=== PATIENT | male | born 1945 | race Caucasian/White ===

== ENCOUNTER 2019-05-30 19:56 | Emergency (ER) | payer MEDICARE, SELFPAY ==
[2019-05-30 20:00] VITALS: BP 139/75; PULSE 54; RESP 16; TEMP 36.7; O2SAT 98
--- NOTE | 2019-05-30 20:11 | ED.LOWEXIN ---
HPI - Extremity Injury (Lower) General Chief Complaint: Extremity Problem,Nontraumatic Stated Complaint: left foot/ankle swelling Time Seen by Provider: 05/30/19 20:12 Source: patient Mode of arrival: ambulatory Limitations: no limitations History of Present Illness HPI Narrative: A 73 y/o male presents to the ED with c/o left foot edema that began today. Pt's PCP recommended the pt present to the ED to r/o a blood clot. Pt has a PMHx of A-fib and 2 stents and is on Warfarin. Pt states he was placed on Amlodipine 3 months ago and was also recently placed on Losartan because his Metoprolol alone was not helping. Pt now takes all three BP medications. He denies SOB, CP, fatigue, and recent weight loss. Onset (ago): hour(s) Other symptoms: none Related Data Allergies Allergy/AdvReac Type Severity Reaction Status Date / Time Penicillins Allergy Unknown Hives Verified 05/30/19 20:19 Review of Systems Review of Systems: All systems reviewed & are unremarkable except as noted in HPI and below Constitutional: Constitutional: Denies fatigue Comments: Denies: recent weight loss Cardiovascular: Cardiovascular: Denies chest pain Comments: Reports: left foot edema Respiratory: Respiratory: Denies dyspnea PMFSH Past Medical History Medical History (Updated 05/30/19 @ 21:21 by Milan Chi MD) Afib (Acute) Arthritis (Acute) CAD (coronary artery disease) (Acute) Cataract (Acute) CPAP (continuous positive airway pressure) dependence (Acute) Hemorrhoids (Acute) HTN (hypertension) (Acute) Hyperlipidemia (Acute) Hypothyroid (Acute) Prostate CA (Acute) PTSD (post-traumatic stress disorder) (Acute) Sleep apnea (Acute) Surgical History Surgical History (Updated 05/30/19 @ 20:25 by Megan Wright) H/O bilateral cataract extraction (Acute) H/O prostatectomy (Acute) History of cardiac cath (Acute) Hx of heart artery stent (Acute) x2 Family History Family History (Updated 11/23/18 @ 18:39 by DOCTOR UNKNOWN) Mother Family history of coronary artery disease Father Family history of coronary artery disease Family history of malignant neoplasm Social History Social History Smoking status: Never smoker Alcohol intake: never Comments PCP: Dr. Harden Exam Narrative: Exam Narrative: GENERAL: Well-appearing, well-nourished, and in no acute distress. HEAD: Normocephalic, atraumatic. ENT: Mucous membranes moist. CHEST: Clear to auscultation. No respiratory distress. HEART: Regular rate and rhythm. Normal peripheral pulses. ABDOMEN: Soft, nontender, nondistended. EXTREMITIES: Normal range of motion. 2+ BLE edema. SKIN: Warm, dry, no rash. NEURO: Alert and oriented x3. Course Course Emergency Course: Labs unremarkable. I have arranged for a bilateral lower extremity Doppler ultrasound tomorrow morning's radiology. Patient will show up. He is therapeutic on his warfarin. Discharge home at this time. Patient may have edema as a side effect to his amlodipine or from recent dietary changes given the holidays and potentially high salt content in his food. Vital Signs Vital signs: Vital Signs Temperature 98.1 F 05/30/19 20:00 Pulse Rate 54 L 05/30/19 20:00 Respiratory Rate 16 05/30/19 20:00 Blood Pressure 139/75 05/30/19 20:00 Pulse Oximetry 98 05/30/19 20:00 Temperature 98.1 F 05/30/19 20:00 Pulse Rate 58 L 05/30/19 20:34 Respiratory Rate 16 05/30/19 20:00 Blood Pressure 139/75 05/30/19 20:00 Pulse Oximetry 98 05/30/19 20:00 MDM - Extremity Injury (Lower) Lab Data Result diagrams: 05/30/19 20:32 05/30/19 20:32 Labs: Lab Results 05/30/19 05/30/19 05/30/19 Range/Units 20:32 20:32 20:32 WBC 5.4 (4.5-10.0) K/mm3 RBC 4.29 L (4.6-6.20) M/mm3 Hgb 13.8 L (14.0-18.0) g/dL Hct 40.0 L (42.0-52.0) % MCV 93.2 (80-100) fl MCH 32.2 (26-34) pg MCHC 34.5 (32-36) g/dl RDW 14.6 H (11.5-14.5) % Plt Count
[2019-05-30 20:34] VITALS: PULSE 58
[2019-05-30 20:38] LABS: Basophils Percent Auto 0.6 % (0.2-1.2); Eosinophils Absolute Auto 0.1 K/mm3 (0-0.3); Eosinophils Percent Auto 2.6 % (0-4.4); Hemoglobin 13.8 g/dL (14.0-18.0); Immature Granulocyte Absolute 0.01 K/mm3 (0.00-0.031); Immature Granulocyte Percent A 0.2 % (0-0.5); Lymphocytes Absolute Auto 1.06 K/mm3 (0.9-3.2); Lymphocytes Percent Auto 19.7 % (18.3-44.2); Mean Corpuscular HGB Conc 34.5 g/dl (32-36); Mean Corpuscular Hemoglobin 32.2 pg (26-34); Mean Corpuscular Volume 93.2 fl (80-100); Mean Platelet Volume 9.2 fl (7.4-10.4); Monocytes Absolute Auto 0.6 K/mm3 (0.1-0.6); Monocytes Percent Auto 10.9 % (2.6-8.5); Neutrophils Absolute Auto 3.6 K/mm3 (1.3-6.7); Platelet Count Result 210 k/mm3 (150-375); Red Blood Count 4.29 M/mm3 (4.6-6.20); Red Cell Distribution Width 14.6 % (11.5-14.5); White Blood Count 5.4 K/mm3 (4.5-10.0)
[2019-05-30 20:48] LABS: INR 2.2; Prothrombin Time 24.2 Seconds (11.1-14.7)
[2019-05-30 20:51] LABS: Blood Urea Nitrogen 21 mg/dL (9-20); Carbon Dioxide 26 mmol/L (22-30); Chloride 95 mmol/L (98-107); Estimated CRCL calculation 69 ml/min; Estimated Glomerular Filt Rate > 60; Glucose 99 mg/dL (75-110); Potassium 3.9 mmol/L (3.4-5.0); Sodium 131 mmol/L (137-145)
[2019-05-30 21:01] LABS: NT Pro B Type Natriuretic Pept 82 PG/ML (5-100)
== END 2019-05-30 21:27 | disposition home or self-care (01) ==
PROVIDERS: Emergency Provider Emergency Medicine; PCP Internal Medicine
DX: R60.0 Localized edema (principal); I48.91 Unspecified atrial fibrillation; I10 Essential (primary) hypertension; I25.10 Atherosclerotic heart disease of native coronary artery without angina pectoris; E78.5 Hyperlipidemia, unspecified; E03.9 Hypothyroidism, unspecified; Z95.5 Presence of coronary angioplasty implant and graft; Z79.01 Long term (current) use of anticoagulants
CPT/HCPCS: 36415; 80048; 83880; 85025; 85610; 99283

== ENCOUNTER 2019-09-28 11:44 | Outpatient (CLI) | payer MEDICARE, SELFPAY ==
[2019-09-28 12:55] LABS: Thyroid Stimulating Hormone 0.875 uIU/mL (0.465-4.680)
== END 2019-09-28 11:45 | disposition home or self-care (01) ==
PROVIDERS: PCP Internal Medicine; Visit Provider Internal Medicine
DX: E03.9 Hypothyroidism, unspecified (principal); S56.212A Strain of other flexor muscle, fascia and tendon at forearm level, left arm, initial encounter; X58.XXXA Exposure to other specified factors, initial encounter
CPT/HCPCS: 36415; 84443

== ENCOUNTER 2019-09-29 16:11 | Outpatient (CLI) | payer MEDICARE, SELFPAY ==
--- NOTE | ~2019-09-29 | MR_ITS ---
EXAMINATION: MR elbow LT wo con DATE: 09/29/2019 17:56 INDICATION: Left elbow pain. TECHNIQUE: Magnetic resonance imaging (MRI) of the left elbow was performed without intravenous contr ast. Sequences included coronal and axial PD-weighted FS FSE and coronal, axial, and sagittal PD-weig hted FSE. The patient ended the exam due to pain. COMPARISON: None FINDINGS: Osseous/other: Bone alignment is normal. No fracture. The elbow joint demonstrates partial thickness cartilage loss in ulnohumeral joint. There are tiny marginal osteophytes in the elbow joint. Tendons: Biceps tendon and brachialis tendon are normal. There is moderate common extensor tendinopathy with p artial tear at the origin. There is severe common flexor tendinopathy. There is a hematoma in pronato r teres muscle, consistent with partial tear. Ligaments: There are changes of prior sprain of radial collateral ligament characterized by increased signal int ensity. Lateral ulnar collateral ligament and ulnar collateral ligament are intact. Cubital tunnel: The ulnar nerve demonstrates increased signal, consistent with neuropathy. Fluid: There is no elbow joint effusion. IMPRESSION: 1. Partial tear of pronator teres muscle (grade 2 strain). 2. Severe common flexor tendinopathy. 3. Partial tear of common extensor origin at lateral humeral epicondyle. 4. Mild elbow joint osteoarthritis. 5. Mild ulnar neuropathy. Reviewed, dictated and finalized at location E.
== END 2019-09-29 16:12 | disposition home or self-care (01) ==
PROVIDERS: PCP Internal Medicine; Visit Provider Internal Medicine
DX: S56.212A Strain of other flexor muscle, fascia and tendon at forearm level, left arm, initial encounter (principal); M75.82 Other shoulder lesions, left shoulder; M19.022 Primary osteoarthritis, left elbow; G56.22 Lesion of ulnar nerve, left upper limb
CPT/HCPCS: 73221

== ENCOUNTER 2019-12-20 08:39 | Outpatient (CLI) | payer MEDICARE, SELFPAY ==
[2019-12-20 09:15] LABS: Blood Urea Nitrogen 15 mg/dL (9-20); Carbon Dioxide 29 mmol/L (22-30); Chloride 99 mmol/L (98-107); Cholesterol 133 mg/dL (0-200); Estimated Glomerular Filt Rate > 60; Glucose 101 mg/dL (75-110); HDL Direct 46 mg/dL; Potassium 4.2 mmol/L (3.4-5.0); Sodium 134 mmol/L (137-145); Triglycerides 102 mg/dL (<150)
[2019-12-20 09:17] LABS: Hemoglobin A1C 5.8 % (<5.7)
[2019-12-20 09:20] LABS: Basophils Percent Auto 0.7 % (0.2-1.2); Eosinophils Absolute Auto 0.1 K/mm3 (0-0.3); Eosinophils Percent Auto 2.5 % (0-4.4); Hematocrit 43.9 % (42.0-52.0); Immature Granulocyte Absolute 0.01 K/mm3 (0.00-0.031); Immature Granulocyte Percent A 0.2 % (0-0.5); Lymphocytes Absolute Auto 0.75 K/mm3 (0.9-3.2); Lymphocytes Percent Auto 17.3 % (18.3-44.2); Mean Corpuscular HGB Conc 34.2 g/dl (32-36); Mean Corpuscular Hemoglobin 31.8 pg (26-34); Mean Platelet Volume 9.3 fl (7.4-10.4); Monocytes Absolute Auto 0.5 K/mm3 (0.1-0.6); Monocytes Percent Auto 10.4 % (2.6-8.5); Neutrophils Percent Auto 68.9 % (45.5-73.1); Platelet Count Result 206 k/mm3 (150-375); Red Blood Count 4.72 M/mm3 (4.6-6.20); Red Cell Distribution Width 13.6 % (11.5-14.5); White Blood Count 4.3 K/mm3 (4.5-10.0)
[2019-12-20 09:25] LABS: LDL Cholesterol Direct 62 mg/dL
[2019-12-20 09:45] LABS: Thyroid Stimulating Hormone 0.908 uIU/mL (0.465-4.680)
[2019-12-20 09:46] LABS: Free T4 Free Thyroxine 1.42 ng/mL (0.78-2.19)
== END 2019-12-20 08:40 | disposition home or self-care (01) ==
LOC: ANHLAB 08:42
PROVIDERS: PCP Internal Medicine; Visit Provider Internal Medicine
DX: I10 Essential (primary) hypertension (principal); Z79.899 Other long term (current) drug therapy; E03.9 Hypothyroidism, unspecified; E78.2 Mixed hyperlipidemia
CPT/HCPCS: 36415; 80048; 80061; 83036; 84439; 84443; 85025

== ENCOUNTER 2020-04-10 08:02 | Outpatient (CLI) | payer MEDICARE, SELFPAY ==
[2020-04-10 08:27] LABS: Basophils Percent Auto 0.4 % (0.2-1.2); Eosinophils Absolute Auto 0.1 K/mm3 (0-0.3); Hematocrit 43.3 % (42.0-52.0); Hemoglobin 15.4 g/dL (14.0-18.0); Immature Granulocyte Absolute 0.01 K/mm3 (0.00-0.031); Immature Granulocyte Percent A 0.2 % (0-0.5); Lymphocytes Absolute Auto 0.54 K/mm3 (0.9-3.2); Lymphocytes Percent Auto 10.6 % (18.3-44.2); Mean Corpuscular HGB Conc 35.6 g/dl (32-36); Mean Corpuscular Volume 92.7 fl (80-100); Mean Platelet Volume 9.3 fl (7.4-10.4); Monocytes Absolute Auto 0.5 K/mm3 (0.1-0.6); Monocytes Percent Auto 9.3 % (2.6-8.5); Neutrophils Absolute Auto 3.9 K/mm3 (1.3-6.7); Neutrophils Percent Auto 77.5 % (45.5-73.1); Platelet Count Result 216 k/mm3 (150-375); Red Blood Count 4.67 M/mm3 (4.6-6.20); Red Cell Distribution Width 13.9 % (11.5-14.5); White Blood Count 5.1 K/mm3 (4.5-10.0)
[2020-04-10 08:38] LABS: Anion Gap 7 mmol/L (8-16); Blood Urea Nitrogen 14 mg/dL (9-20); Calcium 9.6 mg/dL (8.4-10.2); Carbon Dioxide 32 mmol/L (22-30); Chloride 97 mmol/L (98-107); Cholesterol 119 mg/dL (0-200); Estimated Glomerular Filt Rate > 60; Glucose 104 mg/dL (75-110); HDL Direct 46 mg/dL; Potassium 4.1 mmol/L (3.4-5.0); Sodium 136 mmol/L (137-145); Triglycerides 68 mg/dL (<150)
[2020-04-10 08:39] LABS: Hemoglobin A1C 5.3 % (<5.7)
[2020-04-10 08:49] LABS: LDL Cholesterol Direct 49 mg/dL
[2020-04-10 09:09] LABS: Thyroid Stimulating Hormone 0.516 uIU/mL (0.465-4.680)
[2020-04-10 09:20] LABS: Free T4 Free Thyroxine 1.46 ng/mL (0.78-2.19)
[2020-04-15 06:08] LABS: Homocysteine 13.3 umol/L (<11.4)
== END 2020-04-10 08:03 | disposition home or self-care (01) ==
PROVIDERS: PCP Internal Medicine; Visit Provider Internal Medicine
DX: R73.03 Prediabetes (principal); E03.9 Hypothyroidism, unspecified; E78.2 Mixed hyperlipidemia; I10 Essential (primary) hypertension; Z79.899 Other long term (current) drug therapy; R79.9 Abnormal finding of blood chemistry, unspecified
CPT/HCPCS: 36415; 80048; 80061; 83036; 83090; 84439; 84443; 85025

== ENCOUNTER 2020-04-15 10:16 | Outpatient (RCR) | payer MEDICARE, SELFPAY ==
[2020-01-22 14:03] LABS: Prothrombin Time 22.6 Seconds (11.1-14.7)
[2020-02-22 16:19] LABS: INR 2.1; Prothrombin Time 23.3 Seconds (11.1-14.7)
[2020-04-15 11:17] LABS: INR 3.4; Prothrombin Time 33.6 Seconds (11.1-14.7)
== END 2020-04-21 23:59 | disposition home or self-care (01) ==
LOC: ANHLAB 10:16
PROVIDERS: PCP Internal Medicine; Visit Provider Internal Medicine Cardiovascular Disease
DX: I48.0 Paroxysmal atrial fibrillation (principal)
CPT/HCPCS: 36415; 85610

== ENCOUNTER 2020-05-06 12:33 | Outpatient (CLI) | payer MEDICARE, SELFPAY ==
[2020-05-06 13:49] LABS: Calcium 9.3 mg/dL (8.4-10.2); Magnesium 2.4 mg/dL (1.6-2.3)
[2020-05-09 23:18] LABS: Vitamin D 1,25 (OH)2 Total 53 pg/mL (18-72); Vitamin D2 1,25 (OH)2 <8 pg/mL; Vitamin D3 1,25 (OH)2 53 pg/mL
== END 2020-05-06 12:34 | disposition home or self-care (01) ==
LOC: ANHLAB 12:35
PROVIDERS: PCP Internal Medicine; Visit Provider Internal Medicine
DX: E55.9 Vitamin D deficiency, unspecified (principal); G25.81 Restless legs syndrome
CPT/HCPCS: 36415; 82310; 82330; 82652; 83735

== ENCOUNTER 2020-05-07 13:34 | Outpatient (CLI) | payer MEDICARE, SELFPAY ==
--- NOTE | ~2020-05-07 | XR_ITS ---
EXAMINATION: XR knee RT 3V DATE: 05/07/2020 14:01 INDICATION: Right knee pain. TECHNIQUE: 3 views of right knee on 4 radiographs were obtained. COMPARISON: None. FINDINGS: Bone alignment is normal. No fracture. There is mild osteoarthritis of medial and patellofe moral compartments characterized by tiny marginal osteophytes. No knee joint effusion. IMPRESSION: 1. Mild right knee osteoarthritis. Reviewed, dictated and finalized at location B. ER MAKING LABORER
== END 2020-05-07 13:35 | disposition home or self-care (01) ==
PROVIDERS: PCP Internal Medicine; Visit Provider Internal Medicine
DX: Z86.718 Personal history of other venous thrombosis and embolism (principal); M17.11 Unilateral primary osteoarthritis, right knee
CPT/HCPCS: 73562

== ENCOUNTER 2020-06-18 13:36 | Outpatient (CLI) | payer MEDICARE, SELFPAY ==
--- NOTE | ~2020-06-18 | XR_ITS ---
EXAMINATION: XR lumbar spine min 4V EXAM DATE: 06/18/2020 14:09 INDICATION: M54.5 - Low back pain . TECHNIQUE: Lumber spine frontal, lateral, lateral L5-S1 projections for interpretation. Additional l ateral flexion and lateral extension projections obtained. There are no prior studies for comparison. FINDINGS: Moderate to severe disc disease L1-L3 and L4-5, moderate at L3-4 and L5-S1. Moderate to se gisella lumbar facet arthropathy. Grade 1 subluxations L1 on L2, L2 on L3 and L3 on L4, visualized on al l of the lateral projections. Mild diffuse loss of lumbar vertebral body heights without acute fractu re line identified. Mild aortic arterial sclerosis. Paraspinal soft tissue otherwise unremarkable. Sa chan, sacroiliac joints, sacral arcuate lines are intact. Mild to moderate lumbar dextroscoliosis. IMPRESSION: 1. Moderate to severe lumbar spondylosis. Reviewed, dictated and finalized at location B. DIATED FUEL HANDLER
== END 2020-06-18 13:37 | disposition home or self-care (01) ==
LOC: ANHIMG 13:40
PROVIDERS: PCP Internal Medicine; Visit Provider Internal Medicine
DX: M47.816 Spondylosis without myelopathy or radiculopathy, lumbar region (principal); I25.10 Atherosclerotic heart disease of native coronary artery without angina pectoris
CPT/HCPCS: 72110

== ENCOUNTER 2020-06-23 10:51 | Outpatient (CLI) | payer MEDICARE, SELFPAY ==
--- NOTE | ~2020-06-23 | MR_ITS ---
EXAMINATION: MR lumbar spine wo con EXAM DATE: 06/23/2020 11:36 INDICATION: M54.9 - Dorsalgia, low back pain unspecified. TECHNIQUE: Multi-sequential, multiplanar MR images of the lumbar spine were obtained without contrast . Sagittal T1, T2, T2 fat saturation images. Axial T2 weighted images. Comparison is made to prior examination from 05/13/2018. FINDINGS: Mild to moderate thoracolumbar dextroscoliosis, lower lumbar levoscoliosis. There is moder ate to severe disc disease L1-L3 and L4-5, moderate at L3-4 and mild at L5-S1. Mild to moderate lower thoracic disc disease. The conus medullaris terminates at the T12-L1 level and has normal signal int ensity and morphology. Mild diffuse loss of vertebral body heights without acute compression fractur e. There is 4 mm retrolisthesis L3 on L4. Paraspinal soft tissue is unremarkable. Level by level evaluation: T12-L1: Disc does not extend beyond the endplate margin. Facet arthropathy: Mild. Neural foraminal stenosis: No stenosis. Central canal stenosis: No stenosis. L1-L2: There is a moderate diffuse disc bulge. Facet arthropathy: Mild to moderate. Neural foraminal stenosis: Moderate left, mild right. Central canal stenosis: Mild to moderate. L2-L3: There is a moderate diffuse disc bulge. Facet arthropathy: Mild to moderate. Neural foraminal stenosis: Moderate left, mild to moderate right. Central canal stenosis: Mild. L3-L4: There is a moderate to large diffuse disc bulge. Facet arthropathy: Moderate to severe right, moderate left. Neural foraminal stenosis: Moderate bilateral, right greater than left. Central canal stenosis: Moderate. L4-L5: There is a moderate diffuse disc bulge. Facet arthropathy: Moderate to severe right, moderate left. Neural foraminal stenosis: Moderate to severe right, mild to moderate left. Central canal stenosis: Mild to moderate. L5-S1: There is a mild diffuse disc bulge. Facet arthropathy: Mild to moderate. Neural foraminal stenosis: Mild right. Central canal stenosis: No stenosis. Compared to prior study, difficult to appreciate any significant interval change. IMPRESSION: 1. Mild to moderate thoracolumbar scoliosis. 2. Moderate to severe spondylosis. Reviewed, dictated and finalized at location B. OPERATIONS MANAGER
== END 2020-06-23 10:52 | disposition home or self-care (01) ==
PROVIDERS: PCP Internal Medicine; Visit Provider Internal Medicine
DX: M47.816 Spondylosis without myelopathy or radiculopathy, lumbar region (principal); M54.30 Sciatica, unspecified side; M41.9 Scoliosis, unspecified
CPT/HCPCS: 72148

== ENCOUNTER 2020-06-24 12:33 | Outpatient (CLI) | payer MEDICARE, SELFPAY ==
--- NOTE | ~2020-06-24 | US_ITS ---
EXAMINATION: US venous doppler LE EXAM DATE: 06/24/2020 13:42 INDICATION: Right calf pain, history of DVT. TECHNIQUE: Multiple grayscale, color flow and Doppler images of the lower extremity deep venous syste ms bilaterally were obtained and reviewed. Comparison is made to prior examination from 05/31/2019. FINDINGS: Right side: The right common femoral, femoral and profunda veins demonstrate normal color flow, respi ratory variation, augmentation and compressibility. Compressibility, color flow confirmed within the right popliteal, posterior tibial, peroneal, and greater saphenous veins. Left side: The left common femoral, femoral and profunda veins demonstrate normal color flow, respira tory variation, augmentation and compressibility. Compressibility, color flow confirmed within the l eft popliteal, posterior tibial, peroneal, and greater saphenous veins. IMPRESSION: 1. No lower extremity deep venous thrombosis bilaterally. Reviewed, dictated and finalized at location B. DENTIAL INTERIOR DESIGNER
--- NOTE | ~2020-06-24 | US_ITS ---
EXAMINATION: US soft tissue buttock LT DATE: 06/24/2020 13:42 INDICATION: Soft tissue mass at the left buttock. TECHNIQUE: Multiple grayscale and Doppler ultrasound images of the region of concern at the left butt ock were obtained. COMPARISON: None FINDINGS/IMPRESSION: Normal appearance to the subcutaneous fat at the region of concern. No abnormal masses or fluid colle ctions identified. Reviewed, dictated and finalized at location A. HERIZATION ADMINISTRATOR
== END 2020-06-24 12:34 | disposition home or self-care (01) ==
LOC: ANHIMG 12:37
PROVIDERS: PCP Internal Medicine; Visit Provider Internal Medicine
DX: M79.662 Pain in left lower leg (principal); M79.661 Pain in right lower leg; M79.89 Other specified soft tissue disorders
CPT/HCPCS: 76705; 93970

== ENCOUNTER 2020-07-15 12:28 | Outpatient (RCR) | payer MEDICARE, SELFPAY ==
[2020-04-22 13:18] LABS: INR 2.5; Prothrombin Time 26.2 Seconds (11.1-14.7)
[2020-04-29 15:05] LABS: INR 2.6; Prothrombin Time 28.7 Seconds (11.1-14.7)
[2020-05-06 13:45] LABS: INR 1.9; Prothrombin Time 22.1 Seconds (11.1-14.7)
[2020-05-13 13:32] LABS: INR 2.5; Prothrombin Time 27.9 Seconds (11.1-14.7)
[2020-06-10 12:23] LABS: INR 2.6; Prothrombin Time 28.2 Seconds (11.1-14.7)
[2020-07-15 13:27] LABS: INR 2.4; Prothrombin Time 26.7 Seconds (11.1-14.7)
== END 2020-07-21 23:59 | disposition home or self-care (01) ==
LOC: ANHLAB 12:28
PROVIDERS: PCP Internal Medicine; Visit Provider Internal Medicine Cardiovascular Disease
DX: I48.0 Paroxysmal atrial fibrillation (principal)
CPT/HCPCS: 36415; 85610

== ENCOUNTER 2020-10-01 13:19 | Outpatient (CLI) | payer MEDICARE, SELFPAY ==
[2020-10-01 13:52] LABS: Basophils Percent Auto 0.4 % (0.2-1.2); Eosinophils Absolute Auto 0.1 K/mm3 (0-0.3); Eosinophils Percent Auto 1.1 % (0-4.4); Hematocrit 42.4 % (42.0-52.0); Hemoglobin 15.1 g/dL (14.0-18.0); Immature Granulocyte Absolute 0.02 K/mm3 (0.00-0.031); Immature Granulocyte Percent A 0.4 % (0-0.5); Lymphocytes Absolute Auto 0.64 K/mm3 (0.9-3.2); Lymphocytes Percent Auto 11.2 % (18.3-44.2); Mean Corpuscular HGB Conc 35.6 g/dl (32-36); Mean Corpuscular Hemoglobin 32.8 pg (26-34); Mean Corpuscular Volume 92.2 fl (80-100); Mean Platelet Volume 8.9 fl (7.4-10.4); Monocytes Absolute Auto 0.6 K/mm3 (0.1-0.6); Monocytes Percent Auto 10.5 % (2.6-8.5); Neutrophils Absolute Auto 4.4 K/mm3 (1.3-6.7); Neutrophils Percent Auto 76.4 % (45.5-73.1); Platelet Count Result 199 k/mm3 (150-375); White Blood Count 5.7 K/mm3 (4.5-10.0)
[2020-10-01 14:04] LABS: Hemoglobin A1C 5.5 % (<5.7)
[2020-10-01 14:06] LABS: Alanine Aminotransferase 24 U/L (4-50); Albumin Level 4.5 g/dL (3.5-5.1); Alkaline Phosphatase 55 U/L (38-126); Anion Gap 6 mmol/L (8-16); Aspartate Amino Transferase 30 U/L (17-59); Bilirubin,Total 0.5 mg/dL (0.2-1.3); Blood Urea Nitrogen 13 mg/dL (9-20); Carbon Dioxide 29 mmol/L (22-30); Chloride 91 mmol/L (98-107); Estimated Glomerular Filt Rate > 60; Glucose 100 mg/dL (75-110); Potassium 4.5 mmol/L (3.4-5.0); Sodium 126 mmol/L (137-145)
== END 2020-10-01 13:20 | disposition home or self-care (01) ==
LOC: ANHLAB 13:22
PROVIDERS: PCP Internal Medicine; Visit Provider Internal Medicine
DX: G47.33 Obstructive sleep apnea (adult) (pediatric) (principal); R73.03 Prediabetes; R79.89 Other specified abnormal findings of blood chemistry; Z51.81 Encounter for therapeutic drug level monitoring; Z79.899 Other long term (current) drug therapy; Z99.89 Dependence on other enabling machines and devices
CPT/HCPCS: 36415; 80053; 83036; 83090; 85025

== ENCOUNTER 2020-10-03 12:23 | Outpatient (CLI) | payer MEDICARE, SELFPAY ==
[2020-10-03 12:56] LABS: Anion Gap 4 mmol/L (8-16); Blood Urea Nitrogen 11 mg/dL (9-20); Calcium 8.8 mg/dL (8.4-10.2); Carbon Dioxide 30 mmol/L (22-30); Chloride 91 mmol/L (98-107); Estimated Glomerular Filt Rate > 60; Glucose 94 mg/dL (75-110); Sodium 125 mmol/L (137-145)
[2020-10-03 12:58] LABS: Potassium Urine Random 73.3 meq/L; Sodium Urine Random 14 meq/L
[2020-10-06 05:32] LABS: Osmolality, Urine 327 mOsm/kg (50-1200)
[2020-10-08 14:02] LABS: Chloride Rand Ur 33 mmol/L (32-290); Chloride/Creatinine Rand Ur 36 (23-275); Creatinine Random Urine 91 mg/dL (20-320)
== END 2020-10-03 12:24 | disposition home or self-care (01) ==
PROVIDERS: PCP Internal Medicine; Visit Provider Internal Medicine
DX: E87.1 Hypo-osmolality and hyponatremia (principal)
CPT/HCPCS: 36415; 80048; 82436; 82570; 83930; 83935; 84133; 84300

== ENCOUNTER 2020-10-07 07:31 | Outpatient (CLI) | payer MEDICARE, SELFPAY ==
[2020-10-07 08:12] LABS: Anion Gap 4 mmol/L (8-16); Blood Urea Nitrogen 12 mg/dL (9-20); Calcium 9.1 mg/dL (8.4-10.2); Carbon Dioxide 30 mmol/L (22-30); Chloride 100 mmol/L (98-107); Estimated Glomerular Filt Rate > 60; Glucose 92 mg/dL (75-110); Potassium 3.8 mmol/L (3.4-5.0); Sodium 134 mmol/L (137-145)
== END 2020-10-07 07:32 | disposition home or self-care (01) ==
PROVIDERS: PCP Internal Medicine; Visit Provider Internal Medicine
DX: E87.1 Hypo-osmolality and hyponatremia (principal)
CPT/HCPCS: 36415; 80048

== ENCOUNTER 2020-10-07 13:09 | Outpatient (CLI) | payer MEDICARE, SELFPAY ==
--- NOTE | ~2020-10-07 | US_ITS ---
EXAMINATION: US venous doppler LE RT DATE: 10/07/2020 14:05 INDICATION: Right lower limb bruising and pain TECHNIQUE: Johnson scale images without and with compression and Doppler images of the right lower extre mity veins were obtained. COMPARISON: 06/24/2020 FINDINGS: The right common femoral vein, profunda femoral vein, popliteal vein, and femoral vein are patent. The posterior tibial and peroneal veins are not well visualized but appear to demonstrate oma w. IMPRESSION: 1. No evidence of deep venous thrombosis. Reviewed, dictated and finalized at location B.
== END 2020-10-07 13:10 | disposition home or self-care (01) ==
PROVIDERS: PCP Internal Medicine; Visit Provider Internal Medicine
DX: M79.604 Pain in right leg (principal)
CPT/HCPCS: 36415; 80048; 93971

== ENCOUNTER 2020-12-23 06:52 | Outpatient (CLI) | payer MEDICARE, SELFPAY ==
[2020-12-23 07:42] LABS: Add Urine Microscopic? NO; Appearance Urine Clear (Clear); Bilirubin Urine Negative (Negative); Blood Urine Negative (Negative); Color Urine Yellow (Yellow); Glucose Urine UA Negative (Negative); Ketones Urine Negative (Negative); Leukocyte Esterase Ur Negative LEU/UL (NEGATIVE); Nitrate Urine Negative (Negative); Protein Urine Negative (Negative); Specific Grav Ur 1.012 (1.001-1.035); Urobilinogen Urine Negative mg/dL (<2.0)
[2020-12-23 07:56] LABS: Alanine Aminotransferase 29 U/L (4-50); Albumin Level 4.2 g/dL (3.5-5.1); Alkaline Phosphatase 52 U/L (38-126); Anion Gap 5 mmol/L (8-16); Aspartate Amino Transferase 35 U/L (17-59); Bilirubin,Total 0.6 mg/dL (0.2-1.3); Blood Urea Nitrogen 15 mg/dL (9-20); Calcium 9.4 mg/dL (8.4-10.2); Carbon Dioxide 30 mmol/L (22-30); Chloride 101 mmol/L (98-107); Cholesterol 119 mg/dL (0-200); Estimated Glomerular Filt Rate > 60; Glucose 93 mg/dL (75-110); HDL Direct 53 mg/dL; Sodium 136 mmol/L (137-145); Triglycerides 66 mg/dL (<150)
[2020-12-23 08:08] LABS: LDL Cholesterol Direct 46 mg/dL
[2020-12-23 08:40] LABS: Free T4 Free Thyroxine 1.17 ng/mL (0.78-2.19)
[2020-12-26 20:48] LABS: Vitamin D 1,25 (OH)2 Total 30 pg/mL (18-72); Vitamin D2 1,25 (OH)2 <8 pg/mL; Vitamin D3 1,25 (OH)2 30 pg/mL
== END 2020-12-23 06:53 | disposition home or self-care (01) ==
PROVIDERS: PCP Internal Medicine; Visit Provider Internal Medicine
DX: E78.2 Mixed hyperlipidemia (principal); E55.9 Vitamin D deficiency, unspecified; E03.9 Hypothyroidism, unspecified; I10 Essential (primary) hypertension; Z79.899 Other long term (current) drug therapy
CPT/HCPCS: 36415; 80053; 80061; 81003; 82652; 84439; 84443

== ENCOUNTER 2021-04-25 07:32 | Outpatient (CLI) | payer MEDICARE, SELFPAY ==
[2021-04-25 08:08] LABS: Basophils Percent Auto 0.7 % (0.2-1.2); Eosinophils Absolute Auto 0.1 K/mm3 (0-0.3); Eosinophils Percent Auto 2.3 % (0-4.4); Hematocrit 44.1 % (42.0-52.0); Hemoglobin 15.9 g/dL (14.0-18.0); Immature Granulocyte Absolute 0.02 K/mm3 (0.00-0.031); Immature Granulocyte Percent A 0.5 % (0-0.5); Lymphocytes Absolute Auto 0.84 K/mm3 (0.9-3.2); Lymphocytes Percent Auto 19.7 % (18.3-44.2); Mean Corpuscular HGB Conc 36.1 g/dl (32-36); Mean Corpuscular Hemoglobin 32.9 pg (26-34); Mean Corpuscular Volume 91.3 fl (80-100); Mean Platelet Volume 9.1 fl (7.4-10.4); Monocytes Absolute Auto 0.4 K/mm3 (0.1-0.6); Monocytes Percent Auto 9.9 % (2.6-8.5); Neutrophils Absolute Auto 2.9 K/mm3 (1.3-6.7); Neutrophils Percent Auto 66.9 % (45.5-73.1); Platelet Count Result 213 k/mm3 (150-375); Red Blood Count 4.83 M/mm3 (4.6-6.20); Red Cell Distribution Width 13.7 % (11.5-14.5); White Blood Count 4.3 K/mm3 (4.5-10.0)
[2021-04-25 08:19] LABS: Hemoglobin A1C 5.6 % (<5.7)
[2021-04-25 08:27] LABS: LDL Cholesterol Direct 49 mg/dL
[2021-04-25 08:32] LABS: Free T4 Free Thyroxine 1.37 ng/mL (0.78-2.19)
[2021-04-25 08:57] LABS: Alanine Aminotransferase 34 U/L (4-50); Albumin Level 4.4 g/dL (3.5-5.1); Alkaline Phosphatase 59 U/L (38-126); Anion Gap 6 mmol/L (8-16); Aspartate Amino Transferase 39 U/L (17-59); Bilirubin,Total 0.8 mg/dL (0.2-1.3); Blood Urea Nitrogen 12 mg/dL (9-20); Calcium 9.5 mg/dL (8.4-10.2); Carbon Dioxide 31 mmol/L (22-30); Chloride 91 mmol/L (98-107); Cholesterol 124 mg/dL (0-200); Estimated Glomerular Filt Rate > 60; Glucose 93 mg/dL (65-110); HDL Direct 54 mg/dL; Sodium 128 mmol/L (137-145); Triglycerides 74 mg/dL (<150); Uric Acid 2.9 mg/dL (3.5-8.5)
== END 2021-04-25 07:33 | disposition home or self-care (01) ==
LOC: ANHLAB 07:37
PROVIDERS: PCP Internal Medicine; Visit Provider Internal Medicine
DX: E03.9 Hypothyroidism, unspecified (principal); I10 Essential (primary) hypertension; M10.9 Gout, unspecified; E78.5 Hyperlipidemia, unspecified; Z79.899 Other long term (current) drug therapy
CPT/HCPCS: 36415; 80053; 80061; 83036; 84439; 84443; 84550; 85025

== ENCOUNTER 2021-05-28 09:46 | Outpatient (CLI) | payer MEDICARE, SELFPAY ==
[2021-05-28 10:46] LABS: Anion Gap 10 mmol/L (8-16); Blood Urea Nitrogen 14 mg/dL (9-20); Calcium 9.2 mg/dL (8.4-10.2); Carbon Dioxide 26 mmol/L (22-30); Chloride 95 mmol/L (98-107); Estimated Glomerular Filt Rate > 60; Glucose 104 mg/dL (65-110); Potassium 4.2 mmol/L (3.4-5.0); Sodium 131 mmol/L (137-145)
[2021-05-28 11:05] LABS: Free T4 Free Thyroxine 1.46 ng/mL (0.78-2.19)
== END 2021-05-28 09:47 | disposition home or self-care (01) ==
LOC: ANHLAB 09:51
PROVIDERS: PCP Internal Medicine; Visit Provider Internal Medicine
DX: E03.9 Hypothyroidism, unspecified (principal); E87.1 Hypo-osmolality and hyponatremia
CPT/HCPCS: 36415; 80048; 84439; 84443

== ENCOUNTER 2021-08-18 07:14 | Outpatient (CLI) | payer MEDICARE, SELFPAY ==
--- NOTE | ~2021-08-18 | XR_ITS ---
EXAMINATION: XR abdomen/kub 1V EXAM DATE: 08/18/2021 08:05 INDICATION: R10.33 - Periumbilical pain. Had bloating sensation, pain, discomfort last week which has mostly resolved. TECHNIQUE: Frontal projection(s) of the abdomen for interpretation as a supervisor record press image for upper GI smal l bowel follow-through. Patient expressed concern about the barium making him constipated. We discuss ed patient's symptoms, medications, indications for this procedure, other tests that patient was havi ng this morning including abdominal ultrasound and lab work. Since his symptoms were mostly resolved at this time and we were unaware of any other reason for performing exam, he declined ingesting bariu m at this time. I stated that if symptoms return he can always reschedule the procedure. FINDINGS: Moderate amount of colonic stool and gas. No small bowel obstruction. There is mild to mod erate lumbar dextroscoliosis and moderate mid lumbar disc disease. There is no organomegaly. No suspi cious soft tissue calcifications identified. IMPRESSION: Moderate amount of colonic stool and gas. Reviewed, dictated and finalized at location A. EILLANCE SUPERVISOR
--- NOTE | ~2021-08-18 | US_ITS ---
EXAMINATION: US abdomen limited EXAM DATE: 08/18/2021 07:48 INDICATION: R14.0 - Abdominal distension (gaseous). TECHNIQUE: Multiple grayscale and Doppler images of the abdomen right upper quadrant were obtained (b y a technologist who performed the scan) and subsequently reviewed. There is no prior study for melina pham. FINDINGS: The pancreatic head and body are normal in appearance. The pancreatic tail is not visualized. The l iver has normal echogenicity and contour. There are no focal liver lesions identified. There is no evidence of intrahepatic biliary duct dilation. Portal venous flow was seen in the hepatopedal, nor mal direction and has normal Doppler waveform. No right-sided hydronephrosis. Common bile duct measures 3 mm, which is normal. The gallbladder wall is normal in thickness, with ex pected amount of distention. No sonographic evidence of pericholecystic fluid. There is no cholelit hiases. Technologist performing exam reports patient did not demonstrate sonographic Koroma's sign. Please note that this sign is less reliable in patients who have received pain medication. IMPRESSION: Unremarkable abdominal ultrasound exam. Reviewed, dictated and finalized at location A. THCARE ARCHITECT
[2021-08-18 09:10] LABS: Alanine Aminotransferase 30 U/L (4-50); Albumin Level 4.5 g/dL (3.5-5.1); Alkaline Phosphatase 69 U/L (38-126); Amylase 109 U/L (30-110); Aspartate Amino Transferase 39 U/L (17-59); Bilirubin,Total 0.9 mg/dL (0.2-1.3); Lipase 106 U/L (23-300)
== END 2021-08-18 07:15 | disposition home or self-care (01) ==
LOC: ANHIMG 07:20
PROVIDERS: PCP Internal Medicine; Visit Provider Internal Medicine
DX: R10.33 Periumbilical pain (principal); R14.0 Abdominal distension (gaseous); Z51.81 Encounter for therapeutic drug level monitoring; Z79.899 Other long term (current) drug therapy; K59.00 Constipation, unspecified; M41.9 Scoliosis, unspecified
CPT/HCPCS: 36415; 74018; 76705; 80076; 82150; 83690

== ENCOUNTER 2021-08-28 14:18 | Outpatient (CLI) | payer MEDICARE, SELFPAY ==
--- NOTE | ~2021-08-28 | CT_ITS ---
EXAMINATION: CT abdomen w con DATE: 08/28/2021 14:53 INDICATION: Abdominal distention. TECHNIQUE: Computed tomography (CT) of the abdomen was performed with 100 cc Omnipaque 350 intravenou s contrast. The dose-length product was 428.85 mGy-cm. Automated exposure control and iterative recon struction technique were employed. COMPARISON: CT dated 08/23/2017. FINDINGS: There is dependent atelectasis. Elevated right diaphragm. Heart size normal. No significant pleural or pericardial effusion. The liver, spleen, pancreas, adrenal glands and right kidney are un remarkable. There is a subcentimeter hypodensity of the left kidney, most likely benign cysts. There is a left extrarenal pelvis. Bowel pattern is nonobstructive with moderate colonic fecal loading. No free air or free fluid. There is atherosclerosis of the aorta without aneurysm. No lymphadenopathy. T here is moderate-severe lower thoracic and lumbar spondylosis. IMPRESSION: 1. No acute abdominal abnormality. Reviewed, dictated and finalized at location A. OPERATOR
[2021-08-29 10:03] LABS: Estimated Glomerular Filt Rate > 60
== END 2021-08-28 14:19 | disposition home or self-care (01) ==
LOC: ANHIMG 14:21
PROVIDERS: PCP Internal Medicine; Visit Provider Internal Medicine
DX: R14.0 Abdominal distension (gaseous) (principal); R10.33 Periumbilical pain; K59.00 Constipation, unspecified; M47.815 Spondylosis without myelopathy or radiculopathy, thoracolumbar region
CPT/HCPCS: 74160; Q9967

== ENCOUNTER 2021-09-03 13:17 | Outpatient (CLI) | payer MEDICARE, SELFPAY | END 2021-09-03 13:18 | disposition home or self-care (01) | PROVIDERS: PCP Internal Medicine; Visit Provider Internal Medicine | DX: R14.0 Abdominal distension (gaseous) (principal); J30.9 Allergic rhinitis, unspecified | CPT/HCPCS: 36415; 86003 ==

== ENCOUNTER 2021-09-16 13:45 | Outpatient (CLI) | payer MEDICARE, SELFPAY ==
--- NOTE | 2021-09-16 | ECG_ITS ---
Measurements Intervals [place] Rate: 61 P: NE: 0 QRS: -38 QRSD: 110 T: 36 QT: 443 QTc: 447 Interpretive Statements SUPRAVENTRICULAR RHYTHM LOW QRS VOLTAGE IN PRECORDIAL LEADS [QRS DEFLECTION < 1.0 mV IN CHEST LEADS] INFERIOR MYOCARDIAL INFARCTION , PROBABLY OLD [40+ ms Q WAVE AND/OR ST/T ABNORMALITY IN II/aVF] ANTEROSEPTAL MYOCARDIAL INFARCTION , OF INDETERMINATE AGE [40+ ms Q WAVE IN V1-V4] ABNORMAL ECG NO PREVIOUS ECG AVAILABLE FOR COMPARISON Electronically Signed On 09-16-2021 17:12:58 CDT by Román Landeros M.D.
[2021-09-16 14:20] LABS: Anion Gap 6 mmol/L (8-16); Blood Urea Nitrogen 16 mg/dL (9-20); Calcium 8.9 mg/dL (8.4-10.2); Carbon Dioxide 29 mmol/L (22-30); Chloride 92 mmol/L (98-107); Estimated Glomerular Filt Rate > 60; Glucose 96 mg/dL (65-110); Potassium 4.4 mmol/L (3.4-5.0); Sodium 127 mmol/L (137-145)
== END 2021-09-16 13:46 | disposition home or self-care (01) ==
LOC: ANHLAB 13:49
PROVIDERS: PCP Internal Medicine
DX: Z51.81 Encounter for therapeutic drug level monitoring (principal); Z79.899 Other long term (current) drug therapy; I25.2 Old myocardial infarction
CPT/HCPCS: 36415; 80048; 93005

== ENCOUNTER 2021-10-13 07:46 | Outpatient (CLI) | payer MEDICARE, SELFPAY ==
[2021-10-13 09:23] LABS: Basophils Percent Auto 0.5 % (0.2-1.2); Eosinophils Absolute Auto 0.1 K/mm3 (0-0.3); Eosinophils Percent Auto 1.8 % (0-4.4); Hemoglobin 15.4 g/dL (14.0-18.0); Immature Granulocyte Absolute 0.01 K/mm3 (0.00-0.031); Immature Granulocyte Percent A 0.3 % (0-0.5); Lymphocytes Absolute Auto 0.64 K/mm3 (0.9-3.2); Lymphocytes Percent Auto 16.2 % (18.3-44.2); Mean Corpuscular HGB Conc 34.2 g/dl (32-36); Mean Corpuscular Hemoglobin 32.8 pg (26-34); Mean Corpuscular Volume 95.7 fl (80-100); Mean Platelet Volume 10.2 fl (7.4-10.4); Monocytes Absolute Auto 0.4 K/mm3 (0.1-0.6); Monocytes Percent Auto 11.1 % (2.6-8.5); Neutrophils Absolute Auto 2.8 K/mm3 (1.3-6.7); Neutrophils Percent Auto 70.1 % (45.5-73.1); Platelet Count Result 178 k/mm3 (150-375); Red Cell Distribution Width 14.1 % (11.5-14.5)
[2021-10-13 09:38] LABS: Alanine Aminotransferase 26 U/L (4-50); Albumin Level 4.3 g/dL (3.5-5.1); Alkaline Phosphatase 63 U/L (38-126); Anion Gap 7 mmol/L (8-16); Aspartate Amino Transferase 31 U/L (17-59); Bilirubin,Total 0.8 mg/dL (0.2-1.3); Blood Urea Nitrogen 14 mg/dL (9-20); Carbon Dioxide 28 mmol/L (22-30); Chloride 98 mmol/L (98-107); Estimated Glomerular Filt Rate > 60; Glucose 88 mg/dL (65-110); Potassium 4.1 mmol/L (3.4-5.0); Sodium 133 mmol/L (137-145)
[2021-10-13 09:39] LABS: Hemoglobin A1C 5.1 % (<5.7)
[2021-10-13 09:55] LABS: Free T4 Free Thyroxine 1.87 ng/mL (0.78-2.19); Vitamin D 25 Hydroxy 75.8 ng/mL
[2021-10-13 10:10] LABS: Thyroid Stimulating Hormone 0.198 uIU/mL (0.465-4.680)
[2021-10-13 10:48] LABS: Folic Acid > 20.0 ng/mL (2.76->20); Vitamin B12 > 1000.0 pg/mL (239-931)
[2021-10-15 09:36] LABS: Cholesterol 112 mg/dL (0-200); HDL Direct 44 mg/dL; Triglycerides 72 mg/dL (<150)
[2021-10-15 09:44] LABS: LDL Cholesterol Direct 40 mg/dL
== END 2021-10-13 07:47 | disposition home or self-care (01) ==
PROVIDERS: PCP Internal Medicine; Visit Provider Internal Medicine
DX: I10 Essential (primary) hypertension (principal); E03.9 Hypothyroidism, unspecified; E55.9 Vitamin D deficiency, unspecified; E53.8 Deficiency of other specified B group vitamins; R73.03 Prediabetes
CPT/HCPCS: 36415; 80053; 80061; 82306; 82607; 82746; 83036; 84439; 84443; 85025

== ENCOUNTER 2021-10-15 10:57 | Outpatient (CLI) | payer MEDICARE, SELFPAY ==
--- NOTE | ~2021-10-15 | XR_ITS ---
EXAMINATION: XR chest 2V DATE: 10/15/2021 11:20 INDICATION: Hyponatremia. TECHNIQUE: Frontal and lateral views of the chest were obtained. COMPARISON: CT abdomen 08/28/2021 FINDINGS: There is mild atelectasis in right middle lobe. No pleural effusion or pneumothorax. The he art size is normal. There is mild chronic anterior wedging of 2 midthoracic vertebral bodies. IMPRESSION: 1. Mild atelectasis in right middle lobe. Reviewed, dictated and finalized at location B.
== END 2021-10-15 10:58 | disposition home or self-care (01) ==
LOC: ANHIMG 10:59
PROVIDERS: PCP Internal Medicine; Visit Provider Internal Medicine Nephrology
DX: E87.1 Hypo-osmolality and hyponatremia (principal); J98.11 Atelectasis
CPT/HCPCS: 71046

== ENCOUNTER 2021-10-24 22:02 | Emergency (ER) | payer MEDICARE, SELFPAY ==
[2021-10-24 22:08] VITALS: BP 153/91; PULSE 60; RESP 18; TEMP 36.6; O2SAT 97
[2021-10-24 22:16] VITALS: BP 188/97; RESP 17; O2SAT 98
--- NOTE | 2021-10-24 22:27 | ECG_ITS ---
Measurements Intervals [place] Rate: 57 P: 255 ME: 177 QRS: -35 QRSD: 102 T: 18 QT: 438 QTc: 430 Interpretive Statements SINUS BRADYCARDIA LEFT AXIS DEVIATION [QRS AXIS < -30] LOW QRS VOLTAGE IN PRECORDIAL LEADS [QRS DEFLECTION < 1.0 mV IN CHEST LEADS] ANTEROSEPTAL MYOCARDIAL INFARCTION , OF INDETERMINATE AGE [40+ ms Q WAVE IN V1-V4] COMPARED TO ECG 09/16/2021 14:18:09 THE R WAVE PROGRESSION IS WORSE Electronically Signed On 10-25-2021 13:40:10 CDT by Michela Mckenna M.D.
[2021-10-24] MEDS: LORazepam INJ (*CRX) 2 MG/ML VIAL 1 MG IV PUSH (22:37)
[2021-10-24] MEDS: ONDANSETRON INJ 4 MG/2 ML VIAL IV PUSH (22:37)
--- NOTE | 2021-10-24 22:42 | ED.SOB ---
HPI - SOB/Dyspnea General Chief Complaint: Abdominal Pain Stated Complaint: SOB, HTN Time Seen by Provider: 10/24/21 22:28 Source: patient Mode of arrival: ambulatory History of Present Illness HPI Narrative: 76-year-old male presents today via EMS with concerns an episode of panting but denies shortness of breath. Patient with history of PTSD, depression, and questionable anxiety. Patient states today he took his blood pressure at home and it was elevated. He called his MD who told him not to take his blood pressure again and to follow-up with him on Wednesday. Patient decided to take a extra dose of metoprolol 12.5 this evening and then ended up with nausea and vomited here x1. Patient denies chest pain, shortness of breath, pain radiating down the arm, pain rating down the jaw. Patient denies cough, fever, or recent sick contacts. He denies having history of panic attacks but does think that he had anxiety last year just was not diagnosed. Related Data Home Medications Medication Instructions Recorded Confirmed dofetilide 500 mcg capsule 500 mcg PO Q12H 05/31/19 10/20/21 rivaroxaban 20 mg tablet 20 mg PO DAILY 08/08/20 10/20/21 Allergies Allergy/AdvReac Type Severity Reaction Status Date / Time Penicillins Allergy Unknown Hives Verified 10/24/21 23:11 Review of Systems Review of Systems: CONSTITUTIONAL: Denies fever, chills, or sweats. EYES: Denies visual changes, redness, or discharge. ENT: Denies rhinorrhea, congestion, sore throat, or otalgia. CARDIOVASCULAR: Denies chest pain, palpitations, or edema. RESPIRATORY: Denies cough or dyspnea. Panting breath GASTROINTESTINAL: Nausea with vomiting x1. GENITOURINARY: Denies dysuria or hematuria. SKIN: Denies rash or itching. MUSCULOSKELETAL: Denies back pain, joint pain, or myalgia. NEUROLOGIC: Denies headache, numbness, dizziness, or weakness. PSYCHIATRIC: Denies anxiety or depression. [facility] Past Medical History Medical History Abdominal bloating Abdominal pain Abnormal finding of blood chemistry Afib Arthritis ASHD (arteriosclerotic heart disease) Back pain with sciatica Benign essential hypertension Bilateral leg pain BMI 28.0-28.9,adult BMI 29.0-29.9,adult BMI 30.0-30.9,adult CAD (coronary artery disease) CAD (coronary artery disease) Cataract Constipation CPAP (continuous positive airway pressure) dependence DVT (deep venous thrombosis) Eczema Edema Elevated homocysteine Encounter for Medicare annual wellness exam Encounter for routine adult health examination without abnormal findings Exposure to Agent [place] Follow up Gout Hemorrhoids History of DVT (deep vein thrombosis) History of prostate cancer HTN (hypertension) Hx of colonic polyps Hyperlipidemia Hyponatremia Hypothyroid Hypothyroidism (acquired) Insomnia Leg pain, right watermaster current use of anticoagulant Low back pain Lumbar spondylosis Obstructive sleep apnea On fci drug therapy DAI on CPAP Pre-diabetes Prostate CA PTSD (post-traumatic stress disorder) RLS (restless legs syndrome) Sleep apnea Soft tissue mass Stress Surgical History Surgical History H/O bilateral cataract extraction H/O prostatectomy History of cardiac cath Hx of heart artery stent x2 Family History Family History Mother Family history of coronary artery disease Father Family history of coronary artery disease Family history of malignant neoplasm Social History Social History Smoking status: Never smoker Alcohol intake: never Exam Narrative: GENERAL: Well-appearing, well-nourished, and in no acute distress. HEAD: Normocephalic, atraumatic. EYES: PERRLA and EOMI. ENT: Nares clear, no rhinorrhea or epistaxis. Mucous membranes moist. Oropharynx without tonsillar
[2021-10-24 23:01] VITALS: BP 134/86; RESP 17; O2SAT 97
[2021-10-24 23:44] LABS: Basophils Percent Auto 0.1 % (0.2-1.2); Eosinophils Percent Auto 0.3 % (0-4.4); Hematocrit 44.1 % (42.0-52.0); Hemoglobin 15.5 g/dL (14.0-18.0); Immature Granulocyte Absolute 0.02 K/mm3 (0.00-0.031); Immature Granulocyte Percent A 0.3 % (0-0.5); Lymphocytes Absolute Auto 0.44 K/mm3 (0.9-3.2); Lymphocytes Percent Auto 6.5 % (18.3-44.2); Mean Corpuscular HGB Conc 35.1 g/dl (32-36); Mean Corpuscular Hemoglobin 33.1 pg (26-34); Mean Corpuscular Volume 94.2 fl (80-100); Mean Platelet Volume 9.4 fl (7.4-10.4); Monocytes Absolute Auto 0.4 K/mm3 (0.1-0.6); Monocytes Percent Auto 6.2 % (2.6-8.5); Neutrophils Absolute Auto 5.8 K/mm3 (1.3-6.7); Neutrophils Percent Auto 86.6 % (45.5-73.1); Platelet Count Result 184 k/mm3 (150-375); Red Blood Count 4.68 M/mm3 (4.6-6.20); Red Cell Distribution Width 13.8 % (11.5-14.5); White Blood Count 6.7 K/mm3 (4.5-10.0)
[2021-10-24 23:56] LABS: Alanine Aminotransferase 24 U/L (4-50); Albumin Level 3.9 g/dL (3.5-5.1); Alkaline Phosphatase 65 U/L (38-126); Anion Gap 3 mmol/L (8-16); Aspartate Amino Transferase 28 U/L (17-59); Bilirubin,Total 0.8 mg/dL (0.2-1.3); Blood Urea Nitrogen 12 mg/dL (9-20); Calcium 8.7 mg/dL (8.4-10.2); Carbon Dioxide 31 mmol/L (22-30); Chloride 93 mmol/L (98-107); Estimated CRCL calculation 60 ml/min; Estimated Glomerular Filt Rate > 60; Glucose 108 mg/dL (65-110); Lipase 61 U/L (23-300); Sodium 127 mmol/L (137-145)
[2021-10-25 00:30] LABS: Add Urine Microscopic? YES; Amorphous Sediment Urine Few; Appearance Urine Cloudy (Clear); Bilirubin Urine Negative (Negative); Blood Urine Negative (Negative); Color Urine Yellow (Yellow); Glucose Urine UA Negative (Negative); Ketones Urine Negative (Negative); Leukocyte Esterase Ur Negative LEU/UL (Negative); Nitrate Urine Negative (Negative); Protein Urine Negative (Negative); RBC Urine 0-2 /hpf (0-2); Specific Grav Ur 1.014 (1.001-1.035); Squamous Epithelial Cell Urine Rare /hpf (Few); Urobilinogen Urine Negative mg/dL (<2.0); WBC Urine 0-3 /hpf
[2021-10-25] MEDS: METOCLOPRAMIDE HCL INJ 10 MG/2 ML VIAL IV PUSH (00:54)
[2021-10-25 00:55] VITALS: BP 162/90; PULSE 60; RESP 14; O2SAT 98
[2021-10-25] MEDS: SODIUM CHLORIDE 0.9% IV 1,000 ML 999 ML IV CONT (00:55)
[2021-10-25] MEDS: SODIUM CHLORIDE 0.9% IV 500 ML 999 ML IV CONT (00:55)
[2021-10-25] MEDS: hydrALAZINE HCL 20 MG/ML VIAL 10 MG IV PUSH (03:05)
[2021-10-25 03:35] VITALS: BP 149/96; PULSE 70; RESP 16; O2SAT 99
== END 2021-10-25 03:32 | disposition home or self-care (01) ==
PROVIDERS: Emergency Medicine; Emergency Provider Nurse Practitioner Family; PCP Internal Medicine
DX: F41.0 Panic disorder [episodic paroxysmal anxiety] (principal); I10 Essential (primary) hypertension; R11.0 Nausea; I48.91 Unspecified atrial fibrillation; I25.10 Atherosclerotic heart disease of native coronary artery without angina pectoris; M10.9 Gout, unspecified; E03.9 Hypothyroidism, unspecified; G47.33 Obstructive sleep apnea (adult) (pediatric); R73.03 Prediabetes; G25.81 Restless legs syndrome; Z85.46 Personal history of malignant neoplasm of prostate; Z86.718 Personal history of other venous thrombosis and embolism; Z98.42 Cataract extraction status, left eye; Z98.41 Cataract extraction status, right eye; Z90.79 Acquired absence of other genital organ(s); Z95.5 Presence of coronary angioplasty implant and graft; Z86.010 Personal history of colon polyps; Z79.01 Long term (current) use of anticoagulants; R00.1 Bradycardia, unspecified; R94.31 Abnormal electrocardiogram [ECG] [EKG]
CPT/HCPCS: 36415; 80053; 81001; 83690; 85025; 93005; 96361; 96374; 96375; 99284; J0360; J2060; J2405; J2765; J7030; J7040

== ENCOUNTER 2021-12-15 08:41 | Outpatient (CLI) | payer MEDICARE, SELFPAY ==
[2021-12-15 09:47] LABS: Add Urine Microscopic? NO; Appearance Urine Clear (Clear); Bilirubin Urine Negative (Negative); Blood Urine Negative (Negative); Color Urine Yellow (Yellow); Glucose Urine UA Negative (Negative); Ketones Urine Negative (Negative); Leukocyte Esterase Ur Negative LEU/UL (Negative); Nitrate Urine Negative (Negative); Protein Urine Negative (Negative); Specific Grav Ur 1.015 (1.001-1.035); Urobilinogen Urine 0.2 mg/dL (<2.0)
[2021-12-15 09:51] LABS: Albumin Level 4.3 g/dL (3.5-5.1); Anion Gap 3 mmol/L (8-16); Blood Urea Nitrogen 18 mg/dL (9-20); Calcium 9.2 mg/dL (8.4-10.2); Carbon Dioxide 30 mmol/L (22-30); Chloride 99 mmol/L (98-107); Estimated Glomerular Filt Rate > 60; Glucose 76 mg/dL (65-110); Phosphorus 3.5 mg/dL (2.5-4.5); Potassium 4.5 mmol/L (3.4-5.0); Sodium 132 mmol/L (137-145)
[2021-12-15 09:54] LABS: Total Protein Urine Random 8 mg/dL
[2021-12-15 09:55] LABS: Sodium Urine Random 41 meq/L
[2021-12-18 05:33] LABS: Osmolality, Urine 362 mOsm/kg (50-1200)
[2021-12-19 11:31] LABS: Albumin 3.9 g/dL (3.8-4.8); Alpha 1 Globulin 0.3 g/dL (0.2-0.3); Alpha 2 Globulin 0.8 g/dL (0.5-0.9); Beta 1 Globulin 0.4 g/dL (0.4-0.6); Gamma Globulin 1.1 g/dL (0.8-1.7); Protein, Total 6.8 g/dL (6.1-8.1); Total Protein/Creatinine Ratio 122 mg/g creat (22-128)
== END 2021-12-15 08:42 | disposition home or self-care (01) ==
LOC: ANHLAB 08:50
PROVIDERS: PCP Internal Medicine; Visit Provider Internal Medicine Nephrology
DX: E87.1 Hypo-osmolality and hyponatremia (principal); I10 Essential (primary) hypertension
CPT/HCPCS: 36415; 80069; 81003; 82533; 82570; 83930; 83935; 84155; 84156; 84165; 84166; 84300

== ENCOUNTER 2022-02-09 09:44 | Outpatient (CLI) | payer MEDICARE, SELFPAY ==
[2022-02-09 10:46] LABS: Free T4 Free Thyroxine 1.64 ng/mL (0.78-2.19)
[2022-02-09 10:48] LABS: Thyroid Stimulating Hormone 0.465 uIU/mL (0.465-4.680)
== END 2022-02-09 09:45 | disposition home or self-care (01) ==
LOC: ANHLAB 09:48
PROVIDERS: PCP Internal Medicine; Visit Provider Internal Medicine
DX: I10 Essential (primary) hypertension (principal); E03.9 Hypothyroidism, unspecified
CPT/HCPCS: 36415; 84439; 84443

== ENCOUNTER 2022-03-31 08:22 | Outpatient (CLI) | payer MEDICARE, SELFPAY ==
[2022-03-31 09:04] LABS: Basophils Percent Auto 0.7 % (0.2-1.2); Eosinophils Absolute Auto 0.1 K/mm3 (0-0.3); Eosinophils Percent Auto 2.5 % (0-4.4); Hematocrit 42.5 % (42.0-52.0); Immature Granulocyte Absolute 0.01 K/mm3 (0.00-0.031); Immature Granulocyte Percent A 0.2 % (0-0.5); Lymphocytes Absolute Auto 0.74 K/mm3 (0.9-3.2); Lymphocytes Percent Auto 18.4 % (18.3-44.2); Mean Corpuscular HGB Conc 35.3 g/dl (32-36); Mean Corpuscular Hemoglobin 32.8 pg (26-34); Mean Corpuscular Volume 92.8 fl (80-100); Mean Platelet Volume 9.2 fl (7.4-10.4); Monocytes Absolute Auto 0.4 K/mm3 (0.1-0.6); Monocytes Percent Auto 10.7 % (2.6-8.5); Neutrophils Absolute Auto 2.7 K/mm3 (1.3-6.7); Neutrophils Percent Auto 67.5 % (45.5-73.1); Platelet Count Result 189 k/mm3 (150-375); Red Blood Count 4.58 M/mm3 (4.6-6.20)
[2022-03-31 09:19] LABS: Alanine Aminotransferase 29 U/L (6-50); Albumin Level 4.4 g/dL (3.5-5.1); Alkaline Phosphatase 68 U/L (38-126); Anion Gap 8 mmol/L (8-16); Aspartate Amino Transferase 32 U/L (17-59); Bilirubin,Total 1.1 mg/dL (0.2-1.3); Blood Urea Nitrogen 13 mg/dL (9-20); Calcium 9.2 mg/dL (8.4-10.2); Carbon Dioxide 29 mmol/L (22-30); Chloride 93 mmol/L (98-107); Cholesterol 133 mg/dL (0-200); Estimated Glomerular Filt Rate > 60; Glucose 92 mg/dL (65-110); HDL Direct 49 mg/dL; Sodium 130 mmol/L (137-145); Triglycerides 64 mg/dL (<150); Uric Acid 3.1 mg/dL (3.5-8.5)
[2022-03-31 09:30] LABS: LDL Cholesterol Direct 54 mg/dL
[2022-03-31 09:47] LABS: Thyroid Stimulating Hormone 0.224 uIU/mL (0.465-4.680)
[2022-03-31 10:19] LABS: Free T4 Free Thyroxine 2.11 ng/mL (0.78-2.19); Vitamin D 25 Hydroxy 72.7 ng/mL
[2022-03-31 12:32] LABS: Hemoglobin A1C 5.3 % (<5.7)
== END 2022-03-31 08:23 | disposition home or self-care (01) ==
PROVIDERS: PCP Internal Medicine; Visit Provider Internal Medicine
DX: R73.03 Prediabetes (principal); I10 Essential (primary) hypertension; E55.9 Vitamin D deficiency, unspecified; E78.5 Hyperlipidemia, unspecified; E03.9 Hypothyroidism, unspecified; M10.9 Gout, unspecified
CPT/HCPCS: 36415; 80053; 80061; 82306; 83036; 84439; 84443; 84550; 85025

== ENCOUNTER 2022-06-09 14:53 | Outpatient (CLI) | payer MEDICARE, SELFPAY ==
--- NOTE | ~2022-06-09 | XR_ITS ---
EXAMINATION: XR lumbar spine 6V w bending DATE: 06/09/2022 15:22 INDICATION: Low back pain TECHNIQUE: Anteroposterior, lateral in neutral, flexion and extension, and bilateral oblique views of the lumbar spine, and cone-down lateral view of the lumbosacral junction were obtained. COMPARISON: 06/18/2020 FINDINGS: There are 15 degrees of lumbar levoscoliosis. The vertebral body heights and alignment are maintained. There is multilevel severe loss of intervertebral disc space height. No fracture is ident ified. The heart size is normal. There is calcified atherosclerosis of the aorta. IMPRESSION: 1. Severe lumbar spondylosis without acute findings or significant interval change. Reviewed, dictated and finalized at location A. E MACHINE OFFBEARER IMPRESSION: 1. Severe lumbar spondylosis without acute findings or significant interval jeffery nge.
== END 2022-06-09 14:54 | disposition home or self-care (01) ==
PROVIDERS: PCP Internal Medicine; Visit Provider Internal Medicine
DX: M47.816 Spondylosis without myelopathy or radiculopathy, lumbar region (principal)
CPT/HCPCS: 72114

== ENCOUNTER 2022-08-06 15:55 | Observation (INO) | payer MEDICARE, SELFPAY ==
[2022-08-06] VITALS (37 sets, daily range): BP systolic 74–149; BP diastolic 48–101; PULSE 61–112; RESP 11–25; TEMP 36.4–36.9; O2SAT 97–100; BMI 29.5
--- NOTE | ~2022-08-06 | XR_ITS ---
EXAMINATION: XR chest 2V DATE: 08/06/2022 16:36 INDICATION: Heart palpitations TECHNIQUE: AP and lateral views of the chest are obtained. COMPARISON: 10/15/2021 FINDINGS: There is mild atelectasis of the lung bases. No pleural effusion or pneumothorax. The cardi omediastinal silhouette is normal. There is mild thoracic spondylosis. There is osteoarthritis of the shoulders. IMPRESSION: 1. Mild atelectasis of the lung bases. Reviewed, dictated and finalized at location [facility]
--- NOTE | 2022-08-06 16:15 | ECG_ITS ---
Measurements Intervals [place] Rate: 94 P: [place]: 0 QRS: -49 QRSD: 90 T: 62 QT: 355 QTc: 444 Interpretive Statements ATRIAL FIBRILLATION WITH ABERRANT CONDUCTION OR VENTRICULAR PREMATURE COMPLEXES INFERIOR MYOCARDIAL INFARCTION , PROBABLY OLD [40+ ms Q WAVE AND/OR ST/T ABNORMALITY IN II/aVF] ANTEROSEPTAL MYOCARDIAL INFARCTION , PROBABLY OLD [40+ ms Q WAVE IN V1-V4] COMPARED TO ECG 10/24/2021 22:18:07 ATRIAL FIBRILLATION REPLACES SINUS BRADYCARDIA Electronically Signed On 08-07-2022 13:02:21 MAT GAUGER by Piter Davis M.D.
--- NOTE | 2022-08-06 16:20 | ED.ARRPALP ---
HPI - Arrhythmia/Palpitations General Chief Complaint: Arrhythmia/Palpitations <Steven Springer MD - Last Filed: 08/07/22 07:31> Stated Complaint: short of breath, thinks he is afib <Steven Springer MD - Last Filed: 08/07/22 07:31> Time Seen by Provider: 08/06/22 16:17 <Steven Springer MD - Last Filed: 08/07/22 07:31> Source: patient <Steven Springer MD - Last Filed: 08/07/22 07:31> Mode of arrival: ambulatory <Steven Springer MD - Last Filed: 08/07/22 07:31> Limitations: no limitations <Steven Springer MD - Last Filed: 08/07/22 07:31> History of Present Illness HPI narrative: Patient is 76 years old white female woke up in the middle of the night with left chest discomfort, then found out that he got up to go to the bathroom to urinate. Patient kept waking up to go to the bathroom for 3 times. Been feeling dizzy, left chest discomfort, feeling like going to fall, went upstairs to ask his to listen to his heart and was told that his heart rate is very fast. History of atrial fibrillation on Xarelto. Patient received all his medication at the morning and at noon and was still feeling dizzy with left chest discomfort. He denies any fever, chills, nausea, vomiting, diarrhea. <Steven Springer MD - Last Filed: 08/07/22 07:31> Related Data Home Medications: Home Medications Medication Instructions Recorded Confirmed dofetilide 500 mcg capsule 500 mcg PO Q12H 05/31/19 08/06/22 (Tikosyn) rivaroxaban 20 mg tablet (Xarelto) 20 mg PO QPM 08/08/20 08/06/22 allopurinol 300 mg tablet 300 mg PO DAILY 08/06/22 08/06/22 cholecalciferol (vitamin D3) 125 5,000 unit PO DAILY 08/06/22 08/06/22 mcg (5,000 unit) tablet (Vitamin D3) ezetimibe 10 mg tablet 10 mg PO DAILY 08/06/22 08/06/22 folic acid-vit B6-vit B12 2.2 1 tablet PO DAILY 08/06/22 08/06/22 mg-25 mg-0.5 mg tablet (Folplex) levothyroxine 137 mcg tablet 137 mcg PO DIRECTED 08/06/22 08/06/22 (Synthroid) losartan 25 mg tablet 25 mg PO DAILY 08/06/22 08/06/22 polyethylene glycol 3350 17 gram 17 g PO DAILY 08/06/22 08/06/22 oral powder packet (Miralax) simvastatin 20 mg tablet 20 mg PO HS 08/06/22 08/06/22 melatonin 5 mg tablet 5 mg PO HS 08/07/22 08/07/22 <Steven Springer MD - Last Filed: 08/07/22 07:31> Allergies/Adverse Reactions: Allergies Allergy/AdvReac Type Severity Reaction Status Date / Time Penicillins Allergy Unknown Hives Verified 05/08/22 10:25 <Steven Springer MD - Last Filed: 08/07/22 07:31> Review of Systems Review of Systems: All systems reviewed & are unremarkable except as noted in HPI and below <Steven Springer MD - Last Filed: 08/07/22 07:31> [facility] Past Medical History Medical History: Medical History Abdominal bloating Abdominal pain Abnormal finding of blood chemistry Afib Arthritis ASHD (arteriosclerotic heart disease) Back pain with sciatica Benign essential hypertension Bilateral leg pain BMI 27.0-27.9,adult BMI 28.0-28.9,adult BMI 29.0-29.9,adult BMI 30.0-30.9,adult CAD (coronary artery disease) CAD (coronary artery disease) Cataract Constipation CPAP (continuous positive airway pressure) dependence Diarrhea DVT (deep venous thrombosis) Eczema Edema Elevated homocysteine Encounter for Medicare annual wellness exam Encounter for routine adult health examination without abnormal findings Exposure to Agent [place] Follow up Gout Hemorrhoids History of DVT (deep vein thrombosis) History of prostate cancer HTN (hypertension) Hx of colonic polyps Hyperlipidemia Hyponatremia Hypotension Hypothyroid Hypothyroidism (acquired) Insomnia Left upper arm pain Leg pain, right skilled nursing current use of anticoagulant Low back pain Lumbar spondylosis Obstructive sleep apnea On retirement drug therapy DAI on CPAP Other and unspecified hyperlipidemia Pre-diabetes Prostate CA PTSD (post-traumatic stress disorder) RLS (restle
[2022-08-06 16:32] LABS: Basophils Percent Auto 0.5 % (0.2-1.2); Eosinophils Absolute Auto 0.1 K/mm3 (0-0.3); Hematocrit 46.6 % (42.0-52.0); Hemoglobin 16.3 g/dL (14.0-18.0); Immature Granulocyte Absolute 0.01 K/mm3 (0.00-0.031); Immature Granulocyte Percent A 0.2 % (0-0.5); Lymphocytes Absolute Auto 0.89 K/mm3 (0.9-3.2); Lymphocytes Percent Auto 15.3 % (18.3-44.2); Mean Corpuscular Hemoglobin 32.9 pg (26-34); Monocytes Absolute Auto 0.7 K/mm3 (0.1-0.6); Monocytes Percent Auto 12.4 % (2.6-8.5); Neutrophils Absolute Auto 4.1 K/mm3 (1.3-6.7); Neutrophils Percent Auto 70.6 % (45.5-73.1); Platelet Count Result 218 k/mm3 (150-375); Red Blood Count 4.96 M/mm3 (4.6-6.20); Red Cell Distribution Width 14.3 % (11.5-14.5); White Blood Count 5.8 K/mm3 (4.5-10.0)
[2022-08-06 16:40] LABS: Alanine Aminotransferase 36 U/L (6-50); Albumin Level 4.2 g/dL (3.5-5.1); Alkaline Phosphatase 64 U/L (38-126); Anion Gap 6 mmol/L (8-16); Aspartate Amino Transferase 35 U/L (17-59); Bilirubin,Total 0.6 mg/dL (0.2-1.3); Blood Urea Nitrogen 16 mg/dL (9-20); Calcium 8.8 mg/dL (8.4-10.2); Carbon Dioxide 27 mmol/L (22-30); Chloride 100 mmol/L (98-107); Estimated Glomerular Filt Rate > 60; Glucose 105 mg/dL (65-110); Lipase 92 U/L (23-300); Potassium 4.1 mmol/L (3.4-5.0); Sodium 133 mmol/L (137-145)
[2022-08-06 16:55] LABS: Troponin I < 0.012 ng/mL (0.000-0.034)
[2022-08-06 17:00] LABS: Partial Thromboplastin Time 40.1 SECONDS (22.3-36.8)
[2022-08-06 17:22] LABS: Thyroid Stimulating Hormone 0.052 uIU/mL (0.465-4.680)
[2022-08-06] MEDS: SODIUM CHLORIDE 0.9% IV 1,000 ML 999 ML IV CONT ×2 (18:14)
[2022-08-06 18:38] LABS: Appearance Urine Clear (Clear); Bilirubin Urine Negative (Negative); Blood Urine Negative (Negative); Color Urine Yellow (Yellow); Glucose Urine UA Negative (Negative); Ketones Urine Negative (Negative); Leukocyte Esterase Ur Negative LEU/UL (Negative); Nitrate Urine Negative (Negative); Protein Urine Negative (Negative); Specific Grav Ur 1.015 (1.001-1.035)
[2022-08-06 18:45] LABS: Add Urine Microscopic? NO
[2022-08-06 20:04] LABS: Troponin I < 0.012 ng/mL (0.000-0.034)
--- NOTE | 2022-08-06 20:28 | PM.IMHP ---
H&P: HPI History of Present Illness Date/Time: 08/06/22 20:28 Chief Complaint: Lightheadedness Narrative: This is a 76-year-old male with past medical history significant for atrial fibrillation, anticoagulated, rhythm controlled/rate controlled gout, hypothyroidism, patient presents to the emergency room after he had episode of lightheadedness in the night with chest discomfort, shortness of breath, palpitations, near-syncope, denies any nausea, vomiting, abdominal pain, describes chest discomfort as pressure-like is localized to the retrosternal area nonradiating, denies any fevers, rigors, chills, cough, sputum production has been his usual state of health. Preliminary workup was significant for patient being orthostatic received few L for fluid resuscitation in the emergency room but remain orthostatic he was noted to be on atrial fibrillation with heart rate in the 60s. Patient is being placed in observation for further evaluation management and treatment. An EKG was reported as: ATRIAL FIBRILLATION WITH ABERRANT CONDUCTION OR VENTRICULAR PREMATURE COMPLEXES INFERIOR MYOCARDIAL INFARCTION , PROBABLY OLD [40+ ms Q WAVE AND/OR ST/T ABNORMALITY IN II/aVF] ANTEROSEPTAL MYOCARDIAL INFARCTION , PROBABLY OLD [40+ ms Q WAVE IN V1-V4] COMPARED TO ECG 10/24/2021 22:18:07 ATRIAL FIBRILLATION NOW PRESENT ABERRANT CONDUCTION OF SUPRAVENTRICULAR BEAT(S) NOW PRESENT A chest x-ray was reported as: FINDINGS: There is mild atelectasis of the lung bases. No pleural effusion or pneumothorax. The cardiomediastinal silhouette is normal. There is mild thoracic spondylosis. There is osteoarthritis of the shoulders. IMPRESSION: 1. Mild atelectasis of the lung bases. Review of Systems Review of Systems: Lightheadedness, retrosternal chest discomfort, palpitations, Constitutional: Constitutional: Denies chills, Denies fever(s), Denies malaise, Denies night sweats and Denies weakness Eyes: Eyes: Denies change in vision ENT: Denies dysphagia, Denies vertigo, Reports dizziness and Denies odynophagia Cardiovascular: Cardiovascular: Reports irregular heart rhythm, Reports leg edema, Reports lightheadedness, Denies radiating jaw, neck or arm pain, Reports palpitations and Reports dyspnea Respiratory: Respiratory: Denies chest congestion, Denies cough, Denies excessive phlegm production, Denies pain on inspiration and Denies dyspnea on exertion Gastrointestinal: Gastrointestinal: Denies abdominal pain, Denies dyspepsia, Denies heartburn, Denies diarrhea, Denies nausea and Denies vomiting Genitourinary: Genitourinary: Denies dysuria Musculoskeletal: Musculoskeletal: Denies back pain, Denies joint swelling and Denies muscle weakness Integumentary/Breasts: Skin/Breast: Denies rash Neurologic: Denies focal weakness Psychiatric: Psychiatric: Reports no additional psychiatric complaints Endocrine: Endocrine: Denies cold intolerance, Denies flushing, Denies heat intolerance, Denies polyphagia, Denies polydipsia and Denies palpitations Hematologic/Lymphatic: Hematologic/Lymphatic: Reports no additional hematologic/lymphatic complaints and Reports as per HPI Allergic/Immunologic: Allergic/Immunologic: Reports no additional allergic/immunologic complaints and Reports as per HPI PMFSH Past Medical History Medical History Abdominal bloating Abdominal pain Abnormal finding of blood chemistry Afib Arthritis ASHD (arteriosclerotic heart disease) Back pain with sciatica Benign essential hypertension Bilateral leg pain BMI 27.0-27.9,adult BMI 28.0-28.9,adult BMI 29.0-29.9,adult BMI 30.0-30.9,adult CAD (coronary artery disease) CAD (coronary artery disease) Cataract Constipation CPAP (continuous positive airway pressure) dependence Diarrhea DVT (deep venous thrombosis) Eczema Edema Elevated homocysteine Encounter for Medicare annual wellness exam Encounter for routine adult health examination without abnorm
[2022-08-06] MEDS: SODIUM CHLORIDE 0.9% IV 1,000 ML 75 ML IV CONT (20:39)
[2022-08-06 22:28] LABS: Troponin I < 0.012 ng/mL (0.000-0.034)
[2022-08-06 22:43] LABS: Influenza A QL RT-PCR Negative (Negative); Influenza B QL RT-PCR Negative (Negative); SARS-CoV-2 RNA PCR Negative
--- NOTE | 2022-08-06 23:48 | ADMGEN ---
This patient, Nirav Silvestre, was admitted to [facility] Surg Room 329-01. Patient/family oriented to hospital policies and general routines including ID bracelet, bed and alarms, visiting hours, pain management, procedures, bathroom and other care routines, personal items, smoking policy, room service/diet, and visiting hours. Information on how to activate the Rapid Response Team has been discussed. Patient/Family are encouraged to report perceived risks to care and to ask questions if they do not understand what they are told or what they should do.
[2022-08-07] VITALS (15 sets, daily range): BP systolic 74–161; BP diastolic 40–96; PULSE 51–99; RESP 14–20; TEMP 36.1–36.6; O2SAT 96–100
--- NOTE | 2022-08-07 | ECHO_ITS ---
Patient Info Name: Nirav Silvester Age: 76 years : 1945 Gender: Male Ht: 71 in Wt: 212 lbs BSA: 2.22 m2 HR: 62 bpm BP: 126 / 86 mmHg Heart Rhythm: Sinus Rhythm Exam Date: 08/07/2022 8:15 AM Exam Location: [facility] Patient Status: Outpatient Admit Date: 08/06/2022 Staff Ordering Physician: Yasmin Sandoval MD Workforce Planner: Tank oKroma, HAYDEE, RT Attending Provider: Yasmin Sandoval MD Referring Physician: Lori HERRERA; Exam Type: CA echo doppler color flow Study Info Indications I48.1 - Persistent atrial fibrillation Complete two-dimensional, color flow and Doppler transthoracic echocardiogram is performed. Strain analysis performed. Summary 1. Complete two-dimensional, color flow and Doppler transthoracic echocardiogram is performed. 2. Technically difficult image quality from the parasternal window apical windows were good. 3. Normal left ventricular size and systolic function with grade 1 diastolic noncompliance. 4. Mild left atrial enlargement. 5. Sclerotic aortic valve with mildly reduced valve area 1.8 cm2 no significant stenosis. 6. Normal sinus rhythm. Left Ventricle Left ventricular chamber dimension is normal. Left ventricular systolic function is normal, estimated at 60-65%. There is mild concentric increased left ventricular wall thickness. The left ventricular diastolic function is grade I diastolic dysfunction. Right Ventricle Right ventricular chamber dimension is normal. Left Atria Left atrial chamber dimension is mildly enlarged. Right Atria Right atrial chamber dimension is normal. Aortic Valve The aortic valve is trileaflet. There is mild aortic valve sclerosis. There is mild aortic valve stenosis with a peak velocity of 167 cm/s, mean gradient of 5 mmHg, and aortic valve area of 2.1 cm2. Pulmonic Valve The pulmonic valve is not well visualized. Mitral Valve The mitral valve has normal leaflets. Tricuspid Valve The tricuspid valve leaflets are not well visualized. Pericardium/Pleural The pericardium appears normal. Aorta The aortic root size at the sinus of Valsalva is normal. Left Ventricular Outflow Tract Name Value Normal LVOT 2D LVOT Diameter 2.0 cm LVOT Doppler LVOT Peak Gradient 3 mmHg LVOT Mean Gradient 2 mmHg LVOT VTI 22 cm LVOT VTI/AV VTI Ratio 0.6 LVOT Stroke Volume 71 ml LVOT CO 4.4 l/min LVOT CI 2.0 l/min/m2 Mitral Valve Name Value Normal MV Doppler MV Peak Gradient 1 mmHg MV Mean Gradient 0 mmHg MV Decel Hood 301 cm/s2 MV PHT 6
[2022-08-07] MEDS: MELATONIN 5 MG TABLET PO (01:15)
[2022-08-07] MEDS: clonazePAM (*CRX) 0.5 MG TABLET 1 MG PO (01:15)
[2022-08-07] MEDS: SODIUM CHLORIDE 0.9% IV 1,000 ML 999 ML IV CONT (05:00)
[2022-08-07] MEDS: LEVOTHYROXINE SODIUM 112 MCG TABLET PO (05:46)
[2022-08-07] MEDS: LEVOTHYROXINE SODIUM 25 MCG TABLET PO (05:46)
[2022-08-07 06:33] LABS: Basophils Percent Auto 0.4 % (0.2-1.2); Eosinophils Absolute Auto 0.1 K/mm3 (0-0.3); Eosinophils Percent Auto 1.4 % (0-4.4); Hematocrit 41.5 % (42.0-52.0); Hemoglobin 14.5 g/dL (14.0-18.0); Immature Granulocyte Absolute 0.02 K/mm3 (0.00-0.031); Immature Granulocyte Percent A 0.4 % (0-0.5); Lymphocytes Absolute Auto 0.81 K/mm3 (0.9-3.2); Lymphocytes Percent Auto 16.7 % (18.3-44.2); Mean Corpuscular HGB Conc 34.9 g/dl (32-36); Mean Corpuscular Hemoglobin 32.7 pg (26-34); Mean Corpuscular Volume 93.5 fl (80-100); Mean Platelet Volume 9.2 fl (7.4-10.4); Monocytes Absolute Auto 0.6 K/mm3 (0.1-0.6); Monocytes Percent Auto 11.9 % (2.6-8.5); Neutrophils Absolute Auto 3.4 K/mm3 (1.3-6.7); Neutrophils Percent Auto 69.2 % (45.5-73.1); Platelet Count Result 171 k/mm3 (150-375); Red Blood Count 4.44 M/mm3 (4.6-6.20); Red Cell Distribution Width 14.1 % (11.5-14.5); White Blood Count 4.9 K/mm3 (4.5-10.0)
[2022-08-07 06:40] LABS: Anion Gap 4 mmol/L (8-16); Blood Urea Nitrogen 12 mg/dL (9-20); Carbon Dioxide 24 mmol/L (22-30); Chloride 105 mmol/L (98-107); Estimated CRCL calculation 64 ml/min; Estimated Glomerular Filt Rate > 60; Glucose 81 mg/dL (65-110); Potassium 3.8 mmol/L (3.4-5.0); Sodium 133 mmol/L (137-145)
[2022-08-07] MEDS: CHOLECALCIFEROL 1,000 UNITS TABLET 5000 UNITS PO (09:32)
[2022-08-07] MEDS: allopurinoL 300 MG TABLET PO (09:32)
[2022-08-07] MEDS: VITAMIN B CMPLX/VIT C/FOLIC AC 1 CAPSULE 1 CAP PO (09:32)
[2022-08-07] MEDS: LOSARTAN POTASSIUM 25 MG TABLET PO (09:32)
[2022-08-07] MEDS: polyethylene glycoL 3350 17 GM POWD.PACK PO (09:32)
[2022-08-07] MEDS: METOPROLOL SUCCINATE EXT REL 25 MG TABCR PO (09:33)
--- NOTE | 2022-08-07 12:09 | ECG_ITS ---
Measurements Intervals [place] Rate: 57 P: 65 AK: 220 QRS: -35 QRSD: 113 T: 24 QT: 467 QTc: 458 Interpretive Statements SINUS BRADYCARDIA WITH FIRST DEGREE AV BLOCK MARKED LEFT AXIS DEVIATION [QRS AXIS < -30] LOW QRS VOLTAGE IN PRECORDIAL LEADS [QRS DEFLECTION < 1.0 mV IN CHEST LEADS] ANTERIOR MYOCARDIAL INFARCTION , OF INDETERMINATE AGE [40+ ms Q WAVE IN V1-V4] COMPARED TO ECG 08/06/2022 16:16:38 SINUS RHYTHM REPLACES ATRIAL FIBRILLATION Electronically Signed On 08-07-2022 13:18:42 [employer]ER HELPER by Piter Davis M.D.
--- NOTE | 2022-08-07 12:25 | PM.CNCAR ---
Assessment and Plan Assessment and plan (1) A-fib: Code(s): I48.91 - Unspecified atrial fibrillation Status: Acute Plan this is a 76-year-old man with coronary disease status post percutaneous revascularization of his LAD a couple of decades ago. He also has paroxysmal atrial fibrillation which has been attributed to underlying sleep apnea. Very interestingly he presents with a recurrence of his atrial fibrillation shortly after spending a night during the storm not using his CPAP device. After admission to the hospital he has spontaneously reverted back to sinus rhythm and feels well at this time. At this point I will simply recommend continuing his dofetilide and Xarelto. He has not had a recurrence of his atrial fibrillation in a long time and I do not believe we need to abandon dofetilide and change drugs at this time. I will review his echocardiogram when I get to the echo lab and as long as there are no surprising/unexpected findings he can be discharged I will see that we have appropriate follow-up scheduled with Dr. Landeros in our office. Piter Davis MD [facility] History of Present Illness History of Present Illness Consult date/time: 08/07/22 12:25 Consult reason: atrial fibrillation Reason For Visit: Afib, Orthostatic Hypotension Narrative: this is a 76-year-old man I am seeing this afternoon at the request of the hospitalist for assistance with evaluation and management of atrial fibrillation. Patient is unknown to me but apparently follows with my partner in the office, Dr. Landeros. He came to the hospital yesterday because of symptoms of recurrent atrial fibrillation he was in his home earlier in the day and I was feeling unwell when he got up out of bed he was having to get up earlier than usual to urinate which is unusual for him and when he got up he felt unsteady and lightheaded. He had his take his pulse and she found to be rapid and irregular and so a short time later he was brought to the emergency room for evaluation. In the ED was found to be in atrial fib with RVR he was admitted to the hospital for further evaluation. The patient has a history of coronary artery disease and underwent percutaneous revascularization with stenting of his LAD at [facility] a couple of decades ago. He has not had any ischemic problems in a long time. He also has history of paroxysmal atrial fibrillation for which he follows with both Dr. Landeros and an filling layer up at [place]. He is taking a combination of dofetilide and Xarelto for his atrial fibrillation. He says he has not had a recurrence of his AFib for a long time this 1st developed in the late . His filling layer up tells him that he is suspicious that his underlying sleep apnea is the trigger for the AFib. Very interestingly he states that the night before he went into atrial fib he had a stormy night and slept in a recliner away from his bedroom and so he did not use his CPAP that night. Yesterday evening after being admitted to telemetry spontaneously he converted to sinus rhythm he remains in sinus rhythm with heart rates in the mid 50s to low 60s at this time he feels comfortable and is asymptomatic at this time. An echocardiogram has been done this morning I have not yet been to the echo lab to read the study at the time of this dictation. I have ordered a follow-up 12 lead ECG since he is back in sinus rhythm. Review of Systems Constitutional: Constitutional: Reports no additional constitutional complaints Eyes: Eyes: Reports no additional eye complaints ENT: Reports system reviewed and no additional complaints, except as documented Cardiovascular: Cardiovascular: Reports lightheadedness Respiratory: Respiratory: Reports no additional respiratory complaints Gastrointestinal: Gastrointestinal: Reports no additional gastrointestinal complaints Musculoskeletal: Musculoskeletal: Reports no additional musculoskeletal complaints Inte
--- NOTE | 2022-08-07 15:29 | PM.DS ---
DS: Admitting Diagnosis Discharge Date 08/07/2022 Admitting Diagnosis Atrial fibrillation with rapid ventricular rate DS: Discharge Diagnosis Discharge Diagnosis (1) Orthostatic hypotension: Code(s): I95.1 - Orthostatic hypotension Status: Acute (2) A-fib: Code(s): I48.91 - Unspecified atrial fibrillation Status: Acute (3) Lumbar spondylolysis: Code(s): M43.06 - Spondylolysis, lumbar region Status: Acute (4) DAI on CPAP: Code(s): G47.33 - Obstructive sleep apnea (adult) (pediatric); Z99.89 - Dependence on other enabling machines and devices Status: Acute (5) CAD (coronary artery disease): Qualifiers: Associated angina: angina presence unspecified Coronary Disease-Associated Artery/Lesion type: ambler artery [place] vs. transplanted heart: ambler heart Qualified Code(s): I25.10 - Atherosclerotic heart disease of ambler coronary artery without angina pectoris Code(s): I25.10 - Atherosclerotic heart disease of ambler coronary artery without angina pectoris Status: Acute DS: Summary Hospital Course Reason for hospitalization: This is a 76-year-old male with past medical history significant for atrial fibrillation, anticoagulated, rhythm controlled/rate controlled gout, hypothyroidism, patient presents to the emergency room after he had episode of lightheadedness in the night with chest discomfort, shortness of breath, palpitations, near-syncope, denies any nausea, vomiting, abdominal pain, describes chest discomfort as pressure-like is localized to the retrosternal area nonradiating, denies any fevers, rigors, chills, cough, sputum production has been his usual state of health.? Preliminary workup was significant for patient being orthostatic received few L for fluid resuscitation in the emergency room but remain orthostatic he was noted to be on atrial fibrillation with heart rate in the 60s.? Patient is being placed in observation for further evaluation management and treatment. An EKG was reported as: ATRIAL FIBRILLATION WITH ABERRANT CONDUCTION OR VENTRICULAR PREMATURE COMPLEXES INFERIOR MYOCARDIAL INFARCTION , PROBABLY OLD [40+ ms Q WAVE AND/OR ST/T ABNORMALITY IN II/aVF] ANTEROSEPTAL MYOCARDIAL INFARCTION , PROBABLY OLD [40+ ms Q WAVE IN V1-V4] COMPARED TO ECG 10/24/2021 22:18:07 ATRIAL FIBRILLATION NOW PRESENT ABERRANT CONDUCTION OF SUPRAVENTRICULAR BEAT(S) NOW PRESENT A chest x-ray was reported as: FINDINGS: There is mild atelectasis of the lung bases. No pleural effusion or pneumothorax. The cardiomediastinal silhouette is normal. There is mild thoracic spondylosis. There is osteoarthritis of the shoulders. IMPRESSION: 1. Mild atelectasis of the lung bases. Hospital Course: # chest pain troponin negative. Likely related to AFib with RVR # atrial fibrillation with rapid ventricular rate with associated symptoms of lightheadedness chest discomfort and shortness of breath. Unclear etiology may be dehydration coincidentally had not used his CPAP prior to this episode. Spontaneously converted back to sinus rhythm. On Tikosyn and beta-brown with Xarelto anticoagulation. Cardiology was consulted and echocardiogram was performed which was unremarkable. He will be continued on the same medication and will have follow-up with cardiology as outpatient basis. # DAI on CPAP # lumbar spondylosis # orthostatic hypotension fluid resuscitated this is resolved. Echocardiogram reviewed # DVT prophylaxis on Xarelto # code status full code Time Spent with Patient Time attestation: Total time spent providing and/or coordinating discharge services: 45 minutes Exam Narrative: General appearance: Well-developed, well-nourished Skin: Normal color Head: Normocephalic, nontraumatic Eyes: Clear conjunctiva ENT: Oropharynx normal, ears normal, nose normal Neck: Supple, nontender Chest and respiratory: Airway patent, no respiratory distress, no accessory muscle use
--- NOTE | 2022-08-07 18:42 | PC.NURSE ---
Pt was seen for syncope and a-fib. Pt has been compliant with care. Pt was discharged home with . Pt educated on discharge instructions. Pt A&O4. Pt was monitored for change in status.
== END 2022-08-07 16:45 | disposition home or self-care (01) ==
LOC: ANHED 19:23 → ANH3MEDSUR 08-07 00:13
PROVIDERS: Emergency Medicine; Admitting Provider Internal Medicine; Emergency Provider Preventive Medicine Aerospace Medicine; PCP Internal Medicine; Visit Provider Internal Medicine
DX: I95.1 Orthostatic hypotension (principal); I48.91 Unspecified atrial fibrillation; M43.06 Spondylolysis, lumbar region; G47.33 Obstructive sleep apnea (adult) (pediatric); I25.10 Atherosclerotic heart disease of native coronary artery without angina pectoris; Z95.5 Presence of coronary angioplasty implant and graft; I11.9 Hypertensive heart disease without heart failure; R10.9 Unspecified abdominal pain; I44.0 Atrioventricular block, first degree; R06.02 Shortness of breath; Z20.822 Contact with and (suspected) exposure to COVID-19; R00.1 Bradycardia, unspecified; Z99.89 Dependence on other enabling machines and devices; E03.9 Hypothyroidism, unspecified; M10.9 Gout, unspecified; F43.10 Post-traumatic stress disorder, unspecified; R94.31 Abnormal electrocardiogram [ECG] [EKG]; J98.11 Atelectasis; G25.81 Restless legs syndrome; Z86.718 Personal history of other venous thrombosis and embolism; Z79.01 Long term (current) use of anticoagulants; Z79.899 Other long term (current) drug therapy
CPT/HCPCS: 36415; 71046; 80048; 80053; 81003; 83690; 84443; 84484; 85025; 85610; 85730; 87636; 93005; 93306; 96360; 96361; 99285; A9270; G0378; J7030

== ENCOUNTER 2022-08-28 08:46 | Outpatient (CLI) | payer MEDICARE, SELFPAY ==
[2022-08-28 09:38] LABS: Alanine Aminotransferase 32 U/L (6-50); Albumin Level 4.3 g/dL (3.5-5.1); Alkaline Phosphatase 66 U/L (38-126); Anion Gap 4 mmol/L (8-16); Aspartate Amino Transferase 33 U/L (17-59); Bilirubin,Total 0.9 mg/dL (0.2-1.3); Blood Urea Nitrogen 17 mg/dL (9-20); Calcium 9.3 mg/dL (8.4-10.2); Carbon Dioxide 29 mmol/L (22-30); Chloride 94 mmol/L (98-107); Cholesterol 121 mg/dL (0-200); Estimated Glomerular Filt Rate > 60; Glucose 91 mg/dL (65-110); HDL Direct 51 mg/dL; Potassium 4.2 mmol/L (3.4-5.0); Sodium 127 mmol/L (137-145); Triglycerides 78 mg/dL (<150)
[2022-08-28 09:49] LABS: LDL Cholesterol Direct 45 mg/dL
[2022-08-28 10:06] LABS: Thyroid Stimulating Hormone 0.023 uIU/mL (0.465-4.680)
[2022-08-28 12:34] LABS: Hemoglobin A1C 5.3 % (<5.7)
== END 2022-08-28 08:47 | disposition home or self-care (01) ==
LOC: ANHLAB 08:49
PROVIDERS: PCP Internal Medicine; Visit Provider Internal Medicine
DX: R73.03 Prediabetes (principal); I10 Essential (primary) hypertension; E03.9 Hypothyroidism, unspecified; E78.2 Mixed hyperlipidemia
CPT/HCPCS: 36415; 80053; 80061; 83036; 84439; 84443

== ENCOUNTER 2022-10-05 10:18 | Outpatient (CLI) | payer MEDICARE, SELFPAY ==
[2022-10-05 11:44] LABS: Free T4 Free Thyroxine 1.21 ng/mL (0.78-2.19)
[2022-10-05 11:53] LABS: Thyroid Stimulating Hormone 0.763 uIU/mL (0.465-4.680)
== END 2022-10-05 10:19 | disposition home or self-care (01) ==
PROVIDERS: PCP Internal Medicine; Visit Provider Internal Medicine
DX: E03.9 Hypothyroidism, unspecified (principal); I10 Essential (primary) hypertension
CPT/HCPCS: 36415; 84439; 84443

== ENCOUNTER 2022-10-13 11:46 | Emergency (ER) | payer MEDICARE, SELFPAY ==
--- NOTE | ~2022-10-13 | XR_ITS ---
XR chest 1V portable 10/13/2022 14:18 Indication: Chest palpitations Procedure: AP portable chest Comparison: 08/06/2022 and 10/15/2021 Findings: Chronic elevation of the right diaphragm with adjacent compressive atelectasis. No acute fo brie pneumonia, edema, pleural effusion or pneumothorax. Impression: 1: Chronic elevation of the right diaphragm with adjacent compressive atelectasis. Reviewed, dictated and finalized at location A. Impression: 1: Chronic elevation of the right diaphragm with adjacent compressive atelectas is.
--- NOTE | 2022-10-13 11:54 | ECG_ITS ---
Measurements Intervals [place] Rate: 47 P: 34 HI: 234 QRS: -34 QRSD: 87 T: 39 QT: 456 QTc: 407 Interpretive Statements SINUS BRADYCARDIA WITH FIRST DEGREE AV BLOCK LOW QRS VOLTAGE IN PRECORDIAL LEADS [QRS DEFLECTION < 1.0 mV IN CHEST LEADS] POSSIBLE ANTERIOR MYOCARDIAL INFARCTION , OF INDETERMINATE AGE [30 ms Q WAVE IN V3/V4, OR R < 0.2 mV IN V4] INFERIOR MYOCARDIAL INFARCTION , PROBABLY OLD [40+ ms Q WAVE AND/OR ST/T ABNORMALITY IN II/aVF] COMPARED TO ECG 08/07/2022 12:49:05 NO SIGNIFICANT CHANGES Electronically Signed On 10-13-2022 17:58:53 CDT by Yojana Pimentel M.D.
[2022-10-13 11:56] VITALS: BP 106/59; PULSE 51; RESP 18; TEMP 36.3; O2SAT 100
[2022-10-13 12:38] VITALS: BP 126/71; PULSE 46; RESP 16; O2SAT 100
[2022-10-13 12:49] LABS: Glucose Point of Care 89 mg/dl (65-105)
--- NOTE | 2022-10-13 13:01 | ED.GENADULT ---
HPI - General Adult General Chief complaint: Arrhythmia/Palpitations Stated complaint: a-fib Time Seen by Provider: 10/13/22 12:46 History of Present Illness HPI narrative: 77 y/o male with a pmh of paroxysmal a fib on tikosyn and xarelto presents for eval after experiencing what he thinks was an episode of atrial fibrillation. Pt was driving to a [employer] mtg when he began to feel run down and short of breath. He has felt similar symptoms when he goes into afib . Symptoms resolved a short time later and he is showing sinus bradycardia on the monitor when arriving to the hospital. Pt states sinus bradycardia in the 40s is his normal rate/rhythm. Related Data Home Medications Medication Instructions Recorded Confirmed dofetilide 500 mcg capsule 500 mcg PO Q12H 05/31/19 09/14/22 (Tikosyn) rivaroxaban 20 mg tablet (Xarelto) 20 mg PO QPM 08/08/20 09/14/22 cholecalciferol (vitamin D3) 125 5,000 unit PO DAILY 08/06/22 09/14/22 mcg (5,000 unit) tablet (Vitamin D3) ezetimibe 10 mg tablet 10 mg PO DAILY 08/06/22 09/14/22 polyethylene glycol 3350 17 gram 17 g PO DAILY 08/06/22 09/14/22 oral powder packet (Miralax) simvastatin 20 mg tablet 20 mg PO HS 08/06/22 09/14/22 melatonin 5 mg tablet 5 mg PO HS 08/07/22 09/14/22 metoprolol succinate 25 mg 12.5 mg PO DAILY 09/14/22 09/14/22 tablet,extended release 24 hr Allergies Allergy/AdvReac Type Severity Reaction Status Date / Time Penicillins Allergy Unknown Hives Verified 10/13/22 12:39 Review of Systems Review of Systems: Gen.: Denies fevers or chills Eyes: Denies eye pain or visual change ENT: Denies congestion Respiratory: Denies shortness of breath or cough CV: Denies chest pain or palpitations GI: Denies abdominal pain nausea, emesis or diarrhea denies burning, urgency, frequency or hematuria Musculoskeletal: Denies back pain or muscle pain Neuro: Denies numbness, tingling, weakness or focal weakness Skin: Denies rash Except as documented, all other systems reviewed and negative ON LICENSE OF [facility] Past Medical History Medical History Abdominal bloating Abdominal pain Abnormal finding of blood chemistry Afib Arthritis ASHD (arteriosclerotic heart disease) Back pain with sciatica Benign essential hypertension Bilateral leg pain BMI 27.0-27.9,adult BMI 28.0-28.9,adult BMI 29.0-29.9,adult BMI 30.0-30.9,adult CAD (coronary artery disease) CAD (coronary artery disease) Cataract Chronic constipation Constipation CPAP (continuous positive airway pressure) dependence Diarrhea DVT (deep venous thrombosis) Eczema Edema Elevated homocysteine Encounter for Medicare annual wellness exam Encounter for routine adult health examination without abnormal findings Exposure to Agent [place] Follow up Gout Hemorrhoids History of DVT (deep vein thrombosis) History of prostate cancer HTN (hypertension) Hx of colonic polyps Hyperlipidemia Hyponatremia Hypotension Hypothyroid Hypothyroidism (acquired) Insomnia Left upper arm pain 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, 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 Low back pain Lumbar spondylosis Obstructive sleep apnea On prison drug therapy DAI on CPAP Other and unspecified hyperlipidemia Pre-diabetes Prostate CA PTSD (post-traumatic stress disorder) RLS (restless legs syndrome) Sleep apnea Soft tissue mass Stress Tick bite Urinary tract infection in male Vertigo Surgical History Surgical History H/O bilateral cataract extraction H/O prostatectomy History of cardiac cath Hx of heart artery stent x2 Family History Family History Mother Family history of coronary artery disease Father Family history of coronary artery disease Family history of malignant neoplasm Social History Social History Smoking st
[2022-10-13 14:19] LABS: Basophils Percent Auto 0.2 % (0.2-1.2); Eosinophils Absolute Auto 0.1 K/mm3 (0-0.3); Eosinophils Percent Auto 2.2 % (0-4.4); Hematocrit 44.3 % (42.0-52.0); Hemoglobin 15.4 g/dL (14.0-18.0); Immature Granulocyte Absolute 0.02 K/mm3 (0.00-0.031); Immature Granulocyte Percent A 0.4 % (0-0.5); Lymphocytes Absolute Auto 0.63 K/mm3 (0.9-3.2); Lymphocytes Percent Auto 11.8 % (18.3-44.2); Mean Corpuscular HGB Conc 34.8 g/dl (32-36); Mean Corpuscular Hemoglobin 33.2 pg (26-34); Mean Corpuscular Volume 95.5 fl (80-100); Mean Platelet Volume 8.9 fl (7.4-10.4); Monocytes Absolute Auto 0.5 K/mm3 (0.1-0.6); Monocytes Percent Auto 9.5 % (2.6-8.5); Neutrophils Absolute Auto 4.1 K/mm3 (1.3-6.7); Neutrophils Percent Auto 75.9 % (45.5-73.1); Platelet Count Result 194 k/mm3 (150-375); Red Blood Count 4.64 M/mm3 (4.6-6.20); Red Cell Distribution Width 14.7 % (11.5-14.5); White Blood Count 5.4 K/mm3 (4.5-10.0)
[2022-10-13 14:29] LABS: INR 1.4; Partial Thromboplastin Time 41.5 SECONDS (22.3-36.8); Prothrombin Time 16.9 Seconds (11.1-14.7)
[2022-10-13 14:33] LABS: Alanine Aminotransferase 35 U/L (6-50); Albumin Level 4.8 g/dL (3.5-5.1); Alkaline Phosphatase 72 U/L (38-126); Anion Gap 5 mmol/L (8-16); Aspartate Amino Transferase 32 U/L (17-59); Bilirubin,Total 0.9 mg/dL (0.2-1.3); Blood Urea Nitrogen 16 mg/dL (9-20); Calcium 9.2 mg/dL (8.4-10.2); Carbon Dioxide 30 mmol/L (22-30); Chloride 94 mmol/L (98-107); Estimated CRCL calculation 54 ml/min; Estimated Glomerular Filt Rate > 60; Glucose 85 mg/dL (65-110); Potassium 4.6 mmol/L (3.4-5.0); Sodium 129 mmol/L (137-145)
[2022-10-13 14:42] LABS: NT Pro B Type Natriuretic Pept 57 pg/mL (19.9-100); Troponin I < 0.012 ng/mL (0.000-0.034)
[2022-10-13 15:05] VITALS: BP 185/97; PULSE 61; RESP 14; O2SAT 99
== END 2022-10-13 15:12 | disposition home or self-care (01) ==
PROVIDERS: Emergency Provider Emergency Medicine; PCP Internal Medicine
DX: R00.1 Bradycardia, unspecified (principal); R53.1 Weakness; I48.91 Unspecified atrial fibrillation; I25.10 Atherosclerotic heart disease of native coronary artery without angina pectoris; I10 Essential (primary) hypertension; E78.5 Hyperlipidemia, unspecified; E03.9 Hypothyroidism, unspecified; G47.33 Obstructive sleep apnea (adult) (pediatric); G25.81 Restless legs syndrome; R73.03 Prediabetes; M19.90 Unspecified osteoarthritis, unspecified site; M10.9 Gout, unspecified; Z95.5 Presence of coronary angioplasty implant and graft; Z86.718 Personal history of other venous thrombosis and embolism; Z85.46 Personal history of malignant neoplasm of prostate; Z86.010 Personal history of colon polyps; Z87.440 Personal history of urinary (tract) infections; Z98.49 Cataract extraction status, unspecified eye; Z90.79 Acquired absence of other genital organ(s); Z79.01 Long term (current) use of anticoagulants; I44.0 Atrioventricular block, first degree; R94.31 Abnormal electrocardiogram [ECG] [EKG]
CPT/HCPCS: 36415; 71045; 80053; 82948; 83880; 84484; 85025; 85610; 85730; 93005; 99284

== ENCOUNTER 2022-12-12 17:17 | Emergency (ER) | payer MEDICARE, SELFPAY ==
[2022-12-12] VITALS (8 sets, daily range): BP systolic 115–174; BP diastolic 69–84; PULSE 48–107; RESP 15–28; TEMP 36.8; O2SAT 98–100
--- NOTE | ~2022-12-12 | CT_ITS ---
EXAMINATION: CT BRAIN W/O DATE: 12/12/2022 18:46 INDICATION: Right-sided facial tingling. TECHNIQUE: Computed tomography (CT) of the head was performed without intravenous contrast. The dose- length product was 681.00 mGy-cm. COMPARISON: No prior studies for comparison. FINDINGS: Normal brain parenchymal volume for age. Normal hidalgo-white differentiation. No acute intrac ranial hemorrhage, infarction, mass or mass effect. There is a 7 mm hyperdense mass wedged into the f oramen of Geri and upper third ventricle, compatible with colloid cyst. No ventriculomegaly or midline shift. Midline sagittal images demonstrate a normal corpus callosum, c raniovertebral junction and sella turcica. Basilar cisterns are patent. Paranasal sinuses and mastoids are pneumatized. No depressed skull fractures. IMPRESSION: 1. No acute intracranial abnormality. 2: 7 mm hyperdense mass wedged into the foramen of Geri and upper third ventricle, compatible with colloid cyst. Reviewed, dictated and finalized at location A. IMPRESSION: 1. No acute intracranial abnormality. 2: 7 mm hyperdense mass wedged into the foramen of Geri and upper third ventr icle, compatible with colloid cyst.
--- NOTE | 2022-12-12 18:05 | ED.GENADULT ---
HPI - General Adult General Chief complaint: Neuro Symptoms/Deficit Stated complaint: right side face spasms X1 week Time Seen by Provider: 12/12/22 17:47 Source: patient Mode of arrival: ambulatory Limitations: no limitations History of Present Illness HPI narrative: This is a 77 yo M with PMH of afib, CAD, HTN who presents to the ED with chief complaint of right sided facial parasthesias intermittent over the past week. Denies any sharp pain. He describes a zinging sensation that starts just anterior to to the ear, radiates up into the right scalp and posteriorly through the scalp. Denies any left sided symptoms. Denies facial droop, LOC, dysarthria, extremity numbness or weakness, falls, dizziness, vision changes, CP, SOB, cough, abdominal pain, N/V, fevers or chills. Denies any recent illness, rashes or medication changes. States he has never had anything like this before. Related Data Home Medications Medication Instructions Recorded Confirmed dofetilide 500 mcg capsule 500 mcg PO Q12H 05/31/19 09/14/22 (Tikosyn) rivaroxaban 20 mg tablet (Xarelto) 20 mg PO QPM 08/08/20 09/14/22 cholecalciferol (vitamin D3) 125 5,000 unit PO DAILY 08/06/22 09/14/22 mcg (5,000 unit) tablet (Vitamin D3) polyethylene glycol 3350 17 gram 17 g PO DAILY 08/06/22 09/14/22 oral powder packet (Miralax) simvastatin 20 mg tablet 20 mg PO HS 08/06/22 09/14/22 melatonin 5 mg tablet 5 mg PO HS 08/07/22 09/14/22 Allergies Allergy/AdvReac Type Severity Reaction Status Date / Time Penicillins Allergy Unknown Hives Verified 12/12/22 17:18 Review of Systems Review of Systems: CONSTITUTIONAL: Denies fever, chills, or sweats. EYES: Denies visual changes, redness, or discharge. ENT: Denies rhinorrhea, congestion, sore throat, or otalgia. CARDIOVASCULAR: Denies chest pain, palpitations, or edema. RESPIRATORY: Denies cough or dyspnea. GASTROINTESTINAL: Denies abdominal pain, nausea, vomiting, or diarrhea. GENITOURINARY: Denies dysuria or hematuria. SKIN: Denies rash or itching. MUSCULOSKELETAL: Denies back pain, joint pain, or myalgia. NEUROLOGIC: See HPI PSYCHIATRIC: Denies anxiety or depression. [facility] Past Medical History Medical History Abdominal bloating Abdominal pain Abnormal finding of blood chemistry Afib Arthritis ASHD (arteriosclerotic heart disease) Back pain with sciatica Benign essential hypertension Bilateral leg pain BMI 27.0-27.9,adult BMI 28.0-28.9,adult BMI 29.0-29.9,adult BMI 30.0-30.9,adult CAD (coronary artery disease) CAD (coronary artery disease) Cataract Chronic constipation Constipation CPAP (continuous positive airway pressure) dependence Diarrhea DVT (deep venous thrombosis) Eczema Edema Elevated homocysteine Encounter for Medicare annual wellness exam Encounter for routine adult health examination without abnormal findings Exposure to Agent [place] Follow up Gout Hemorrhoids History of DVT (deep vein thrombosis) History of prostate cancer HTN (hypertension) Hx of colonic polyps Hyperlipidemia Hyponatremia Hypotension Hypothyroid Hypothyroidism (acquired) Insomnia Left upper arm pain 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, 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
--- NOTE | 2022-12-12 19:21 | PC.NURSE ---
Patient report given to Lolita Stokes. All questions answered and care of patient transferred.
[2022-12-12 19:33] LABS: Basophils Percent Auto 0.4 % (0.2-1.2); Eosinophils Absolute Auto 0.1 K/mm3 (0-0.3); Eosinophils Percent Auto 2.4 % (0-4.4); Hemoglobin 15.3 g/dL (14.0-18.0); Immature Granulocyte Absolute 0.01 K/mm3 (0.00-0.031); Immature Granulocyte Percent A 0.2 % (0-0.5); Lymphocytes Absolute Auto 0.74 K/mm3 (0.9-3.2); Lymphocytes Percent Auto 16.3 % (18.3-44.2); Mean Corpuscular HGB Conc 35.6 g/dl (32-36); Mean Corpuscular Hemoglobin 33.2 pg (26-34); Mean Corpuscular Volume 93.3 fl (80-100); Monocytes Absolute Auto 0.7 K/mm3 (0.1-0.6); Monocytes Percent Auto 14.3 % (2.6-8.5); Neutrophils Percent Auto 66.4 % (45.5-73.1); Platelet Count Result 163 k/mm3 (150-375); Red Blood Count 4.61 M/mm3 (4.6-6.20); White Blood Count 4.5 K/mm3 (4.5-10.0)
[2022-12-12 19:47] LABS: Alanine Aminotransferase 40 U/L (6-50); Albumin Level 4.4 g/dL (3.5-5.1); Alkaline Phosphatase 62 U/L (38-126); Anion Gap 3 mmol/L (8-16); Aspartate Amino Transferase 35 U/L (17-59); Bilirubin,Total 0.6 mg/dL (0.2-1.3); Blood Urea Nitrogen 14 mg/dL (9-20); Calcium 8.9 mg/dL (8.4-10.2); Carbon Dioxide 31 mmol/L (22-30); Chloride 96 mmol/L (98-107); Estimated CRCL calculation 73 ml/min; Estimated Glomerular Filt Rate > 60; Glucose 96 mg/dL (65-110); Sodium 130 mmol/L (137-145)
[2022-12-12 19:48] LABS: Magnesium 2.4 mg/dL (1.6-2.3); Phosphorus 3.6 mg/dL (2.5-4.5)
== END 2022-12-12 21:05 | disposition home or self-care (01) ==
PROVIDERS: Emergency Provider Physician Assistant; PCP Internal Medicine
DX: R20.2 Paresthesia of skin (principal); G93.0 Cerebral cysts; I25.10 Atherosclerotic heart disease of native coronary artery without angina pectoris; I10 Essential (primary) hypertension; I48.91 Unspecified atrial fibrillation; E78.5 Hyperlipidemia, unspecified; E03.9 Hypothyroidism, unspecified; G47.33 Obstructive sleep apnea (adult) (pediatric); R73.03 Prediabetes; G25.81 Restless legs syndrome; M19.90 Unspecified osteoarthritis, unspecified site; M10.9 Gout, unspecified; Z95.5 Presence of coronary angioplasty implant and graft; Z87.440 Personal history of urinary (tract) infections; Z86.718 Personal history of other venous thrombosis and embolism; Z85.46 Personal history of malignant neoplasm of prostate; Z90.79 Acquired absence of other genital organ(s); Z98.41 Cataract extraction status, right eye; Z98.42 Cataract extraction status, left eye; Z79.01 Long term (current) use of anticoagulants
CPT/HCPCS: 36415; 70450; 80053; 83735; 84100; 85025; 99284

== ENCOUNTER 2023-01-15 10:05 | Outpatient (CLI) | payer MEDICARE, SELFPAY ==
[2023-01-15 10:37] LABS: Basophils Percent Auto 0.5 % (0.2-1.2); Eosinophils Absolute Auto 0.1 K/mm3 (0-0.3); Eosinophils Percent Auto 2.4 % (0-4.4); Hematocrit 45.2 % (42.0-52.0); Hemoglobin 16.1 g/dL (14.0-18.0); Immature Granulocyte Absolute 0.01 K/mm3 (0.00-0.031); Immature Granulocyte Percent A 0.2 % (0-0.5); Lymphocytes Absolute Auto 0.68 K/mm3 (0.9-3.2); Lymphocytes Percent Auto 16.1 % (18.3-44.2); Mean Corpuscular HGB Conc 35.6 g/dl (32-36); Mean Corpuscular Hemoglobin 33.2 pg (26-34); Mean Corpuscular Volume 93.2 fl (80-100); Mean Platelet Volume 9.2 fl (7.4-10.4); Monocytes Absolute Auto 0.4 K/mm3 (0.1-0.6); Monocytes Percent Auto 8.5 % (2.6-8.5); Neutrophils Absolute Auto 3.1 K/mm3 (1.3-6.7); Neutrophils Percent Auto 72.3 % (45.5-73.1); Platelet Count Result 176 k/mm3 (150-375); Red Blood Count 4.85 M/mm3 (4.6-6.20); Red Cell Distribution Width 13.9 % (11.5-14.5); White Blood Count 4.2 K/mm3 (4.5-10.0)
[2023-01-15 10:45] LABS: Alanine Aminotransferase 29 U/L (6-50); Albumin Level 4.3 g/dL (3.5-5.1); Alkaline Phosphatase 67 U/L (38-126); Anion Gap 7 mmol/L (8-16); Aspartate Amino Transferase 32 U/L (17-59); Bilirubin,Total 1.2 mg/dL (0.2-1.3); Blood Urea Nitrogen 12 mg/dL (9-20); Calcium 9.6 mg/dL (8.4-10.2); Carbon Dioxide 29 mmol/L (22-30); Chloride 95 mmol/L (98-107); Cholesterol 124 mg/dL (0-200); Estimated Glomerular Filt Rate > 60; Glucose 91 mg/dL (65-110); HDL Direct 48 mg/dL; Sodium 131 mmol/L (137-145); Triglycerides 69 mg/dL (<150)
[2023-01-15 10:50] LABS: Hemoglobin A1C 5.4 % (<5.7)
[2023-01-15 10:57] LABS: LDL Cholesterol Direct 46 mg/dL
== END 2023-01-15 10:06 | disposition home or self-care (01) ==
PROVIDERS: PCP Internal Medicine; Visit Provider Internal Medicine
DX: R73.03 Prediabetes (principal); E78.2 Mixed hyperlipidemia; I10 Essential (primary) hypertension
CPT/HCPCS: 36415; 80053; 80061; 83036; 85025

== ENCOUNTER 2023-01-25 09:45 | Observation (INO) | payer MEDICARE, SELFPAY ==
[2023-01-25] VITALS (49 sets, daily range): BP systolic 110–179; BP diastolic 80–122; PULSE 61–87; RESP 12–20; TEMP 36.4–36.7; O2SAT 95–100; BMI 28.9
--- NOTE | ~2023-01-25 | XR_ITS ---
EXAMINATION: XR chest 1V portable DATE: 01/25/2023 11:57 INDICATION: Palpitations. TECHNIQUE: A single frontal view of the chest was obtained. COMPARISON: Chest single view 10/13/2022, CT abdomen 08/28/2021 FINDINGS: There is chronic mild elevation of right hemidiaphragm. There is mild atelectasis at right lung base. No pleural effusion or pneumothorax. The heart size is normal. IMPRESSION: 1. Chronic mild elevation of right hemidiaphragm with mild atelectasis at right lung base. Reviewed, dictated and finalized at location A.
--- NOTE | 2023-01-25 09:54 | ECG_ITS ---
Measurements Intervals [place] Rate: 78 P: 68 FL: 236 QRS: -46 QRSD: 106 T: 53 QT: 401 QTc: 459 Interpretive Statements SINUS RHYTHM WITH FIRST DEGREE AV BLOCK LEFT AXIS DEVIATION LOW QRS VOLTAGE IN PRECORDIAL LEADS ANTEROSEPTAL INFARCT, AGE INDETERMINATE CONSIDER INFERIOR INFARCT, AGE INDETERMINATE ABNORMAL ECG COMPARED TO ECG 10/13/2022 11:52:38 SINUS RHYTHM NOW PRESENT Electronically Signed On 01-25-2023 9:59:44 CDT by Damon Card D.O.
[2023-01-25] MEDS: SODIUM CHLORIDE 0.9% IV 1,000 ML 500 ML IV CONT (11:43)
[2023-01-25 11:48] LABS: Basophils Percent Auto 0.6 % (0.2-1.2); Eosinophils Absolute Auto 0.1 K/mm3 (0-0.3); Eosinophils Percent Auto 1.8 % (0-4.4); Hematocrit 42.7 % (42.0-52.0); Immature Granulocyte Absolute 0.01 K/mm3 (0.00-0.031); Immature Granulocyte Percent A 0.2 % (0-0.5); Lymphocytes Absolute Auto 0.67 K/mm3 (0.9-3.2); Lymphocytes Percent Auto 13.6 % (18.3-44.2); Mean Corpuscular HGB Conc 35.1 g/dl (32-36); Mean Corpuscular Hemoglobin 32.9 pg (26-34); Mean Corpuscular Volume 93.6 fl (80-100); Monocytes Absolute Auto 0.6 K/mm3 (0.1-0.6); Monocytes Percent Auto 11.6 % (2.6-8.5); Neutrophils Absolute Auto 3.6 K/mm3 (1.3-6.7); Neutrophils Percent Auto 72.2 % (45.5-73.1); Platelet Count Result 186 k/mm3 (150-375); Red Blood Count 4.56 M/mm3 (4.6-6.20); Red Cell Distribution Width 13.9 % (11.5-14.5); White Blood Count 4.9 K/mm3 (4.5-10.0)
--- NOTE | 2023-01-25 11:51 | ED.DIZZY ---
HPI - Dizziness General Chief Complaint: Dizziness Stated Complaint: afib, dizzy, SOB Time Seen by Provider: 01/25/23 10:38 History of Present Illness HPI Narrative: 77-year-old male with a history of orthostatic hypotension, hyperlipidemia, paroxysmal atrial fibrillation currently anticoagulated with rivaroxaban, CAD, s/p percutaneous revascularization of his LAD approximately 20 years ago reports for evaluation for lightheadedness that occurred this morning. Patient states he woke up, laid up in bed to take his medications and felt a fluttering in his chest start. States he believed he went into atrial fibrillation and had associated lightheadedness which he normally does when he goes in A-fib. states his listen to his best who heard an irregular rhythm, therefore they called 911. Patient states while in the ambulance on the way to the ED, he began to feel better and the sports writer told the patient that he was no longer in A-fib. Upon evaluation, the patient states he feels okay just fatigued . States has been feeling fatigued more than usual which he is attributing to his A-fib. He states he is done with the A-fib and needs an ablation now . He reports intermittent episodes of shortness of breath that occur when he is in A-fib. He denies chest pain, current shortness of breath, abdominal pain, nausea or vomiting, diarrhea, urinary complaints, fever, cough or congestion, headache, focal numbness or weakness. He follows with Dr. Landeros (cardiology) and Dr. Augustine (cardiology at [facility]). Reports a history of hyponatremia, his normal sodium is noted from 125-136. He was evaluated by nephrology, Dr. Tripathi, on 10/15/2021 for hyponatremia. His work-up at this time was unremarkable and per the notes, Dr. Tripathi attributed the hyponatremia due to increased free water intake. Last echo on 08/07/22: Summary ? 1. Complete two-dimensional, color flow and Doppler transthoracic echocardiogram is performed. ? 2. Technically difficult image quality from the parasternal window apical windows were good. ? 3. Normal left ventricular size and systolic function with grade 1 diastolic noncompliance. ? 4. Mild left atrial enlargement. ? 5. Sclerotic aortic valve with mildly reduced valve area 1.8 cm2 no significant stenosis. ? 6. Normal sinus rhythm. Related Data Home Medications Medication Instructions Recorded Confirmed dofetilide 500 mcg capsule 500 mcg PO Q12H 05/31/19 01/21/23 (Tikosyn) rivaroxaban 20 mg tablet (Xarelto) 20 mg PO QPM 08/08/20 01/21/23 cholecalciferol (vitamin D3) 125 5,000 unit PO DAILY 08/06/22 01/21/23 mcg (5,000 unit) tablet (Vitamin D3) polyethylene glycol 3350 17 gram 17 g PO DAILY 08/06/22 01/21/23 oral powder packet (Miralax) melatonin 5 mg tablet 5 mg PO HS 08/07/22 01/21/23 Allergies Allergy/AdvReac Type Severity Reaction Status Date / Time Penicillins Allergy Unknown Hives Verified 01/19/23 13:35 Review of Systems Review of Systems: CONSTITUTIONAL: Denies fever, chills EYES: Denies visual changes, redness, or discharge. ENT: Denies rhinorrhea, congestion, sore throat, or otalgia. CARDIOVASCULAR: See HPI RESPIRATORY: Denies cough or dyspnea. GASTROINTESTINAL: Denies abdominal pain, nausea, vomiting, or diarrhea. GENITOURINARY: Denies dysuria or hematuria. SKIN: Denies rash or itching. MUSCULOSKELETAL: Denies back pain, joint pain, or myalgia. NEUROLOGIC: Denies headache, numbness, dizziness, or weakness. PSYCHIATRIC: Denies anxiety or depression. [facility] Past Medical History Medical History Abdominal bloating Abdominal pain Abnormal finding of blood chemistry Afib Arthritis ASHD (arteriosclerotic heart disease) Back pain with sciatica Benign essential hypertension Bilateral leg pain BMI 27.0-27.9,adult BMI 28.0-28.9,adult BMI 29.0-29.9,adult BMI 30.0-30.9,adult CAD (coronary artery disease) CAD (coronary artery disease) C
[2023-01-25 11:58] LABS: Alanine Aminotransferase 27 U/L (6-50); Alkaline Phosphatase 65 U/L (38-126); Anion Gap 3 mmol/L (8-16); Aspartate Amino Transferase 30 U/L (17-59); Bilirubin,Total 0.8 mg/dL (0.2-1.3); Blood Urea Nitrogen 20 mg/dL (9-20); Calcium 9.2 mg/dL (8.4-10.2); Carbon Dioxide 27 mmol/L (22-30); Chloride 97 mmol/L (98-107); Estimated CRCL calculation 57 ml/min; Estimated Glomerular Filt Rate > 60; Glucose 93 mg/dL (65-110); Sodium 127 mmol/L (137-145)
[2023-01-25 12:07] LABS: NT Pro B Type Natriuretic Pept 163 pg/mL (19.9-100)
[2023-01-25 12:10] LABS: Troponin I < 0.012 ng/mL (0.000-0.034)
[2023-01-25 13:49] LABS: Thyroid Stimulating Hormone Reflex < 0.015 uIU/mL (0.465-4.68)
[2023-01-25 13:59] LABS: INR 1.5; Partial Thromboplastin Time 40.2 SECONDS (22.3-36.8); Prothrombin Time 19.2 Seconds (11.1-14.7)
[2023-01-25] MEDS: SODIUM CHLORIDE 0.9% IV 1,000 ML 999 ML IV CONT (13:59)
--- NOTE | 2023-01-25 18:00 | ADMGEN ---
This patient, Nirav Silvestre, was admitted to [facility] Surg Room 315-01. Patient/family oriented to hospital policies and general routines including ID bracelet, bed and alarms, visiting hours, pain management, procedures, bathroom and other care routines, personal items, smoking policy, room service/diet, and visiting hours. Information on how to activate the Rapid Response Team has been discussed. Patient/Family are encouraged to report perceived risks to care and to ask questions if they do not understand what they are told or what they should do.
--- NOTE | 2023-01-25 20:56 | PM.IMHP ---
H&P: HPI History of Present Illness Date/Time: 01/25/23 20:56 Chief Complaint: Dizziness Narrative: This is a 69-year-old male patient who has a history of paroxysmal atrial fibrillation on Xarelto. He also has a history of coronary artery disease status post stents to his LAD approximately 20 years ago. The patient stated that when he goes into AFib he has palpitations and feels dizzy. The patient stated that he is been talking to a lining printer at [facility] peer he follows with Dr. Luna and Dr. Augustine. The patient stated that he is talking to his lining printer about a possible ablation. The patient stated that he had a call out to the lining printer to discuss an ablation. Patient has chronically low sodium. He is followed by Dr. Erik grant for the hyponatremia. The patient has chronic pitting edema to his lower extremities and he stated that he would not take any diuretics for this. His sodium is 127 today. The patient ranges anywhere from 127-133 this sodium. Cardiology has been consulted. His blood pressure has been as high as 179/104 today and is low as 110/82. The patient no longer feels dizzy and is in sinus rhythm. His EKG was read as sinus rhythm first-degree AV block. The patient is being admitted to observation status on the date of service of 01/25/2023. Review of Systems Review of Systems: All systems reviewed & are unremarkable except as noted in HPI and below Constitutional: Constitutional: Reports as per HPI and Reports no additional constitutional complaints Eyes: Eyes: Reports as per HPI and Reports no additional eye complaints ENT: Reports system reviewed and no additional complaints, except as documented and Reports Normal hearing present Cardiovascular: Cardiovascular: Reports no additional cardiovascular complaints Respiratory: Respiratory: Reports no additional respiratory complaints and Reports no additional respiratory complaints Gastrointestinal: Gastrointestinal: Reports as per HPI and Reports no additional gastrointestinal complaints Musculoskeletal: Musculoskeletal: Reports no additional musculoskeletal complaints Integumentary/Breasts: Skin/Breast: Reports system reviewed and no additional complaints, except as docu and Reports as per HPI Neurologic: Reports system reviewed and no additional complaints, except as documented, Reports as per HPI and Reports Normal hearing present Psychiatric: Psychiatric: Reports no additional psychiatric complaints and Reports as per HPI Endocrine: Endocrine: Reports no additional endocrine complaints Hematologic/Lymphatic: Hematologic/Lymphatic: Reports no additional hematologic/lymphatic complaints Allergic/Immunologic: Allergic/Immunologic: Reports no additional allergic/immunologic complaints [facility] Past Medical History Medical History Abdominal bloating Abdominal pain Abnormal finding of blood chemistry Afib Arthritis ASHD (arteriosclerotic heart disease) Back pain with sciatica Benign essential hypertension Bilateral leg pain BMI 27.0-27.9,adult BMI 28.0-28.9,adult BMI 29.0-29.9,adult BMI 30.0-30.9,adult CAD (coronary artery disease) CAD (coronary artery disease) Cataract Chronic constipation Constipation CPAP (continuous positive airway pressure) dependence Diarrhea DVT (deep venous thrombosis) Eczema Edema Elevated homocysteine Encounter for Medicare annual wellness exam Encounter for routine adult health examination without abnormal findings Exposure to Agent [place] Follow up Gout Hemorrhoids History of DVT (deep vein thrombosis) History of prostate cancer HTN (hypertension) Hx of colonic polyps Hyperlipidemia Hyponatremia Hypotension Hypothyroid Hypothyroidism (acquired) Insomnia Left upper arm pain 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
[2023-01-25 21:26] LABS: Free T4 Free Thyroxine Reflex 2.07 ng/dL (0.78-2.19)
[2023-01-25] MEDS: MELATONIN 5 MG TABLET PO (22:20)
[2023-01-25] MEDS: RIVAROXABAN 20 MG TABLET PO (22:20)
[2023-01-25] MEDS: EZETIMIBE 10 MG TABLET PO (22:20)
[2023-01-25] MEDS: SIMVASTATIN 20 MG TABLET PO (22:20)
[2023-01-25] MEDS: clonazePAM (*CRX) 0.5 MG TABLET 1 MG PO (22:24)
[2023-01-25] MEDS: WATER FOR IRRIGATION, STERILE 1,000 ML BOTTLE 1000 ML (22:26)
[2023-01-25 22:27] LABS: Total Triiodothyronine (T3) 0.94 NG/ML (0.97-1.69)
[2023-01-25 23:41] LABS: Anion Gap 0 mmol/L (8-16); Blood Urea Nitrogen 16 mg/dL (9-20); Calcium 8.5 mg/dL (8.4-10.2); Carbon Dioxide 28 mmol/L (22-30); Chloride 101 mmol/L (98-107); Estimated CRCL calculation 63 ml/min; Estimated Glomerular Filt Rate > 60; Glucose 106 mg/dL (65-110); Potassium 4.1 mmol/L (3.4-5.0); Sodium 129 mmol/L (137-145)
[2023-01-26] VITALS (8 sets, daily range): BP systolic 120–159; BP diastolic 66–77; PULSE 45–58; RESP 14–16; TEMP 36.3–37; O2SAT 97–100
[2023-01-26] MEDS: LEVOTHYROXINE SODIUM 125 MCG TABLET PO (05:44)
[2023-01-26 06:32] LABS: Basophils Percent Auto 0.7 % (0.2-1.2); Eosinophils Absolute Auto 0.1 K/mm3 (0-0.3); Eosinophils Percent Auto 2.9 % (0-4.4); Hematocrit 40.5 % (42.0-52.0); Hemoglobin 14.2 g/dL (14.0-18.0); Immature Granulocyte Absolute 0.02 K/mm3 (0.00-0.031); Immature Granulocyte Percent A 0.4 % (0-0.5); Lymphocytes Absolute Auto 0.72 K/mm3 (0.9-3.2); Lymphocytes Percent Auto 15.9 % (18.3-44.2); Mean Corpuscular HGB Conc 35.1 g/dl (32-36); Mean Corpuscular Hemoglobin 33.2 pg (26-34); Mean Corpuscular Volume 94.6 fl (80-100); Mean Platelet Volume 8.7 fl (7.4-10.4); Monocytes Absolute Auto 0.6 K/mm3 (0.1-0.6); Monocytes Percent Auto 12.1 % (2.6-8.5); Neutrophils Absolute Auto 3.1 K/mm3 (1.3-6.7); Platelet Count Result 177 k/mm3 (150-375); Red Blood Count 4.28 M/mm3 (4.6-6.20); Red Cell Distribution Width 14.4 % (11.5-14.5); White Blood Count 4.5 K/mm3 (4.5-10.0)
[2023-01-26 06:43] LABS: Magnesium 2.1 mg/dL (1.6-2.3)
[2023-01-26 07:37] LABS: Thyroid Stimulating Hormone Reflex 0.015 uIU/mL (0.465-4.68)
--- NOTE | 2023-01-26 08:40 | PM.CNCAR ---
Assessment and Plan Assessment and plan (1) Lightheadedness: Code(s): R42 - Dizziness and giddiness Status: Acute Assessment and Plan: Probably secondary to atrial fibrillation. He also has a history of orthostatic hypotension, but orthostatic blood pressures have been measured and are negative. Light headedness has resolved. (2) Afib: Qualifiers: Atrial fibrillation type: unspecified Qualified Code(s): I48.91 - Unspecified atrial fibrillation Code(s): I48.91 - Unspecified atrial fibrillation Status: Acute Assessment and Plan: History of atrial fibrillation followed by Dr. Augustine at [facility]. He is currently being treated with dofetilide and is currently in sinus rhythm. He did have an episode of atrial fibrillation yesterday morning, which he was symptomatic with. He has contacted Dr. Augustine and has plans to see him when he is discharged to discuss possible ablation, as he has had several symptomatic episodes of atrial fibrillation in the past few months. Continue current medical regimen with dofetilide, metoprolol, and anticoagulation with Xarelto. OK to discharge home today from a cardiac standpoint. (3) CAD (coronary artery disease): Qualifiers: Coronary Disease-Associated Artery/Lesion type: [place] artery [place] vs. transplanted heart: [place] heart Associated angina: angina presence unspecified Qualified Code(s): I25.10 - Atherosclerotic heart disease of [place] coronary artery without angina pectoris Code(s): I25.10 - Atherosclerotic heart disease of [place] coronary artery without angina pectoris Status: Acute Assessment and Plan: Stable. Continue statin. (4) Bradycardia: Code(s): R00.1 - Bradycardia, unspecified Status: Acute Assessment and Plan: He does have marked bradycardia noted on telemetry. He has a history of this and according to his records has had multiple outpatient telemetry monitors in the past that have not revealed any indication for pacemaker implantation. History of Present Illness History of Present Illness Consult date/time: 01/26/23 08:40 Requesting physician: Peggy Lerma PA-C Consult reason: atrial fibrillation Reason For Visit: Orthostatic Hypotension Narrative: Nirav Silvestre is a 77 year old male with atrial fibrillation and coronary artery disease with a remote history of bare metal stent placement to the LAD. This is a patient who is followed in our office by Dr. Landeros and also sees an media center assistant, Dr. Augustine, at [facility] for management of his atrial fibrillation. He comes to the hospital with a chief complaint of dizziness. He states yesterday morning he woke up in his usual state of health, rolled over and took his medicine and laid back down. When he laid back down he states he felt a heaviness on his heart and thinks this is when he went back into atrial fibrillation, because shortly after this he began to feel dizzy. His apparently auscultated his heart sounds and reported that his heartbeat was irregular. He called EMS and reportedly began to feel better during the ride to the ED and he was told by EMS personnel that he went back into sinus rhythm. His ECG and telemetry during his admission demonstrate sinus rhythm and sinus bradycardia. He is currently free of any symptoms and denies any chest pain, shortness of breath, palpitations, syncope, pre-syncope. Review of Systems Review of Systems: All systems reviewed & are unremarkable except as noted in HPI and below PMFSH Past Medical History Medical History Abdominal bloating Abdominal pain Abnormal finding of blood chemistry Afib Arthritis ASHD (arteriosclerotic heart disease) Back pain with sciatica Benign essential hypertension Bilateral leg pain BMI 27.0-27.9,adult BMI 28.0-28.9,adult BMI 29.0-29.9,adult BMI 30.0-30.9,adult CAD (coronary art
[2023-01-26 08:45] LABS: Free T4 Free Thyroxine Reflex 1.57 ng/dL (0.78-2.19)
[2023-01-26] MEDS: METOPROLOL SUCCINATE EXT REL 12.5 MG TABCR PO (09:43)
[2023-01-26] MEDS: CHOLECALCIFEROL 1,000 UNITS TABLET 5000 UNITS PO (09:45)
[2023-01-26] MEDS: LOSARTAN POTASSIUM 25 MG TABLET PO (09:45)
[2023-01-26] MEDS: allopurinoL 300 MG TABLET PO (09:45)
--- NOTE | 2023-01-26 12:53 | PM.IMPN ---
Progress Note: A&P Assessment and Plan (1) Orthostatic hypotension: Code(s): I95.1 - Orthostatic hypotension Status: Acute Assessment and Plan: Check orthostatic blood pressures Q shift. Please record and have data on the chart please. (2) Lightheadedness: Code(s): R42 - Dizziness and giddiness Status: Acute Assessment and Plan: The patient stated that he goes in and out of AFib and he knows when he is in AFib he feels dizzy. The patient stated that he wanted to get an ablation. He stated that he is in touch with [facility] and explained to them that he would like to go ahead with the ablation. The patient has been anticoagulated for some time now. Cardiology has been consulted. (3) Hyperlipidemia: Qualifiers: Hyperlipidemia type: mixed hyperlipidemia Qualified Code(s): E78.2 - Mixed hyperlipidemia Code(s): E78.5 - Hyperlipidemia, unspecified Status: Acute Assessment and Plan: Continue with simvastatin and Zetia (4) Edema: Qualifiers: Edema type: unspecified Qualified Code(s): R60.9 - Edema, unspecified Code(s): R60.9 - Edema, unspecified Status: Acute Assessment and Plan: The patient has 4+ pitting edema. Patient stated that he will not take any diuretics. He stated that his feet have been the same size for many years. (5) Hyponatremia: Code(s): E87.1 - Hypo-osmolality and hyponatremia Status: Acute Assessment and Plan: Patient's sodium level was anywhere from 127-133. Today it is 127. I will place the patient on fluid restrictions and if he continues to drop then we will consult Nephrology. (6) History of DVT (deep vein thrombosis): Code(s): Z86.718 - Personal history of other venous thrombosis and embolism Status: Acute Assessment and Plan: Continue with Xarelto. (7) Afib: Qualifiers: Atrial fibrillation type: unspecified Qualified Code(s): I48.91 - Unspecified atrial fibrillation Code(s): I48.91 - Unspecified atrial fibrillation Status: Acute Assessment and Plan: Patient is paroxysmal and is on Xarelto. He is also on metoprolol. The metoprolol could be causing some orthostatic blood pressure as well as possibly some bradycardia. The patient was placed telemetry. Last echo on 08/07/2022. complete two-dimensional, color flow and Doppler transthoracic echocardiogram is performed. ? 2. Technically difficult image quality from the parasternal window apical windows were good. ? 3. Normal left ventricular size and systolic function with grade 1 diastolic noncompliance. ? 4. Mild left atrial enlargement. ? 5. Sclerotic aortic valve with mildly reduced valve area 1.8 cm2 no significant stenosis. ? 6. Normal sinus rhythm. on telemetry. The patient has a heart rate in the 70s at this time. Continue to monitor orthostatic blood pressures every shift. The patient will not take any diuretics. Continue with losartan and dofetilide. Cardiology has been consulted. (8) Hypothyroidism (acquired): Code(s): E03.9 - Hypothyroidism, unspecified Status: Acute Assessment and Plan: Continue with levothyroxine (9) CAD (coronary artery disease): Qualifiers: Associated angina: angina presence unspecified Coronary Disease-Associated Artery/Lesion type: [place] artery [place] vs. transplanted heart: [place] heart Qualified Code(s): I25.10 - Atherosclerotic heart disease of [place] coronary artery without angina pectoris Code(s): I25.10 - Atherosclerotic heart disease of [place] coronary artery without angina pectoris Status: Acute Assessment and Plan: The patient has a history of coronary artery disease with a stent. Patient sees Dr. Mcmillan here (10) DAI on CPAP: Code(s): G47.33 - Obstructive sleep apnea (adult) (pediatric); Z99.89 - Dependence on other enabling machines and devices Status: Acute Assessment
--- NOTE | 2023-01-26 16:00 | PM.DS ---
DS: Admitting Diagnosis Discharge Date 01/26/23 Admitting Diagnosis dizziness DS: Discharge Diagnosis Discharge Diagnosis (1) Orthostatic hypotension: Code(s): I95.1 - Orthostatic hypotension Status: Acute Assessment and Plan: Check orthostatic blood pressures Q shift. Please record and have data on the chart please. (2) Lightheadedness: Code(s): R42 - Dizziness and giddiness Status: Acute Assessment and Plan: The patient stated that he goes in and out of AFib and he knows when he is in AFib he feels dizzy. The patient stated that he wanted to get an ablation. He stated that he is in touch with [facility] and explained to them that he would like to go ahead with the ablation. The patient has been anticoagulated for some time now. Cardiology has been consulted. (3) Hyperlipidemia: Qualifiers: Hyperlipidemia type: mixed hyperlipidemia Qualified Code(s): E78.2 - Mixed hyperlipidemia Code(s): E78.5 - Hyperlipidemia, unspecified Status: Acute Assessment and Plan: Continue with simvastatin and Zetia (4) Edema: Qualifiers: Edema type: unspecified Qualified Code(s): R60.9 - Edema, unspecified Code(s): R60.9 - Edema, unspecified Status: Acute Assessment and Plan: The patient has 4+ pitting edema. Patient stated that he will not take any diuretics. He stated that his feet have been the same size for many years. (5) Hyponatremia: Code(s): E87.1 - Hypo-osmolality and hyponatremia Status: Acute Assessment and Plan: Patient's sodium level was anywhere from 127-133. Today it is 127. I will place the patient on fluid restrictions and if he continues to drop then we will consult Nephrology. (6) History of DVT (deep vein thrombosis): Code(s): Z86.718 - Personal history of other venous thrombosis and embolism Status: Acute Assessment and Plan: Continue with Xarelto. (7) Afib: Qualifiers: Atrial fibrillation type: unspecified Qualified Code(s): I48.91 - Unspecified atrial fibrillation Code(s): I48.91 - Unspecified atrial fibrillation Status: Acute Assessment and Plan: Patient is paroxysmal and is on Xarelto. He is also on metoprolol. The metoprolol could be causing some orthostatic blood pressure as well as possibly some bradycardia. The patient was placed telemetry. Last echo on 08/07/2022. complete two-dimensional, color flow and Doppler transthoracic echocardiogram is performed. ? 2. Technically difficult image quality from the parasternal window apical windows were good. ? 3. Normal left ventricular size and systolic function with grade 1 diastolic noncompliance. ? 4. Mild left atrial enlargement. ? 5. Sclerotic aortic valve with mildly reduced valve area 1.8 cm2 no significant stenosis. ? 6. Normal sinus rhythm. on telemetry. The patient has a heart rate in the 70s at this time. Continue to monitor orthostatic blood pressures every shift. The patient will not take any diuretics. Continue with losartan and dofetilide. Cardiology has been consulted. (8) Hypothyroidism (acquired): Code(s): E03.9 - Hypothyroidism, unspecified Status: Acute Assessment and Plan: Continue with levothyroxine (9) CAD (coronary artery disease): Qualifiers: Coronary Disease-Associated Artery/Lesion type: [place] artery [place] vs. transplanted heart: [place] heart Associated angina: angina presence unspecified Qualified Code(s): I25.10 - Atherosclerotic heart disease of [place] coronary artery without angina pectoris Code(s): I25.10 - Atherosclerotic heart disease of [place] coronary artery without angina pectoris Status: Acute Assessment and Plan: The patient has a history of coronary artery disease with a stent. Patient sees Dr. Mcmillan here (10) DAI on CPAP: Code(s): G47.33 - Obstructive sleep apnea (adult) (pediatric); Z99.89 -
--- NOTE | 2023-01-26 16:05 | PCCCNOTE ---
On 01/26/23, the student, [Radha Lester], provided care and completed [facility] documentation on this patient. I have reviewed the student's documentation and agree with the findings.
== END 2023-01-26 17:10 | disposition home or self-care (01) ==
LOC: ANHED 10:38 → ANH3MEDSUR 18:38
PROVIDERS: Nurse Practitioner; Admitting Provider Internal Medicine; Emergency Provider Physician Assistant; PCP Internal Medicine; Visit Provider Student in an Organized Health Care Education/Training Program
DX: I95.9 Hypotension, unspecified (principal); R42 Dizziness and giddiness; E78.2 Mixed hyperlipidemia; R60.9 Edema, unspecified; E87.1 Hypo-osmolality and hyponatremia; Z86.718 Personal history of other venous thrombosis and embolism; I48.91 Unspecified atrial fibrillation; I10 Essential (primary) hypertension; K59.09 Other constipation; I44.0 Atrioventricular block, first degree; I35.8 Other nonrheumatic aortic valve disorders; R94.31 Abnormal electrocardiogram [ECG] [EKG]; L30.9 Dermatitis, unspecified; R00.0 Tachycardia, unspecified; I25.10 Atherosclerotic heart disease of native coronary artery without angina pectoris; G47.33 Obstructive sleep apnea (adult) (pediatric); Z99.89 Dependence on other enabling machines and devices; J98.11 Atelectasis; F43.10 Post-traumatic stress disorder, unspecified; M79.605 Pain in left leg; M79.604 Pain in right leg; M47.816 Spondylosis without myelopathy or radiculopathy, lumbar region; E03.9 Hypothyroidism, unspecified; G47.00 Insomnia, unspecified; Z95.5 Presence of coronary angioplasty implant and graft; Z90.79 Acquired absence of other genital organ(s); Z79.01 Long term (current) use of anticoagulants; Z79.899 Other long term (current) drug therapy; Z85.46 Personal history of malignant neoplasm of prostate; Z82.49 Family history of ischemic heart disease and other diseases of the circulatory system
CPT/HCPCS: 36415; 71045; 80048; 80053; 83735; 83880; 84439; 84443; 84480; 84484; 85025; 85610; 85730; 93005; 96360; 96361; 99285; A9270; G0378; J7030

== ENCOUNTER 2023-03-03 11:17 | Outpatient (CLI) | payer MEDICARE, SELFPAY ==
[2023-03-10 15:15] LABS: PRA 0.74 ng/mL/h (0.25-5.82)
== END 2023-03-03 11:18 | disposition home or self-care (01) ==
PROVIDERS: PCP Internal Medicine
DX: I48.0 Paroxysmal atrial fibrillation (principal)
CPT/HCPCS: 36415; 82088; 84244

== ENCOUNTER 2023-03-08 14:31 | Outpatient (CLI) | payer MEDICARE, SELFPAY ==
--- NOTE | ~2023-03-08 | US_ITS ---
US renal BI 03/08/2023 15:08 Procedure: Realtime transabdominal ultrasound of the kidneys and bladder. Indication: Hypertension Comparison: No prior studies for comparison. Findings: Renal echotexture is normal bilaterally without hydronephrosis, contour deforming mass or r enal calculus. The right kidney measures 11.5 cm and left kidney measures 11.1 cm. Bladder within no rmal limits. Impression: 1: Unremarkable renal ultrasound. No stones, masses or hydronephrosis. Reviewed, dictated and finalized at location B. Impression: 1: Unremarkable renal ultrasound. No stones, masses or hydronephrosis.
== END 2023-03-08 14:32 | disposition home or self-care (01) ==
PROVIDERS: PCP Internal Medicine; Visit Provider Internal Medicine
DX: I11.9 Hypertensive heart disease without heart failure (principal); I10 Essential (primary) hypertension
CPT/HCPCS: 76775

== ENCOUNTER 2023-03-09 07:03 | Outpatient (CLI) | payer MEDICARE, SELFPAY ==
--- NOTE | ~2023-03-09 | US_ITS ---
EXAMINATION: US retroperitoneal duplex ltd DATE: 03/09/2023 08:20 CDT INDICATION: Essential hypertension TECHNIQUE: Multiple grayscale, color Doppler, and pulsed Doppler images of the kidneys and renal diana garrett were obtained. COMPARISON: None. FINDINGS: The aorta peak systolic velocity is 102 cm/s. The right renal artery peak systolic velocity is 56 cm/ s in the proximal segment, 76 cm/s in the mid segment, 53 cm/s in the distal segment. The left renal artery peak systolic velocity is 58 cm/s in the proximal segment, 50 cm/s in the mid segment, 73 cm/s in the distal segment. The renal artery/aorta systolic ratios are within normal limits. Notes: renal artery stenosis is >=180-200 cm/s or >3.5:1 ratio of renal artery velocity to aorta. Thi s correlates with >50-60% stenosis. IMPRESSION: 1. No Doppler evidence of renal artery stenosis. Reviewed, dictated and finalized at location L.
== END 2023-03-09 07:04 | disposition home or self-care (01) ==
LOC: ANHIMG 07:06
PROVIDERS: PCP Internal Medicine; Visit Provider Internal Medicine
DX: I11.9 Hypertensive heart disease without heart failure (principal); I10 Essential (primary) hypertension
CPT/HCPCS: 93976

== ENCOUNTER 2023-06-12 07:39 | Outpatient (CLI) | payer MEDICARE, SELFPAY ==
[2023-06-12 08:36] LABS: Basophils Percent Auto 0.7 % (0.2-1.2); Eosinophils Absolute Auto 0.1 K/mm3 (0-0.3); Eosinophils Percent Auto 2.4 % (0-4.4); Hematocrit 41.7 % (42.0-52.0); Hemoglobin 14.5 g/dL (14.0-18.0); Immature Granulocyte Absolute 0.03 K/mm3 (0.00-0.031); Immature Granulocyte Percent A 0.7 % (0-0.5); Lymphocytes Percent Auto 15.4 % (18.3-44.2); Mean Corpuscular HGB Conc 34.8 g/dl (32-36); Mean Corpuscular Hemoglobin 33.3 pg (26-34); Mean Corpuscular Volume 95.6 fl (80-100); Mean Platelet Volume 9.2 fl (7.4-10.4); Monocytes Absolute Auto 0.4 K/mm3 (0.1-0.6); Monocytes Percent Auto 8.8 % (2.6-8.5); Neutrophils Absolute Auto 3.3 K/mm3 (1.3-6.7); Platelet Count Result 183 k/mm3 (150-375); Red Blood Count 4.36 M/mm3 (4.6-6.20); Red Cell Distribution Width 14.1 % (11.5-14.5); White Blood Count 4.5 K/mm3 (4.5-10.0)
[2023-06-12 08:55] LABS: Alanine Aminotransferase 28 U/L (6-50); Albumin Level 4.3 g/dL (3.5-5.1); Alkaline Phosphatase 85 U/L (38-126); Anion Gap 9 mmol/L (8-16); Aspartate Amino Transferase 33 U/L (17-59); Bilirubin,Total 1.2 mg/dL (0.2-1.3); Blood Urea Nitrogen 21 mg/dL (9-20); Calcium 9.7 mg/dL (8.4-10.2); Carbon Dioxide 24 mmol/L (22-30); Chloride 95 mmol/L (98-107); Cholesterol 129 mg/dL (0-200); Estimated Glomerular Filt Rate 59; Glucose 79 mg/dL (65-110); HDL Direct 52 mg/dL; Potassium 3.9 mmol/L (3.4-5.0); Sodium 128 mmol/L (137-145); Triglycerides 80 mg/dL (<150)
[2023-06-12 09:06] LABS: Appearance Urine Cloudy (Clear); Bacteria Urine None Seen /hpf; Bilirubin Urine 1+ (Negative); Blood Urine Negative (Negative); Color Urine Dark Yellow (Yellow); Glucose Urine UA Negative (Negative); Hyaline Casts Urine Present /lpf; Ketones Urine 1+ mg/dL (Negative); Leukocyte Esterase Ur Negative LEU/UL (Negative); Need Manual Microscopic Reviewed; Nitrate Urine Negative (Negative); Protein Urine Negative (Negative); RBC Urine 0-2 /hpf (0-2); Specific Grav Ur 1.019 (1.001-1.035); Squamous Epithelial Cell Urine None seen /hpf (Few); WBC Urine 0-5 /hpf; pH Urine 5.5 (5.0-9.0)
[2023-06-12 09:07] LABS: LDL Cholesterol Direct 53 mg/dL
[2023-06-12 09:09] LABS: Add Urine Microscopic? YES
[2023-06-12 09:11] LABS: Hemoglobin A1C 5.4 % (<5.7)
[2023-06-12 09:19] LABS: Free T4 Free Thyroxine 2.56 ng/mL (0.78-2.19)
[2023-06-12 09:22] LABS: Thyroid Stimulating Hormone 0.211 uIU/mL (0.465-4.680)
== END 2023-06-12 07:40 | disposition home or self-care (01) ==
LOC: ANHLAB 07:45
PROVIDERS: PCP Internal Medicine; Visit Provider Internal Medicine
DX: E78.2 Mixed hyperlipidemia (principal); I10 Essential (primary) hypertension; R73.03 Prediabetes; E03.9 Hypothyroidism, unspecified; Z79.899 Other long term (current) drug therapy
CPT/HCPCS: 36415; 80053; 80061; 81001; 83036; 84439; 84443; 85025

== ENCOUNTER 2023-07-24 11:01 | Outpatient (CLI) | payer MEDICARE, SELFPAY | END 2023-07-24 11:02 | disposition home or self-care (01) | LOC: ANHLAB 11:02 | PROVIDERS: PCP Internal Medicine; Visit Provider Internal Medicine | DX: E03.9 Hypothyroidism, unspecified (principal) | CPT/HCPCS: 36415; 84439; 84443 ==

== ENCOUNTER 2023-08-04 00:29 | Day surgery (SDC) | payer MEDICARE, SELFPAY ==
[2023-07-21 13:25] VITALS: BMI 29.0
--- NOTE | 2023-07-27 14:34 | PC.NURSE ---
Spoke with patient regarding medication Xarelto. Pt. verbalizes understanding that the last dose of Xarelto is to be taken on 08/01/2023 and the Endoscopist will instruct them when to restart after the procedure.
--- NOTE | 2023-08-02 12:11 | SUR.PREOP ---
Patient called regarding upcoming procedure. Message left on pt's voicemail regarding appointment times.
--- NOTE | 2023-08-03 16:29 | PM.HPGS ---
History of Present Illness History of Present Illness Consent: Risks, benefits, and alternatives have been discussed and questions answered. Patient agrees to proceed with procedure. Chief complaint: History colon polyps Narrative: Nirav Silvestre is a 77 year old male who was referred for colon cancer screening. His last colonoscopy was about 6 years ago. He has had polyps removed. Review of Systems Review of Systems: All systems reviewed & are unremarkable except as noted in HPI and below PMFSH Past Medical History Medical History Abdominal bloating Abdominal pain Abnormal finding of blood chemistry Afib Arthritis ASHD (arteriosclerotic heart disease) Back pain with sciatica Benign essential hypertension Bilateral leg pain BMI 27.0-27.9,adult BMI 28.0-28.9,adult BMI 29.0-29.9,adult BMI 30.0-30.9,adult CAD (coronary artery disease) CAD (coronary artery disease) Cataract Chronic constipation Constipation CPAP (continuous positive airway pressure) dependence Diarrhea DVT (deep venous thrombosis) Eczema Edema Elevated homocysteine Encounter for Medicare annual wellness exam Encounter for routine adult health examination without abnormal findings Exposure to Agent [place] Follow up Gout Hemorrhoids History of DVT (deep vein thrombosis) History of prostate cancer HTN (hypertension) Hx of colonic polyps Hyperlipidemia Hyponatremia Hypotension Hypothyroid Hypothyroidism (acquired) Insomnia Left upper arm pain Leg pain, right manager intermediate current use of anticoagulant Low back pain Lumbar spondylosis Obstructive sleep apnea On penitentiary drug therapy DAI on CPAP Pre-diabetes Prostate CA PTSD (post-traumatic stress disorder) RLS (restless legs syndrome) Sleep apnea Soft tissue mass Stress Tick bite Urinary tract infection in male Vertigo Vitamin D deficiency Surgical History Surgical History H/O bilateral cataract extraction H/O colonoscopy with polypectomy H/O prostatectomy History of cardiac cath Hx of heart artery stent x2 Family History Family History Mother Family history of coronary artery disease Father Family history of coronary artery disease Family history of malignant neoplasm Social History Social History Social History: The patient is and lives with his . They had 4 children 1 is . The patient is a lifelong nonsmoker. Code status full code Smoking status: Never smoker Second hand tobacco smoke exposure: No Alcohol intake: never Substance use: never Substance use type: does not use Lack of Transportation: No Lack of Food: Never True Current Housing: I Have Housing Concerned About Future Housing: No Difficulty Paying Gas/Electric Bills: No Difficulty Paying for Meds: No Currently Unemployed: No Education: Decline to Answer Difficulty w/ Childcare or Family Care: No Living arrangements: with family Occupation/Education: retired Gender identity (if verbalized by the patient): Male Spiritual care concerns: No Meds Home Medications and Allergies Home Medications Medication Instructions Recorded Confirmed Type dofetilide 500 mcg capsule 500 mcg PO Q12H 05/31/19 07/21/23 History (Tikosyn) cholecalciferol (vitamin D3) 125 5,000 unit PO DAILY 08/06/22 07/21/23 History mcg (5,000 unit) tablet (Vitamin D3) polyethylene glycol 3350 17 gram 17 g PO DAILY 08/06/22 07/21/23 History oral powder packet (Miralax) melatonin 5 mg tablet 5 mg PO HS 08/07/22 07/21/23 History magnesium glycinate 4 cap PO HS 01/25/23 07/21/23 History losartan 100 mg tablet 100 mg PO DAILY #90 tabs 03/08/23 07/21/23 Rx allopurinol 300 mg tablet 300 mg PO DAILY #90 tabs 03/16/23 07/21/23 Rx folic acid-vit B6-vit B12 2.2 1 t
[2023-08-04 10:26] VITALS: BP 137/89; PULSE 60; RESP 18; TEMP 36.5; O2SAT 98
[2023-08-04] MEDS: LACTATED RINGERS 1,000 ML 150 ML IV CONT (10:36)
--- NOTE | 2023-08-04 11:17 | WPDANESEPPF ---
Anes - Initial Pre Proc Eval Procedure: Operation Date: 08/04/23 11:30 Proposed Procedures p Colonoscopy - Merrill Garvin MD Date/Time: 08/04/23 11:17 Surgeon: Merrill Garvin MD Pre Op Diagnosis: History colon polyps Patient Data Age: 77 Gender: M Height: 1.83 m Weight: 97.2 kg Last Vital Signs Temp 97.7 F 08/04/23 10:26 Pulse 60 08/04/23 10:26 Resp 18 08/04/23 10:26 BP 137/89 08/04/23 10:26 Pulse Ox 98 08/04/23 10:26 O2 Del Method Room Air 08/04/23 10:26 Allergies Allergy/AdvReac Type Severity Reaction Status Date / Time Penicillins Allergy Unknown Hives Verified 08/04/23 10:23 Home Medications Medication Instructions Recorded Confirmed Type dofetilide 500 mcg capsule 500 mcg PO Q12H 05/31/19 07/21/23 History (Tikosyn) cholecalciferol (vitamin D3) 125 5,000 unit PO DAILY 08/06/22 07/21/23 History mcg (5,000 unit) tablet (Vitamin D3) polyethylene glycol 3350 17 gram 17 g PO DAILY 08/06/22 07/21/23 History oral powder packet (Miralax) melatonin 5 mg tablet 5 mg PO HS 08/07/22 07/21/23 History magnesium glycinate 4 cap PO HS 01/25/23 07/21/23 History losartan 100 mg tablet 100 mg PO DAILY #90 tabs 03/08/23 07/21/23 Rx allopurinol 300 mg tablet 300 mg PO DAILY #90 tabs 03/16/23 07/21/23 Rx folic acid-vit B6-vit B12 2.2 1 tablet PO DAILY #90 tabs 03/16/23 07/21/23 Rx mg-25 mg-0.5 mg tablet (Folplex) simvastatin 20 mg tablet 20 mg PO HS #90 tabs 03/16/23 07/21/23 Rx rivaroxaban 20 mg tablet (Xarelto) 20 mg PO QPM #90 tabs 05/04/23 08/04/23 Rx levothyroxine 112 mcg tablet 112 mcg PO DAILY #90 tabs 06/15/23 08/04/23 Rx (Synthroid) ezetimibe 10 mg tablet 10 mg PO DAILY 07/21/23 07/21/23 History metoprolol succinate 25 mg 12.5 mg PO DAILY 07/21/23 07/21/23 History tablet,extended release 24 hr docusate sodium 100 mg capsule See Rx Instructions .Route 07/23/23 Rx (Stool Softener) .COMPLEX #60 caps clonazepam 1 mg tablet 1 mg PO HS #90 tabs 08/03/23 Rx Patient hx anesthesia problems: none Family hx anesthesia problems: none Results Review: All pre-operative results and documents have been reviewed as part of the pre-operative evaluation. [facility] Past Medical History Medical History Abdominal bloating Abdominal pain Abnormal finding of blood chemistry Afib Arthritis ASHD (arteriosclerotic heart disease) Back pain with sciatica Benign essential hypertension Bilateral leg pain BMI 27.0-27.9,adult BMI 28.0-28.9,adult BMI 29.0-29.9,adult BMI 30.0-30.9,adult CAD (coronary artery disease) CAD (coronary artery disease) Cataract Chronic constipation Constipation CPAP (continuous positive airway pressure) dependence Diarrhea DVT (deep venous thrombosis) Eczema Edema Elevated homocysteine Encounter for Medicare annual wellness exam Encounter for routine adult health examination without abnormal findings Exposure to Agent [place] Follow up Gout Hemorrhoids History of DVT (deep vein thrombosis) History of prostate cancer HTN (hypertension) Hx of colonic polyps Hyperlipidemia Hyponatremia Hypotension Hypothyroid Hypothyroidism (acquired) Insomnia Left upper arm pain Leg pain, right terminal carman current use of anticoagulant Low back pain Lumbar spondylosis Obstructive sleep apnea On terminal computer operator drug therapy DAI on CPAP Pre-diabetes Prostate CA PTSD (post-traumatic stress disorder) RLS (restless legs syndrome) Sleep apnea Soft tissue mass Stress Tick bite Urinary tract infection in male Vertigo Vitamin D deficiency Surgical History Surgical History H/O bilateral cataract extraction H/O colonoscopy with polypectomy H/O prostatectomy History of cardiac cath Hx of heart artery stent x2 Family History Family History Mother Family history of coronary artery disease Father Fa
[2023-08-04 12:04] VITALS: BP 152/83; PULSE 55; RESP 17; O2SAT 99
[2023-08-04 12:14] VITALS: BP 171/86; PULSE 59; RESP 16; O2SAT 100
[2023-08-04 12:24] VITALS: BP 204/99; PULSE 53; RESP 16; O2SAT 100
== END 2023-08-04 13:01 | disposition home or self-care (01) ==
PROVIDERS: PCP Internal Medicine; Visit Provider Internal Medicine Gastroenterology
PROC: 0DJD8ZZ Inspection of Lower Intestinal Tract, Via Natural or Artificial Opening Endoscopic (ICD-10-PCS; CPT 45378; principal; 2023-08-04 11:30)
DX: Z12.11 Encounter for screening for malignant neoplasm of colon (principal); I10 Essential (primary) hypertension; E78.5 Hyperlipidemia, unspecified; E03.9 Hypothyroidism, unspecified; G47.00 Insomnia, unspecified; R73.03 Prediabetes; G25.81 Restless legs syndrome; G47.30 Sleep apnea, unspecified; E55.9 Vitamin D deficiency, unspecified; I25.10 Atherosclerotic heart disease of native coronary artery without angina pectoris; K59.09 Other constipation; G47.33 Obstructive sleep apnea (adult) (pediatric); F43.10 Post-traumatic stress disorder, unspecified; Z79.01 Long term (current) use of anticoagulants; Z79.899 Other long term (current) drug therapy; Z99.89 Dependence on other enabling machines and devices; Z98.890 Other specified postprocedural states; Z98.61 Coronary angioplasty status; Z86.010 Personal history of colon polyps; Z86.79 Personal history of other diseases of the circulatory system; Z86.718 Personal history of other venous thrombosis and embolism; Z85.46 Personal history of malignant neoplasm of prostate; Z82.49 Family history of ischemic heart disease and other diseases of the circulatory system; Z80.9 Family history of malignant neoplasm, unspecified
CPT/HCPCS: G0105; J2001; J2704; J7120

== ENCOUNTER 2023-09-01 09:54 | Outpatient (CLI) | payer MEDICARE, SELFPAY ==
--- NOTE | ~2023-09-01 | CT_ITS ---
EXAMINATION: CT abdomen pelvis w con INDICATION: Unspecified abdominal pain TECHNIQUE: Computed tomographic images of the abdomen and pelvis were obtained after the administrati on of 100 cc of Omnipaque 350 intravenous contrast. The dose-length product (DLP) was 587.88 mGy-cm. Automated exposure control and iterative reconstruction technique were employed. COMPARISON: 08/28/2021 FINDINGS: There is elevation of the right hemidiaphragm with associated passive atelectasis of the ri ght lung base. The heart size is normal. There is calcified coronary artery atherosclerosis. Mild iris ateral gynecomastia is noted. The liver, spleen, pancreas, gallbladder, and adrenal glands are normal . Hypoattenuating lesions in the kidneys, measuring up to 3 mm on the left, are too small to characte rize but likely represent cysts. There is calcified atherosclerosis of the aorta and many of the othe r arteries. No pathologically enlarged abdominal or pelvic lymph nodes are identified. A moderate vol ume of colonic stool is present. There are bilateral inguinal hernias containing fat. There is mild c ircumferential wall thickening of the urinary bladder. There is severe lumbar spondylosis. IMPRESSION: 1. Constipation. 2. Circumferential wall thickening of the urinary bladder which could reflect cystitis or possibly ch ronic outlet obstruction. Reviewed, dictated and finalized at location B. S MELT OPERATOR IMPRESSION: 1. Constipation. 2. Circumferential wall thickening of the urinary bladder which could reflect c ystitis or possibly chronic outlet obstruction.
[2023-09-01 10:39] LABS: Estimated Glomerular Filt Rate > 60
== END 2023-09-01 09:55 | disposition home or self-care (01) ==
LOC: ANHIMG 09:57
PROVIDERS: PCP Internal Medicine; Visit Provider Internal Medicine
DX: K59.00 Constipation, unspecified (principal); R10.9 Unspecified abdominal pain; R93.41 Abnormal radiologic findings on diagnostic imaging of renal pelvis, ureter, or bladder
CPT/HCPCS: 74177; Q9967

== ENCOUNTER 2023-09-13 14:15 | Outpatient (CLI) | payer MEDICARE, SELFPAY ==
[2023-09-13 17:23] LABS: Free T4 Free Thyroxine 1.18 ng/mL (0.78-2.19)
== END 2023-09-13 14:16 | disposition home or self-care (01) ==
LOC: ANHLAB 14:18
PROVIDERS: PCP Internal Medicine; Visit Provider Internal Medicine
DX: E03.9 Hypothyroidism, unspecified (principal); F32.A Depression, unspecified; K59.00 Constipation, unspecified; L85.3 Xerosis cutis; R53.83 Other fatigue
CPT/HCPCS: 36415; 84439; 84443

== ENCOUNTER 2023-10-25 07:20 | Outpatient (CLI) | payer MEDICARE, SELFPAY ==
[2023-10-25 08:43] LABS: Alanine Aminotransferase 27 U/L (6-50); Albumin Level 4.4 g/dL (3.5-5.1); Alkaline Phosphatase 68 U/L (38-126); Anion Gap 8 mmol/L (4-12); Aspartate Amino Transferase 33 U/L (17-59); Blood Urea Nitrogen 18 mg/dL (9-20); Calcium 9.7 mg/dL (8.4-10.2); Carbon Dioxide 26 mmol/L (22-30); Chloride 97 mmol/L (98-107); Cholesterol 136 mg/dL (0-200); Estimated Glomerular Filt Rate > 60; Glucose 95 mg/dL (65-110); HDL Direct 62 mg/dL; Sodium 131 mmol/L (137-145); Triglycerides 88 mg/dL (<150)
[2023-10-25 08:44] LABS: Hemoglobin A1C 5.5 % (<5.7)
[2023-10-25 08:55] LABS: LDL Cholesterol Direct 56 mg/dL
[2023-10-25 09:12] LABS: Free T4 Free Thyroxine 1.65 ng/mL (0.78-2.19)
== END 2023-10-25 07:21 | disposition home or self-care (01) ==
LOC: ANHLAB 07:24
PROVIDERS: PCP Internal Medicine; Visit Provider Internal Medicine
DX: R73.03 Prediabetes (principal); E78.5 Hyperlipidemia, unspecified; E03.9 Hypothyroidism, unspecified; I10 Essential (primary) hypertension; E78.2 Mixed hyperlipidemia
CPT/HCPCS: 36415; 80053; 80061; 83036; 84439; 84443

== ENCOUNTER 2024-02-09 14:51 | Outpatient (CLI) | payer MEDICARE, SELFPAY ==
--- NOTE | ~2024-02-09 | US_ITS ---
RIGHT LOWER EXTREMITY VENOUS ULTRASOUND Ordering provider: Lenin Harden MD History: . LOWER RIGHT LEG PAIN . Comparison: None. FINDINGS: --COMMON FEMORAL: Patent and free of thrombus. Normal compressibility, phasic flow and augmentation. --PROXIMAL SUPERFICIAL FEMORAL: Patent and free of thrombus. Normal compressibility, phasic flow and augmentation. --DISTAL SUPERFICIAL FEMORAL: Patent and free of thrombus. Normal compressibility, phasic flow and au gmentation. --POPLITEAL: Patent and free of thrombus. Normal compressibility, phasic flow and augmentation. --POSTERIOR TIBIAL: Patent and free of thrombus. Normal compressibility, phasic flow and augmentation . IMPRESSION: Negative right lower extremity venous US. No deep vein thrombosis. Reviewed, dictated and finalized at location A.
== END 2024-02-09 14:52 | disposition home or self-care (01) ==
LOC: ANHIMG 14:53
PROVIDERS: PCP Internal Medicine; Visit Provider Internal Medicine
DX: M79.661 Pain in right lower leg (principal)
CPT/HCPCS: 93971

== ENCOUNTER 2024-02-14 10:41 | Outpatient (CLI) | payer MEDICARE, SELFPAY ==
--- NOTE | ~2024-02-14 | XR_ITS ---
3 VIEWS LUMBAR SPINE Ordering provider: Lenin Harden MD History: . M54.30 - Sciatica, NO SPECIFIC INJURY, . Comparison: June 09, 2022 FINDINGS: VERTEBRAL BODIES:Dextroscoliosis. No visible fracture or subluxation. Degenerative changes of the sp ine. DISK SPACES: Narrowing of all disc spaces. Multilevel facet joint disease. SOFT TISSUES: Atherosclerotic changes of the aorta. IMPRESSION: No acute osseous abnormality lumbar spine. Reviewed, dictated and finalized at location A.
== END 2024-02-14 10:42 | disposition home or self-care (01) ==
LOC: ANHIMG 10:44
PROVIDERS: PCP Internal Medicine; Visit Provider Internal Medicine
DX: M54.30 Sciatica, unspecified side (principal)
CPT/HCPCS: 72114

== ENCOUNTER 2024-03-13 07:08 | Outpatient (CLI) | payer MEDICARE, SELFPAY ==
[2024-03-13 07:40] LABS: Basophils Percent Auto 0.7 % (0.2-1.2); Eosinophils Absolute Auto 0.2 K/mm3 (0-0.3); Hematocrit 41.4 % (42.0-52.0); Hemoglobin 14.6 g/dL (14.0-18.0); Immature Granulocyte Absolute 0.01 K/mm3 (0.00-0.031); Immature Granulocyte Percent A 0.2 % (0-0.5); Lymphocytes Percent Auto 17.4 % (18.3-44.2); Mean Corpuscular HGB Conc 35.3 g/dl (32-36); Mean Corpuscular Hemoglobin 33.7 pg (26-34); Mean Corpuscular Volume 95.6 fl (80-100); Mean Platelet Volume 8.8 fl (7.4-10.4); Monocytes Absolute Auto 0.4 K/mm3 (0.1-0.6); Monocytes Percent Auto 10.7 % (2.6-8.5); Neutrophils Absolute Auto 2.7 K/mm3 (1.3-6.7); Platelet Count Result 174 k/mm3 (150-375); Red Blood Count 4.33 M/mm3 (4.6-6.20); Red Cell Distribution Width 14.3 % (11.5-14.5)
[2024-03-13 07:54] LABS: Alanine Aminotransferase 28 U/L (6-50); Albumin Level 4.1 g/dL (3.5-5.1); Alkaline Phosphatase 71 U/L (38-126); Anion Gap 7 mmol/L (4-12); Aspartate Amino Transferase 31 U/L (17-59); Bilirubin,Total 0.9 mg/dL (0.2-1.3); Blood Urea Nitrogen 16 mg/dL (9-20); Calcium 9.1 mg/dL (8.4-10.2); Carbon Dioxide 29 mmol/L (22-30); Chloride 91 mmol/L (98-107); Cholesterol 123 mg/dL (0-200); Estimated Glomerular Filt Rate > 60; Glucose 89 mg/dL (65-110); HDL Direct 60 mg/dL; Sodium 127 mmol/L (137-145); Triglycerides 77 mg/dL (<150)
[2024-03-13 08:05] LABS: LDL Cholesterol Direct 42 mg/dL
[2024-03-13 09:11] LABS: Hemoglobin A1C 5.7 % (<5.7)
[2024-03-13 10:31] LABS: Free T4 Free Thyroxine 1.35 ng/mL (0.78-2.19); Vitamin D 25 Hydroxy 53.3 ng/mL
== END 2024-03-13 07:09 | disposition home or self-care (01) ==
LOC: ANHLAB 07:15
PROVIDERS: PCP Internal Medicine; Visit Provider Internal Medicine
DX: E78.5 Hyperlipidemia, unspecified (principal); I10 Essential (primary) hypertension; E03.9 Hypothyroidism, unspecified; E55.9 Vitamin D deficiency, unspecified; R73.03 Prediabetes; Z79.899 Other long term (current) drug therapy
CPT/HCPCS: 36415; 80053; 80061; 82306; 83036; 84439; 84443; 85025

== ENCOUNTER 2024-03-20 12:02 | Outpatient (CLI) | payer MEDICARE, SELFPAY ==
--- NOTE | ~2024-03-20 | XR_ITS ---
Supine and upright views of the abdomen Clinical history: Diarrhea COMPARISON: 08/18/2021 Findings: Bowel gas pattern is nonspecific. No evidence for obstruction or free air. No abnormal mass lesion or calcification is seen. Degenerative spondylosis of the lumbar spine noted. Impression: Nonspecific bowel gas pattern. Reviewed, dictated and finalized at [facility]. Impression: Nonspecific bowel gas pattern.
== END 2024-03-20 12:03 | disposition home or self-care (01) ==
LOC: ANHIMG 12:06
PROVIDERS: PCP Internal Medicine; Visit Provider Nurse Practitioner Family
DX: R19.7 Diarrhea, unspecified (principal); K59.00 Constipation, unspecified
CPT/HCPCS: 74018

== ENCOUNTER 2024-06-13 15:04 | Outpatient (CLI) | payer MEDICARE, SELFPAY ==
[2024-06-13 16:32] LABS: Influenza A QL RT-PCR Negative (Negative); Influenza B QL RT-PCR Negative (Negative)
== END 2024-06-13 15:05 | disposition home or self-care (01) ==
PROVIDERS: PCP Internal Medicine; Visit Provider Internal Medicine
DX: R05.9 Cough, unspecified (principal); R50.9 Fever, unspecified
CPT/HCPCS: 87502

== ENCOUNTER 2024-07-24 07:32 | Outpatient (CLI) | payer MEDICARE, SELFPAY ==
[2024-07-24 08:05] LABS: Basophils Percent Auto 0.8 % (0.2-1.2); Eosinophils Absolute Auto 0.2 K/mm3 (0-0.3); Eosinophils Percent Auto 3.8 % (0-4.4); Hematocrit 42.4 % (42.0-52.0); Hemoglobin 14.4 g/dL (14.0-18.0); Immature Granulocyte Absolute 0.01 K/mm3 (0.00-0.031); Immature Granulocyte Percent A 0.3 % (0-0.5); Lymphocytes Absolute Auto 0.79 K/mm3 (0.9-3.2); Lymphocytes Percent Auto 20.2 % (18.3-44.2); Mean Corpuscular Hemoglobin 33.9 pg (26-34); Mean Corpuscular Volume 99.8 fl (80-100); Mean Platelet Volume 9.3 fl (7.4-10.4); Monocytes Absolute Auto 0.4 K/mm3 (0.1-0.6); Monocytes Percent Auto 10.5 % (2.6-8.5); Neutrophils Absolute Auto 2.5 K/mm3 (1.3-6.7); Neutrophils Percent Auto 64.4 % (45.5-73.1); Platelet Count Result 175 k/mm3 (150-375); Red Blood Count 4.25 M/mm3 (4.6-6.20); Red Cell Distribution Width 15.5 % (11.5-14.5); White Blood Count 3.9 K/mm3 (4.5-10.0)
[2024-07-24 08:17] LABS: Alanine Aminotransferase 39 U/L (6-50); Albumin Level 4.1 g/dL (3.5-5.1); Alkaline Phosphatase 79 U/L (38-126); Anion Gap 7 mmol/L (4-12); Aspartate Amino Transferase 34 U/L (17-59); Blood Urea Nitrogen 23 mg/dL (9-20); Calcium 9.3 mg/dL (8.4-10.2); Carbon Dioxide 29 mmol/L (22-30); Chloride 99 mmol/L (98-107); Cholesterol 130 mg/dL (0-200); Estimated Glomerular Filt Rate > 60; Glucose 86 mg/dL (65-110); HDL Direct 60 mg/dL; Sodium 135 mmol/L (137-145); Triglycerides 85 mg/dL (<150)
[2024-07-24 08:29] LABS: LDL Cholesterol Direct 47 mg/dL
[2024-07-24 08:32] LABS: Hemoglobin A1C 5.4 % (<5.7)
[2024-07-24 09:57] LABS: Vitamin D 25 Hydroxy 64.1 ng/mL
[2024-07-24 10:59] LABS: Thyroid Stimulating Hormone 0.827 uIU/mL (0.465-4.680)
== END 2024-07-24 07:33 | disposition home or self-care (01) ==
LOC: ANHLAB 07:33
PROVIDERS: PCP Internal Medicine; Visit Provider Internal Medicine
DX: I25.10 Atherosclerotic heart disease of native coronary artery without angina pectoris (principal); I10 Essential (primary) hypertension; E55.9 Vitamin D deficiency, unspecified; R73.03 Prediabetes; E03.9 Hypothyroidism, unspecified; E78.5 Hyperlipidemia, unspecified
CPT/HCPCS: 36415; 80053; 80061; 82306; 83036; 84439; 84443; 85025

== ENCOUNTER 2024-08-04 00:27 | Day surgery (SDC) | payer MEDICARE, SELFPAY ==
[2024-07-26 15:24] VITALS: BMI 27.8
--- NOTE | 2024-07-26 15:51 | PC.NURSE ---
Spoke with _PATIENT AND SPOUSE _ regarding medication _XARELTO_. THEY_verbalizes understanding that the last dose is to be taken on 07/31/24_ and the Endoscopist will instruct them when to restart after the procedure.
--- OUTSIDE RECORDS SUMMARY | 2024-08-04 00:33 | XMS_ITS | Patient Health Summary ---
Author Organization [facility] Address [address] [place] [address] Care Team Providers Care Floorworker Lasting Name Role Phone Leinn Harden MD Primary Care Provider [phone] Note from [facility],non-owned Affiliates and Associated Physician Practices is amultiple site organization consisting of ambulatory clinics and hospital sitesin [place], [place], [place] and [place]. This disclosure is being madepursuant to the Care Everywhere program and may not contain all information available regarding this patient. Last updated 18.[facility] Social History Tobacco Use Types Packs/Day Years Used Date Smoking Tobacco: Never Assessed Sex and Gender Information Value Date Recorded Sex Assigned at Not on file Gender Identity Not on file Sexual Orientation Not on file Procedures * DERMATOPATHOLOGY(Performed 01/17/2024) * DERMATOPATHOLOGY(Performed 01/05/2024) * DERMATOPATHOLOGY(Performed 11/06/2020) * DERMATOPATHOLOGY(Performed 04/16/2020) * DERMATOPATHOLOGY(Performed 01/15/2012) Results * DERMATOPATHOLOGY (01/17/2024 3:33 AM CDT) Only the most recent of5 resultswithin the time period is included. Case Report Dermatopathology Report Case: [id number] Authorizing Provider: Malcolm Rollins MD Collected: 01/17/2024 03:33 AM Ordering Location: [facility] Physician [facility] - Received: 01/18/2024 01:57 PM DermPath Lab Pathologist: Virgie Marrufo MD Specimen: Skin, right medial superior buttock 3:08 PM CDT DERMATOPATHOLOGY LABORATORY Amended Report Due to a clerical error, the specimen type is changed from a punch biopsy to a non-oriented excision. 4 3:08 PM CDT DERMATOPATHOLOGY LABORATORY Final Diagnosis Specimen A. SKIN, right medial superior buttock: DERMAL SCAR PRESENT AT MARGIN RESIDUAL BASAL CELL CARCINOMA NOT IDENTIFIED (L90.5) 4 3:08 PM CDT DERMATOPATHOLOGY LABORATORY Amendment electronically signed by Virgie Marrufo MD on 01/20/2024 at 3:08 PM Clinical History Bx proven BCC, nodular Please check margins/prior biopsy 4 3:08 PM CDT DERMATOPATHOLOGY LABORATORY Gross Description Specimen A: Received is one formalin filled container labeled with the patient's name and designated right medial superior buttock. The specimen consists of a non-oriented excision measuring 7x7x5 mm. Jar 0. 3:08 PM CDT DERMATOPATHOLOGY LABORATORY Microscopic Description Specimen A. SKIN, right medial superior buttock: There are fibroblasts and collagen bundles oriented parallel to the skin surface. There are elongated blood vessels, some of which are oriented perpendicular to the skin surface. No basal cell carcinoma is identified. Scar is present at the margin of the specimen. 3:08 PM CDT DERMATOPATHOLOGY LABORATORY Disclaimer An external and internal positive and negative controls are appropriate for the histochemical, immunohistochemical and immunofluorescence stain(s) in this case (if any), except where stated explicitly. The performance characteristics of the stain(s) cited in this report were developed and its performance characteristic determined by the Dermatopathology Laboratory at [facility], directed by Dr. Sami Toro. These tests need not be, and therefore are not, approved by the [place] Food and Drug Administration. The tests are used for clinical purposes. Billing Codes Specimen Charges Stain Charges 65466 1 4 3:08 PM CDT DERMATOPATHOLOGY LABORATORY Embedded Images 4 3:08 PM CDT DERMATOPATHOLOGY LABORATORY Pathology/Cytolo gy TISSUE SPECIMEN FROM SKIN / Unknown 01/17/2024 3:33 AM CDT 01/18/2024 1:57 PM CDT Malcolm Rollins MD LAB - PATHOLOGY/CYTO LOGY ORDERABLES DERMATOPATHOLOGY LABORATORY [facility] - Department of Dermatology [facility] [address] [place] [address], [address] [phone] Care Teams Floorworker Lasting Relationship Specialty Start Date End Date Lenin Harden MD [address] [place] [address] PCP - General 03/22/18
--- OUTSIDE RECORDS SUMMARY | 2024-08-04 00:33 | XMS_ITS | Encounter Summary ---
Author Organization [facility] Address [address] [facility] [place] [address] Care Team Providers Care Day Camp Unit Leader Name Role Phone Lenin Harden MD Primary Care Provider [phone] Encounter Details Date Type Department Care Team (Late st Contact Info) Description 11/07/2020 Lab Requisition [facility] DermPath Lab [address] [place] [phone] Malcolm Rollins MD [address] [place] [address] Social History Tobacco Use Types Packs/Day Years Used Date Smoking Tobacco: Never Assessed Sex and Gender Information Value Date Recorded Sex Assigned at Not on file Gender Identity Not on file Sexual Orientation Not on file documented as of this encounter Plan of Treatment Not on file documented as of this encounter Procedures Procedure Name Priority Date/Time Associated Diagnosis Comments DERMATOPATHOLOGY Routine 11/06/2020 3:33 AM CDT documented in this encounter Results * DERMATOPATHOLOGY (11/06/2020 3:33 AM CDT) Case Report Dermatopathology Report Case: [id number] Authorizing Provider: Malcolm Rollins MD Collected: 11/06/2020 03:33 AM Ordering Location: [facility] DermPath Lab Received: 11/07/2020 12:50 PM Pathologist: John Toro MD Specimen: Skin, left elbow 2:54 PM CDT DERMATOPATHOLOGY LABORATORY Final Diagnosis Specimen A. 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 1 2:54 PM CDT DERMATOPATHOLOGY LABORATORY Gross Description Specimen A: Received is one formalin filled container labeled with the patient's name and designated left elbow. The specimen consists of a shave biopsy measuring [id number]. Jar 0. 1 2:54 PM CDT DERMATOPATHOLOGY LABORATORY Microscopic Description Specimen A. SKIN, left elbow: There is focal parakeratosis and spongiosis of the epidermis. In the dermis there is a mainly superficial perivascular lymphoid infiltrate. COMMENT: These histological findings are consistent with an eczematous dermatitis. There is no evidence of epithelial dysplasia or malignancy in the sections examined. 1 2:54 PM CDT DERMATOPATHOLOGY LABORATORY Disclaimer An external and internal positive and negative controls are appropriate for the histochemical, immunohistochemical and immunofluorescence stain(s) in this case (if any), except where stated explicitly. The performance characteristics of the stain(s) cited in this report were developed and its performance characteristic determined by the Dermatopathology Laboratory at [facility], directed by Dr. Sami Toro. These tests need not be, and therefore are not, approved by the [place] Food and Drug Administration. The tests are used for clinical purposes. Billing Codes Specimen Charges Stain Charges 30010 1 1 2:54 PM CDT DERMATOPATHOLOGY LABORATORY Embedded Images 1 2:54 PM CDT DERMATOPATHOLOGY LABORATORY Pathology/Cytolo gy TISSUE SPECIMEN FROM SKIN / Unknown 11/06/2020 3:33 AM CDT 11/07/2020 12:50 PM CDT Malcolm Rollins MD LAB - PATHOLOGY/CYTO LOGY ORDERABLES DERMATOPATHOLOGY LABORATORY [facility] - Department of Dermatology [address], [address] [phone] documented in this encounter Visit Diagnoses Not on filedocumented in this encounter Care Teams Day Camp Unit Leader Relationship Specialty Start Date End Date Lenin Harden MD [address] [place] [address] PCP - General 03/22/18 documented as of this encounter
--- OUTSIDE RECORDS SUMMARY | 2024-08-04 00:33 | XMS_ITS | Referral Summary ---
Author Organization [facility] Address [address] [place] [address] Care Team Providers Care Lever Miller Name Role Phone Lenin Harden MD Primary Care Provider Source Comments [facility],non-owned Affiliates and Associated Physician Practices is amultiple site organization consisting of ambulatory clinics and hospital sitesin [place], [place], [place] and [place]. This disclosure is being madepursuant to the Care Everywhere program and may not contain all information available regarding this patient. Last updated 18.[facility] Social History Tobacco Use Types Packs/Day Years Used Date Smoking Tobacco: Never Assessed Sex and Gender Information Value Date Recorded Sex Assigned at Not on file Gender Identity Not on file Sexual Orientation Not on file Plan of Treatment Not on file Care Teams Lever Miller Relationship Specialty Start Date End Date Lenin Harden MD [address] [place] [address] PCP - General 03/22/18
--- OUTSIDE RECORDS SUMMARY | 2024-08-04 00:33 | XMS_ITS | Encounter Summary ---
Author Organization [facility] Address [address] [facility] [place] [address] Care Team Providers Care Supply Chain Development Manager Name Role Phone Lenin Harden MD Primary Care Provider [phone] Encounter Details Date Type Department Care Team (Late st Contact Info) Description 01/10/2024 Lab Requisition [facility] - DermPath Lab [address] [place] [phone] Malcolm Rollins MD [address] [place] [address] Social History Tobacco Use Types [...] Priority Date/Time Associated Diagnosis Comments DERMATOPATHOLOGY Routine 01/05/2024 12:0 0 AM CDT documented in this encounter Results * DERMATOPATHOLOGY (01/05/2024 12:00 AM CDT) Case Report Dermatopathology Report Case: [id number] Authorizing Provider: Malcolm Rollins MD Collected: 01/05/2024 12:00 AM Ordering Location: [facility] - Received: 01/10/2024 07:57 AM DermPath Lab Pathologist: John Toro MD Specimen: Skin, right medial superior buttock 4 4:36 PM CDT DERMATOPATHOLOGY LABORATORY Final Diagnosis Specimen A. SKIN, right medial superior buttock: BASAL CELL CARCINOMA, NODULAR TYPE (C44.519) 4 4:36 PM CDT DERMATOPATHOLOGY LABORATORY Clinical History R/O BCC vs Other Neoplasm 4 4:36 PM CDT DERMATOPATHOLOGY LABORATORY Gross Description Specimen A: Received is one formalin filled container labeled with the patient's name and designated right medial superior buttock. The specimen consists of a shave biopsy measuring 8x9x3 mm. Jar 0. 4 4:36 PM CDT DERMATOPATHOLOGY LABORATORY Microscopic Description Specimen A. SKIN, right medial superior buttock: Within the dermis there are aggregates of basaloid cells with a high nuclear to cytoplasmic ratio and peripheral palisading. 4 4:36 PM CDT DERMATOPATHOLOGY LABORATORY Disclaimer An external and internal positive and negative controls are appropriate for the histochemical, immunohistochemical and immunofluorescence stain(s) in this case (if any), except where stated explicitly. The performance characteristics of the stain(s) cited in this report were developed and its performance characteristic determined by the Dermatopathology Laboratory at [facility], directed by Dr. Sami Toro. These tests need not be, and therefore are not, approved by the [place] Food and Drug Administration. The tests are used for clinical purposes. Billing Codes Specimen Charges Stain Charges 71384 1 4 4:36 PM CDT DERMATOPATHOLOGY LABORATORY Embedded Images 4 4:36 PM CDT DERMATOPATHOLOGY LABORATORY Pathology/Cytolog y TISSUE SPECIMEN FROM SKIN / Unknown 01/05/2024 01/10/2024 7:57 AM CDT Malcolm Rollins MD LAB - PATHOLOGY/CYTO LOGY ORDERABLES DERMATOPATHOLOGY LABORATORY [facility] - Department of Dermatology [address], [address] [phone] documented in this encounter Visit Diagnoses Not on filedocumented in this encounter Care Teams Supply Chain Development Manager Relationship Specialty Start Date End Date Lenin Hadren MD [address] [facility] [place] [place] [address] PCP - General 03/22/18 documented as of this encounter
--- OUTSIDE RECORDS SUMMARY | 2024-08-04 00:33 | XMS_ITS | Encounter Summary ---
Author Organization [facility] Address [address] [place] [address] Phone Care Team Providers Care Salesperson Hosiery Name Role Phone Lenin Harden MD Primary Care Provider [phone] Oneal Weber MD Unavailable [phone] Travis Augustine MD PhD Unavailable [phone] Lenin Harden MD Primary Care Provider [phone] Encounter Details Date Type Department Care Team (Latest Contact Info) Description 04/10/2020 Orders Only [facility] IM CARDIOLOGY Scanning, Provider Social History Tobacco Use Types Packs/Day Years Used Date Smoking Tobacco: Never Smokeless Tobacco: Never Alcohol Use Standard Drinks/Week Comments No 0 (1 standard drink = 0.6 oz pur e alcohol) Sex and Gender Information Value Date Recorded Sex Assigned at Not on file 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 Gender Identity Not on file Sexual Orientation Not on file documented as of this encounter Plan of Treatment Not on file documented as of this encounter Procedures Procedure Name Priority Date/Time Associated Diagnosis Comments SCAN - LABS 04/10/2020 documented in this encounter Results * SCAN - LABS (04/10/2020) us Provider Scanning Final Result documented in this encounter Visit Diagnoses Not on filedocumented in this encounter Care Teams Salesperson Hosiery Relationship Specialty Start Date End Date Lenin Harden MD [address] [facility] [address] [place] [address] PCP - General 10/21/16 08/27/22 Lenin Harden MD [address] [facility] [address] [place] [address] PCP - General Internal Medicine 08/28/22 Oneal Weber MD [address] [facility] [address] [place] [address] Referring Physician Cardiology 11/23/18 Travis Augustine MD PhD [address] [facility] [address] [place] [address] Referring Physician Cardiology 11/23/18 documented as of this encounter
--- OUTSIDE RECORDS SUMMARY | 2024-08-04 00:33 | XMS_ITS | Encounter Summary ---
Author Organization [facility] Address [address] [facility] [place] [address] Care Team Providers Care Administrator Health Care Facility Name Role Phone Lenin Harden MD Primary Care Provider [phone] Encounter Details Date Type Department Care Team (Late st Contact Info) Description 01/18/2024 Lab Requisition [facility] - DermPath Lab [address] [place] [phone] Malcolm Rollins MD [address] [place] [address] Social History Tobacco Use Types [...] Priority Date/Time Associated Diagnosis Comments DERMATOPATHOLOGY Routine 01/17/2024 3:33 AM CDT documented in this encounter Results * DERMATOPATHOLOGY (01/17/2024 3:33 AM CDT) Case Report Dermatopathology Report Case: [id number] Authorizing Provider: Malcolm Rollins MD Collected: 01/17/2024 03:33 AM Ordering Location: [facility] - Received: 01/18/2024 01:57 PM DermPath Lab Pathologist: Virgie Marrufo MD Specimen: Skin, right medial superior buttock 3:08 PM CDT DERMATOPATHOLOGY LABORATORY Amended Report Due to a clerical error, the specimen type is changed from a punch biopsy to a non-oriented excision. 3:08 PM CDT DERMATOPATHOLOGY LABORATORY Final Diagnosis [...] determined by the Dermatopathology Laboratory at [facility], directed by Dr. Sami Toro. These tests need not be, and therefore are not, approved by the [place] Food and Drug Administration. The tests are used for clinical purposes. Billing Codes Specimen Charges Stain Charges 32041 1 4 3:08 PM CDT DERMATOPATHOLOGY LABORATORY Embedded Images 4 3:08 PM CDT DERMATOPATHOLOGY LABORATORY Pathology/Cytolo gy TISSUE SPECIMEN FROM SKIN / Unknown 01/17/2024 3:33 AM CDT 01/18/2024 1:57 PM CDT Malcolm Rollins MD LAB - PATHOLOGY/CYTO LOGY ORDERABLES DERMATOPATHOLOGY LABORATORY [facility] - Department of Dermatology [address] [phone] documented in this encounter Visit Diagnoses Not on filedocumented in this encounter Care Teams Administrator Health Care Facility Relationship Specialty Start Date End Date Lenin Harden MD [address] [place] [address] PCP - General 03/22/18 documented as of this encounter
--- OUTSIDE RECORDS SUMMARY | 2024-08-04 00:33 | XMS_ITS | Clinical Summary ---
Author Organization [facility] Address [address] [place] [address] Care Team Providers Care Casting Machine Adjuster Name Role Phone Lenin Harden MD Primary Care Provider [phone] Source Comments [facility],non-owned Affiliates and Associated Physician Practices is amultiple site organization consisting of ambulatory clinics and hospital sitesin [place], [place], [place] and [place]. This disclosure is being madepursuant to the Care Everywhere program and may not contain all information available regarding this patient. Last updated 18.[facility] [employer] Social History Tobacco Use Types Packs/Day Years Used Date Smoking Tobacco: Never Assessed Sex and Gender Information Value Date Recorded Sex Assigned at Not on file Gender Identity Not on file Sexual Orientation Not on file Plan of Treatment Health Maintenance Due Date Last Done Comments MEDICARE AWV 12 MONTHS 1944 DTAP/TDAP/TD VACCINES (1 - Tdap) 09/04/1963 PNEUMOCOCCAL VACCINE 50+ (1 of 1 - PCV) 1994 ZOSTER VACCINE (1 of 2) 1994 Respiratory Syncytial Virus (RSV) Vaccine Pt: or over 60 yrs (1 - 1-dose 75+ series) 09/04/2019 COVID-19 VACCINE ( - 2023-2 5 season) 2024 INFLUENZA VACCINE (#1) 2024 DEPRESSION SCREENING 06/28/2024 HEPATITIS B VACCINE Aged Out No longe r eligible based on patient's age to complete this topic HIB VACCINE Aged Out No longer eligi ble based on patient's age to complete this topic HPV VACCINE Aged Out No longer eligi ble based on patient's age to complete this topic MENINGOCOCCAL (Group B) VACCINE Aged Out No longer eligible based on patient's age to complete this topic MENINGOCOCCAL VACCINE Aged Out No sofia anna eligible based on patient's age to complete this topic Care Teams Casting Machine Adjuster Relationship Specialty Start Date End Date Lenin Harden MD [address] [place] [address] PCP - General 03/22/18
--- OUTSIDE RECORDS SUMMARY | 2024-08-04 00:33 | XMS_ITS | Referral Summary ---
Author Organization [facility] Address [address] [place] [address] Care Team Providers Care Winter Intern Name Role Phone Oneal Weber MD Unavailable [phone] Travis Augustine MD PhD Unavailable [phone] Lenin Harden MD Primary Care Provider [phone] Encounters Date Type Department Care Team Description 06/30/2024 1:05 PM SUPERINTENDENT GENERATING [employer]ANT Procedure visit [facility] Cardiology [address] [place] [address] 8th [place] [address] [place] [address] Atrial fibrillation, unspecified type (HCC) (Primary Dx) 06/30/2024 12:40 PM SUPERINTENDENT GENERATING PLANT Lab [facility] ([facility]) [address] [place] [address] Paroxysmal atrial fibrillation (CMS/HCC) (HCC); High risk medications (not anticoagulants) long-term use 06/12/2024 1:30 PM SUPERINTENDENT GENERATING PLANT Office Visit [facility] Cardiology [address] [facility] [address] [place] [id number] Gwen Anne NP Paroxysmal atrial fibrillation (CMS/HCC) (HCC) (Primary Dx); High risk medications (not anticoagulants) long-term use; Chronic anticoagulation; DAI on CPAP; Coronary artery disease involving yocha dehe coronary artery of yocha dehe heart without angina pectoris 06/01/2024 Telephone [facility] Cardiology [address] [place] [address] 8th [place] [address] [place] [address] Vibha Knight from Last 3 Months Allergies Active Allergy Reactions Criticality Noted Date Comments Linaclotide Other (See comments) Low 02/26/2023 Caused afib Penicillins Hives,Rash Medium 10/14/2021 Medications ezetimibe (ZETIA) 10 mg tabletIndication s:hyperlipidemia Take 1 tablet (10 mg total) by mouth daily after dinner 8 Active allopurinol (ZYLOPRIM) 300 mg tabletIndication s:prevention of acute gout attack Take 1 tablet (300 mg total) by mouth daily after breakfast 3 9 Active metoprolol XL (TOPROL-XL) 25 mg 24 hr tablet Take 1/2 (one-half) tablet by mouth once daily 45 tablet 3 0 Active Additional Information Patient taking differently: 12.5 mg oral Every morning, Indications: hypertension, Informant: Self, Reported on 06/12/2024 clonazePAM (KlonoPIN) 1 mg tabletIndication s:ptsd Take 1 tablet (1 mg total) by mouth nightly 1 Active MELATONIN ORAL Take 5 mg by mouth nightly Active MAGNESIUM GLYCINATE ORAL Take 300 mg by mouth nightly Active Folplex 2.2 2.2-25-0.5 mg tabletIndication s:Vitamin Deficiency Prevention,multi vitamin Take 1 tablet by mouth every morning 3 Active NON FORMULARY, FOR CLINIC ADMINISTERED MEDICATIONS ONLY, (not in database) Take 1 each by mouth nightly OTC supplement for sleep : CATERINA Active polyethylene glycol (MIRALAX) 17 gram/dose bulk powder Take 17 g by mouth every morning Active calcium citrate/vitamin D3 (CITRACAL REGULAR ORAL) Take by mouth daily after dinner Active cholecalciferol (VITAMIN D-3) 5,000 unit tablet Take 1 tablet (5,000 Units total) by mouth every morning Active cyanocobalamin (Vitamin B-12) 1,000 mcg tabletIndication s:Prevention of Vitamin B12 Deficiency Take 1 tablet (1,000 mcg total) by mouth semiconductor wafers marker before breakfast Active vitamin b complex tablet Take 1 tablet by mouth every morning Active ascorbic acid 500 mg tablet,chewable Take 2 tablet/chew tab (1,000 mg total) by mouth every morning Active Lactobac 40-Bifido 3-S.thermop (Probiotic) 100 billion cell capsule Take 1 capsule by mouth every morning Active simvastatin (ZOCOR) 20 mg tabletIndication s:hyperlipidemia Take 1 tablet (20 mg total) by mouth daily after dinner Active Xarelto 20 mg tabletIndication s:Paroxysmal atrial fibrillation (CMS/HCC) (HCC) Take 1 tablet by mouth once daily 90 tablet 3 Active losartan (COZAAR) 100 mg tabletIndication s:hypertension Take 1 tablet (100 mg total) by mouth every morning [address] (PROTONIX) 40 mg EC tabletIndication s:Stress Ulcer Prophylaxis,Nayeli tment of Non-Bleeding Gastric Disorder Take 1 tablet (40 mg total) by mouth daily 30 tablet 3 Active docusate sodium (COLACE) 100 mg capsule Take 1 capsule (100 mg total) by mouth 2 (two) times a day 4 Active polyethylene glycol 236-22.74-6.74 -5.86 gram solution DRINK ONE CUP EVERY 15 MINUTES STARTING AT 3 PM THE DAY BEFORE YOUR PROCEDURE. DRINK UNTIL WHOLE JUG IS GONE 4 Active Synthroid 112 mcg tablet Take 1 tablet (112 mcg total) by mouth semiconductor wafers marker before breakfast 4 Active amLODIPine (NORVASC) 2.5 mg tablet 4 Active dofetilide (TIKOSYN) 500 mcg capsuleIndicatio ns:Paroxysmal atrial fibrillation (CMS/HCC) (HCC),High risk medications (not anticoagulants) long-term use Take 1 capsule by mouth twice daily 180 capsule 4 Active Active Problems Problem Noted Date Diagnosed Date Chronic hyponatremia 05/07/2023 Overview (05/07/2023): Assessment & Plan (05/08/2023 11:42 AM SUPERINTENDENT GENERATING PLANT): Na 131 Low Na chronically. Asymptomatic -Na 135 on recheck Hypotension 05/07/2023 Assessment & Plan (05/08/2023 11:41 AM SUPERINTENDENT GENERATING PLANT): Transient hypotension vs spurious. Reports feeling well and repeat >100 -will continue to hold amlodipine upon discharge as pt remains normotensive PAF (paroxysmal atrial fibrillation) (CMS/HCC) 0 03/02/2023 Assessment & Plan (05/08/2023 11:40 AM SUPERINTENDENT GENERATING PLANT): S/p A-Fib Ablation. Currently SR on tele - Tele monitoring - Resume Dofetilide 500mcg, Metoprolol 12.5 -resume xarelto this AM -PPI daily for 30 days for esophageal prophylaxis after AF ablation -Ok for d/c per EP Restless leg syndrome 07/04/2021 Paresthesia of skin 12/05/2020 Mood disorder 12/05/2020 History of DVT (deep vein thrombosis) 08/08/2020 Chronic anticoagulation 08/08/2020 Hyperlipidemia LDL goal <70 08/08/2020 Assessment & Plan (05/07/2023 4:54 PM SUPERINTENDENT GENERATING [employer]ANT): -Continue Ezetimibe, Simvastatin DAI (obstructive sleep apnea) 11/19/2018 Assessment & Plan (05/07/2023 4:51 PM SUPERINTENDENT GENERATING PLANT): Compliant home CPAP baseline - Continue home CPAP while in patient. 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 HTN (hypertension) 10/27/2018 Assessment & Plan (05/07/2023 4:56 PM SUPERINTENDENT GENERATING PLANT): BP 124/74(87) - Continue home med regiment- Norvasc 5mg, losartan 100mg, metoprolol 12.5 Snoring 10/27/2018 Sinus bradycardia 08/19/2018 Dizziness 07/24/2018 Assessment & Plan (07/24/2018 7:55 PM SUPERINTENDENT GENERATING [employer]ANT): Pt says c/w prior episodes of afib, resolved w/ afib meds at home -No LOC or head trauma -Management as per afib below -Cont tele overnight Coronary artery disease 07/24/2018 Assessment & Plan (05/07/2023 5:01 PM SUPERINTENDENT GENERATING PLANT): CAD (Mild RCA, mild Left main, mild-mod (40%) LAD, mild LCx - per CTA heart 2019 BMS (LAD x2) in 1997 - Continue Norvasc, Ezetimibe, Losartan, Metoprolol, Simvastatin as above Assessment & Plan (07/24/2018 7:57 PM SUPERINTENDENT GENERATING PLANT): S/p LAD stent placement x2 -Cont ASA, statin, and metoprolol 12.5mg daily Hypothyroidism 07/24/2018 Assessment & Plan (05/07/2023 4:57 PM SUPERINTENDENT GENERATING PLANT): Last TSH 2.29 - Continue synthroid 125mcg Assessment & Plan (07/24/2018 7:59 PM SUPERINTENDENT GENERATING PLANT): Cont synthroid 137mcg daily. F/u TSH Gout 07/24/2018 Assessment & Plan (05/07/2023 5:03 PM SUPERINTENDENT GENERATING PLANT): No current flare. Reports well managed with Allopurinol 300mg and diet changed - Continue Allopurinol. Assessment & Plan (07/24/2018 7:58 PM SUPERINTENDENT GENERATING PLANT): Cont febuxostat 40mg daily Atrial fibrillation ([facility]/HCC) [I48.91] 8 Assessment & Plan (07/25/2018 12:36 PM SUPERINTENDENT GENERATING PLANT): Cont home meds dofetilide 500mcg BID and warfarin here -Cont tele -TTE 07/25 without abnormalities - Has follow up at discharge with Dr. Wells and Dr. Weber Immunizations Name Administration Dates Next Due Influenza, Unspecified 04/15/2023 Social History Tobacco Use Types Packs/Day Years Used Date Smoking Tobacco: Never Smokeless Tobacco: Never Tobacco Cessation:Counseling Given: Not Answered Alcohol Use Standard Drinks/Week Comments No 0 (1 standard drink = 0.6 oz pur e alcohol) AUDIT-C Answer Date Recorded Q1: How often do you have a drink containing alc ohol? Never 05/07/2023 Average Number of Drinks Not on file 023 Frequency of Binge Drinking Not on file 04/28 Personal Safety Answer Date Recorded Have you ever been in or are you currently in a harmful physical or emotional relationship or is someone making you feel afraid or unsafe? Denies 05/07/2023 Sex and Gender Information Value Date Recorded Sex Assigned at Not on file Legal Sex Male 10:10 AM SUPERINTENDENT GENERATING PLANT Gender Identity Not on file Sexual Orientation Not on file Last Filed Vital Signs Vital Sign Reading Time Taken Comments Blood Pressure 116/64 06/12/2024 1:33 PM SUPERINTENDENT GENERATING [employer]ANT Pulse 50 06/12/2024 1:33 PM SUPERINT[employer]ENT GENERATING [employer]ANT Temperature 36.6 C (97.9 F) 05/08/2023 8:35 AM SUPERINTENDENT GENERATING PLANT Respiratory Rate 16 05/08/2023 8:35 AM SUPERINTENDENT GENERATING PLANT Oxygen Saturation 97% 06/12/2024 1:33 PM SUPERINTENDENT GENERATING PLANT Inhaled Oxygen Concentration - - Weight 92.5 kg (204 lb) 06/12/2024 1:33 PM SUPERINTENDENT GENERATING [employer]ANT Height 182.9 cm (6') 06/12/2024 1:33 PM SUPERINTENDENT GENERATING PLANT Body Mass Index 27.67 06/12/2024 1:33 PM SUPERINTENDENT GENERATING PLANT Plan of Treatment Not on file Medical Devices Implanted Type Area Injection Press Operator Device Identifier Shelf Expiration Date Model / Serial / Lot Stent Stent N/A: Heart Cardiac Stents N/A: Heart Procedures Procedure Name Priority Date/Time Associated Diagnosis Comments ECG 12-LEAD Routine 06/30/2024 1:12 PM [employer]PERINT[employer]ENT [employer] Atrial fibrillation, unspecified type (HCC) EGFR Routine 06/30/2024 12:47 PM SUPER[employer]ENT [employer]ATING [employer] Paroxysmal atrial fibrillation (CMS/HCC) (HCC) High risk medications (not anticoagulants) long-term use BASIC METABOLIC PANEL Routine 06/30/2024 12:47 PM SUPER[employer]ENT [employer] Paroxysmal atrial fibrillation (CMS/HCC) (HCC) High risk medications (not anticoagulants) long-term use from Last 3 Months Results * ECG 12 lead (06/30/2024 1:12 PM SUPERINT[employer]) us Travis Augustine MD PhD ECG ORDERABLES Final Result * eGFR (06/30/2024 12:47 PM SUPERINTENDENT GENERATING [employer]ANT) eGFR 68 >=60 mL/min/1. 73 m2 Comment: Interpretive Data Reference Interval Normal >/= 90 mL/min/1.73m2 Mildly decreased* 60 - 89 mL/min/1.73m2 Mildly to moderately decreased 45 - 59 mL/min/1.73m2 Moderately to severely decreased 30 - 44 mL/min/1.73m2 Severely decreased 15 - 29 mL/min/1.73m2 Kidney Failure < 15 mL/min/1.73m2 *Relative to young adult level Estimated glomerular filtration rate is determined by the 2020 CKD-EPI equation recommended by the National Kidney Foundation (A Unifying Approach to GFR Estimation: Recommendations of the NKF-ASK Task Force on Reassessing the Inclusion of Race in Diagnosing Kidney Disease, JASN 2020). The CKD-EPI equation should not be used for patients with unstable renal function and has not been validated in children and those over 70. Current interpretive data was last reviewed 2021. Blood 06/30/2024 12:4 7 PM SUPERINTENDENT GENERATING [employer]ANT 06/30/2024 1:05 PM SUPERINTENDENT GENERATING PLANT Travis Augustine MD PhD LAB BLOOD ORDERABLES F inal Result [facility] Department [place] [address] * (ABNORMAL) Basic metabolic panel (06/30/2024 12:47 PM SUPERINTENDENT GENERATING PLANT) Sodium 134(L) 135 - 145 mmol/L Potassium, pl 4.7 3.3 - 4.9 mmol/L [facility] Chloride 97 97 - 110 mmol/L [facility] CO2 29 22 - 32 mmol/L [facility] Anion gap 8 2 - 15 mmol/L [facility] BUN 21 6 - 25 mg/dL [facility] Creatinine 1.11 0.80 - 1.30 mg/dL [facility] Glucose 86 70 - 199 mg/dL [facility] Comment: Interpretive Data Fasting glucose >/= 126 mg/dl is diagnostic for diabetes. Fasting is defined as no caloric intake for at least 8 hours. Fasting glucose between 100 mg/dl to 125 mg/dl is diagnostic of prediabetes. In a patient with classic symptoms of hyperglycemia or hyperglycemic crisis, a random glucose >/= 200 mg/dl is diagnostic for diabetes. In the absence of unequivocal hyperglycemia, results should be confirmed by repeat testing. The classification and Diagnosis of Diabetes Diabetes Care 202; 46: S19-S40. Current interpretive data was last revised 2022. Calcium 9.4 8.5 - 10.3 mg/dL [facility] Blood 06/30/2024 12:4 7 PM SUPERINT[employer]ENT GENERATING [employer] 06/30/2024 1:05 PM SUPERINTENDENT GENERATING PLANT us Travis Augustine MD PhD LAB BLOOD ORDERABLES F inal Result [facility] Department [place] [address] from Last 3 Months Insurance MEDICARE RAILROAD [facility] MEDICARE RAILROAD [facility] MEDICARE MEDICARE RAILROAD [facility] MEDICARE RAILROAD [facility] Address: [address] [address] [place] [address] [facility] Advance Directives For more information, please contact: [phone] * Full Code (Latest Code Status on File) Date Activated Date Inactivated Comments 07/24/2018 7:20 PM 07/25/2018 6:19 PM Care Teams Winter Intern Relationship Specialty Start Date End Date Lenin Harden MD [address] [facility] [address] [facility] [address] [place] [address] PCP - General Internal Medicine 08/28/22 Oneal Weber MD Referring Physician Cardiology 11/23/18 Travis Augustine MD PhD Referring Physician Cardiology 11/23/18
--- OUTSIDE RECORDS SUMMARY | 2024-08-04 00:33 | XMS_ITS | Encounter Summary ---
Author Organization [facility] Address [address] [facility] [place] [address] Care Team Providers Care Rehab Care Assistant Name Role Phone Lenin Harden MD Primary Care Provider [phone] Encounter Details Date Type Department Care Team (Late st Contact Info) Description 04/17/2020 Lab Requisition [facility] DermPath Lab [address] [place] [id number] Malcolm Rollins MD [address] [place] [address] Social History Tobacco Use Types [...] Priority Date/Time Associated Diagnosis Comments DERMATOPATHOLOGY Routine 04/16/2020 12:0 0 AM CDT documented in this encounter Results * DERMATOPATHOLOGY (04/16/2020 12:00 AM CDT) Case Report Dermatopathology Report Case: [id number] Authorizing Provider: Malcolm Rollins MD Collected: 04/16/2020 12:00 AM Ordering Location: [facility] Derm[facility] Lab Received: 04/17/2020 11:28 AM Pathologist: Neli Rush MD Specimen: Skin, right deltoid 0 1:48 PM CDT DERMATOPATHOLOGY LABORATORY Final Diagnosis Specimen A. SKIN, right deltoid: ACTINIC KERATOSIS, LICHENOID (L57.0) (see microscopic description) 0 1:48 PM CDT DERMATOPATHOLOGY LABORATORY Clinical History R/O SCC, Dominique's, HAK, BCC. 0 1:48 PM CDT DERMATOPATHOLOGY LABORATORY Gross Description Specimen A: Received is one formalin filled container labeled with the patient's name and designated right deltoid. The specimen consists of a shave biopsy measuring [id number]. Jar 0. 0 1:48 PM CDT DERMATOPATHOLOGY LABORATORY Microscopic Description Specimen A. SKIN, right deltoid: There is focal parakeratosis. The lower half of the epidermis shows disorderly maturation of keratinocytes with nuclear pleomorphism. The dermis shows a band-like, chronic inflammatory infiltrate with occasional apoptotic keratinocytes and some basal vacuolar alteration. Dermal fibrosis is present. 0 1:48 PM CDT DERMATOPATHOLOGY LABORATORY Disclaimer An external and internal positive and negative controls are appropriate for the histochemical, immunohistochemical and immunofluorescence stain(s) in this case (if any), except where stated explicitly. The performance characteristics of the stain(s) cited in this report were developed and its performance characteristic determined by the Dermatopathology Laboratory at [facility], directed by Dr. Sami Toro. These tests need not be, and therefore are not, approved by the [place] Food and Drug Administration. The tests are used for clinical purposes. Billing Codes Specimen Charges Stain Charges 63169 1 0 1:48 PM CDT DERMATOPATHOLOGY LABORATORY Embedded Images 0 1:48 PM CDT DERMATOPATHOLOGY LABORATORY Pathology/Cytolog y TISSUE SPECIMEN FROM SKIN / Unknown 04/16/2020 04/17/2020 11:28 AM CDT Malcolm Rollins MD LAB - PATHOLOGY/CYTO LOGY ORDERABLES DERMATOPATHOLOGY LABORATORY [facility] - Department of Dermatology [facility] Medicine [address] [place] [address], [address]rd [address] [phone] documented in this encounter Visit Diagnoses Not on filedocumented in this encounter Care Teams Rehab Care Assistant Relationship Specialty Start Date End Date Lenin Harden MD [address] [place] [address] PCP - General 03/22/18 documented as of this encounter
--- OUTSIDE RECORDS SUMMARY | 2024-08-04 00:34 | XMS_ITS | Encounter Summary ---
Author Organization [facility] Address [address] [place] [address] Care Team Providers Care Dieing Out Machine Operator Name Role Phone Lenin Harden MD Primary Care Provider [phone] Oneal Weber MD Unavailable [phone] Travis Augustine MD PhD Unavailable [phone] Lenin Harden MD Primary Care Provider [phone] Encounter Details Date Type Department Care Team (Late st Contact Info) Description 08/30/2018 Documentation [facility] Imaging [id number] [place] [address] Gabriella Benton RN Social History Tobacco Use Types Packs/Day Years Used Date Smoking Tobacco: Never Smokeless Tobacco: Never Alcohol Use Standard Drinks/Week Comments No 0 (1 standard drink = 0.6 oz pur e alcohol) Sex and Gender Information Value Date Recorded Sex Assigned at Not on file Legal Sex Male 10:10 AM MATERIAL CLERK Gender Identity Not on file Sexual Orientation Not on file documented as of this encounter Plan of Treatment Not on file documented as of this encounter Visit Diagnoses Not on filedocumented in this encounter Care Teams Dieing Out Machine Operator Relationship Specialty Start Date End Date Lenin Harden MD [address] [place] [address] PCP - General 10/21/16 08/27/22 Lenin Harden MD [address] [place] [address] PCP - General Internal Medicine 08/28/22 Oneal Weber MD [address] [facility] [address] [facility] [address] [place] [address] Referring Physician Cardiology 11/23/18 Travis Augustine MD PhD [address] [facility] [address] [facility] [address] [place] [address] Referring Physician Cardiology 11/23/18 documented as of this encounter
--- OUTSIDE RECORDS SUMMARY | 2024-08-04 00:34 | XMS_ITS | Encounter Summary ---
Author Organization [facility] Address [address] [place] [address] Phone Care Team Providers Care Lieutenant Fire Fighter Name Role Phone Lenin Harden MD Primary Care Provider [phone] Oneal Weber MD Unavailable [phone] Travis Augustine MD PhD Unavailable [phone] Lenin Harden MD Primary Care Provider [phone] Encounter Details Date Type Department Care Team (Late st Contact Info) Description 06/02/2018 Telephone [facility] Cardiology [address] [facility] Advanced Medicine 8th [place] [address] [place] [address] Oneal Weber MD [address] [place] [address] Social History Tobacco Use Types Packs/Day Years Used Date Smoking Tobacco: Never Smokeless Tobacco: Never Alcohol Use Standard Drinks/Week Comments No 0 (1 standard drink = 0.6 oz pur e alcohol) Sex and Gender Information Value Date Recorded Sex Assigned at Not on file Legal Sex Male 10:10 AM PER DIEM Gender Identity Not on file Sexual Orientation Not on file documented as of this encounter Plan of Treatment Not on file documented as of this encounter Visit Diagnoses Not on filedocumented in this encounter Care Teams Lieutenant Fire Fighter Relationship Specialty Start Date End Date Lenin Harden MD [address] [place] [address] PCP - General 10/21/16 08/27/22 Lenin Harden MD [address] [place] [address] PCP - General Internal Medicine 08/28/22 Oneal Weber MD [address] [place] [address] Referring Physician Cardiology 11/23/18 Travis Augustine MD PhD [address] [place] [address] Referring Physician Cardiology 11/23/18 documented as of this encounter
--- OUTSIDE RECORDS SUMMARY | 2024-08-04 00:34 | XMS_ITS | Clinical Summary ---
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 Asymptomatic -Na 135 on recheck Hypotension 05/07/2023 Assessment & Plan (05/08/2023 11:41 AM BINDER CASER): Transient hypotension vs spurious. Reports feeling well and repeat >100 -will continue to hold amlodipine upon discharge as pt remains normotensive PAF (paroxysmal atrial fibrillation) (CMS/HCC) 0 03/02/2023 Assessment & Plan (05/08/2023 11:40 AM BINDER CASER): S/p A-Fib Ablation. Currently SR on tele [...] 08/08/2020 Assessment & Plan (05/07/2023 4:54 PM BINDER CASER): -Continue Ezetimibe, Simvastatin DAI (obstructive sleep apnea) 11/19/2018 Assessment & Plan (05/07/2023 4:51 PM BINDER CASER): Compliant home CPAP baseline - Continue home CPAP while in patient. 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 HTN (hypertension) 10/27/2018 Assessment & Plan (05/07/2023 4:56 PM BINDER CASER): BP 124/74(87) - Continue home med regiment- Norvasc 5mg, losartan 100mg, metoprolol 12.5 Snoring 10/27/2018 Sinus bradycardia 08/19/2018 Dizziness 07/24/2018 Assessment & Plan (07/24/2018 7:55 PM BINDER CASER): Pt says c/w prior episodes of afib, resolved w/ afib meds at home -No LOC or head trauma -Management as per afib below -Cont tele overnight Coronary artery disease 07/24/2018 Assessment & Plan (05/07/2023 5:01 PM BINDER CASER): CAD (Mild RCA, mild Left main, mild-mod (40%) LAD, mild LCx - per CTA heart 2018 BMS (LAD x2) in 1997 - Continue Norvasc, Ezetimibe, Losartan, Metoprolol, Simvastatin as above Assessment & Plan (07/24/2018 7:57 PM BINDER CASER): S/p LAD stent placement x2 -Cont ASA, statin, and metoprolol 12.5mg daily Hypothyroidism 07/24/2018 Assessment & Plan (05/07/2023 4:57 PM BINDER CASER): Last TSH 2.29 - Continue synthroid 125mcg Assessment & Plan (07/24/2018 7:59 PM BINDER CASER): Cont synthroid 137mcg daily. F/u TSH Gout 07/24/2018 Assessment & Plan (05/07/2023 5:03 PM BINDER CASER): No current flare. Reports well managed with Allopurinol 300mg and diet changed - Continue Allopurinol. Assessment & Plan (07/24/2018 7:58 PM BINDER CASER): Cont febuxostat 40mg daily Atrial fibrillation (CMS/HCC) [I48.91] 8 Assessment & Plan (07/25/2018 12:36 PM BINDER CASER): Cont home meds dofetilide 500mcg BID and warfarin here -Cont tele -TTE 07/25 without abnormalities - Has follow up at discharge with Dr. Wells and Dr. Weber Encounters Date Type Department Care Team Description 06/30/2024 1:05 PM BINDER CASER Procedure visit [facility] Cardiology [address] [facility] [facility] Advanced Medicine [address]th [place] [address] [place] [id number] Atrial fibrillation, unspecified type (HCC) (Primary Dx) 06/30/2024 12:40 PM BINDER CASER Lab [facility] ([facility]) [address] [place] [address] Paroxysmal atrial fibrillation (CMS/HCC) (HCC); High risk medications (not anticoagulants) long-term use 06/12/2024 1:30 PM BINDER CASER Office Visit [facility] Cardiology [address] [place] [address] Gwen Anne NP Paroxysmal atrial fibrillation (CMS/HCC) (HCC) (Primary Dx); High risk medications (not anticoagulants) long-term use; Chronic anticoagulation; DAI on CPAP; Coronary artery disease involving [place] coronary artery of [place] heart without angina pectoris 06/01/2024 Telephone [facility] Cardiology Critical access hospital[facility] 8th [place] [address] [place] [address] Vibha Knight from Last 3 Months Immunizations Name Administration Dates Next Due Influenza, Unspecified 04/15/2023 Surgical History Surgery Date Site/Laterality Comments CORONARY ANGIOPLASTY WITH ST ENT PLACEMENT Cath Stent Placement - -heart (Added by TW Conv) 1997 COLONOSCOPY PROSTATECTOMY 2007 CATARACT EXTRACTION Medical History Medical History Date Comments Hypertension Hyperlipidemia Thyroid disease DVT (deep venous thrombosis) (CMS/HCC) (HCC) Hypothyroidism CAD (coronary artery disease) Atrial fibrillation (CMS/HCC) (HCC) PTSD (post-traumatic stress disorder) Gout Lumbago Prostate cancer (HCC) Hyponatremia Bradycardia Hypertension Sleep apnea Family History Medical History Relation Name Comments Heart disease Father Heart failure Mother Family history of heart failure - (Added by TW Conv) Hypertension Other 1 Hypertension - (Added by TW Conv) Heart disease Other 2 Heart Disease - (Added by TW Conv) Anesthesia problems Neg Hx Malig Hypertension Neg Hx [place] Hyperthermia Neg Hx Pseudochol deficiency Neg Hx Relation Name Status Comments Father (Age 82) Mother (Age 85) Other 1 Other 2 Social History Tobacco Use Types Packs/Day Years [...] on file Legal Sex Male 10:10 AM BINDER CASER Gender Identity Not on file Sexual Orientation Not on file Obstetrics History Last Filed Vital Signs Vital Sign Reading Time Taken Comments Blood Pressure 116/64 06/12/2024 1:33 PM BINDER CASER Pulse 50 06/12/2024 1:33 PM BINDER CASER Temperature 36.6 C (97.9 F) 05/08/2023 8:35 AM BINDER CASER Respiratory Rate 16 05/08/2023 8:35 AM BINDER CASER Oxygen Saturation 97% 06/12/2024 1:33 PM BINDER CASER Inhaled Oxygen Concentration - - Weight 92.5 kg (204 lb) 06/12/2024 1:33 PM BINDER CASER Height 182.9 cm (6') 06/12/2024 1:33 PM BINDER CASER Body Mass Index 27.67 06/12/2024 1:33 PM BINDER CASER Plan of Treatment Health Maintenance Due Date Last Done Comments Depression Screening 1945 Hepatitis C Screening 1945 DTaP/Tdap/Td Vaccine (1 - Tdap) 09/04/1955 Hepatitis B Screening 1962 Zoster Vaccine (1 of 2) 1994 Well Visit 65+ 2009 Influenza Vaccine (#1) 2024 3, 03/29/2019, 04/19/2018, Additional history exists Fall Risk Assessment 05/08/2024 05/08/2023 Pneumococcal vaccine 65+ Completed 05/14/2017, 04/28 Medical Devices Implanted Type Area Beaver Trapper Device Identifier Shelf Expiration Date Model / Serial / Lot Stent Stent N/A: Heart Cardiac Stents N/A: Heart Procedures Procedure Name Priority Date/Time Associated Diagnosis Comments ECG 12-LEAD Routine 06/30/2024 1:12 PM BINDER CASER Atrial fibrillation, unspecified type (HCC) EGFR Routine 06/30/2024 12:47 PM BINDER CASER Paroxysmal atrial fibrillation (CMS/HCC) (HCC) High risk medications (not anticoagulants) long-term use BASIC METABOLIC PANEL Routine 06/30/2024 12:47 PM BINDER CASER Paroxysmal atrial fibrillation (CMS/HCC) (HCC) High risk medications (not anticoagulants) long-term use from Last 3 Months Results * ECG 12 lead (06/30/2024 1:12 PM BINDER CASER) us Travis Augustine MD PhD ECG ORDERABLES Final Result * eGFR (06/30/2024 12:47 PM BINDER CASER) eGFR 68 >=60 mL/min/1. 73 m2 Comment: [...] of Race in Diagnosing Kidney Disease, JASN 202). The CKD-EPI equation should not be used for patients with unstable renal function and has not been validated in children and those over 70. Current interpretive data was last reviewed 2021. Blood 06/30/2024 12:4 7 PM BINDER CASER 06/30/2024 1:05 PM BINDER CASER us Travis Augustine MD PhD LAB BLOOD ORDERABLES F inal Result Performing Organization Address [facility]/ZIP Co de Phone Number [facility] Department [place] [address] * (ABNORMAL) Basic metabolic panel (06/30/2024 12:47 PM BINDER CASER) Sodium 134(L) 135 - 145 mmol/L Potassium, pl 4.7 3.3 - 4.9 mmol/L [facility] Chloride 97 97 - 110 mmol/L [facility] CO2 29 22 - 32 mmol/L [facility] Anion gap 8 2 - 15 mmol/L [facility] BUN 21 6 - 25 mg/dL [facility] Creatinine 1.11 0.80 - 1.30 mg/dL [facility] Glucose 86 70 - 199 mg/dL [facility] Comment: Interpretive Data Fasting glucose >/= [...] classification and Diagnosis of Diabetes Diabetes Care 2021; 46: S19-S40. Current interpretive data was last revised 2022. Calcium 9.4 8.5 - 10.3 mg/dL [facility] Blood 06/30/2024 12:4 7 PM BINDER CASER 06/30/2024 1:05 PM BINDER CASER Travis Augustine MD PhD LAB BLOOD ORDERABLES F inal Result Performing Organization Address [facility] Co de Phone Number [facility] [place] [address] from Last 3 Months Insurance MEDICARE RAILROAD [address] [facility] [address] MEDICARE MEDICARE RAILROAD [facility] MEDICARE RAILROAD [employer] Advance Directives For more information, please contact: [phone] * Full Code (Latest Code Status on File) Date Activated Date Inactivated Comments 07/24/2018 7:20 PM 07/25/2018 6:19 PM Care Teams Sales Data Analyst Relationship Specialty Start Date End Date Lenin Harden MD [address] [facility] [facility] [place] [id number] PCP - General Internal Medicine 08/28/22 Oneal Weber MD Referring Physician Cardiology 11/23/18 Travis Augustine MD PhD Referring Physician Cardiology 11/23/18
--- OUTSIDE RECORDS SUMMARY | 2024-08-04 00:34 | XMS_ITS | Clinical Summary ---
Author Organization [facility] Address [address] [place] [address] Phone Care Team Providers Care Entry Specialists Name Role Phone Lenin Harden MD Primary Care Provider [phone] Allergies Active Allergy Reactions Criticality Noted Date Comments Penicillins Hives 10/14/2021 Medications Medication Sig Dispensed Refills Start Date End Date Status allopurinol (ZYLOPRIM) 300 MG tablet Take 300 mg by mouth 1 (one) time each day 09/16/2021 Active clonazePAM (KlonoPIN) 1 MG tablet 10/14/2021 Active docusate sodium (COLACE) 100 MG capsule Take 100 mg by mouth 2 (two) times a day 09/26/2021 Active dofetilide (TIKOSYN) 500 MCG capsule Take by mouth 2 (two) times a day 09/17/2021 Active ezetimibe (ZETIA) 10 MG tablet Take 10 mg by mouth 1 (one) time each day 09/15/2021 Active Folplex 2.2 2.2-25-0.5 MG tablet Take 1 tablet by mouth 1 (one) time each day 09/27/2021 Active Synthroid 137 MCG tablet Take 137 mcg by mouth 1 (one) time each day 08/26/2021 Active losartan (COZAAR) 25 MG tablet Take 25 mg by mouth 1 (one) time each day 09/26/2021 Active mometasone (ELOCON) 0.1 % cream APPLY TWICE DAILY TO RASH 09/30/2021 Active rivaroxaban (XARELTO) 20 MG tablet Take 20 mg by mouth daily 08/08/2020 Active simvastatin (ZOCOR) 20 MG tablet Take 20 mg by mouth 1 (one) time each day 09/15/2021 Active metoprolol succinate XL (TOPROL-XL) 25 MG 24 hr tablet Take 1/2 (one-half) tablet by mouth once daily 09/12/2019 Active Active Problems Problem Noted Date Diagnosed Date Posttraumatic stress disorder 11/10/2021 Personal history of prostate cancer 11/10/2021 Osteoarthritis 11/10/2021 Lumbago 11/10/2021 Insomnia 11/10/2021 Edema 11/10/2021 Cataract 11/10/2021 Atrial fibrillation 11/10/2021 Restless leg syndrome 07/04/2021 Mood disorder 12/05/2020 Paresthesia of skin 12/05/2020 H/O: Deep vein thrombosis 08/08/2020 Hyperlipidemia 08/08/2020 Long-term current use of anticoagulant Obstructive sleep apnea syndrome 11/19/2018 REM sleep behavior disorder 11/19/2018 Hypertensive disorder 10/27/2018 Snoring 10/27/2018 Sinus bradycardia 08/19/2018 Overview (10/14/2021): Last Assessment & Plan: Cont home meds dofetilide 500mcg BID and warfarin here -Cont tele -TTE 07/25 without abnormalities - Has follow up at discharge with Dr. Wells and Dr. Weber Coronary arteriosclerosis 07/24/2018 Overview (10/14/2021): Last Assessment & Plan: S/p LAD stent placement x2 -Cont ASA, statin, and metoprolol 12.5mg daily Dizziness 07/24/2018 Overview (10/14/2021): Last Assessment & Plan: Pt says c/w prior episodes of afib, resolved w/ afib meds at home -No LOC or head trauma -Management as per afib below -Cont tele overnight Gout 07/24/2018 Overview (10/14/2021): Last Assessment & Plan: Cont febuxostat 40mg daily Hypothyroidism 07/24/2018 Overview (10/14/2021): Last Assessment & Plan: Cont synthroid 137mcg daily. F/u TSH Immunizations Name Administration Dates Next Due Sars-cov-2, Unspecified 04/16/2021,11/14/2020, Family History Medical History Relation Comments Cancer Father Heart disease Father Heart disease Mother Relation Status Comments Father Mother Social History Tobacco Use Types Packs/Day Years Used Date Smoking Tobacco: Never Smokeless Tobacco: Never Alcohol Use Standard Drinks/Week Comments Never 0 (1 standard drink = 0.6 oz pur e alcohol) Sex and Gender Information Value Date Recorded Sex Assigned at Not on file Gender Identity Not on file Sexual Orientation Not on file Last Filed Vital Signs Vital Sign Reading Time Taken Comments Blood Pressure 116/72 12/22/2021 2:07 PM CDT Pulse - - Temperature 36.6 C (97.8 F) 12/22/2021 2:07 PM CDT Respiratory Rate 18 12/22/2021 2:07 PM CDT Oxygen Saturation - - Inhaled Oxygen Concentration - - Weight 94.3 kg (208 lb) 12/22/2021 2:07 PM CDT Height 182.9 cm (6') 12/22/2021 2:07 PM CDT Body Mass Index 28.21 12/22/2021 2:07 PM CDT Plan of Treatment Health Maintenance Due Date Last Done Comments Pneumococcal PPSV23/PCV13 65 + Years / Low and Medium Risk (1 of 4 - PCV) 2009 Influenza Vaccine (#1) 2024 Care Teams Entry Specialists Relationship Specialty Start Date End Date Lenin Harden MD [address] [facility] [address] [place] [address] PCP - General Internal Medicine 09/18/21
--- OUTSIDE RECORDS SUMMARY | 2024-08-04 00:34 | XMS_ITS | Encounter Summary ---
Author Organization [facility] Address [address] [place] [address] Phone Care Team Providers Care Car Audio Installer Name Role Phone Lenin Harden MD Primary Care Provider [phone] Oneal Weber MD Unavailable [phone] Travis Augustine MD PhD Unavailable [phone] Lenin Harden MD Primary Care Provider [phone] Encounter Details Date Type Department Care Team (Latest Contact Info) Description 03/20/2019 Orders Only OG IM CARDIOLOGY Scanning, Provider Social History Tobacco Use Types Packs/Day Years Used Date Smoking Tobacco: Never Smokeless Tobacco: Never Alcohol Use Standard Drinks/Week Comments No 0 (1 standard drink = 0.6 oz pur e alcohol) Sex and Gender Information Value Date Recorded Sex Assigned at Not on file Legal Sex 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:10 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 Gender Identity Not on file Sexual Orientation Not on file documented as of this encounter Plan of Treatment Not on file documented as of this encounter Procedures Procedure Name Priority Date/Time Associated Diagnosis Comments CARDIOLOGY DOCUMENT SCAN 03/20/2019 documented in this encounter Results * SCAN - CARDIOLOGY (03/20/2019) Anatomical Region Laterality Modality Other us Provider Scanning CV CARDIAC SERVICES PROCEDURES Final Result documented in this encounter Visit Diagnoses Not on filedocumented in this encounter Care Teams Car Audio Installer Relationship Specialty Start Date End Date Lenin Harden MD [address] [place] [address] PCP - General 10/21/16 08/27/22 Lenin Harden MD [address] [place] [address] PCP - General Internal Medicine 08/28/22 Oneal Weber MD [address] [place] [address] Referring Physician Cardiology 11/23/18 Travis Augustine MD PhD [address] [place] [address] Referring Physician Cardiology 11/23/18 documented as of this encounter
--- OUTSIDE RECORDS SUMMARY | 2024-08-04 00:34 | XMS_ITS | Encounter Summary ---
Author Organization [facility] Address [address] [place] [address] Phone Care Team Providers Care Pathology Transcriptionist Name Role Phone Oneal Weber MD Unavailable [phone] Travis Augustine MD PhD Unavailable [phone] Lenin Harden MD Primary Care Provider [phone] Encounter Details Date Type Department Care Team (Latest Contact Info) Description 11/26/2022 Orders Only OG IM CARDIOLOGY Scanning, Provider Social History Tobacco Use Types Packs/Day Years Used Date Smoking Tobacco: Never Smokeless Tobacco: Never Alcohol Use Standard Drinks/Week Comments No 0 (1 standard drink = 0.6 oz pur e alcohol) Sex and Gender Information Value Date Recorded Sex Assigned at Not on file 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 Gender Identity Not on file Sexual Orientation Not on file documented as of this encounter Plan of Treatment Scheduled Orders Name Type Priority Associated Diagnoses Orde r Schedule CARDIOLOGY DOCUMENT SCAN Cardiac Services Ordered: 11/26/2022 documented as of this encounter Visit Diagnoses Not on filedocumented in this encounter Care Teams Pathology Transcriptionist Relationship Specialty Start Date End Date Lenin Harden MD [address] [facility] [address] [place] [address] PCP - General Internal Medicine 08/28/22 Oneal Weber MD Referring Physician Cardiology 11/23/18 Travis Augustine MD PhD Referring Physician Cardiology 11/23/18 documented as of this encounter
[2024-08-04 08:35] VITALS: BP 128/80; PULSE 51; RESP 18; TEMP 36.1; O2SAT 100; BMI 27.1
[2024-08-04] MEDS: LACTATED RINGERS 1,000 ML 150 ML IV CONT (08:58)
--- NOTE | 2024-08-04 09:35 | P.PNAN_ITS ---
Anes - Initial Pre Proc Eval Procedure: Operation Date: 08/04/24 09:30 Proposed Procedures p Colonoscopy - Jace Marcos MD Date/Time: 08/04/24 09:35 Surgeon: Jace Marcos MD Pre Op Diagnosis: diarrhea, other constipation, personal hx of polyp Patient Data Age: 78 Gender: M Height: 1.83 m Weight: 90.8 kg Last Vital Signs Temp 36.1 C L 08/04/24 08:35 Pulse 51 L 08/04/24 08:35 Resp 18 08/04/24 08:35 BP 128/80 08/04/24 08:35 Pulse Ox 100 08/04/24 08:35 O2 Del Method Room Air 08/04/24 08:35 Allergies Allergy/AdvReac Type Severity Reaction Status Date / Time Penicillins Allergy Unknown Hives Verified 08/04/24 08:40 Home Medications ?Medication ?Instructions ?Recorded ?Confirmed ?Type cholecalciferol (vitamin D3) 125 5,000 unit PO DAILY 08/06/22 07/26/24 History mcg (5,000 unit) tablet (Vitamin D3) polyethylene glycol 3350 17 gram 17 g PO DAILY 08/06/22 08/04/24 History oral powder packet (Miralax) melatonin 5 mg tablet 5 mg PO HS 08/07/22 08/04/24 History magnesium glycinate 4 cap PO HS 01/25/23 08/04/24 History rivaroxaban 20 mg tablet (Xarelto) 20 mg PO QPM #90 tabs 05/04/23 08/04/24 Rx hydrochlorothiazide 25 mg tablet 25 mg PO DAILY #90 tabs 01/19/24 07/26/24 Rx allopurinol 300 mg tablet 300 mg PO DAILY #90 tabs 03/21/24 08/04/24 Rx docusate sodium 100 mg capsule See Rx Instructions .Route 03/29/24 08/04/24 Rx (Stool Softener) .COMPLEX #60 caps folic acid-vit B6-vit B12 2.2 1 tablet PO DAILY #90 tabs 04/10/24 08/04/24 Rx mg-25 mg-0.5 mg tablet (Folplex) losartan 100 mg tablet See Rx Instructions .Route 05/16/24 08/04/24 Rx .COMPLEX #90 tabs Synthroid 112 mcg tablet See Rx Instructions .Route 06/05/24 08/04/24 Rx (levothyroxine) .COMPLEX #90 tabs ezetimibe 10 mg tablet See Rx Instructions .Route 06/15/24 08/04/24 Rx .COMPLEX #90 tabs metoprolol succinate 25 mg See Rx Instructions .Route 06/15/24 08/04/24 Rx tablet,extended release 24 hr .COMPLEX #90 tabs amlodipine 2.5 mg tablet See Rx Instructions .Route 07/06/24 08/04/24 Rx .COMPLEX #30 tabs CATERINA 1 cap PO HS 07/26/24 08/04/24 History cholecalciferol (vitamin D3) 50 2,000 unit PO DAILY 07/26/24 08/04/24 History mcg (2,000 unit) tablet (Vitamin D3) dofetilide 500 mcg capsule 500 mcg PO Q12H 07/26/24 08/04/24 History simvastatin 20 mg tablet See Rx Instructions .Route .COMPLEX 07/26/24 08/04/24 History clonazepam 1 mg tablet 1 mg PO QHS #90 tabs 08/04/24 08/04/24 Rx Patient hx anesthesia problems: none Family hx anesthesia problems: none Results Review: All pre-operative results and documents have been reviewed as part of the pre- operative evaluation. 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 Hx of colonic polyps Stress Encounter for Medicare annual wellness exam Lumbar spondylosis Low back pain Bilateral leg pain Soft tissue mass Exposure to Agent [place] RLS (restless legs syndrome) Leg pain, right Back pain with sciatica Elevated homocysteine BMI 28.0-28.9,adult History of DVT (deep vein thrombosis) ASHD (arteriosclerotic heart disease) Abnormal finding of blood chemistry Pre-diabetes Gout BMI 30.0-30.9,adult History of prostate cancer Encounter for routine adult health examination without abnormal findings DAI on CPAP CAD (coronary artery disease) On emt intermediate drug therapy Hypothyroidism (acquired) Benign essential hypertension DVT (deep venous thrombosis) CPAP (continuous positive airway pressure) dependence Sleep apnea PTSD (post-traumatic stress disorder) Hypothyroid Arthritis Prostate CA Hemorrhoids HTN (hypertension) Afib Hyperlipidemia CAD (coronary artery disease) Cataract Surgical History Surgical History H/O colonoscopy with polypectomy H/O prostatectomy Hx of heart artery stent x2 History of cardiac cath H/O bilateral cataract extraction Family History Family History Mother Family history of coronary artery disease Father Family history of coronary artery disease Family history of malignant neoplasm Social History Social History Social History: The patient is and lives with his . They had 4 children 1 is . The patient is a lifelong nonsmoker. Code status full code Smoking status: Never smoker Second hand tobacco smoke exposure: No Alcohol intake: never Substance use: never Substance use type: does not use Lack of Transportation: No Lack of Food: Never True Current Housing: I Have Housing Concerned About Future Housing: No Difficulty Paying Gas/Electric Bills: No Difficulty Paying for Meds: No Currently Unemployed: No Education: Decline to Answer Difficulty w/ Childcare or Family Care: No Living arrangements: with family Occupation/Education: retired Gender identity (if verbalized by the patient): Male Spiritual care concerns: No Anes - Eval Final PreProcedure Day of Procedure 08/04/24 09:35 Patient weight: overweight Heart: regular rate and rhythm Lungs: clear to auscultation Airway: Mallampati scale class II Neurological: alert and oriented Last oral intake: >/= 8 hours ASA classification: III Emergent: no Anesthetic plan: proceed Anesthesia type and monitoring: general GIVS and standard monitoring Results Review: All pre-operative results and documents have been reviewed as part of the pre-operative evaluation. Informed Consent: The patient's anesthetic plan and its attendant risks and benefits were discussed with the patient/family/POA. Questions were solicited and answers provided to the satisfaction of the patient/family/POA.
--- NOTE | 2024-08-04 09:48 | PM.IMHP ---
H&P: HPI History of Present Illness Date/Time: 08/04/24 09:48 Chief Complaint: History of colon polyps Narrative: The patient has a history of colonic polyps, the last colonoscopy was Review of Systems Review of Systems: All systems reviewed & are unremarkable except as noted in HPI and below PMFSH Past Medical History Medical History Vitamin D deficiency Chronic constipation Left upper arm pain BMI 27.0-27.9,adult Diarrhea Tick bite Urinary tract infection in male Vertigo Hypotension Constipation Abdominal pain Abdominal bloating Obstructive sleep apnea Follow up Edema Insomnia BMI 29.0-29.9,adult Hyponatremia Eczema long-term current use of anticoagulant Hx of colonic polyps Stress Encounter for Medicare annual wellness exam Lumbar spondylosis Low back pain Bilateral leg pain Soft tissue mass Exposure to Agent [place] RLS (restless legs syndrome) Leg pain, right Back pain with sciatica Elevated homocysteine BMI 28.0-28.9,adult History of DVT (deep vein thrombosis) ASHD (arteriosclerotic heart disease) Abnormal finding of blood chemistry Pre-diabetes Gout BMI 30.0-30.9,adult History of prostate cancer Encounter for routine adult health examination without abnormal findings DAI on CPAP CAD (coronary artery disease) 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 Hypothyroidism (acquired) Benign essential hypertension DVT (deep venous thrombosis) CPAP (continuous positive airway pressure) dependence Sleep apnea PTSD (post-traumatic stress disorder) Hypothyroid Arthritis Prostate CA Hemorrhoids HTN (hypertension) Afib Hyperlipidemia CAD (coronary artery disease) Cataract Surgical History Surgical History H/O colonoscopy with polypectomy H/O prostatectomy Hx of heart artery stent x2 History of cardiac cath H/O bilateral cataract extraction Family History Family History Mother Family history of coronary artery disease Father Family history of coronary artery disease Family history of malignant neoplasm Social History Social History Social History: The patient is and lives with his . They had 4 children 1 is . The patient is a lifelong nonsmoker. Code status full code Smoking status: Never smoker Second hand tobacco smoke exposure: No Alcohol intake: never Substance use: never Substance use type: does not use Lack of Transportation: No Lack of Food: Never True Current Housing: I Have Housing Concerned About Future Housing: No Difficulty Paying Gas/Electric Bills: No Difficulty Paying for Meds: No Currently Unemployed: No Education: Decline to Answer Difficulty w/ Childcare or Family Care: No Living arrangements: with family Occupation/Education: retired Gender identity (if verbalized by the patient): Male Spiritual care concerns: No Meds Home Medications and Allergies Home Medications ?Medication ?Instructions ?Recorded ?Confirmed ?Type cholecalciferol (vitamin D3) 125 5,000 unit PO DAILY 08/06/22 07/26/24 History mcg (5,000 unit) tablet (Vitamin D3) polyethylene glycol 3350 17 gram 17 g PO DAILY 08/06/22 08/04/24 History oral powder packet (Miralax) melatonin 5 mg tablet 5 mg PO HS 08/07/22 08/04/24 History magnesium glycinate 4 cap PO HS 01/25/23 08/04/24 History rivaroxaban 20 mg tablet (Xarelto) 20 mg PO QPM #90 tabs 05/04/23 08/04/24 Rx hydrochlorothiazide 25 mg tablet 25 mg PO DAILY #90 tabs 01/19/24 07/26/24 Rx allopurinol 300 mg tablet 300 mg PO DAILY #90 tabs 03/21/24 08/04/24 Rx docusate sodium 100 mg capsule See Rx Instructions .Route 03/29/24 08/04/24 Rx (Stool Softener) .COMPLEX #60 caps folic acid-vit B6-vit B12 2.2 1 tablet PO DAILY #90 tabs 04/10/24 08/04/24 Rx mg-25 mg-0.5 mg tablet (Folplex) losartan 100 mg tablet See Rx Instructions .Route 05/16/24 08/04/24 Rx .COMPLEX #90 tabs Synthroid 112 mcg tablet See Rx Instructions .Route 06/05/24 08/04/24 Rx (levothyroxine) .COMPLEX #90 tabs ezetimibe 10 mg tablet See Rx Instructions .Route 06/15/24 08/04/24 Rx .COMPLEX #90 tabs metoprolol succinate 25 mg See Rx Instructions .Route 06/15/24 08/04/24 Rx tablet,extended release 24 hr .COMPLEX #90 tabs amlodipine 2.5 mg tablet See Rx Instructions .Route 07/06/24 08/04/24 Rx .COMPLEX #30 tabs CATERINA 1 cap PO HS 07/26/24 08/04/24 History cholecalciferol (vitamin D3) 50 2,000 unit PO DAILY 07/26/24 08/04/24 History mcg (2,000 unit) tablet (Vitamin D3) dofetilide 500 mcg capsule 500 mcg PO Q12H 07/26/24 08/04/24 History simvastatin 20 mg tablet See Rx Instructions .Route .COMPLEX 07/26/24 08/04/24 History clonazepam 1 mg tablet 1 mg PO QHS #90 tabs 08/04/24 08/04/24 Rx Allergies Allergy/AdvReac Type Severity Reaction Status Date / Time Penicillins Allergy Unknown Hives Verified 08/04/24 08:40 Vital Signs Vital Signs - 24 hr 08/04/24 08:35 Temperature 96.9 F L Pulse Rate 51 L Respiratory Rate 18 Blood Pressure 128/80 Pulse Oximetry 100 Oxygen Delivery Room Air Exam Const: General: cooperative and healthy appearing Resp: Effort & Inspection: normal respiratory effort and able to speak in complete sentences Auscultation: clear to auscultation bilaterally Cardio: Rate: regular rate Rhythm: regular rhythm GI: Inspection: normal to inspection GI Palp: No No hepatosplenomegaly present Auscultation: normal bowel sounds Rectal Exam: deferred Skin: General skin exam: normal color Psych: Appearance: grossly normal Mental Status: mental status grossly normal Assessment and Plan Assessment and plan (1) Colon cancer screening: Code(s): Z12.11 - Encounter for screening for malignant neoplasm of colon Status: Acute Assessment and Plan: The patient is deemed a good candidate for the procedure. Consent signed. Will proceed.
[2024-08-04 10:24] VITALS: BP 98/62; PULSE 49; RESP 16; O2SAT 100
[2024-08-04 10:34] VITALS: BP 118/72; PULSE 52; RESP 20; O2SAT 100
[2024-08-04 10:44] VITALS: BP 119/75; PULSE 55; RESP 20; O2SAT 100
== END 2024-08-04 11:06 | disposition home or self-care (01) ==
PROVIDERS: PCP Internal Medicine; Visit Provider Internal Medicine Gastroenterology
PROC: 0DJD8ZZ Inspection of Lower Intestinal Tract, Via Natural or Artificial Opening Endoscopic (ICD-10-PCS; CPT 45378; principal; 2024-08-04 09:30)
DX: Z12.11 Encounter for screening for malignant neoplasm of colon (principal); D12.2 Benign neoplasm of ascending colon; K64.8 Other hemorrhoids
CPT/HCPCS: 45381; 45385; 88305; J1596; J2003; J2704; J7120

== ENCOUNTER 2024-08-11 09:02 | Outpatient (CLI) | payer MEDICARE, SELFPAY ==
--- NOTE | ~2024-08-11 | US_ITS ---
EXAMINATION: US venous doppler LE RT DATE: 08/11/2024 09:47 INDICATION: Right lower limb pain TECHNIQUE: Grayscale ultrasound images without and with compression and Doppler ultrasound images of the right lower extremity veins were obtained. COMPARISON: None. FINDINGS: The visualized portions of right common femoral vein, profunda (deep) femoral vein, femoral vein, pop liteal vein, peroneal trunk, posterior tibial veins, peroneal veins, gastrocnemius vein and greater s aphenous vein outflow are patent. There is a superficial subcutaneous 1.3 x 1.1 x 0.3 cm ovoid anecho ic likely cystic lesion at the site of a painful palpable lump at the plantar aspect of the right joshua t. No evident solid soft tissue component. There is no evident internal vascular flow on color Dopple r to suggest neoplasm or vascular structure, or surrounding hyperemia however elevate suspicion for a bscess. IMPRESSION: 1. No deep venous thrombosis in the right lower limb.. 2. Nonspecific 1.3 cm ovoid cystic lesion at the superficial subcutaneous plantar aspect of the right foot corresponding to the painful palpable lump. Differential would include epidermoid/sebaceous cys t, hematoma/seroma or abscess in the appropriate clinical setting. Reviewed, dictated and finalized at location A. BUILDER IMPRESSION: 1. No deep venous thrombosis in the right lower limb.. 2. Nonspecific 1.3 cm ovoid cystic lesion at the superficial subcutaneous plant ar aspect of the right foot corresponding to the painful palpable lump. Differe ntial would include epidermoid/sebaceous cyst, hematoma/seroma or abscess in th e appropriate clinical setting.
== END 2024-08-11 09:03 | disposition home or self-care (01) ==
PROVIDERS: PCP Internal Medicine; Visit Provider Internal Medicine
DX: M79.604 Pain in right leg (principal); M79.89 Other specified soft tissue disorders
CPT/HCPCS: 93971

== ENCOUNTER 2024-12-06 07:09 | Outpatient (CLI) | payer MEDICARE, SELFPAY ==
--- OUTSIDE RECORDS SUMMARY | 2024-12-06 07:13 | XMS_ITS | Encounter Summary ---
Author Organization [facility] Address [address] [place] [address] Care Team Providers Care Inter Com Installer Name Role Phone Lenin Harden MD Primary Care Provider [phone] Encounter Details Date Type Department Care Team (Late st Contact Info) Description 04/17/2020 Lab Requisition [facility] DermPath Lab [address] [place] [address] Malcolm Rollins MD [address] [place] [address] Social History Tobacco Use Types Packs/Day Years Used Date Smoking Tobacco: Never Assessed Sex and Gender Information Value Date Recorded Sex Assigned at Not on file 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 Gender Identity Not on file Sexual Orientation Not on file documented as of this encounter Plan of Treatment Not on file documented as of this encounter Procedures Procedure Name Priority Date/Time Associated Diagnosis Comments DERMATOPATHOLOGY Routine 04/16/2020 12:0 0 AM CDT documented in this encounter Results * DERMATOPATHOLOGY (04/16/2020 12:00 AM CDT) Case Report Dermatopathology Report Case: [id number] Authorizing Provider: Malcolm Rollins MD Collected: 04/16/2020 12:00 AM Ordering Location: [facility] DermPath Lab Received: 04/17/2020 11:28 AM Pathologist: Neli Rush MD Specimen: Skin, right deltoid 0 1:48 PM CDT DERMATOPATHOLOGY LABORATORY Final Diagnosis Specimen A. SKIN, right deltoid: ACTINIC KERATOSIS, LICHENOID (L57.0) (see microscopic description) 0 1:48 PM CDT DERMATOPATHOLOGY LABORATORY at 1348 CDT Clinical History R/O SCC, Dominique's, HAK, BCC. 0 1:48 PM CDT DERMATOPATHOLOGY LABORATORY Gross Description Specimen A: Received is one formalin filled container labeled with the patient's name and designated right deltoid. The specimen consists of a shave biopsy measuring [id number]. Jar 0. 0 1:48 PM CDT DERMATOPATHOLOGY [...] characteristic determined by the Dermatopathology Laboratory at [facility], directed by Dr. Sami Toro. These tests need not be, and therefore are not, approved by the [place] Food and Drug Administration. The tests are used for clinical purposes. Billing Codes Specimen Charges Stain Charges 99242 1 0 1:48 PM CDT DERMATOPATHOLOGY LABORATORY Embedded Images 0 1:48 PM CDT DERMATOPATHOLOGY LABORATORY Pathology/Cytolog y TISSUE SPECIMEN FROM SKIN / Unknown 04/16/2020 04/17/2020 11:28 AM CDT us Malcolm Rollins MD LAB - PATHOLOGY/CYTOLOGY ORD ERABLES Final Result DERMATOPATHOLOGY LABORATORY [facility] - Department of Dermatology [address] [phone] documented in this encounter Visit Diagnoses Not on filedocumented in this encounter Care Teams Inter Com Installer Relationship Specialty Start Date End Date Lenin Harden MD [address] [place] [phone] PCP - General 03/22/18 documented as of this encounter
--- OUTSIDE RECORDS SUMMARY | 2024-12-06 07:13 | XMS_ITS | Encounter Summary ---
Author Organization [facility] Address [address] [place] [address] Care Team Providers Care Sld Educational Aide Name Role Phone Lenin Harden MD Primary Care Provider [phone] Encounter Details Date Type Department Care Team (Late st Contact Info) Description 11/07/[address] 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 DermPath Lab Received: 11/07/2020 12:50 PM Pathologist: John Toro MD Specimen: Skin, left elbow 2:54 PM CDT DERMATOPATHOLOGY LABORATORY Final Diagnosis Specimen A. 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 1 2:54 PM CDT DERMATOPATHOLOGY LABORATORY Gross Description Specimen A: Received is one formalin filled container labeled with the patient's name and designated left elbow. The specimen consists of a shave biopsy measuring [id number]. Jar 0. 1 2:54 PM CDT DERMATOPATHOLOGY [...] characteristic determined by the Dermatopathology Laboratory at [facility], directed by Dr. Sami Toro. These tests need not be, and therefore are not, approved by the [place] Food and Drug Administration. The tests are used for clinical purposes. Billing Codes Specimen Charges Stain Charges 22711 1 1 2:54 PM CDT DERMATOPATHOLOGY LABORATORY Embedded Images 1 2:54 PM CDT DERMATOPATHOLOGY LABORATORY Pathology/Cytolo gy TISSUE SPECIMEN FROM SKIN / Unknown 11/06/2020 3:33 AM CDT 11/07/2020 12:50 PM CDT us Malcolm Rollins MD LAB - PATHOLOGY/CYTOLOGY ORD ERABLES Final Result DERMATOPATHOLOGY LABORATORY [facility] - Department of Dermatology [address] [place] [address], [facility] [phone] documented in this encounter Visit Diagnoses Not on filedocumented in this encounter Care Teams Sld Educational Aide Relationship Specialty Start Date End Date Lenin Harden MD [address] [place] [address] PCP - General 03/22/18 documented as of this encounter
--- OUTSIDE RECORDS SUMMARY | 2024-12-06 07:13 | XMS_ITS | Clinical Summary ---
Author Organization [facility] Address [address] [place] [address] Care Team Providers Care Tower Excavator Operator Name Role Phone Lenin Harden MD Primary Care Provider [phone] Source Comments [facility],non-owned Affiliates and Associated Physician Practices is amultiple site organization consisting of ambulatory clinics and hospital sitesin [place], [place], [place] and [place]. This disclosure is being madepursuant to the Care Everywhere program and may not contain all information available regarding this patient. 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 Gender Identity Not on file Sexual Orientation [...] VACCINE ( - 2023-2 5 season) 2024 DEPRESSION SCREENING 06/28/2024 INFLUENZA VACCINE (Season Ended) 2025 HEPATITIS B VACCINE Aged Out No longe r eligible based on patient's age to complete this topic HIB VACCINE Aged Out No longer eligi ble based on patient's age to complete this topic HPV VACCINE Aged Out No longer eligi ble based on patient's age to complete this topic MENINGOCOCCAL (Group B) VACC INE SHARED DECISION-MAKING Aged Out No longer eligibl e based on patient's age to complete this topic MENINGOCOCCAL GROUPS A/C/Y/W VACCINE Aged Out No longer eligible b ased on patient's age to complete this topic Insurance MEDICARE MEDICARE AAR SELF PAY NO INSURANCE Member Subscriber Plan / Payer (Ef fective for All Dates) Name:Agustin Cutler Member ID:Not on file Relation to Subscriber:Not on file Name:AGUSTIN CUTLER Subscriber ID:Not on file (Home) Address: [address] [place] [id number] Payer ID:Not on file Group ID:Not on file Type:Self Pay Address: [place], [place] Care Teams Tower Excavator Operator Relationship Specialty Start Date End Date Lenin Harden MD [address] [place] [phone] PCP - General 03/22/18
--- OUTSIDE RECORDS SUMMARY | 2024-12-06 07:13 | XMS_ITS | Encounter Summary ---
Author Organization [facility] Address [address] [place] [address] Care Team Providers Care Coding Assistant Name Role Phone Lenin Harden MD Primary Care Provider [phone] Encounter Details Date Type Department Care Team (Late st Contact Info) Description 01/10/2024 Lab Requisition [facility] - DermPath Lab [address] [place] [address] Malcolm Rollins MD [address] [place] [address] Social History Tobacco Use Types Packs/Day Years Used Date Smoking Tobacco: Never Assessed Sex and Gender Information Value Date Recorded Sex Assigned at Not on file 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 Gender Identity Not on file Sexual Orientation Not on file documented as of this encounter Plan of Treatment Not on file documented as of this encounter Procedures Procedure Name Priority Date/Time Associated Diagnosis Comments DERMATOPATHOLOGY Routine 01/05/2024 12:0 0 AM CDT documented in this encounter Results * DERMATOPATHOLOGY (01/05/2024 12:00 AM CDT) Case Report Dermatopathology Report Case: [id number] Authorizing Provider: Malcolm Rollins MD Collected: 01/05/2024 12:00 AM Ordering Location: [facility] - Received: 01/10/2024 07:57 AM DermPath Lab Pathologist: John Toro MD Specimen: Skin, right medial superior buttock 4 4:36 PM CDT DERMATOPATHOLOGY LABORATORY Final Diagnosis Specimen A. SKIN, right medial superior buttock: BASAL CELL CARCINOMA, NODULAR TYPE (C44.519) 4 4:36 PM CDT DERMATOPATHOLOGY LABORATORY at 1636 CDT Clinical History R/O BCC vs Other Neoplasm [...] characteristic determined by the Dermatopathology Laboratory at [facility], directed by Dr. Sami Toro. These tests need not be, and therefore are not, approved by the [place] Food and Drug Administration. The tests are used for clinical purposes. Billing Codes Specimen Charges Stain Charges 89665 1 4 4:36 PM CDT DERMATOPATHOLOGY LABORATORY Embedded Images 4 4:36 PM CDT DERMATOPATHOLOGY LABORATORY Pathology/Cytolog y TISSUE SPECIMEN FROM SKIN / Unknown 01/05/2024 01/10/2024 7:57 AM CDT Malcolm Rollins MD LAB - PATHOLOGY/CYTOLOGY ORD ERABLES Final Result DERMATOPATHOLOGY LABORATORY [facility] - Department of Dermatology [address] [phone] documented in this encounter Visit Diagnoses Not on filedocumented in this encounter Care Teams Coding Assistant Relationship Specialty Start Date End Date Lenin Harden MD [address] [place] [id number] PCP - General 03/22/18 documented as of this encounter
--- OUTSIDE RECORDS SUMMARY | 2024-12-06 07:14 | XMS_ITS | Clinical Summary ---
Author Organization [facility] Address [facility] [place] [address] Care Team Providers Care Door Furring Installer Name Role Phone Oneal Weber MD Unavailable [phone] Travis Augustine MD PhD Unavailable [phone] Lenin Harden MD Primary Care Provider [phone] Allergies Active Allergy Reactions Criticality Noted Date Comments Linaclotide Other (See comments) Low 02/26/2023 Caused afib Penicillins Hives,Rash Medium 10/14/2021 Medications ezetimibe (ZETIA) 10 mg tabletIndications :hyperlipidemia Take 1 tablet (10 mg total) by mouth daily after dinner 8 Active allopurinol (ZYLOPRIM) 300 mg tabletIndications :prevention of acute gout attack Take 1 tablet (300 mg total) by mouth daily after breakfast 3 9 Active metoprolol XL (TOPROL-XL) 25 mg 24 hr tablet Take 1/2 (one-half) tablet by mouth once daily 45 tablet 3 0 Active clonazePAM (KlonoPIN) 1 mg tabletIndications :ptsd Take 1 tablet (1 mg total) by mouth nightly 1 Active MELATONIN ORAL Take 5 mg by mouth nightly Active MAGNESIUM GLYCINATE ORAL Take 300 mg by mouth nightly Active Folplex 2.2 2.2-25-0.5 mg tabletIndications :Vitamin Deficiency Prevention,multiv itamin Take 1 tablet by mouth every morning [...] morning Active cyanocobalamin (Vitamin B-12) 1,000 mcg tabletIndications :Prevention of Vitamin B12 Deficiency Take 1 tablet (1,000 mcg total) by mouth clinical rehab specialist before breakfast Active vitamin b complex tablet Take 1 tablet by mouth every morning Active ascorbic acid 500 mg tablet,chewable Take 2 tablet/chew tab (1,000 mg total) by mouth every morning Active Lactobac 40-Bifido 3-S.thermop (Probiotic) 100 billion cell capsule Take 1 capsule by mouth every morning Active simvastatin (ZOCOR) 20 mg tabletIndications :hyperlipidemia Take 1 tablet (20 mg total) by mouth daily after dinner Active Xarelto 20 mg tabletIndications :Paroxysmal atrial fibrillation (HCC) Take 1 tablet by mouth once daily 90 tablet 3 Active losartan (COZAAR) 100 mg tabletIndications :hypertension Take 1 tablet (100 mg total) by mouth every morning [address] (PROTONIX) 40 mg EC tabletIndications :Stress Ulcer Prophylaxis,Treat ment of Non-Bleeding Gastric Disorder Take 1 tablet [...] 1 tablet (112 mcg total) by mouth clinical rehab specialist before breakfast 4 Active amLODIPine (NORVASC) 2.5 mg tablet 4 Active dofetilide (TIKOSYN) 500 mcg capsuleIndication s:Paroxysmal atrial fibrillation (HCC),High risk medications (not anticoagulants) long-term use Take 1 capsule by mouth twice daily 180 capsule 5 Active Active Problems Problem Noted Date Diagnosed Date Chronic hyponatremia 05/07/2023 Overview (05/07/2023): Assessment & Plan (05/08/2023 11:42 AM HIGH TENSION TESTER): Na 131 Low Na chronically. Asymptomatic -Na 135 on recheck Hypotension 05/07/2023 Assessment & Plan (05/08/2023 11:41 AM HIGH TENSION TESTER): Transient hypotension vs spurious. Reports feeling well and repeat >100 -will continue to hold amlodipine upon discharge as pt remains normotensive PAF (paroxysmal atrial fibrillation) 03/02/2023 Assessment & Plan (05/08/2023 11:40 AM HIGH TENSION TESTER): S/p A-Fib Ablation. Currently SR on tele [...] 08/08/2020 Assessment & Plan (05/07/2023 4:54 PM HIGH TENSION TESTER): -Continue Ezetimibe, Simvastatin DAI (obstructive sleep apnea) 11/19/2018 Assessment & Plan (05/07/2023 4:51 PM HIGH TENSION TESTER): Compliant home CPAP baseline - Continue home CPAP while in patient. 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 HTN (hypertension) 10/27/2018 Assessment & Plan (05/07/2023 4:56 PM HIGH TENSION TESTER): BP 124/74(87) - Continue home med regiment- Norvasc 5mg, losartan 100mg, metoprolol 12.5 Snoring 10/27/2018 Sinus bradycardia 08/19/2018 Dizziness 07/24/2018 Assessment & Plan (07/24/2018 7:55 PM HIGH TENSION TESTER): Pt says c/w prior episodes of afib, resolved w/ afib meds at home -No LOC or head trauma -Management as per afib below -Cont tele overnight Coronary artery disease 07/24/2018 Assessment & Plan (05/07/2023 5:01 PM HIGH TENSION TESTER): CAD (Mild RCA, mild Left main, mild-mod (40%) LAD, mild LCx - per CTA heart 2019 BMS (LAD x2) in 1997 - Continue Norvasc, Ezetimibe, Losartan, Metoprolol, Simvastatin as above Assessment & Plan (07/24/2018 7:57 PM HIGH TENSION TESTER): S/p LAD stent placement x2 -Cont ASA, statin, and metoprolol 12.5mg daily Hypothyroidism 07/24/2018 Assessment & Plan (05/07/2023 4:57 PM HIGH TENSION TESTER): Last TSH 2.29 - Continue synthroid 125mcg Assessment & Plan (07/24/2018 7:59 PM HIGH TENSION TESTER): Cont synthroid 137mcg daily. F/u TSH Gout 07/24/2018 Assessment & Plan (05/07/2023 5:03 PM HIGH TENSION TESTER): No current flare. Reports well managed with Allopurinol 300mg and diet changed - Continue Allopurinol. Assessment & Plan (07/24/2018 7:58 PM HIGH TENSION TESTER): Cont febuxostat 40mg daily Atrial fibrillation (CMS/HCC) [I48.91] 8 Assessment & Plan (07/25/2018 12:36 PM HIGH TENSION TESTER): Cont home meds dofetilide 500mcg BID and warfarin here -Cont tele -TTE 07/25 without abnormalities - Has follow up at discharge with Dr. Wells and Dr. Weber Immunizations Immunization Administration Dates Next Due Influenza, Unspecified 04/15/2023 Surgical History Surgery Date Site/Laterality Comments CORONARY ANGIOPLASTY WITH ST ENT PLACEMENT Cath Stent Placement - -heart (Added by TW Conv) 1997 COLONOSCOPY PROSTATECTOMY 2007 CATARACT EXTRACTION Medical History Medical History Date Comments Hypertension Hyperlipidemia Thyroid disease DVT (deep venous thrombosis) (HCC) Hypothyroidism CAD (coronary artery disease) Atrial fibrillation (HCC) PTSD (post-traumatic stress disorder) Gout Lumbago [...] on file Legal Sex Male 10:10 AM HIGH TENSION TESTER Gender Identity Not on file Sexual Orientation Not on file Obstetrics History Last Filed Vital Signs Vital Sign Reading Time Taken Comments Blood Pressure 142/78 08/07/2024 3:01 PM HIGH TENSION TESTER Pulse 52 08/07/2024 3:01 PM HIGH TENSION TESTER Temperature 36.6 C (97.9 F) 05/08/2023 8:35 AM HIGH TENSION TESTER Respiratory Rate 16 05/08/2023 8:35 AM HIGH TENSION TESTER Oxygen Saturation 99% 08/07/2024 3:01 PM HIGH TENSION TESTER Inhaled Oxygen Concentration - - Weight 95.7 kg (211 lb) 08/07/2024 3:01 PM HIGH TENSION TESTER Height 182.9 cm (6') 08/07/2024 3:01 PM HIGH TENSION TESTER Body Mass Index 28.62 08/07/2024 3:01 PM HIGH TENSION TESTER Plan of Treatment Health Maintenance Due Date Last Done Comments Depression Screening 1944 DTaP/Tdap/Td Vaccine (1 - Tdap) 09/04/1955 Hepatitis B Screening 1962 Zoster Vaccine (1 of 2) 1994 Well Visit 65+ 2009 Fall Risk Assessment 05/08/2024 05/08/2023 Influenza Vaccine (Season Ended) 2025 04/15/2023, 03/29/2019, 04/19/2018, Additional history exists Pneumococcal vaccine 65+ Completed 05/14/2017, 04/28 Medical Devices Implanted Type Area Cloth Winder Machine Operator Device Identifier Shelf Expiration Date Model / Serial / Lot Stent Stent N/A: Heart Cardiac Stents N/A: Heart Insurance MEDICARE RAILROAD [facility] MEDICARE RAILROAD [facility] MEDICARE MEDICARE RAILROAD [facility] MEDICARE RAILROAD [facility] Advance Directives For more information, please contact: [phone] * Full Code (Latest Code Status on File) Date Activated Date Inactivated Comments 07/24/2018 7:20 PM 07/25/2018 6:19 PM Care Teams Door Furring Installer Relationship Specialty Start Date End Date Lenin Harden MD [address] [facility] [address] [place] [id number] PCP - General Internal Medicine 08/28/22 Oneal Weber MD Referring Physician Cardiology 11/23/18 Travis Augustine MD PhD Referring Physician Cardiology 11/23/18
--- OUTSIDE RECORDS SUMMARY | 2024-12-06 07:14 | XMS_ITS | Encounter Summary ---
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 Gender Identity Not on file Sexual [...] on filedocumented in this encounter Care Teams Trial Justice Relationship Specialty Start Date End Date Lenin Harden MD [address] [facility] [address] [place] [address] PCP - General 10/21/16 08/27/22 Lenin Harden MD [address] [place] [address] PCP - General Internal Medicine 08/28/22 Oneal Weber MD [address] [place] [address] Referring Physician Cardiology 11/23/18 Travis Augustine MD PhD [address] [place] [address] Referring Physician Cardiology 11/23/18 documented as of this encounter
--- OUTSIDE RECORDS SUMMARY | 2024-12-06 07:14 | XMS_ITS | Referral Summary ---
Author Organization [facility] Address [address] [place] [address] Care Team Providers Care Business Improvement Manager Name Role Phone Oneal Weber MD Unavailable [phone] Travis Augustine MD PhD Unavailable [phone] Lenin Harden MD Primary Care Provider [phone] Allergies Active Allergy Reactions Criticality Noted Date [...] 1 tablet (1,000 mcg total) by mouth manager oracle database before breakfast Active vitamin b complex tablet [...] 1 tablet (112 mcg total) by mouth manager oracle database before breakfast 4 Active amLODIPine (NORVASC) 2.5 mg tablet 4 Active dofetilide (TIKOSYN) 500 mcg capsuleIndication s:Paroxysmal atrial fibrillation (HCC),High risk medications (not anticoagulants) long-term use Take 1 capsule by mouth twice daily 180 capsule 5 Active Active Problems Problem Noted Date Diagnosed Date Chronic hyponatremia 05/07/2023 Overview (05/07/2023): Assessment & Plan (05/08/2023 11:42 AM WELLNESS PROGRAM ADMINISTRATOR): Na 131 Low Na chronically. Asymptomatic -Na 135 on recheck Hypotension 05/07/2023 Assessment & Plan (05/08/2023 11:41 AM WELLNESS PROGRAM ADMINISTRATOR): Transient hypotension vs spurious. Reports feeling well and repeat >100 -will continue to hold amlodipine upon discharge as pt remains normotensive PAF (paroxysmal atrial fibrillation) 03/02/2023 Assessment & Plan (05/08/2023 11:40 AM WELLNESS PROGRAM ADMINISTRATOR): S/p A-Fib Ablation. Currently SR on tele [...] 08/08/2020 Assessment & Plan (05/07/2023 4:54 PM WELLNESS PROGRAM ADMINISTRATOR): -Continue Ezetimibe, Simvastatin DAI (obstructive sleep apnea) 11/19/2018 Assessment & Plan (05/07/2023 4:51 PM WELLNESS PROGRAM ADMINISTRATOR): Compliant home CPAP baseline - Continue home CPAP while in patient. 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 HTN (hypertension) 10/27/2018 Assessment & Plan (05/07/2023 4:56 PM WELLNESS PROGRAM ADMINISTRATOR): BP 124/74(87) - Continue home med regiment- Norvasc 5mg, losartan 100mg, metoprolol 12.5 Snoring 10/27/2018 Sinus bradycardia 08/19/2018 Dizziness 07/24/2018 Assessment & Plan (07/24/2018 7:55 PM WELLNESS PROGRAM ADMINISTRATOR): Pt says c/w prior episodes of afib, resolved w/ afib meds at home -No LOC or head trauma -Management as per afib below -Cont tele overnight Coronary artery disease 07/24/2018 Assessment & Plan (05/07/2023 5:01 PM WELLNESS PROGRAM ADMINISTRATOR): CAD (Mild RCA, mild Left main, mild-mod (40%) LAD, mild LCx - per CTA heart 2019 BMS (LAD x2) in 1997 - Continue Norvasc, Ezetimibe, Losartan, Metoprolol, Simvastatin as above Assessment & Plan (07/24/2018 7:57 PM WELLNESS PROGRAM ADMINISTRATOR): S/p LAD stent placement x2 -Cont ASA, statin, and metoprolol 12.5mg daily Hypothyroidism 07/24/2018 Assessment & Plan (05/07/2023 4:57 PM WELLNESS PROGRAM ADMINISTRATOR): Last TSH 2.29 - Continue synthroid 125mcg Assessment & Plan (07/24/2018 7:59 PM WELLNESS PROGRAM ADMINISTRATOR): Cont synthroid 137mcg daily. F/u TSH Gout 07/24/2018 Assessment & Plan (05/07/2023 5:03 PM WELLNESS PROGRAM ADMINISTRATOR): No current flare. Reports well managed with Allopurinol 300mg and diet changed - Continue Allopurinol. Assessment & Plan (07/24/2018 7:58 PM WELLNESS PROGRAM ADMINISTRATOR): Cont febuxostat 40mg daily Atrial fibrillation (CMS/HCC) [I48.91] 8 Assessment & Plan (07/25/2018 12:36 PM WELLNESS PROGRAM ADMINISTRATOR): Cont home meds dofetilide 500mcg BID and [...] on file Legal Sex Male 10:10 AM WELLNESS PROGRAM ADMINISTRATOR Gender Identity Not on file Sexual Orientation Not on file Last Filed Vital Signs Vital Sign Reading Time Taken Comments Blood Pressure 142/78 08/07/2024 3:01 PM WELLNESS PROGRAM ADMINISTRATOR Pulse 52 08/07/2024 3:01 PM WELLNESS PROGRAM ADMINISTRATOR Temperature 36.6 C (97.9 F) 05/08/2023 8:35 AM WELLNESS PROGRAM ADMINISTRATOR Respiratory Rate 16 05/08/2023 8:35 AM WELLNESS PROGRAM ADMINISTRATOR Oxygen Saturation 99% 08/07/2024 3:01 PM WELLNESS PROGRAM ADMINISTRATOR Inhaled Oxygen Concentration - - Weight 95.7 kg (211 lb) 08/07/2024 3:01 PM WELLNESS PROGRAM ADMINISTRATOR Height 182.9 cm (6') 08/07/2024 3:01 PM WELLNESS PROGRAM ADMINISTRATOR Body Mass Index 28.62 08/07/2024 3:01 PM WELLNESS PROGRAM ADMINISTRATOR Plan of Treatment Not on file Medical Devices Implanted Type Area Drop Board Man Device Identifier Shelf Expiration Date Model / Serial / Lot Stent Stent N/A: Heart Cardiac Stents N/A: Heart Insurance MEDICARE RAILROAD [facility] MEDICARE RAILROAD [facility] MEDICARE MEDICARE RAILROAD MEDICARE RAILROAD [facility] Advance Directives For more information, please contact: [phone] * Full Code (Latest Code Status on File) Date Activated Date Inactivated Comments 07/24/2018 7:20 PM 07/25/2018 6:19 PM Care Teams Business Improvement Manager Relationship Specialty Start Date End Date Lenin Harden MD [address] [place] [address] PCP - General Internal Medicine 08/28/22 Oneal Weber MD Referring Physician Cardiology 11/23/18 Travis Augustine MD PhD Referring Physician Cardiology 11/23/18
--- OUTSIDE RECORDS SUMMARY | 2024-12-06 07:14 | XMS_ITS | Encounter Summary ---
Author Organization [facility] Address [address] [place] [address] Care Team Providers Care Coil Taper Name Role Phone Lenin Harden MD Primary Care Provider [phone] Encounter Details Date Type Department Care Team (Late st Contact Info) Description 01/18/2024 Lab Requisition [facility] Physician [facility] - DermPath Lab [address] [place] [address] Malcolm Rollins MD [address] [place] [address] Social History Tobacco Use Types Packs/Day Years Used Date Smoking Tobacco: Never Assessed Sex and Gender Information Value Date Recorded Sex Assigned at Not on file Legal Sex Male 7:00 PM ANIMAL CARE PROVIDER Gender Identity Not on file Sexual Orientation Not on file documented as of this encounter Plan of Treatment Not on file documented as of this encounter Procedures Procedure Name Priority Date/Time Associated Diagnosis Comments DERMATOPATHOLOGY Routine 01/17/2024 3:33 AM CDT documented in this encounter Results * DERMATOPATHOLOGY (01/17/2024 3:33 AM CDT) Case Report Dermatopathology Report Case: [id number] Authorizing Provider: Malcolm Rollins MD Collected: 01/17/2024 03:33 AM Ordering Location: [facility] Physician [facility] - Received: 01/18/2024 01:57 PM DermPath Lab Pathologist: Virgie Marrufo MD Specimen: Skin, right medial superior buttock 3:08 PM CDT DERMATOPATHOLOGY LABORATORY Amended Report Due to a clerical error, the specimen type is changed from a punch biopsy to a non-oriented excision. 07/25/202 4 3:08 PM CDT DERMATOPATHOLOGY LABORATORY Final Diagnosis Specimen A. SKIN, right medial superior buttock: DERMAL SCAR PRESENT AT MARGIN RESIDUAL BASAL CELL CARCINOMA NOT IDENTIFIED (L90.5) 4 3:08 PM CDT DERMATOPATHOLOGY LABORATORY Amendment electronically signed by Virgie Marrufo MD on 01/20/2024 at 1508 CDT at 1401 CDT Clinical History Bx proven BCC, nodular Please check margins/prior biopsy 3:08 PM CDT DERMATOPATHOLOGY LABORATORY Gross Description [...] characteristic determined by the Dermatopathology Laboratory at [facility], directed by Dr. Sami Toro. These tests need not be, and therefore are not, approved by the [place] Food and Drug Administration. The tests are used for clinical purposes. Billing Codes Specimen Charges Stain Charges 19381 1 4 3:08 PM CDT DERMATOPATHOLOGY LABORATORY Embedded Images 3:08 PM CDT DERMATOPATHOLOGY LABORATORY Pathology/Cytolo gy TISSUE SPECIMEN FROM SKIN / Unknown 01/17/2024 3:33 AM CDT 01/18/2024 1:57 PM CDT Malcolm Rollins MD LAB - PATHOLOGY/CYTOLOGY ORD ERABLES Edited Result - Final DERMATOPATHOLOGY LABORATORY [facility] - Department of Dermatology [facility] Special[facility] [address] [place] [address], [address] [phone] documented in this encounter Visit Diagnoses Not on filedocumented in this encounter Care Teams Coil Taper Relationship Specialty Start Date End Date Lenin Harden MD [address] [place] [address] PCP - General 03/22/18 documented as of this encounter
--- OUTSIDE RECORDS SUMMARY | 2024-12-06 07:15 | XMS_ITS | Encounter Summary ---
Author Organization [facility] Address [address] [place] [address] Phone Care Team Providers Care Layout Technician Name Role Phone Lenin Harden MD Primary Care Provider [phone] Oneal Weber MD Unavailable [phone] Travis Augustine MD PhD Unavailable [phone] Lenin Harden MD Primary Care Provider [phone] Encounter Details Date Type Department Care Team (Late st Contact Info) Description 06/02/2018 Telephone [facility] Cardiology [address] [facility] Advanced Medicine [address]th [place] [address] [place] [address] Oneal Weber MD [address] [place] [address] Social History Tobacco Use Types Packs/Day Years Used Date Smoking Tobacco: Never Smokeless Tobacco: Never Alcohol Use Standard Drinks/Week Comments No 0 (1 standard drink = 0.6 oz pur e alcohol) Sex and Gender Information Value Date Recorded Sex Assigned at Not on file Legal Sex Male 10:10 AM PLANT GENERAL MANAGER Gender Identity Not on file Sexual Orientation Not on file documented as of this encounter Plan of Treatment Not on file documented as of this encounter Visit Diagnoses Not on filedocumented in this encounter Care Teams Layout Technician Relationship Specialty Start Date End Date Lenin Harden MD [address] [place] [address] PCP - General 10/21/16 08/27/22 Lenin Harden MD [address] [place] [address] PCP - General Internal Medicine 08/28/22 Oneal Weber MD [address] [place] [address] Referring Physician Cardiology 11/23/18 Travis Augustine MD PhD [address] [place] [address] Referring Physician Cardiology 11/23/18 documented as of this encounter
--- OUTSIDE RECORDS SUMMARY | 2024-12-06 07:15 | XMS_ITS | Clinical Summary ---
Author Organization [facility] Address [address] [place] [address] Phone Care Team Providers Care Flight Engineer Instructor Name Role Phone Lenin Harden MD Primary Care Provider [phone] Allergies Active Allergy Reactions Criticality Noted Date Comments Penicillins Hives 10/14/2021 Medications allopurinol (ZYLOPRIM) 300 MG tablet Take 300 [...] Cont synthroid 137mcg daily. F/u TSH Immunizations Immunization Administration Dates Next Due Sars-cov-2, Unspecified 04/16/2021,11/14/2020, [...] at Not on file Legal Sex Male 10:17 AM MDT Gender Identity Not on file Sexual Orientation [...] Medium Risk (1 of 4 - PCV) 1994 Influenza Vaccine (Season Ended) 2025 Insurance MEDICARE AAR Care Teams Flight Engineer Instructor Relationship Specialty Start Date End Date Lenin Harden MD [address] [facility] [address] [place] [id number] PCP - General Internal Medicine 09/18/21
--- OUTSIDE RECORDS SUMMARY | 2024-12-06 07:15 | XMS_ITS | Encounter Summary ---
Author Organization [facility] Address [address] [place] [address] Care Team Providers Care Bleach Boiler Filler Name Role Phone Lenin Harden MD Primary Care Provider [phone] Oneal Weber MD Unavailable [phone] Travis Augustine MD PhD Unavailable [phone] Lenin Harden MD Primary Care Provider [phone] Encounter Details Date Type Department Care Team (Late st Contact Info) Description 08/30/2018 Documentation [facility] Imaging [address] [place] [address] Gabriella Benton RN Social History Tobacco Use Types Packs/Day Years Used Date Smoking Tobacco: Never Smokeless Tobacco: Never Alcohol Use Standard Drinks/Week Comments No 0 (1 standard drink = 0.6 oz pur e alcohol) Sex and Gender Information Value Date Recorded Sex Assigned at Not on file Legal Sex Male 10:10 AM JOINT CREASER Gender Identity Not on file Sexual Orientation Not on file documented as of this encounter Plan of Treatment Not on file documented as of this encounter Visit Diagnoses Not on filedocumented in this encounter Care Teams Bleach Boiler Filler Relationship Specialty Start Date End Date Lenin Harden MD [address] [place] [address] PCP - General 10/21/16 08/27/22 Lenin Harden MD [address] [place] [address] PCP - General Internal Medicine 08/28/22 Oneal Weber MD [address] [facility] [address] [facility] [address] [place] [address] Referring Physician Cardiology 11/23/18 Travis Augustine MD PhD [address] [facility] [address] [facility] [address] [place] [address] Referring Physician Cardiology 11/23/18 documented as of this encounter
--- OUTSIDE RECORDS SUMMARY | 2024-12-06 07:15 | XMS_ITS | Encounter Summary ---
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 Gender Identity Not on file Sexual [...] on filedocumented in this encounter Care Teams Plywood Patcher Relationship Specialty Start Date End Date Lenin Harden MD [address] [place] [address] PCP - General 10/21/16 08/27/22 Lenin Hardne MD [address] [place] [address] PCP - General Internal Medicine 08/28/22 Oneal Weber MD [address] [place] [address] Referring Physician Cardiology 11/23/18 Travis Augustine MD PhD [address] [place] [address] Referring Physician Cardiology 11/23/18 documented as of this encounter
--- OUTSIDE RECORDS SUMMARY | 2024-12-06 07:15 | XMS_ITS | Encounter Summary ---
Author Organization [facility] Address [address] [place] [address] Phone Care Team Providers Care Automatic Trimming Sewer Name Role Phone Oneal Weber MD Unavailable [phone] Travis Augustine MD PhD Unavailable [phone] Lenin Harden MD Primary Care Provider [phone] Encounter Details Date Type Department Care Team [...] on file Legal Sex Male 10:10 AM SOLID WASTE ANALYST Gender Identity Not on file Sexual Orientation Not on file documented as of this encounter Plan of Treatment Scheduled Orders Name Type Priority Associated Diagnoses Orde r Schedule CARDIOLOGY DOCUMENT SCAN Cardiac Services Ordered: 11/26/2022 documented as of this encounter Visit Diagnoses Not on filedocumented in this encounter Care Teams Automatic Trimming Sewer Relationship Specialty Start Date End Date Lenin Harden MD [address] [facility] [address] [address] [address] [facility] [address] [place] [address] PCP - General Internal Medicine 08/28/22 Oneal Weber MD Referring Physician Cardiology 11/23/18 Travis Augustine MD PhD Referring Physician Cardiology 11/23/18 documented as of this encounter
[2024-12-06 08:07] LABS: Hemoglobin A1C 5.3 % (<5.7)
[2024-12-06 08:34] LABS: Alanine Aminotransferase 32 U/L (6-50); Albumin Level 4.2 g/dL (3.5-5.1); Alkaline Phosphatase 74 U/L (38-126); Anion Gap 6 mmol/L (4-12); Aspartate Amino Transferase 37 U/L (17-59); Blood Urea Nitrogen 22 mg/dL (9-20); Calcium 9.6 mg/dL (8.4-10.2); Carbon Dioxide 26 mmol/L (22-30); Chloride 100 mmol/L (98-107); Cholesterol 125 mg/dL (0-200); Estimated Glomerular Filt Rate > 60; Glucose 88 mg/dL (65-110); HDL Direct 58 mg/dL; LDL Cholesterol Direct 41 mg/dL; Potassium 4.2 mmol/L (3.4-5.0); Sodium 132 mmol/L (137-145); Total Protein 7.3 g/dL (6.3-8.2); Triglycerides 73 mg/dL (<150)
[2024-12-06 08:57] LABS: Thyroid Stimulating Hormone 0.215 uIU/mL (0.465-4.680)
== END 2024-12-06 07:10 | disposition home or self-care (01) ==
LOC: ANHLAB 07:10
PROVIDERS: PCP Internal Medicine; Visit Provider Internal Medicine
DX: E78.2 Mixed hyperlipidemia (principal); R73.03 Prediabetes; I10 Essential (primary) hypertension; E03.9 Hypothyroidism, unspecified; Z79.899 Other long term (current) drug therapy
CPT/HCPCS: 36415; 80053; 80061; 83036; 84443

== ENCOUNTER 2025-04-18 08:20 | Outpatient (CLI) | payer MEDICARE, SELFPAY ==
--- OUTSIDE RECORDS SUMMARY | 2025-04-18 08:41 | XMS_ITS | Encounter Summary ---
Author Organization [facility] Address [address] [facility] [place] [address] Care Team Providers Care Media Promoter Name Role Phone Lenin Harden MD Primary Care Provider [phone] Encounter Details Date Type Department Care Team (Late st Contact Info) Description 11/07/2020 Lab Requisition 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 DermPath Lab Received: 11/07/2020 12:50 PM Pathologist: [...] specimen consists of a shave biopsy measuring [id number]. Jar 0. 1 2:54 PM CDT DERMATOPATHOLOGY [...] characteristic determined by the Dermatopathology Laboratory at [facility], directed by Dr. Sami Toro. These tests need not be, and therefore are not, approved by the [place] Food and Drug Administration. The tests are used for clinical purposes. Billing Codes Specimen Charges Stain Charges 67625 1 1 2:54 PM CDT DERMATOPATHOLOGY LABORATORY Embedded Images 1 2:54 PM CDT DERMATOPATHOLOGY LABORATORY Pathology/Cytolo gy TISSUE SPECIMEN FROM SKIN / Unknown 11/06/2020 3:33 AM CDT 11/07/2020 12:50 PM CDT us Malcolm Rollins MD LAB - PATHOLOGY/CYTOLOGY ORD ERABLES Final Result DERMATOPATHOLOGY LABORATORY [facility] - Department of Dermatology [address] [place] [address], [facility] [phone] documented in this encounter Visit Diagnoses Not on filedocumented in this encounter Care Teams Media Promoter Relationship Specialty Start Date End Date Lenin Harden MD [address] [place] [address] PCP - General 03/22/18 documented as of this encounter
--- OUTSIDE RECORDS SUMMARY | 2025-04-18 08:41 | XMS_ITS | Clinical Summary ---
Author Organization [facility] Address [facility] [place] [address] Care Team Providers Care Rat Exterminator Name Role Phone Oneal Weber MD Unavailable [phone] Travis Augustine MD PhD Unavailable [phone] Lenin Harden MD Primary Care Provider [phone] Allergies Active Allergy Reactions Criticality Noted Date [...] 1 tablet (1,000 mcg total) by mouth fitness specialist before breakfast Active vitamin b complex [...] 1 tablet (112 mcg total) by mouth fitness specialist before breakfast 4 Active amLODIPine (NORVASC) 2.5 mg tablet 4 Active dofetilide (TIKOSYN) 500 mcg capsuleIndication s:Paroxysmal atrial fibrillation (HCC),High risk medications (not anticoagulants) long-term use Take 1 capsule by mouth twice daily 180 capsule 1 5 Active Active Problems Problem Noted Date Diagnosed Date Chronic hyponatremia 05/07/2023 Overview (05/07/2023): Assessment & Plan (05/08/2023 11:42 AM LANDFILL ATTENDANT): Na 131 Low Na chronically. Asymptomatic -Na 135 on recheck Hypotension 05/07/2023 Assessment & Plan (05/08/2023 11:41 AM LANDFILL ATTENDANT): Transient hypotension vs spurious. Reports feeling well and repeat >100 -will continue to hold amlodipine upon discharge as pt remains normotensive PAF (paroxysmal atrial fibrillation) 03/02/2023 Assessment & Plan (05/08/2023 11:40 AM LANDFILL ATTENDANT): S/p A-Fib Ablation. Currently SR on tele [...] 08/08/2020 Assessment & Plan (05/07/2023 4:54 PM LANDFILL ATTENDANT): -Continue Ezetimibe, Simvastatin DAI (obstructive sleep apnea) 11/19/2018 Assessment & Plan (05/07/2023 4:51 PM LANDFILL ATTENDANT): Compliant home CPAP baseline - Continue home CPAP while in patient. 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 HTN (hypertension) 10/27/2018 Assessment & Plan (05/07/2023 4:56 PM LANDFILL ATTENDANT): BP 124/74(87) - Continue home med regiment- Norvasc 5mg, losartan 100mg, metoprolol 12.5 Snoring 10/27/2018 Sinus bradycardia 08/19/2018 Dizziness 07/24/2018 Assessment & Plan (07/24/2018 7:55 PM LANDFILL ATTENDANT): Pt says c/w prior episodes of afib, resolved w/ afib meds at home -No LOC or head trauma -Management as per afib below -Cont tele overnight Coronary artery disease 07/24/2018 Assessment & Plan (05/07/2023 5:01 PM LANDFILL ATTENDANT): CAD (Mild RCA, mild Left main, mild-mod (40%) LAD, mild LCx - per CTA heart 2019 BMS (LAD x2) in 1997 - Continue Norvasc, Ezetimibe, Losartan, Metoprolol, Simvastatin as above Assessment & Plan (07/24/2018 7:57 PM LANDFILL ATTENDANT): S/p LAD stent placement x2 -Cont ASA, statin, and metoprolol 12.5mg daily Hypothyroidism 07/24/2018 Assessment & Plan (05/07/2023 4:57 PM LANDFILL ATTENDANT): Last TSH 2.29 - Continue synthroid 125mcg Assessment & Plan (07/24/2018 7:59 PM LANDFILL ATTENDANT): Cont synthroid 137mcg daily. F/u TSH Gout 07/24/2018 Assessment & Plan (05/07/2023 5:03 PM LANDFILL ATTENDANT): No current flare. Reports well managed with Allopurinol 300mg and diet changed - Continue Allopurinol. Assessment & Plan (07/24/2018 7:58 PM LANDFILL ATTENDANT): Cont febuxostat 40mg daily Atrial fibrillation (CMS/HCC) [I48.91] 8 Assessment & Plan (07/25/2018 12:36 PM LANDFILL ATTENDANT): Cont home meds dofetilide 500mcg BID and warfarin here -Cont tele -TTE 07/25 without abnormalities - Has follow up at discharge with Dr. Wells and Dr. Weber Encounters Date Type Department Care Team Description 02/01/2025 10:00 AM CDT Office Visit [facility] Cardiology [address] [place] [phone] Román Landeros MD PAF (paroxysmal atrial fibrillation) (Primary Dx); Hyperlipidemia LDL goal <70; Primary hypertension; Coronary artery disease of tolowa de[place]-ni' artery of [place]lowa de[place]-ni' heart with stable angina pectoris; Chronic anticoagulation 02/01/2025 Orders Only [facility] Cardiology [address] [place] [phone] ProviderMichaela MD 02/01/2025 Telephone [facility] Cardiology [address] [facility] 8th [place] [address] [place] [address] Travis Augustine MD PhD from Last 3 Months Immunizations Immunization Administration Dates Next Due Influenza, Unspecified 04/15/2023 Surgical History Surgery Date Site/Laterality Comments CORONARY ANGIOPLASTY WITH ST ENT PLACEMENT Cath Stent Placement - -heart (Added by TW Conv) 1997 COLONOSCOPY PROSTATECTOMY 2007 CATARACT EXTRACTION Medical History Medical History Date Comments Hypertension Hyperlipidemia Thyroid disease DVT (deep venous thrombosis) Hypothyroidism CAD (coronary artery disease) Atrial fibrillation [...] on file Legal Sex Male 10:10 AM LANDFILL ATTENDANT Gender Identity Not on file Sexual Orientation Not on file Obstetrics History Last Filed Vital Signs Vital Sign Reading Time Taken Comments Blood Pressure 110/60 02/01/2025 10:09 AM CDT Pulse 54 02/01/2025 10:09 AM CDT Temperature 36.6 C (97.9 F) 05/08/2023 8:35 AM LANDFILL ATTENDANT Respiratory Rate 16 05/08/2023 8:35 AM LANDFILL ATTENDANT Oxygen Saturation 93% 02/01/2025 10:09 AM CDT Inhaled Oxygen Concentration - - Weight 93.4 kg (206 lb) 02/01/2025 10:09 AM CDT Height 182.9 cm (6') 02/01/2025 10:09 AM CDT Body Mass Index 27.94 02/01/2025 10:09 AM CDT Plan of Treatment Health Maintenance Due Date Last Done Comments Depression Screening 1945 DTaP/Tdap/Td Vaccine (1 - Tdap) 09/04/1955 Hepatitis B Screening 1962 Zoster Vaccine (1 of 2) 1994 Well Visit 65+ 2009 Fall Risk Assessment 05/08/2024 05/08/2023 Covid-19 Vaccine (2024- 6 season) 2025 04/16/2021, 04/12/2021, 11/14/2020, Additional history exists Influenza Vaccine (#1) 2025 , 03/29/2019, 04/19/2018, Additional history exists Pneumococcal vaccine 65+ Completed 05/14/2017, 04/28 Medical Devices Implanted Type Area Ip Litigation Paralegal Device Identifier Shelf Expiration Date Model / Serial / Lot Stent Stent N/A: Heart Cardiac Stents N/A: Heart Insurance MEDICARE Streaming Era [facility] MEDICARE RAILROAD [facility] MEDICARE MEDICARE RAILROAD [facility] MEDICARE RAILROAD [facility] Advance Directives For more information, please contact: [phone] * Full Code (Latest Code Status on File) Date Activated Date Inactivated Comments 07/24/2018 7:20 PM 07/25/2018 6:19 PM Care Teams Rat Exterminator Relationship Specialty Start Date End Date Lenin Harden MD PCP - General Internal Medicine 08/28/22 Oneal Weber MD Referring Physician Cardiology 11/23/18 Travis Augustine MD PhD Referring Physician Cardiology 11/23/18
--- OUTSIDE RECORDS SUMMARY | 2025-04-18 08:41 | XMS_ITS | Encounter Summary ---
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
--- OUTSIDE RECORDS SUMMARY | 2025-04-18 08:41 | XMS_ITS | Encounter Summary ---
Author Organization [facility] Address [address] [place] [address] Care Team Providers Care Group Work Program Director Name Role Phone Lenin Harden MD Primary Care Provider [phone] Encounter Details Date Type Department Care Team (Late st Contact Info) Description 01/10/2024 Lab Requisition [facility] - DermPath Lab [address] [place] [address] Malcolm Rollins MD [address] [place] [address] Social History Tobacco Use Types Packs/Day Years Used Date Smoking Tobacco: Never Assessed Sex and Gender Information Value Date Recorded Sex Assigned at Not on file 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 Gender Identity Not on file Sexual Orientation Not on file documented as of this encounter Plan of Treatment Not on file documented as of this encounter Procedures Procedure Name Priority Date/Time Associated Diagnosis Comments DERMATOPATHOLOGY Routine 01/05/2024 12:0 0 AM CDT documented in this encounter Results * DERMATOPATHOLOGY (01/05/2024 12:00 AM CDT) Case Report Dermatopathology Report Case: [id number] Authorizing Provider: Malcolm Rollins MD Collected: 01/05/2024 12:00 AM Ordering Location: [facility] - Received: 01/10/2024 07:57 AM DermPath Lab [...] characteristic determined by the Dermatopathology Laboratory at [facility], directed by Dr. Sami Toro. These tests need not be, and therefore are not, approved by the [place] Food and Drug Administration. The tests are used for clinical purposes. Billing Codes Specimen Charges Stain Charges 16516 1 4 4:36 PM CDT DERMATOPATHOLOGY LABORATORY Embedded Images 4 4:36 PM CDT DERMATOPATHOLOGY LABORATORY Pathology/Cytolog y TISSUE SPECIMEN FROM SKIN / Unknown 01/05/2024 01/10/2024 7:57 AM CDT Malcolm Rollins MD LAB - PATHOLOGY/CYTOLOGY ORD ERABLES Final Result DERMATOPATHOLOGY LABORATORY [facility] - Department of Dermatology [address], [address] [phone] documented in this encounter Visit Diagnoses Not on filedocumented in this encounter Care Teams Group Work Program Director Relationship Specialty Start Date End Date Lenin Harden MD [address] [place] [address] PCP - General 03/22/18 documented as of this encounter
--- OUTSIDE RECORDS SUMMARY | 2025-04-18 08:41 | XMS_ITS | Encounter Summary ---
Author Organization [facility] Address [address] [place] [address] Phone Care Team Providers Care Novelties Sales Representative Name Role Phone Lenin Harden MD Primary Care Provider [phone] Oneal Weber MD Unavailable [phone] Travis Augustine MD PhD Unavailable [phone] Lenin Harden MD Primary Care Provider [phone] Encounter Details Date Type Department Care Team (Late st Contact Info) Description 06/02/2018 Telephone [facility] Cardiology [address] [facility] 8th [place] [address] [place] [address] Oneal Weber MD [address] [place] [address] Social History Tobacco Use Types Packs/Day Years Used Date Smoking Tobacco: Never Smokeless Tobacco: Never Alcohol Use Standard Drinks/Week Comments No 0 (1 standard drink = 0.6 oz pur e alcohol) Sex and Gender Information Value Date Recorded Sex Assigned at Not on file 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
--- OUTSIDE RECORDS SUMMARY | 2025-04-18 08:41 | XMS_ITS | Encounter Summary ---
Author Organization [facility] Address [address] [facility] [place] [address] Care Team Providers Care Surveyor Chain Helper Name Role Phone Lenin Harden MD Primary Care Provider [phone] Encounter Details Date Type Department Care Team (Late st Contact Info) Description 01/18/2024 Lab Requisition [facility] - DermPath Lab [address] [place] [address] Malcolm Rollins MD [address] [place] [address] Social History Tobacco Use Types Packs/Day Years Used Date Smoking Tobacco: Never Assessed Sex and Gender Information Value Date Recorded Sex Assigned at Not on file 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 Gender Identity Not on file Sexual Orientation Not on file documented as of this encounter Plan of Treatment Not on file documented as of this encounter Procedures Procedure Name Priority Date/Time Associated Diagnosis Comments DERMATOPATHOLOGY Routine 01/17/2024 3:33 AM CDT documented in this encounter Results * DERMATOPATHOLOGY (01/17/2024 3:33 AM CDT) Case Report Dermatopathology Report Case: [id number] Authorizing Provider: Malcolm Rollins MD Collected: 01/17/2024 03:33 AM Ordering Location: [facility] - Received: 01/18/2024 01:57 PM DermPath [...] characteristic determined by the Dermatopathology Laboratory at [facility], directed by Dr. Sami Toro. These tests need not be, and therefore are not, approved by the [place] Food and Drug Administration. The tests are used for clinical purposes. Billing Codes Specimen Charges Stain Charges 75482 1 4 3:08 PM CDT DERMATOPATHOLOGY LABORATORY Embedded Images 3:08 PM CDT DERMATOPATHOLOGY LABORATORY Pathology/Cytolo gy TISSUE SPECIMEN FROM SKIN / Unknown 01/17/2024 3:33 AM CDT 01/18/2024 1:57 PM CDT Malcolm Rollins MD LAB - PATHOLOGY/CYTOLOGY ORD ERABLES Edited Result - Final DERMATOPATHOLOGY LABORATORY [facility] - Department of Dermatology [facility] Specialized Medicine [address] [place] [address], [address] [phone] documented in this encounter Visit Diagnoses Not on filedocumented in this encounter Care Teams Surveyor Chain Helper Relationship Specialty Start Date End Date Lenin Harden MD [address] [place] [address] PCP - General 03/22/18 documented as of this encounter
--- OUTSIDE RECORDS SUMMARY | 2025-04-18 08:41 | XMS_ITS | Clinical Summary ---
Author Organization [facility] Address [address] [facility] [address] [address] Care Team Providers Care Electric Meter Tester Shop Name Role Phone Lenin Harden MD Primary Care Provider [phone] Source Comments [facility],non-owned Affiliates and Associated Physician Practices is amultiple site organization consisting of ambulatory clinics and hospital sitesin [place], [place], [place] and [place]. This disclosure is being madepursuant to the Care Everywhere program and may not contain all information available regarding this patient. 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 Gender Identity Not on file Sexual Orientation Not on file Plan of Treatment Health Maintenance Due Date Last Done Comments MEDICARE AWV 12 MONTHS 1945 DTAP/TDAP/TD VACCINES (1 - Tdap) 09/04/1963 PNEUMOCOCCAL VACCINE 50+ (1 of 1 - PCV) 1994 ZOSTER VACCINE (1 of 2) 1994 Respiratory Syncytial Virus (RSV) Vaccine Pt: or over 60 yrs (1 - 1-dose 75+ series) 09/04/2019 DEPRESSION SCREENING 06/28/2024 COVID-19 VACCINE ( - 2023-2 5 season) 2025 INFLUENZA VACCINE (#1) 2025 HEPATITIS B VACCINE Aged Out No [...] CUTLER Subscriber ID:Not on file (Home) Address: [address] [place] [id number] Payer ID:Not on file Group ID:Not on file Type:Self Pay Address: [place], [place] Care Teams Electric Meter Tester Shop Relationship Specialty Start Date End Date Lenin Harden MD [address] [place] [address] PCP - General 03/22/18
--- OUTSIDE RECORDS SUMMARY | 2025-04-18 08:41 | XMS_ITS | Encounter Summary ---
Author Organization [facility] Address [address] [facility] [address] Care Team Providers Care Nca Certified Concierge Name Role Phone Lenin Harden MD Primary Care Provider [phone] Encounter Details Date Type Department Care Team (Late st Contact Info) Description 04/17/2020 Lab Requisition [facility] DermPath Lab [address] [place] [address] Malcolm Rollins MD [address] [place] [address] Social History Tobacco Use Types Packs/Day Years Used Date Smoking Tobacco: Never Assessed Sex and Gender Information Value Date Recorded Sex Assigned at Not on file Legal Sex Male 7: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 Gender Identity Not on file Sexual Orientation Not on file documented as of this encounter Plan of Treatment Not on file documented as of this encounter Procedures Procedure Name Priority Date/Time Associated Diagnosis Comments DERMATOPATHOLOGY Routine 04/16/2020 12:0 0 AM CDT documented in this encounter Results * DERMATOPATHOLOGY (04/16/2020 12:00 AM CDT) Case Report Dermatopathology Report Case: [id number] Authorizing Provider: Malcolm Rollins MD Collected: 04/16/2020 12:00 AM Ordering Location: [facility] DermPath Lab Received: 04/17/2020 11:28 AM [...] specimen consists of a shave biopsy measuring [id number]. Jar 0. 0 1:48 PM CDT DERMATOPATHOLOGY [...] characteristic determined by the Dermatopathology Laboratory at [facility], directed by Dr. Sami Toro. These tests need not be, and therefore are not, approved by the [place] Food and Drug Administration. The tests are used for clinical purposes. Billing Codes Specimen Charges Stain Charges 19714 1 0 1:48 PM CDT DERMATOPATHOLOGY LABORATORY Embedded Images 0 1:48 PM CDT DERMATOPATHOLOGY LABORATORY Pathology/Cytolog y TISSUE SPECIMEN FROM SKIN / Unknown 04/16/2020 04/17/2020 11:28 AM CDT us Malcolm Rollins MD LAB - PATHOLOGY/CYTOLOGY ORD ERABLES Final Result DERMATOPATHOLOGY LABORATORY [facility] - Department of Dermatology [address], [address] [phone] documented in this encounter Visit Diagnoses Not on filedocumented in this encounter Care Teams Nca Certified Concierge Relationship Specialty Start Date End Date Lenin Harden MD [address] [place] [address] PCP - General 03/22/18 documented as of this encounter
--- OUTSIDE RECORDS SUMMARY | 2025-04-18 08:42 | XMS_ITS | Encounter Summary ---
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 Gender Identity Not on file Sexual Orientation Not on file documented as of this encounter Plan of Treatment Scheduled Orders Name Type Priority Associated Diagnoses Orde r Schedule CARDIOLOGY DOCUMENT SCAN Cardiac Services Ordered: 11/26/2022 documented as of this encounter Visit Diagnoses Not on filedocumented in this encounter Care Teams Cargo Bracer Relationship Specialty Start Date End Date Lenin Harden MD PCP - General Internal Medicine 08/28/22 Oneal Weber MD Referring Physician Cardiology 11/23/18 Travis Augustine MD PhD Referring Physician Cardiology 11/23/18 documented as of this encounter
--- OUTSIDE RECORDS SUMMARY | 2025-04-18 08:42 | XMS_ITS | Encounter Summary ---
Author Organization [facility] Address [address] [place] [address] Phone Care Team Providers Care Fulling Mill Operator Name Role Phone Lenin Harden MD Primary Care Provider [phone] Oneal Weber MD Unavailable +[phone] Travis Augustine MD PhD Unavailable +[phone] Lenin Harden MD Primary Care Provider [phone] Encounter Details Date Type Department Care Team [...] on file Legal Sex Male 10:10 AM LOOP CUTTER Gender Identity Not on file Sexual Orientation [...] on filedocumented in this encounter Care Teams Fulling Mill Operator Relationship Specialty Start Date End Date Lenin Harden MD PCP - General 10/21/16 08/27/22 Lenin Harden MD PCP - General Internal Medicine 08/28/22 Oneal Weber MD Referring Physician Cardiology 11/23/18 Travis Augustine MD PhD Referring Physician Cardiology 11/23/18 documented as of this encounter
--- OUTSIDE RECORDS SUMMARY | 2025-04-18 08:42 | XMS_ITS | Encounter Summary ---
Author Organization [facility] Address [address] [place] [address] Care Team Providers Care Healthcare Account Manager Name Role Phone Lenin Harden MD Primary Care Provider [phone] Oneal Weber MD Unavailable [phone] Travis Augustine MD PhD Unavailable [phone] Lenin Harden MD Primary Care Provider [phone] Encounter Details Date Type Department Care Team (Late st Contact Info) Description 08/30/2018 Documentation [facility] [id number] [place] [address] Gabriella Benton RN Social History Tobacco Use Types Packs/Day Years Used Date Smoking Tobacco: Never Smokeless Tobacco: Never Alcohol Use Standard Drinks/Week Comments No 0 (1 standard drink = 0.6 oz pur e alcohol) Sex and Gender Information Value Date Recorded Sex Assigned at Not on file Legal Sex Male 10:10 AM COLOR MAKER 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
[2025-04-18 08:52] LABS: Hemoglobin A1C 5.2 % (<5.7)
[2025-04-18 09:07] LABS: Alanine Aminotransferase 24 U/L (6-50); Albumin Level 4.4 g/dL (3.5-5.1); Alkaline Phosphatase 73 U/L (38-126); Anion Gap 8 mmol/L (4-12); Aspartate Amino Transferase 40 U/L (17-59); Bilirubin,Total 1.0 mg/dL (0.2-1.3); Blood Urea Nitrogen 18 mg/dL (9-20); Calcium 9.5 mg/dL (8.4-10.2); Carbon Dioxide 28 mmol/L (22-30); Chloride 97 mmol/L (98-107); Cholesterol 129 mg/dL (0-200); Estimated Glomerular Filt Rate > 60; Glucose 94 mg/dL (65-110); HDL Direct 56 mg/dL; Potassium 4.3 mmol/L (3.4-5.0); Sodium 133 mmol/L (137-145); Total Protein 7.8 g/dL (6.3-8.2); Triglycerides 70 mg/dL (<150)
[2025-04-18 09:22] LABS: Free T4 Free Thyroxine 1.82 ng/dL (0.78-2.19)
[2025-04-18 09:42] LABS: Thyroid Stimulating Hormone 0.250 uIU/mL (0.465-4.680)
== END 2025-04-18 08:21 | disposition home or self-care (01) ==
LOC: ANHLAB 08:21
PROVIDERS: PCP Internal Medicine; Visit Provider Internal Medicine
DX: E03.9 Hypothyroidism, unspecified (principal); E78.2 Mixed hyperlipidemia; R73.03 Prediabetes; I10 Essential (primary) hypertension
CPT/HCPCS: 36415; 80053; 80061; 83036; 84439; 84443

== ENCOUNTER 2025-05-17 14:55 | Outpatient (CLI) | payer MEDICARE, SELFPAY ==
[2025-05-17 16:39] LABS: Free T4 Free Thyroxine 1.42 ng/dL (0.78-2.19)
[2025-05-17 16:42] LABS: Thyroid Stimulating Hormone 1.780 uIU/mL (0.465-4.680)
--- OUTSIDE RECORDS SUMMARY | 2025-05-17 17:58 | XMS_ITS | Encounter Summary ---
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 Gender Identity Not on file Sexual Orientation [...] on filedocumented in this encounter Care Teams Change Release Manager Relationship Specialty Start Date End Date Lenin Harden MD PCP - General 10/21/16 08/27/22 Lenin Harden MD PCP - General Internal Medicine 08/28/22 Oneal Weber MD Referring Physician Cardiology 11/23/18 05/03/25 Travis Augustine MD PhD Referring Physician Cardiology 11/23/18 Gene Child MD [facility], [address] [place] [address] Internal Medicine 05/04/25 Tammie Su, RN [address] [address] [facility] Outpatient Fermentation Manager 05/14/25 documented as of this encounter
--- OUTSIDE RECORDS SUMMARY | 2025-05-17 17:58 | XMS_ITS | Encounter Summary ---
Author Organization [facility] Address [address] [place] [address] Phone Care Team Providers Care Delivery Man Name Role Phone Oneal Weber MD Unavailable [phone] Travis Augustine MD PhD Unavailable [phone] Lenin Harden MD Primary Care Provider [phone] Gene Child MD Unavailable + [phone] Tammie Su RN Unavailable [phone] Encounter Details Date Type Department Care Team (Late st Contact Info) Description 04/20/2025 Telephone [facility] Medicine Cardiology [address] [facility] 8th [place] [address] [place] [address] Travis Augustine MD PhD [address] [facility] [address] [place], [place] [id number] Social History Tobacco Use Types Packs/Day Years [...] on file 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 He is calling as FYI to our team. He has been having low HR and BP recently. His doctor locally has admitted him and plans to do a pacemaker today. I let him know I will update Dr. Augustine. * Telephone Encounter - Tania Rueda - 04/20/2025 8:54 AM CDT Davide Pt calling stating he is in [facility] in [place], [place] and is scheduled to have pacemaker implanted this afternoon. States he would like his info sent to this office. Please call to discuss. documented in this encounter Plan of Treatment Not on file documented as of this encounter Visit Diagnoses Not on filedocumented in this encounter Care Teams Delivery Man Relationship Specialty Start Date End Date Lenin Harden MD PCP - General Internal Medicine 08/28/22 Oneal Weber MD Referring Physician Cardiology 11/23/18 05/03/25 Travis Augustine MD PhD Referring Physician Cardiology 11/23/18 Gene Child MD [facility] [address] [place] [address] Internal Medicine 05/04/25 Tammie Su, RN [address] [address] [facility] Outpatient Pathology Specialist 05/14/25 documented as of this encounter
--- OUTSIDE RECORDS SUMMARY | 2025-05-17 17:58 | XMS_ITS | Encounter Summary ---
Author Organization [facility] Address [address] [place] [address] Phone Care Team Providers Care College Archivist Name Role Phone Oneal Weber MD Unavailable [phone] Travis Augustine MD PhD Unavailable [phone] Lenin Harden MD Primary Care Provider [phone] Gene Child MD Unavailable + [phone] Tammie Su RN Unavailable [phone] Encounter Details Date Type Department Care Team (Late st Contact Info) Description 04/24/2025 Telephone [facility] Medicine Cardiology [address] [facility] 8th [place] [address] [place] [address] Vibha Knight Social History Tobacco Use Types Packs/Day Years [...] on file 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 He states he is still inpatient and wanted to update us med changes are being made. I let him know to follow the hospital's advise and we will see him for follow up in July as planned. Let him know to keep us updated. He agrees. * Telephone Encounter - Vibha Knight - 04/24/2025 11:30 AM CDT ELIZA PT STATES CURRENTLY IN [facility]. STATES HAD PACEMAKER IMPLANTED YESTERDAY. PLEASE CALL TO DISCUSS documented in this encounter Plan of Treatment Not on file documented as of this encounter Visit Diagnoses Not on filedocumented in this encounter Care Teams College Archivist Relationship Specialty Start Date End Date Lenin Harden MD PCP - General Internal Medicine 08/28/22 Oneal Weber MD Referring Physician Cardiology 11/23/18 05/03/25 Travis Augustine MD PhD Referring Physician Cardiology 11/23/18 Gene Child MD [facility] [address] [place] [address] Internal Medicine 05/04/25 Tammie Su RN [address] [address] [facility] Outpatient Texturing Machine Fixer 05/14/25 documented as of this encounter
--- OUTSIDE RECORDS SUMMARY | 2025-05-17 17:58 | XMS_ITS | Encounter Summary ---
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 Gender Identity Not on file Sexual Orientation Not on file documented as of this encounter Plan of Treatment Scheduled Orders Name Type Priority Associated Diagnoses Orde r Schedule CARDIOLOGY DOCUMENT SCAN Cardiac Services Ordered: 11/26/2022 documented as of this encounter Visit Diagnoses Not on filedocumented in this encounter Care Teams Global Compensation Director Relationship Specialty Start Date End Date Lenin Harden MD PCP - General Internal Medicine 08/28/22 Oneal Weber MD Referring Physician Cardiology 11/23/18 05/03/25 Travis Augustine MD PhD Referring Physician Cardiology 11/23/18 Gene Child MD [facility], [address] [place] [address] Internal Medicine 05/04/25 Tammie Su, RN [address] [address] [facility] Outpatient Engineering Writer 05/14/25 documented as of this encounter
--- OUTSIDE RECORDS SUMMARY | 2025-05-17 17:58 | XMS_ITS ---
Care Plan Created on: May 17, 2025 KristyNirav garcia : 1945 Sex: Male Author Organization [facility] Address [address] [place] [address] Care Team Providers Care Aligner Typewriter Name Role Phone Travis Augustine MD PhD Unavailable [phone] Lenin Harden MD Primary Care Provider [phone] Gene Child MD Unavailable + [phone] Tammie Su RN Unavailable [phone] Active Problems Problem Noted Date Diagnosed Date Adrenal insufficiency 05/11/2025 Assessment & Plan (05/12/2025 7:30 AM TORNADO CHASER): The patient presents with symptomatic orthostatic hypotension, likely due to severe autonomic dysfunction as recently diagnosed. He was recently discharged from OSH with instructions for home health care and outpatient follow-up with cardiology and neurology. Despite prior evaluations by neurology at OSH, who felt the syncope was not neurological in nature, and cardiology leading to a pacemaker placement on 04/23 for symptomatic bradycardia, his blood pressure continues to fluctuate resulting in cardiology recommending him present to [facility] for further evaluation. The patient s symptoms include dizziness and lightheadedness upon standing, with recorded BP dropping to 50-90 mmHg in upright positions and spiking to 200 mmHg when supine. Labs have been relatively unremarkable, with a negative troponin, and ECG showing NSR in ED. TTE at OSH with normal EF and mild valvular disease per HPI. Carotid duplex at OSH negative. Patient was seen by neurology this admission to evaluate for neurogenic causes. Per neurology, has signs of parkinsonism however not enough for full diagnosis of Parkinson's or Parkinsonism, will need follow up in movement disorder clinic and a wedge pillow at discharge to prevent severe supine HTN. - midodrine 5mg TID, fludrocortisone 0.1mg daily, at discharge, additional midodrine 5mg PRN in morning if hypotensive - education on movement with orthostatic hypotension - Encourage adequate PO intake, K > 4; Mg > 2; telemetry - PT/OT eval: home health PT/OT - low cortisol with stimulation test: continue hydrocortisone TID (10mg/10mg/5mg) - referral to endocrinology for adrenal insufficiency. Assessment & Plan (05/11/2025 3:00 PM TORNADO CHASER): The patient presents with symptomatic orthostatic hypotension, likely due to severe autonomic dysfunction as recently diagnosed. He was recently discharged from OSH with instructions for home health care and outpatient follow-up with cardiology and neurology. Despite prior evaluations by neurology at OSH, who felt the syncope was not neurological in nature, and cardiology leading to a pacemaker placement on 04/23 for symptomatic bradycardia, his blood pressure continues to fluctuate resulting in cardiology recommending him present to [facility] for further evaluation. The patient s symptoms include dizziness and lightheadedness upon standing, with recorded BP dropping to 50-90 mmHg in upright positions and spiking to 200 mmHg when supine. Labs have been relatively unremarkable, with a negative troponin, and ECG showing NSR in ED. TTE at OSH with normal EF and mild valvular disease per HPI. Carotid duplex at OSH negative. Patient was seen by neurology this admission to evaluate for neurogenic causes. Per neurology, has signs of parkinsonism however not enough for full diagnosis of Parkinson's or Parkinsonism, will need follow up in movement disorder clinic and a wedge pillow at discharge to prevent severe supine HTN. - midodrine 5mg TID, fludrocortisone 0.1mg daily, at discharge, additional midodrine 5mg PRN in morning if hypotensive - education on movement with orthostatic hypotension - Encourage adequate PO intake, K > 4; Mg > 2; telemetry - PT/OT eval: home health PT/OT - low cortisol with stimulation test: continue hydrocortisone TID (10mg/10mg/5mg) - referral to endocrinology for adrenal insufficiency. PTSD (post-traumatic stress disorder) 05/05/2025 Assessment & Plan (05/12/2025 7:30 AM TORNADO CHASER): Patient has hx of insomnia related to PTSD managed with home clonazepam and melatonin. - Continue qHS melatonin and clonazepam Assessment & Plan (05/11/2025 12:08 PM TORNADO CHASER): Patient has hx of insomnia related to PTSD managed with home clonazepam and melatonin. - Continue qHS melatonin and clonazepam Assessment & Plan (05/10/2025 7:48 AM TORNADO CHASER): Patient has hx of insomnia related to PTSD managed with home clonazepam and melatonin. - Continue qHS melatonin and clonazepam Assessment & Plan (05/09/2025 4:59 PM TORNADO CHASER): Patient has hx of insomnia related to PTSD managed with home clonazepam and melatonin. - Continue qHS melatonin and clonazepam Assessment & Plan (05/08/2025 7:26 AM TORNADO CHASER): Patient has hx of insomnia related to PTSD managed with home clonazepam and melatonin. - Continue qHS melatonin and clonazepam Assessment & Plan (05/07/2025 7:18 AM TORNADO CHASER): Patient has hx of insomnia related to PTSD managed with home clonazepam and melatonin. - Continue qHS melatonin and clonazepam Assessment & Plan (05/06/2025 12:00 PM TORNADO CHASER): Patient has hx of insomnia related to PTSD managed with home clonazepam and melatonin. - Continue qHS melatonin and clonazepam Assessment & Plan (05/05/2025 2:29 AM TORNADO CHASER): Patient has hx of insomnia related to PTSD managed with home clonazepam and melatonin. - Continue qHS melatonin and clonazepam Insomnia 05/05/2025 Assessment & Plan (05/12/2025 7:30 AM TORNADO CHASER): Patient has hx of insomnia related to PTSD managed with home clonazepam and melatonin. - Continue qHS melatonin and clonazepam Assessment & Plan (05/11/2025 12:08 PM TORNADO CHASER): Patient has hx of insomnia related to PTSD managed with home clonazepam and melatonin. - Continue qHS melatonin and clonazepam Assessment & Plan (05/10/2025 7:48 AM TORNADO CHASER): Patient has hx of insomnia related to PTSD managed with home clonazepam and melatonin. - Continue qHS melatonin and clonazepam Assessment & Plan (05/09/2025 4:59 PM TORNADO CHASER): Patient has hx of insomnia related to PTSD managed with home clonazepam and melatonin. - Continue qHS melatonin and clonazepam Assessment & Plan (05/08/2025 7:26 AM TORNADO CHASER): Patient has hx of insomnia related to PTSD managed with home clonazepam and melatonin. - Continue qHS melatonin and clonazepam Assessment & Plan (05/07/2025 7:18 AM TORNADO CHASER): Patient has hx of insomnia related to PTSD managed with home clonazepam and melatonin. - Continue qHS melatonin and clonazepam Assessment & Plan (05/06/2025 12:00 PM TORNADO CHASER): Patient has hx of insomnia related to PTSD managed with home clonazepam and melatonin. - Continue qHS melatonin and clonazepam Assessment & Plan (05/05/2025 2:29 AM TORNADO CHASER): Patient has hx of insomnia related to PTSD managed with home clonazepam and melatonin. - Continue qHS melatonin and clonazepam Weight loss 05/05/2025 Assessment & Plan (05/12/2025 7:30 AM TORNADO CHASER): The patient's strict dietary intake leading to significant weight loss and limited fluid intake might be contributing to his hypotensive episodes. - Recommend a balanced diet with sufficient caloric and fluid intake - Encourage meals and adequate hydration - RD consulted, added protein shakes Assessment & Plan (05/11/2025 2:58 PM TORNADO CHASER): The patient's strict dietary intake leading to significant weight loss and limited fluid intake might be contributing to his hypotensive episodes. - Recommend a balanced diet with sufficient caloric and fluid intake - Encourage meals and adequate hydration - RD consulted, added protein shakes Assessment & Plan (05/10/2025 7:48 AM TORNADO CHASER): The patient's strict dietary intake leading to significant weight loss and limited fluid intake might be contributing to his hypotensive episodes. - Recommend a balanced diet with sufficient caloric and fluid intake - Encourage meals and adequate hydration Assessment & Plan (05/09/2025 4:59 PM TORNADO CHASER): The patient's strict dietary intake leading to significant weight loss and limited fluid intake might be contributing to his hypotensive episodes. - Recommend a balanced diet with sufficient caloric and fluid intake - Encourage meals and adequate hydration Assessment & Plan (05/08/2025 7:26 AM TORNADO CHASER): The patient's strict dietary intake leading to significant weight loss and limited fluid intake might be contributing to his hypotensive episodes. - Recommend a balanced diet with sufficient caloric and fluid intake - Encourage meals and adequate hydration Assessment & Plan (05/07/2025 7:18 AM TORNADO CHASER): The patient's strict dietary intake leading to significant weight loss and limited fluid intake might be contributing to his hypotensive episodes. - Recommend a balanced diet with sufficient caloric and fluid intake - Encourage meals and adequate hydration Assessment & Plan (05/06/2025 12:00 PM TORNADO CHASER): The patient's strict dietary intake leading to significant weight loss and limited fluid intake might be contributing to his hypotensive episodes. - Recommend a balanced diet with sufficient caloric and fluid intake - Encourage meals and adequate hydration Assessment & Plan (05/05/2025 2:56 AM TORNADO CHASER): The patient's strict dietary intake leading to significant weight loss and limited fluid intake might be contributing to his hypotensive episodes. - Recommend a balanced diet with sufficient caloric and fluid intake - Nutritional/dietary consult for dietary guidance - Encourage meals and adequate hydration - K > 4; Mg > 2; Phos > 3 (some concern for refeeding sx) Hypothyroidism, unspecified 05/05/2025 Assessment & Plan (05/12/2025 7:30 AM TORNADO CHASER): - Continue home synthroid Assessment & Plan (05/11/2025 12:08 PM TORNADO CHASER): - Continue home synthroid Assessment & Plan (05/10/2025 7:48 AM TORNADO CHASER): - Continue home synthroid Assessment & Plan (05/09/2025 4:59 PM TORNADO CHASER): - Continue home synthroid Assessment & Plan (05/08/2025 7:26 AM TORNADO CHASER): - Continue home synthroid Assessment & Plan (05/07/2025 7:18 AM TORNADO CHASER): - Continue home synthroid Assessment & Plan (05/06/2025 12:00 PM TORNADO CHASER): - Continue home synthroid Assessment & Plan (05/05/2025 2:29 AM TORNADO CHASER): - Continue home synthroid Orthostatic hypotension 05/04/2025 Assessment & Plan (05/12/2025 7:30 AM TORNADO CHASER): The patient presents with symptomatic orthostatic hypotension, likely due to severe autonomic dysfunction as recently diagnosed. He was recently discharged from OSH with instructions for home health care and outpatient follow-up with cardiology and neurology. Despite prior evaluations by neurology at OSH, who felt the syncope was not neurological in nature, and cardiology leading to a pacemaker placement on 04/23 for symptomatic bradycardia, his blood pressure continues to fluctuate resulting in cardiology recommending him present to [facility] for further evaluation. The patient s symptoms include dizziness and lightheadedness upon standing, with recorded BP dropping to 50-90 mmHg in upright positions and spiking to 200 mmHg when supine. Labs have been relatively unremarkable, with a negative troponin, and ECG showing NSR in ED. TTE at OSH with normal EF and mild valvular disease per HPI. Carotid duplex at OSH negative. Patient was seen by neurology this admission to evaluate for neurogenic causes. Per neurology, has signs of parkinsonism however not enough for full diagnosis of Parkinson's or Parkinsonism, will need follow up in movement disorder clinic and a wedge pillow at discharge to prevent severe supine HTN. - midodrine 5mg TID, fludrocortisone 0.1mg daily, at discharge, additional midodrine 5mg PRN in morning if hypotensive - education on movement with orthostatic hypotension - Encourage adequate PO intake, K > 4; Mg > 2; telemetry - PT/OT eval: home health PT/OT - low cortisol with stimulation test: continue hydrocortisone TID (10mg/10mg/5mg) - referral to endocrinology for adrenal insufficiency. Assessment & Plan (05/11/2025 3:00 PM TORNADO CHASER): The patient presents with symptomatic orthostatic hypotension, likely due to severe autonomic dysfunction as recently diagnosed. He was recently discharged from OSH with instructions for home health care and outpatient follow-up with cardiology and neurology. Despite prior evaluations by neurology at OSH, who felt the syncope was not neurological in nature, and cardiology leading to a pacemaker placement on 04/23 for symptomatic bradycardia, his blood pressure continues to fluctuate resulting in cardiology recommending him present to [facility] for further evaluation. The patient s symptoms include dizziness and lightheadedness upon standing, with recorded BP dropping to 50-90 mmHg in upright positions and spiking to 200 mmHg when supine. Labs have been relatively unremarkable, with a negative troponin, and ECG showing NSR in ED. TTE at OSH with normal EF and mild valvular disease per HPI. Carotid duplex at OSH negative. Patient was seen by neurology this admission to evaluate for neurogenic causes. Per neurology, has signs of parkinsonism however not enough for full diagnosis of Parkinson's or Parkinsonism, will need follow up in movement disorder clinic and a wedge pillow at discharge to prevent severe supine HTN. - midodrine 5mg TID, fludrocortisone 0.1mg daily, at discharge, additional midodrine 5mg PRN in morning if hypotensive - education on movement with orthostatic hypotension - Encourage adequate PO intake, K > 4; Mg > 2; telemetry - PT/OT eval: home health PT/OT - low cortisol with stimulation test: continue hydrocortisone TID (10mg/10mg/5mg) - referral to endocrinology for adrenal insufficiency. Assessment & Plan (05/10/2025 7:48 AM TORNADO CHASER): The patient presents with symptomatic orthostatic hypotension, likely due to severe autonomic dysfunction as recently diagnosed. He was recently discharged from OSH with instructions for home health care and outpatient follow-up with cardiology and neurology. Despite prior evaluations by neurology at OSH, who felt the syncope was not neurological in nature, and cardiology leading to a pacemaker placement on 04/23 for symptomatic bradycardia, his blood pressure continues to fluctuate resulting in cardiology recommending him present to [facility] for further evaluation. The patient s symptoms include dizziness and lightheadedness upon standing, with recorded BP dropping to 50-90 mmHg in upright positions and spiking to 200 mmHg when supine. Labs have been relatively unremarkable, with a negative troponin, and ECG showing NSR in ED. TTE at OSH with normal EF and mild valvular disease per HPI. Carotid duplex at OSH negative. - midodrine 5mg TID, restart fludrocortisone 0.1mg daily - education on movement with orthostatic hypotension - neurology consulted, nothing inpatient - referral to movement disorders clinic - consider 30 degree wedge pillow at night at dc to prevent severe supine HTN - has signs of parkinsonism that need to be followed up - Encourage adequate PO intake, K > 4; Mg > 2; Phos > 3, telemetry - PT/OT eval: home health PT - low cortisol with stimulation test: continue hydrocortisone TID (10mg/10mg/5mg) Assessment & Plan (05/09/2025 4:59 PM TORNADO CHASER): The patient presents with symptomatic orthostatic hypotension, likely due to severe autonomic dysfunction as recently diagnosed. He was recently discharged from OSH with instructions for home health care and outpatient follow-up with cardiology and neurology. Despite prior evaluations by neurology at OSH, who felt the syncope was not neurological in nature, and cardiology leading to a pacemaker placement on 04/23 for symptomatic bradycardia, his blood pressure continues to fluctuate resulting in cardiology recommending him present to [facility] for further evaluation. The patient s symptoms include dizziness and lightheadedness upon standing, with recorded BP dropping to 50-90 mmHg in upright positions and spiking to 200 mmHg when supine. Labs have been relatively unremarkable, with a negative troponin, and ECG showing NSR in ED. TTE at OSH with normal EF and mild valvular disease per HPI. Carotid duplex at OSH negative. - midodrine 5mg TID, restart fludrocortisone 0.1mg daily - education on movement with orthostatic hypotension - neurology consulted, nothing inpatient - referral to movement disorders clinic - consider 30 degree wedge pillow at night at dc to prevent severe supine HTN - has signs of parkinsonism that need to be followed up - Encourage adequate PO intake, K > 4; Mg > 2; Phos > 3, telemetry - PT/OT eval: home health PT - low cortisol with stimulation test: continue hydrocortisone TID (10mg/10mg/5mg) Assessment & Plan (05/08/2025 2:09 PM TORNADO CHASER): The patient presents with symptomatic orthostatic hypotension, likely due to severe autonomic dysfunction as recently diagnosed. He was recently discharged from OSH with instructions for home health care and outpatient follow-up with cardiology and neurology. Despite prior evaluations by neurology at OSH, who felt the syncope was not neurological in nature, and cardiology leading to a pacemaker placement on 04/23 for symptomatic bradycardia, his blood pressure continues to fluctuate resulting in cardiology recommending him present to [facility] for further evaluation. The patient s symptoms include dizziness and lightheadedness upon standing, with recorded BP dropping to 50-90 mmHg in upright positions and spiking to 200 mmHg when supine. Labs have been relatively unremarkable, with a negative troponin, and ECG showing NSR in ED. TTE at OSH with normal EF and mild valvular disease per HPI. Carotid duplex at OSH negative. - midodrine 5mg TID, d/c fludrocortisone 0.1mg daily - education on movement with orthostatic hypotension - neurology consulted, nothing inpatient - referral to movement disorders clinic - consider 30 degree wedge pillow at night at dc to prevent severe supine HTN - has signs of parkinsonism that need to be followed up - Encourage adequate PO intake, K > 4; Mg > 2; Phos > 3, telemetry - PT/OT eval: home health PT - low cortisol with stimulation test: start hydrocortisone TID (10mg/10mg/5mg) Assessment & Plan (05/07/2025 7:18 AM TORNADO CHASER): The patient presents with symptomatic orthostatic hypotension, likely due to severe autonomic dysfunction as recently diagnosed. He was recently discharged from OSH with instructions for home health care and outpatient follow-up with cardiology and neurology. Despite prior evaluations by neurology at OSH, who felt the syncope was not neurological in nature, and cardiology leading to a pacemaker placement on 04/23 for symptomatic bradycardia, his blood pressure continues to fluctuate resulting in cardiology recommending him present to [facility] for further evaluation. The patient s symptoms include dizziness and lightheadedness upon standing, with recorded BP dropping to 50-90 mmHg in upright positions and spiking to 200 mmHg when supine. Labs have been relatively unremarkable, with a negative troponin, and ECG showing NSR in ED. TTE at OSH with normal EF and mild valvular disease per HPI. Carotid duplex at OSH negative. - midodrine 5mg TID, fludrocortisone 0.1mg daily, can consider increasing midodrine - education on movement with orthostatic hypotension - neurology consulted, nothing inpatient - referral to movement disorders clinic - consider 30 degree wedge pillow at night at dc to prevent severe supine HTN - has signs of parkinsonism that need to be followed up - Encourage adequate PO intake, K > 4; Mg > 2; Phos > 3, telemetry - PT/OT eval Assessment & Plan (05/06/2025 12:00 PM TORNADO CHASER): The patient presents with symptomatic orthostatic hypotension, likely due to severe autonomic dysfunction as recently diagnosed. He was recently discharged from OSH with instructions for home health care and outpatient follow-up with cardiology and neurology. Despite prior evaluations by neurology at OSH, who felt the syncope was not neurological in nature, and cardiology leading to a pacemaker placement on 04/23 for symptomatic bradycardia, his blood pressure continues to fluctuate resulting in cardiology recommending him present to [facility] for further evaluation. The patient s symptoms include dizziness and lightheadedness upon standing, with recorded BP dropping to 50-90 mmHg in upright positions and spiking to 200 mmHg when supine. Labs have been relatively unremarkable, with a negative troponin, and ECG showing NSR in ED. TTE at OSH with normal EF and mild valvular disease per HPI. Carotid duplex at OSH negative. - midodrine 5mg TID, fludrocortisone 0.1mg daily, can consider increasing midodrine - education on movement with orthostatic hypotension - neurology consulted, nothing inpatient - referral to movement disorders clinic - consider 30 degree wedge pillow at night at dc to prevent severe supine HTN - has signs of parkinsonism that need to be followed up - Encourage adequate PO intake, K > 4; Mg > 2; Phos > 3, telemetry - PT/OT eval Assessment & Plan (05/05/2025 2:56 AM TORNADO CHASER): The patient presents with symptomatic orthostatic hypotension, likely due to severe autonomic dysfunction as recently diagnosed. He was recently discharged from OSH with instructions for home health care and outpatient follow-up with cardiology and neurology. Despite prior evaluations by neurology at OSH, who felt the syncope was not neurological in nature, and cardiology leading to a pacemaker placement on 04/23 for symptomatic bradycardia, his blood pressure continues to fluctuate resulting in cardiology recommending him present to [facility] for further evaluation. The patient s symptoms include dizziness and lightheadedness upon standing, with recorded BP dropping to 50-90 mmHg in upright positions and spiking to 200 mmHg when supine. Labs have been relatively unremarkable, with a negative troponin, and ECG showing NSR in ED. TTE at OSH with normal EF and mild valvular disease per HPI. Carotid duplex at OSH negative. - Device interrogation in AM - On tele - Obtain AM orthostatic vital signs - Consider neurology consult for further evaluation of neurogenic orthostatic hypotension - Encourage adequate PO intake - K > 4; Mg > 2; Phos > 3 Chronic hyponatremia 05/07/2023 Overview (05/07/2023): Assessment & Plan (05/08/2023 11:42 AM TORNADO CHASER): Na 131 Low Na chronically. Asymptomatic -Na 135 on recheck Hypotension 05/07/2023 Assessment & Plan (05/08/2023 11:41 AM TORNADO CHASER): Transient hypotension vs spurious. Reports feeling well and repeat >100 -will continue to hold amlodipine upon discharge as pt remains normotensive PAF (paroxysmal atrial fibrillation) 03/02/2023 Assessment & Plan (05/08/2023 11:40 AM TORNADO CHASER): S/p A-Fib Ablation. Currently SR on tele - Tele monitoring - Resume Dofetilide 500mcg, Metoprolol 12.5 -resume xarelto this AM -PPI daily for 30 days for esophageal prophylaxis after AF ablation -Ok for d/c per EP Restless leg syndrome 07/04/2021 Paresthesia of skin 12/05/2020 Mood disorder 12/05/2020 History of DVT (deep vein thrombosis) 08/08/2020 Assessment & Plan (05/12/2025 7:30 AM TORNADO CHASER): The patient has a history of atrial fibrillation status post-ablation and is currently on anticoagulation with Xarelto. No recent episodes of A-fib reported (palpitation). Patient was previously on home dofetilide but had reported not taking it for some time. Dofetilide not started and was discontinued during this admission. CHADSVASC 5. - Continue Xarelto 20 mg daily at night Assessment & Plan (05/11/2025 2:58 PM TORNADO CHASER): The patient has a history of atrial fibrillation status post-ablation and is currently on anticoagulation with Xarelto. No recent episodes of A-fib reported (palpitation). Patient was previously on home dofetilide but had reported not taking it for some time. Dofetilide not started and was discontinued during this admission. CHADSVASC 5. - Continue Xarelto 20 mg daily at night Assessment & Plan (05/10/2025 7:48 AM TORNADO CHASER): The patient has a history of atrial fibrillation status post-ablation and is currently on anticoagulation with Xarelto. No recent episodes of A-fib reported (palpitation). CHADSVASC 5. - Continue rivaroxaban 20 mg daily at night - D/c dofetilide. Patient reports not taking it for some time. No need for EP consult Assessment & Plan (05/09/2025 4:59 PM TORNADO CHASER): The patient has a history of atrial fibrillation status post-ablation and is currently on anticoagulation with Xarelto. No recent episodes of A-fib reported (palpitation). CHADSVASC 5. - Continue rivaroxaban 20 mg daily at night - D/c dofetilide. Patient reports not taking it for some time. No need for EP consult Assessment & Plan (05/08/2025 7:26 AM TORNADO CHASER): The patient has a history of atrial fibrillation status post-ablation and is currently on anticoagulation with Xarelto. No recent episodes of A-fib reported (palpitation). CHADSVASC 5. - Continue rivaroxaban 20 mg daily at night - D/c dofetilide. Patient reports not taking it for some time. No need for EP consult Assessment & Plan (05/07/2025 7:18 AM TORNADO CHASER): The patient has a history of atrial fibrillation status post-ablation and is currently on anticoagulation with Xarelto. No recent episodes of A-fib reported (palpitation). CHADSVASC 5. - Continue rivaroxaban 20 mg daily at night - D/c dofetilide. Patient reports not taking it for some time. No need for EP consult Assessment & Plan (05/06/2025 12:00 PM TORNADO CHASER): The patient has a history of atrial fibrillation status post-ablation and is currently on anticoagulation with Xarelto. No recent episodes of A-fib reported (palpitation). CHADSVASC 5. - Continue rivaroxaban 20 mg daily at night - D/c dofetilide. Patient reports not taking it for some time. No need for EP consult Assessment & Plan (05/05/2025 2:29 AM TORNADO CHASER): The patient has a history of atrial fibrillation status post-ablation and is currently on anticoagulation with Xarelto. No recent episodes of A-fib reported (palpitation). CHADSVASC 5. - Continue rivaroxaban 20 mg daily at night - Will hold dofetilide, EP c/s in AM to discuss. Patient reports not taking it for some time. Chronic anticoagulation 08/08/2020 Assessment & Plan (05/12/2025 7:30 AM TORNADO CHASER): The patient has a history of atrial fibrillation status post-ablation and is currently on anticoagulation with Xarelto. No recent episodes of A-fib reported (palpitation). Patient was previously on home dofetilide but had reported not taking it for some time. Dofetilide not started and was discontinued during this admission. CHADSVASC 5. - Continue Xarelto 20 mg daily at night Assessment & Plan (05/11/2025 2:58 PM TORNADO CHASER): The patient has a history of atrial fibrillation status post-ablation and is currently on anticoagulation with Xarelto. No recent episodes of A-fib reported (palpitation). Patient was previously on home dofetilide but had reported not taking it for some time. Dofetilide not started and was discontinued during this admission. CHADSVASC 5. - Continue Xarelto 20 mg daily at night Assessment & Plan (05/10/2025 7:48 AM TORNADO CHASER): The patient has a history of atrial fibrillation status post-ablation and is currently on anticoagulation with Xarelto. No recent episodes of A-fib reported (palpitation). CHADSVASC 5. - Continue rivaroxaban 20 mg daily at night - D/c dofetilide. Patient reports not taking it for some time. No need for EP consult Assessment & Plan (05/09/2025 4:59 PM TORNADO CHASER): The patient has a history of atrial fibrillation status post-ablation and is currently on anticoagulation with Xarelto. No recent episodes of A-fib reported (palpitation). CHADSVASC 5. - Continue rivaroxaban 20 mg daily at night - D/c dofetilide. Patient reports not taking it for some time. No need for EP consult Assessment & Plan (05/08/2025 7:26 AM TORNADO CHASER): The patient has a history of atrial fibrillation status post-ablation and is currently on anticoagulation with Xarelto. No recent episodes of A-fib reported (palpitation). CHADSVASC 5. - Continue rivaroxaban 20 mg daily at night - D/c dofetilide. Patient reports not taking it for some time. No need for EP consult Assessment & Plan (05/07/2025 7:18 AM TORNADO CHASER): The patient has a history of atrial fibrillation status post-ablation and is currently on anticoagulation with Xarelto. No recent episodes of A-fib reported (palpitation). CHADSVASC 5. - Continue rivaroxaban 20 mg daily at night - D/c dofetilide. Patient reports not taking it for some time. No need for EP consult Assessment & Plan (05/06/2025 12:00 PM TORNADO CHASER): The patient has a history of atrial fibrillation status post-ablation and is currently on anticoagulation with Xarelto. No recent episodes of A-fib reported (palpitation). CHADSVASC 5. - Continue rivaroxaban 20 mg daily at night - D/c dofetilide. Patient reports not taking it for some time. No need for EP consult Assessment & Plan (05/05/2025 2:29 AM TORNADO CHASER): The patient has a history of atrial fibrillation status post-ablation and is currently on anticoagulation with Xarelto. No recent episodes of A-fib reported (palpitation). CHADSVASC 5. - Continue rivaroxaban 20 mg daily at night - Will hold dofetilide, EP c/s in AM to discuss. Patient reports not taking it for some time. Hyperlipidemia LDL goal <70 08/08/2020 Assessment & Plan (05/12/2025 7:30 AM TORNADO CHASER): - Continue home zetia and simvastatin Assessment & Plan (05/11/2025 12:08 PM TORNADO CHASER): - Continue home zetia and simvastatin Assessment & Plan (05/10/2025 7:48 AM TORNADO CHASER): - Continue home zetia and simvastatin Assessment & Plan (05/09/2025 4:59 PM TORNADO CHASER): - Continue home zetia and simvastatin Assessment & Plan (05/08/2025 7:26 AM TORNADO CHASER): - Continue home zetia and simvastatin Assessment & Plan (05/07/2025 7:18 AM TORNADO CHASER): - Continue home zetia and simvastatin Assessment & Plan (05/06/2025 12:00 PM TORNADO CHASER): - Continue home zetia and simvastatin Assessment & Plan (05/05/2025 2:29 AM TORNADO CHASER): - Continue home zetia and simvastatin Assessment & Plan (05/07/2023 4:54 PM TORNADO CHASER): -Continue Ezetimibe, Simvastatin DAI (obstructive sleep apnea) 11/19/2018 Assessment & Plan (05/12/2025 7:30 AM TORNADO CHASER): - Home CPAP Assessment & Plan (05/11/2025 12:08 PM TORNADO CHASER): - Home CPAP Assessment & Plan (05/10/2025 7:48 AM TORNADO CHASER): - Home CPAP Assessment & Plan (05/09/2025 4:59 PM TORNADO CHASER): - Home CPAP Assessment & Plan (05/08/2025 7:26 AM TORNADO CHASER): - Home CPAP Assessment & Plan (05/07/2025 7:18 AM TORNADO CHASER): - Home CPAP Assessment & Plan (05/06/2025 12:00 PM TORNADO CHASER): - Home CPAP Assessment & Plan (05/05/2025 2:29 AM TORNADO CHASER): - Home CPAP Assessment & Plan (05/07/2023 4:51 PM TORNADO CHASER): Compliant home CPAP baseline - Continue home CPAP while in patient. 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 HTN (hypertension) 10/27/2018 Assessment & Plan (05/12/2025 7:30 AM TORNADO CHASER): - Hold home antihypertensive medications given orthostatic hypotension - Monitor BP trends closely and adjust management accordingly - Evaluate need for antihypertensive adjustments after orthostatic symptoms are controlled Assessment & Plan (05/11/2025 12:08 PM TORNADO CHASER): - Hold home antihypertensive medications given orthostatic hypotension - Monitor BP trends closely and adjust management accordingly - Evaluate need for antihypertensive adjustments after orthostatic symptoms are controlled Assessment & Plan (05/10/2025 7:48 AM TORNADO CHASER): - Hold home antihypertensive medications given orthostatic hypotension - Monitor BP trends closely and adjust management accordingly - Evaluate need for antihypertensive adjustments after orthostatic symptoms are controlled Assessment & Plan (05/09/2025 4:59 PM TORNADO CHASER): - Hold home antihypertensive medications given orthostatic hypotension - Monitor BP trends closely and adjust management accordingly - Evaluate need for antihypertensive adjustments after orthostatic symptoms are controlled Assessment & Plan (05/08/2025 7:26 AM TORNADO CHASER): - Hold home antihypertensive medications given orthostatic hypotension - Monitor BP trends closely and adjust management accordingly - Evaluate need for antihypertensive adjustments after orthostatic symptoms are controlled Assessment & Plan (05/07/2025 7:18 AM TORNADO CHASER): - Hold home antihypertensive medications given orthostatic hypotension - Monitor BP trends closely and adjust management accordingly - Evaluate need for antihypertensive adjustments after orthostatic symptoms are controlled Assessment & Plan (05/06/2025 12:00 PM TORNADO CHASER): - Hold home antihypertensive medications given orthostatic hypotension - Monitor BP trends closely and adjust management accordingly - Evaluate need for antihypertensive adjustments after orthostatic symptoms are controlled Assessment & Plan (05/05/2025 2:29 AM TORNADO CHASER): - Hold home antihypertensive medications given orthostatic hypotension - Monitor BP trends closely and adjust management accordingly - Evaluate need for antihypertensive adjustments after orthostatic symptoms are controlled Assessment & Plan (05/07/2023 4:56 PM TORNADO CHASER): BP 124/74(87) - Continue home med regiment- Norvasc 5mg, losartan 100mg, metoprolol 12.5 Snoring 10/27/2018 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 No need for EP consult as it does not seem to be his pacemaker that is causing these orthostatic hypotension. Assessment & Plan (05/11/2025 2:58 PM TORNADO CHASER): S/p pacemaker placement 2 weeks ago. No need for EP consult as it does not seem to be his pacemaker that is causing these orthostatic hypotension. Dizziness 07/24/2018 Assessment & Plan (07/24/2018 7:55 PM TORNADO CHASER): Pt says c/w prior episodes of afib, resolved w/ afib meds at home -No LOC or head trauma -Management as per afib below -Cont tele overnight Coronary artery disease 07/24/2018 Assessment & Plan (05/12/2025 7:30 AM TORNADO CHASER): - Continue home zetia and simvastatin Assessment & Plan (05/11/2025 12:08 PM TORNADO CHASER): - Continue home zetia and simvastatin Assessment & Plan (05/10/2025 7:48 AM TORNADO CHASER): - Continue home zetia and simvastatin Assessment & Plan (05/09/2025 4:59 PM TORNADO CHASER): - Continue home zetia and simvastatin Assessment & Plan (05/08/2025 7:26 AM TORNADO CHASER): - Continue home zetia and simvastatin Assessment & Plan (05/07/2025 7:18 AM TORNADO CHASER): - Continue home zetia and simvastatin Assessment & Plan (05/06/2025 12:00 PM TORNADO CHASER): - Continue home zetia and simvastatin Assessment & Plan (05/05/2025 2:29 AM TORNADO CHASER): - Continue home zetia and simvastatin Assessment & Plan (05/07/2023 5:01 PM TORNADO CHASER): CAD (Mild RCA, mild Left main, mild-mod (40%) LAD, mild LCx - per CTA heart 2019 BMS (LAD x2) in 1997 - Continue Norvasc, Ezetimibe, Losartan, Metoprolol, Simvastatin as above Assessment & Plan (07/24/2018 7:57 PM TORNADO CHASER): S/p LAD stent placement x2 -Cont ASA, statin, and metoprolol 12.5mg daily Hypothyroidism 07/24/2018 Assessment & Plan (05/07/2023 4:57 PM TORNADO CHASER): Last TSH 2.29 - Continue synthroid 125mcg Assessment & Plan (07/24/2018 7:59 PM TORNADO CHASER): Cont synthroid 137mcg daily. F/u TSH Gout 07/24/2018 Assessment & Plan (05/12/2025 7:30 AM TORNADO CHASER): - Continue home allopurinol Assessment & Plan (05/11/2025 12:08 PM TORNADO CHASER): - Continue home allopurinol Assessment & Plan (05/10/2025 7:48 AM TORNADO CHASER): - Continue home allopurinol Assessment & Plan (05/09/2025 4:59 PM TORNADO CHASER): - Continue home allopurinol Assessment & Plan (05/08/2025 7:26 AM TORNADO CHASER): - Continue home allopurinol Assessment & Plan (05/07/2025 7:18 AM TORNADO CHASER): - Continue home allopurinol Assessment & Plan (05/06/2025 12:00 PM TORNADO CHASER): - Continue home allopurinol Assessment & Plan (05/05/2025 2:29 AM TORNADO CHASER): - Continue home allopurinol Assessment & Plan (05/07/2023 5:03 PM TORNADO CHASER): No current flare. Reports well managed with Allopurinol 300mg and diet changed - Continue Allopurinol. Assessment & Plan (07/24/2018 7:58 PM TORNADO CHASER): Cont febuxostat 40mg daily Atrial fibrillation ([facility]) [I48.91] 8 Assessment & Plan (05/12/2025 7:30 AM TORNADO CHASER): The patient has a history of atrial fibrillation status post-ablation and is currently on anticoagulation with Xarelto. No recent episodes of A-fib reported (palpitation). Patient was previously on home dofetilide but had reported not taking it for some time. Dofetilide not started and was discontinued during this admission. CHADSVASC 5. - Continue Xarelto 20 mg daily at night Assessment & Plan (05/11/2025 2:58 PM TORNADO CHASER): The patient has a history of atrial fibrillation status post-ablation and is currently on anticoagulation with Xarelto. No recent episodes of A-fib reported (palpitation). Patient was previously on home dofetilide but had reported not taking it for some time. Dofetilide not started and was discontinued during this admission. CHADSVASC 5. - Continue Xarelto 20 mg daily at night Assessment & Plan (05/10/2025 7:48 AM TORNADO CHASER): The patient has a history of atrial fibrillation status post-ablation and is currently on anticoagulation with Xarelto. No recent episodes of A-fib reported (palpitation). CHADSVASC 5. - Continue rivaroxaban 20 mg daily at night - D/c dofetilide. Patient reports not taking it for some time. No need for EP consult Assessment & Plan (05/09/2025 4:59 PM TORNADO CHASER): The patient has a history of atrial fibrillation status post-ablation and is currently on anticoagulation with Xarelto. No recent episodes of A-fib reported (palpitation). CHADSVASC 5. - Continue rivaroxaban 20 mg daily at night - D/c dofetilide. Patient reports not taking it for some time. No need for EP consult Assessment & Plan (05/08/2025 7:26 AM TORNADO CHASER): The patient has a history of atrial fibrillation status post-ablation and is currently on anticoagulation with Xarelto. No recent episodes of A-fib reported (palpitation). CHADSVASC 5. - Continue rivaroxaban 20 mg daily at night - D/c dofetilide. Patient reports not taking it for some time. No need for EP consult Assessment & Plan (05/07/2025 7:18 AM TORNADO CHASER): The patient has a history of atrial fibrillation status post-ablation and is currently on anticoagulation with Xarelto. No recent episodes of A-fib reported (palpitation). CHADSVASC 5. - Continue rivaroxaban 20 mg daily at night - D/c dofetilide. Patient reports not taking it for some time. No need for EP consult Assessment & Plan (05/06/2025 12:00 PM TORNADO CHASER): The patient has a history of atrial fibrillation status post-ablation and is currently on anticoagulation with Xarelto. No recent episodes of A-fib reported (palpitation). CHADSVASC 5. - Continue rivaroxaban 20 mg daily at night - D/c dofetilide. Patient reports not taking it for some time. No need for EP consult Assessment & Plan (05/05/2025 2:29 AM TORNADO CHASER): The patient has a history of atrial fibrillation status post-ablation and is currently on anticoagulation with Xarelto. No recent episodes of A-fib reported (palpitation). CHADSVASC 5. - Continue rivaroxaban 20 mg daily at night - Will hold dofetilide, EP c/s in AM to discuss. Patient reports not taking it for some time. Assessment & Plan (07/25/2018 12:36 PM TORNADO CHASER): Cont home meds dofetilide 500mcg BID and warfarin here -Cont tele -TTE 07/25 without abnormalities - Has follow up at discharge with Dr. Wells and Dr. Weber Additional Health Concerns Active Problems Noted Date Diagnosed Date Initial Follow-Up Appointment 05/14/2025 Note: Pt hospitalized for ortho hypotension. 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 Epic risk 15 Barriers to Medication Adherence 05/14/2025 Goals Goal Patient Goal Type Associated Problems Recent Progress Patient-Stated? Author Patient will have kept initial appointment and will show signs of improvement to baseline Care Plan Initial Follow-Up Appointment Tammie Nugent, LEONILA Note: Pt has appointment with PCP on 05/[address] to appointment. Patient will have access to medications needed for healthy outcomes Care Plan Barriers to Medication Adherence Tammie Nugent RN Interventions Care Plan Interventions Intervention Entry Date Outcome Ensure a post-hospital medication reconciliation is completed and review with patient-caregiver the medication schedule in detail 05/14/2025 Contact prescriber to request an alternative medication/prescription assistance plan if pt cannot afford medication, is not covered by insurance, or patient did not receive prescription 05/14/2025 Ensure that prescriptions are transferred to pt s home pharmacy as needed 05/14/2025 Transfer prescriptions to pharmacy that delivers to patient s home as needed 05/14/2025 Review when to call their physician for potential medication refills or complications 05/14/2025 Coordinate with [facility] pharmacist to assist with identified concerns or educational needs 05/14/2025 Voucher medication as needed 05/14/2025 Follow up with patient 2 days after Post Hospital Visit office visit to ensure understanding of changes and follow-up plan 05/14/2025 Related Goals and Interventions Goal Associated Intervent ions Patient will have kept initi al appointment and will show signs of improvement to baseline Follow up with patient 2 days after Post Hospital Visit office visit to ensure understanding of changes and follow-up plan Patient will have access to medications needed for healthy outcomes Ensure a post-hospital medication reconciliation is completed and review with patient-caregiver the medication schedule in detail; Contact prescriber to request an alternative medication/prescription assistance plan if pt cannot afford medication, is not covered by insurance, or patient did not receive prescription; Ensure that prescriptions are transferred to pt s home pharmacy as needed; Transfer prescriptions to pharmacy that delivers to patient s home as needed; Review when to call their physician for potential medication refills or complications; Coordinate with [facility] pharmacist to assist with identified concerns or educational needs; Voucher medication as needed
--- OUTSIDE RECORDS SUMMARY | 2025-05-17 17:58 | XMS_ITS | Encounter Summary ---
Author Organization [facility] Healthcare Address [address] [place] [address] Care Team Providers Care Business Intelligence Reporting Analyst Name Role Phone Lenin Harden MD Primary Care Provider [phone] Oneal Weber MD Unavailable [phone] Travis Augustine MD PhD Unavailable [phone] Lenin Harden MD Primary Care Provider [phone] Gene Child MD Unavailable [phone] Tammie Su RN Unavailable [phone] Encounter Details Date Type Department Care Team (Late st Contact Info) Description 08/30/2018 Documentation Research [facility] [id number] [place] [address] Gabriella Benton RN Social History Tobacco Use Types Packs/Day Years Used Date Smoking Tobacco: Never Smokeless Tobacco: Never Alcohol Use Standard Drinks/Week Comments No 0 (1 standard drink = 0.6 oz pur e alcohol) Sex and Gender Information Value Date Recorded Sex Assigned at Not on file 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 Gender Identity Not on file Sexual Orientation Not on file documented as of this encounter Plan of Treatment Not on file documented as of this encounter Visit Diagnoses Not on filedocumented in this encounter Care Teams Business Intelligence Reporting Analyst Relationship Specialty Start Date End Date Lenin Harden MD PCP - General 10/21/16 08/27/22 Lenin Harden MD PCP - General Internal Medicine 08/28/22 Oneal Weber MD Referring Physician Cardiology 11/23/18 05/03/25 Travis Augustine MD PhD Referring Physician Cardiology 11/23/18 Gene Child MD [facility], [address] [place] [address] Internal Medicine 05/04/25 Tammie Su, RN [address] [address] [facility] Stock [place] Supervisor 05/14/25 documented as of this encounter
--- OUTSIDE RECORDS SUMMARY | 2025-05-17 17:58 | XMS_ITS | Encounter Summary ---
Author Organization [facility] Address [address] [place] [address] Phone Care Team Providers Care Clinical Systems Educator Name Role Phone Lenin Harden MD Primary Care Provider [phone] Oneal Weber MD Unavailable [phone] Travis Augustine MD PhD Unavailable [phone] Lenin Harden MD Primary Care Provider [phone] Gene Child MD Unavailable [phone] Tammie Su RN Unavailable [phone] Encounter Details Date Type Department Care Team (Late st Contact Info) Description 06/02/[address] 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 Gender Identity Not on file Sexual Orientation Not on file documented as of this encounter Plan of Treatment Not on file documented as of this encounter Visit Diagnoses Not on filedocumented in this encounter Care Teams Clinical Systems Educator Relationship Specialty Start Date End Date Lnein Harden MD PCP - General 10/21/16 08/27/22 Lenin Harden MD PCP - General Internal Medicine 08/28/22 Oneal Weber MD Referring Physician Cardiology 11/23/18 05/03/25 Travis Augustine MD PhD Referring Physician Cardiology 11/23/18 Gene Child MD [facility], [address] [place] [address] Internal Medicine 05/04/25 Tammie Su, RN [address] [address] [facility] Out[facility] Banquet Server 05/14/25 documented as of this encounter
--- OUTSIDE RECORDS SUMMARY | 2025-05-17 17:58 | XMS_ITS | Encounter Summary ---
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, [address] [place] [address] Internal Medicine 05/04/25 Tammie Su, RN [address] [address] [facility] Information Security Consultant 05/14/25 documented as of this encounter
--- OUTSIDE RECORDS SUMMARY | 2025-05-17 17:58 | XMS_ITS | Clinical Summary ---
Author Organization [facility] Address [facility] [place] [address] Care Team Providers Care Internet Consultant Name Role Phone Travis Augustine MD PhD Unavailable [phone] Lenin Harden MD Primary Care Provider [phone] Gene Child MD Unavailable [phone] Tammie Su RN Unavailable [phone] Allergies Active Allergy Reactions Criticality Noted Date Comments Linaclotide Other (See comments) Low 02/26/2023 Caused afib Penicillins Hives,Rash Medium 10/14/2021 Medications ezetimibe (ZETIA) 10 mg tablet Take 1 tablet (10 mg total) by mouth daily after dinner 07/28/19 18 Active allopurinol (ZYLOPRIM) 300 mg tablet Take 1 tablet (300 mg total) by mouth daily after breakfast 3 01/18/20 19 Active clonazePAM (KlonoPIN) 1 mg tablet Take 1 tablet (1 mg total) by mouth nightly 05/19/20 21 Active MELATONIN ORAL Take 5 mg by mouth nightly Active MAGNESIUM GLYCINATE ORAL Take 300 mg by mouth nightly Active Folplex 2.2 2.2-25-0.5 mg tablet Take 1 tablet by mouth every morning 09/16/19 23 Active polyethylene glycol (MIRALAX) 17 gram/dose bulk powder Take 17 g by mouth every morning Active calcium citrate/vitamin D3 (CITRACAL REGULAR ORAL) Take by mouth daily after dinner Active cholecalciferol (VITAMIN D-3) 5,000 unit tablet Take 1 tablet (5,000 Units total) by mouth every morning Active cyanocobalamin (Vitamin B-12) 1,000 mcg tablet Take 1 tablet (1,000 mcg total) by mouth cutter apprentice hand before breakfast Active vitamin b complex tablet Take 1 tablet by mouth every morning Active ascorbic acid 500 mg tablet,chewable Take 2 tablet/chew tab (1,000 mg total) by mouth every morning Active simvastatin (ZOCOR) 20 mg tablet Take 1 tablet (20 mg total) by mouth daily after dinner Active Xarelto 20 mg tabletIndications: Paroxysmal atrial fibrillation (HCC) Take 1 tablet by mouth once daily 90 tablet 05/03/20 23 Active Synthroid 112 mcg tablet Take 1 tablet (112 mcg total) by mouth cutter apprentice hand before breakfast 12/06/19 24 Active fludrocortisone 0.1 mg tabletIndications: Primary Adrenocortical Insufficiency,Symp tomatic Orthostatic Hypotension Take 1 tablet (0.1 mg total) by mouth daily 30 tablet 05/12/20 25 026 Active hydrocortisone (CORTEF) 5 mg tabletIndications: Adrenal Cortical Insufficiency,IF you have sick symptoms (fever, chills, nausea, vomiting, diarrhea) double your daily dose Take 2 tablets (10 mg total) by mouth daily AND 2 tablets (10 mg total) daily AND 1 tablet (5 mg total) daily. 150 tablet 05/12/20 25 Active midodrine (PROAMATINE) 5 mg tabletIndications: Symptomatic Orthostatic Hypotension Take 1 tablet (5 mg total) by mouth 3 (three) times a day before meals 90 tablet 05/12/20 25 025 Active metoprolol XL (TOPROL-XL) 25 mg 24 hr tablet Take 1/2 (one-half) tablet by mouth once daily 45 tablet 3 09/12/19 20 025 Discontin ued(Stop Taking at Discharge ) NON FORMULARY, FOR CLINIC ADMINISTERED MEDICATIONS ONLY, (not in database) Take 1 each by mouth nightly OTC supplement for sleep : CATERINA 025 Discontin ued(Stop Taking at Discharge ) Lactobac 40-Bifido 3-S.thermop (Probiotic) 100 billion cell capsule Take 1 capsule by mouth every morning 025 Discontin ued(Stop Taking at Discharge ) losartan (COZAAR) 100 mg tabletIndications: hypertension Take 1 tablet (100 mg total) by mouth every morning 03/08/20 025 Discontin ued(Stop Taking at Discharge ) pantoprazole DR (PROTONIX) 40 mg EC tabletIndications: Stress Ulcer Prophylaxis,Treatm ent of Non-Bleeding Gastric Disorder Take 1 tablet (40 mg total) by mouth daily 30 tablet 05/09/20 Discontin ued(Stop Taking at Discharge ) docusate sodium (COLACE) 100 mg capsule Take 1 capsule (100 mg total) by mouth 2 (two) times a day 07/23/19 025 Discontin ued(Stop Taking at Discharge ) polyethylene glycol 236-22.74-6.74 -5.86 gram solution DRINK ONE CUP EVERY 15 MINUTES STARTING AT 3 PM THE DAY BEFORE YOUR PROCEDURE. DRINK UNTIL WHOLE JUG IS GONE 07/09/19 025 Discontin ued(Stop Taking at Discharge ) amLODIPine (NORVASC) 2.5 mg tablet 06/08/20 Discontin ued(Stop Taking at Discharge ) dofetilide (TIKOSYN) 500 mcg capsuleIndications :Paroxysmal atrial fibrillation (HCC),High risk medications (not anticoagulants) long-term use Take 1 capsule by mouth twice daily 180 capsule 1 12/16/19 Discontin ued(Stop Taking at Discharge ) Active Problems Problem Noted Date Diagnosed Date Adrenal insufficiency 05/11/2025 Assessment & Plan (05/12/2025 7:30 AM CAR SALESPERSON): The patient presents with symptomatic orthostatic hypotension, [...] resulting in cardiology recommending him present to [facility] for further evaluation. The patient s symptoms [...] insufficiency. Assessment & Plan (05/11/2025 3:00 PM CAR SALESPERSON): The patient presents with symptomatic orthostatic hypotension, [...] resulting in cardiology recommending him present to [facility] for further evaluation. The patient s symptoms [...] 05/05/2025 Assessment & Plan (05/12/2025 7:30 AM CAR SALESPERSON): Patient has hx of insomnia related to PTSD managed with home clonazepam and melatonin. - Continue qHS melatonin and clonazepam Assessment & Plan (05/11/2025 12:08 PM CAR SALESPERSON): Patient has hx of insomnia related to PTSD managed with home clonazepam and melatonin. - Continue qHS melatonin and clonazepam Assessment & Plan (05/10/2025 7:48 AM CAR SALESPERSON): Patient has hx of insomnia related to PTSD managed with home clonazepam and melatonin. - Continue qHS melatonin and clonazepam Assessment & Plan (05/09/2025 4:59 PM CAR SALESPERSON): Patient has hx of insomnia related to PTSD managed with home clonazepam and melatonin. - Continue qHS melatonin and clonazepam Assessment & Plan (05/08/2025 7:26 AM CAR SALESPERSON): Patient has hx of insomnia related to PTSD managed with home clonazepam and melatonin. - Continue qHS melatonin and clonazepam Assessment & Plan (05/07/2025 7:18 AM CAR SALESPERSON): Patient has hx of insomnia related to PTSD managed with home clonazepam and melatonin. - Continue qHS melatonin and clonazepam Assessment & Plan (05/06/2025 12:00 PM CAR SALESPERSON): Patient has hx of insomnia related to PTSD managed with home clonazepam and melatonin. - Continue qHS melatonin and clonazepam Assessment & Plan (05/05/2025 2:29 AM CAR SALESPERSON): Patient has hx of insomnia related to PTSD managed with home clonazepam and melatonin. - Continue qHS melatonin and clonazepam Insomnia 05/05/2025 Assessment & Plan (05/12/2025 7:30 AM CAR SALESPERSON): Patient has hx of insomnia related to PTSD managed with home clonazepam and melatonin. - Continue qHS melatonin and clonazepam Assessment & Plan (05/11/2025 12:08 PM CAR SALESPERSON): Patient has hx of insomnia related to PTSD managed with home clonazepam and melatonin. - Continue qHS melatonin and clonazepam Assessment & Plan (05/10/2025 7:48 AM CAR SALESPERSON): Patient has hx of insomnia related to PTSD managed with home clonazepam and melatonin. - Continue qHS melatonin and clonazepam Assessment & Plan (05/09/2025 4:59 PM CAR SALESPERSON): Patient has hx of insomnia related to PTSD managed with home clonazepam and melatonin. - Continue qHS melatonin and clonazepam Assessment & Plan (05/08/2025 7:26 AM CAR SALESPERSON): Patient has hx of insomnia related to PTSD managed with home clonazepam and melatonin. - Continue qHS melatonin and clonazepam Assessment & Plan (05/07/2025 7:18 AM CAR SALESPERSON): Patient has hx of insomnia related to PTSD managed with home clonazepam and melatonin. - Continue qHS melatonin and clonazepam Assessment & Plan (05/06/2025 12:00 PM CAR SALESPERSON): Patient has hx of insomnia related to PTSD managed with home clonazepam and melatonin. - Continue qHS melatonin and clonazepam Assessment & Plan (05/05/2025 2:29 AM CAR SALESPERSON): Patient has hx of insomnia related to PTSD managed with home clonazepam and melatonin. - Continue qHS melatonin and clonazepam Weight loss 05/05/2025 Assessment & Plan (05/12/2025 7:30 AM CAR SALESPERSON): The patient's strict dietary intake leading to significant weight loss and limited fluid intake might be contributing to his hypotensive episodes. - Recommend a balanced diet with sufficient caloric and fluid intake - Encourage meals and adequate hydration - RD consulted, added protein shakes Assessment & Plan (05/11/2025 2:58 PM CAR SALESPERSON): The patient's strict dietary intake leading to significant weight loss and limited fluid intake might be contributing to his hypotensive episodes. - Recommend a balanced diet with sufficient caloric and fluid intake - Encourage meals and adequate hydration - RD consulted, added protein shakes Assessment & Plan (05/10/2025 7:48 AM CAR SALESPERSON): The patient's strict dietary intake leading to significant weight loss and limited fluid intake might be contributing to his hypotensive episodes. - Recommend a balanced diet with sufficient caloric and fluid intake - Encourage meals and adequate hydration Assessment & Plan (05/09/2025 4:59 PM CAR SALESPERSON): The patient's strict dietary intake leading to significant weight loss and limited fluid intake might be contributing to his hypotensive episodes. - Recommend a balanced diet with sufficient caloric and fluid intake - Encourage meals and adequate hydration Assessment & Plan (05/08/2025 7:26 AM CAR SALESPERSON): The patient's strict dietary intake leading to significant weight loss and limited fluid intake might be contributing to his hypotensive episodes. - Recommend a balanced diet with sufficient caloric and fluid intake - Encourage meals and adequate hydration Assessment & Plan (05/07/2025 7:18 AM CAR SALESPERSON): The patient's strict dietary intake leading to significant weight loss and limited fluid intake might be contributing to his hypotensive episodes. - Recommend a balanced diet with sufficient caloric and fluid intake - Encourage meals and adequate hydration Assessment & Plan (05/06/2025 12:00 PM CAR SALESPERSON): The patient's strict dietary intake leading to significant weight loss and limited fluid intake might be contributing to his hypotensive episodes. - Recommend a balanced diet with sufficient caloric and fluid intake - Encourage meals and adequate hydration Assessment & Plan (05/05/2025 2:56 AM CAR SALESPERSON): The patient's strict dietary intake leading to [...] 05/05/2025 Assessment & Plan (05/12/2025 7:30 AM CAR SALESPERSON): - Continue home synthroid Assessment & Plan (05/11/2025 12:08 PM CAR SALESPERSON): - Continue home synthroid Assessment & Plan (05/10/2025 7:48 AM CAR SALESPERSON): - Continue home synthroid Assessment & Plan (05/09/2025 4:59 PM CAR SALESPERSON): - Continue home synthroid Assessment & Plan (05/08/2025 7:26 AM CAR SALESPERSON): - Continue home synthroid Assessment & Plan (05/07/2025 7:18 AM CAR SALESPERSON): - Continue home synthroid Assessment & Plan (05/06/2025 12:00 PM CAR SALESPERSON): - Continue home synthroid Assessment & Plan (05/05/2025 2:29 AM CAR SALESPERSON): - Continue home synthroid Orthostatic hypotension 05/04/2025 Assessment & Plan (05/12/2025 7:30 AM CAR SALESPERSON): The patient presents with symptomatic orthostatic hypotension, [...] resulting in cardiology recommending him present to [facility] for further evaluation. The patient s symptoms [...] insufficiency. Assessment & Plan (05/11/2025 3:00 PM CAR SALESPERSON): The patient presents with symptomatic orthostatic hypotension, [...] resulting in cardiology recommending him present to [facility] for further evaluation. The patient s symptoms [...] insufficiency. Assessment & Plan (05/10/2025 7:48 AM CAR SALESPERSON): The patient presents with symptomatic orthostatic hypotension, [...] resulting in cardiology recommending him present to [facility] for further evaluation. The patient s symptoms [...] (10mg/10mg/5mg) Assessment & Plan (05/09/2025 4:59 PM CAR SALESPERSON): The patient presents with symptomatic orthostatic hypotension, [...] resulting in cardiology recommending him present to [facility] for further evaluation. The patient s symptoms [...] (10mg/10mg/5mg) Assessment & Plan (05/08/2025 2:09 PM CAR SALESPERSON): The patient presents with symptomatic orthostatic hypotension, [...] resulting in cardiology recommending him present to [facility] for further evaluation. The patient s symptoms [...] (10mg/10mg/5mg) Assessment & Plan (05/07/2025 7:18 AM CAR SALESPERSON): The patient presents with symptomatic orthostatic hypotension, [...] resulting in cardiology recommending him present to [facility] for further evaluation. The patient s symptoms [...] eval Assessment & Plan (05/06/2025 12:00 PM CAR SALESPERSON): The patient presents with symptomatic orthostatic hypotension, [...] resulting in cardiology recommending him present to [facility] for further evaluation. The patient s symptoms [...] eval Assessment & Plan (05/05/2025 2:56 AM CAR SALESPERSON): The patient presents with symptomatic orthostatic hypotension, [...] resulting in cardiology recommending him present to [facility] for further evaluation. The patient s symptoms [...] (05/07/2023): Assessment & Plan (05/08/2023 11:42 AM CAR SALESPERSON): Na 131 Low Na chronically. Asymptomatic -Na 135 on recheck Hypotension 05/07/2023 Assessment & Plan (05/08/2023 11:41 AM CAR SALESPERSON): Transient hypotension vs spurious. Reports feeling well and repeat >100 -will continue to hold amlodipine upon discharge as pt remains normotensive PAF (paroxysmal atrial fibrillation) 03/02/2023 Assessment & Plan (05/08/2023 11:40 AM CAR SALESPERSON): S/p A-Fib Ablation. Currently SR on tele - Tele monitoring - Resume Dofetilide 500mcg, Metoprolol 12.5 -resume xarelto this AM -PPI daily for 30 days for esophageal prophylaxis after AF ablation -Ok for d/c per EP Restless leg syndrome 07/04/2021 Paresthesia of skin 12/05/2020 Mood disorder 12/05/2020 History of DVT (deep vein thrombosis) 08/08/2020 Assessment & Plan (05/12/2025 7:30 AM CAR SALESPERSON): The patient has a history of atrial [...] night Assessment & Plan (05/11/2025 2:58 PM CAR SALESPERSON): The patient has a history of atrial [...] night Assessment & Plan (05/10/2025 7:48 AM CAR SALESPERSON): The patient has a history of atrial fibrillation status post-ablation and is currently on anticoagulation with Xarelto. No recent episodes of A-fib reported (palpitation). CHADSVASC 5. - Continue rivaroxaban 20 mg daily at night - D/c dofetilide. Patient reports not taking it for some time. No need for EP consult Assessment & Plan (05/09/2025 4:59 PM CAR SALESPERSON): The patient has a history of atrial fibrillation status post-ablation and is currently on anticoagulation with Xarelto. No recent episodes of A-fib reported (palpitation). CHADSVASC 5. - Continue rivaroxaban 20 mg daily at night - D/c dofetilide. Patient reports not taking it for some time. No need for EP consult Assessment & Plan (05/08/2025 7:26 AM CAR SALESPERSON): The patient has a history of atrial fibrillation status post-ablation and is currently on anticoagulation with Xarelto. No recent episodes of A-fib reported (palpitation). CHADSVASC 5. - Continue rivaroxaban 20 mg daily at night - D/c dofetilide. Patient reports not taking it for some time. No need for EP consult Assessment & Plan (05/07/2025 7:18 AM CAR SALESPERSON): The patient has a history of atrial fibrillation status post-ablation and is currently on anticoagulation with Xarelto. No recent episodes of A-fib reported (palpitation). CHADSVASC 5. - Continue rivaroxaban 20 mg daily at night - D/c dofetilide. Patient reports not taking it for some time. No need for EP consult Assessment & Plan (05/06/2025 12:00 PM CAR SALESPERSON): The patient has a history of atrial fibrillation status post-ablation and is currently on anticoagulation with Xarelto. No recent episodes of A-fib reported (palpitation). CHADSVASC 5. - Continue rivaroxaban 20 mg daily at night - D/c dofetilide. Patient reports not taking it for some time. No need for EP consult Assessment & Plan (05/05/2025 2:29 AM CAR SALESPERSON): The patient has a history of atrial fibrillation status post-ablation and is currently on anticoagulation with Xarelto. No recent episodes of A-fib reported (palpitation). CHADSVASC 5. - Continue rivaroxaban 20 mg daily at night - Will hold dofetilide, EP c/s in AM to discuss. Patient reports not taking it for some time. Chronic anticoagulation 08/08/2020 Assessment & Plan (05/12/2025 7:30 AM CAR SALESPERSON): The patient has a history of atrial [...] night Assessment & Plan (05/11/2025 2:58 PM CAR SALESPERSON): The patient has a history of atrial [...] night Assessment & Plan (05/10/2025 7:48 AM CAR SALESPERSON): The patient has a history of atrial fibrillation status post-ablation and is currently on anticoagulation with Xarelto. No recent episodes of A-fib reported (palpitation). CHADSVASC 5. - Continue rivaroxaban 20 mg daily at night - D/c dofetilide. Patient reports not taking it for some time. No need for EP consult Assessment & Plan (05/09/2025 4:59 PM CAR SALESPERSON): The patient has a history of atrial fibrillation status post-ablation and is currently on anticoagulation with Xarelto. No recent episodes of A-fib reported (palpitation). CHADSVASC 5. - Continue rivaroxaban 20 mg daily at night - D/c dofetilide. Patient reports not taking it for some time. No need for EP consult Assessment & Plan (05/08/2025 7:26 AM CAR SALESPERSON): The patient has a history of atrial fibrillation status post-ablation and is currently on anticoagulation with Xarelto. No recent episodes of A-fib reported (palpitation). CHADSVASC 5. - Continue rivaroxaban 20 mg daily at night - D/c dofetilide. Patient reports not taking it for some time. No need for EP consult Assessment & Plan (05/07/2025 7:18 AM CAR SALESPERSON): The patient has a history of atrial fibrillation status post-ablation and is currently on anticoagulation with Xarelto. No recent episodes of A-fib reported (palpitation). CHADSVASC 5. - Continue rivaroxaban 20 mg daily at night - D/c dofetilide. Patient reports not taking it for some time. No need for EP consult Assessment & Plan (05/06/2025 12:00 PM CAR SALESPERSON): The patient has a history of atrial fibrillation status post-ablation and is currently on anticoagulation with Xarelto. No recent episodes of A-fib reported (palpitation). CHADSVASC 5. - Continue rivaroxaban 20 mg daily at night - D/c dofetilide. Patient reports not taking it for some time. No need for EP consult Assessment & Plan (05/05/2025 2:29 AM CAR SALESPERSON): The patient has a history of atrial fibrillation status post-ablation and is currently on anticoagulation with Xarelto. No recent episodes of A-fib reported (palpitation). CHADSVASC 5. - Continue rivaroxaban 20 mg daily at night - Will hold dofetilide, EP c/s in AM to discuss. Patient reports not taking it for some time. Hyperlipidemia LDL goal <70 08/08/2020 Assessment & Plan (05/12/2025 7:30 AM CAR SALESPERSON): - Continue home zetia and simvastatin Assessment & Plan (05/11/2025 12:08 PM CAR SALESPERSON): - Continue home zetia and simvastatin Assessment & Plan (05/10/2025 7:48 AM CAR SALESPERSON): - Continue home zetia and simvastatin Assessment & Plan (05/09/2025 4:59 PM CAR SALESPERSON): - Continue home zetia and simvastatin Assessment & Plan (05/08/2025 7:26 AM CAR SALESPERSON): - Continue home zetia and simvastatin Assessment & Plan (05/07/2025 7:18 AM CAR SALESPERSON): - Continue home zetia and simvastatin Assessment & Plan (05/06/2025 12:00 PM CAR SALESPERSON): - Continue home zetia and simvastatin Assessment & Plan (05/05/2025 2:29 AM CAR SALESPERSON): - Continue home zetia and simvastatin Assessment & Plan (05/07/2023 4:54 PM CAR SALESPERSON): -Continue Ezetimibe, Simvastatin DAI (obstructive sleep apnea) 11/19/2018 Assessment & Plan (05/12/2025 7:30 AM CAR SALESPERSON): - Home CPAP Assessment & Plan (05/11/2025 12:08 PM CAR SALESPERSON): - Home CPAP Assessment & Plan (05/10/2025 7:48 AM CAR SALESPERSON): - Home CPAP Assessment & Plan (05/09/2025 4:59 PM CAR SALESPERSON): - Home CPAP Assessment & Plan (05/08/2025 7:26 AM CAR SALESPERSON): - Home CPAP Assessment & Plan (05/07/2025 7:18 AM CAR SALESPERSON): - Home CPAP Assessment & Plan (05/06/2025 12:00 PM CAR SALESPERSON): - Home CPAP Assessment & Plan (05/05/2025 2:29 AM CAR SALESPERSON): - Home CPAP Assessment & Plan (05/07/2023 4:51 PM CAR SALESPERSON): Compliant home CPAP baseline - Continue home CPAP while in patient. 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 HTN (hypertension) 10/27/2018 Assessment & Plan (05/12/2025 7:30 AM CAR SALESPERSON): - Hold home antihypertensive medications given orthostatic hypotension - Monitor BP trends closely and adjust management accordingly - Evaluate need for antihypertensive adjustments after orthostatic symptoms are controlled Assessment & Plan (05/11/2025 12:08 PM CAR SALESPERSON): - Hold home antihypertensive medications given orthostatic hypotension - Monitor BP trends closely and adjust management accordingly - Evaluate need for antihypertensive adjustments after orthostatic symptoms are controlled Assessment & Plan (05/10/2025 7:48 AM CAR SALESPERSON): - Hold home antihypertensive medications given orthostatic hypotension - Monitor BP trends closely and adjust management accordingly - Evaluate need for antihypertensive adjustments after orthostatic symptoms are controlled Assessment & Plan (05/09/2025 4:59 PM CAR SALESPERSON): - Hold home antihypertensive medications given orthostatic hypotension - Monitor BP trends closely and adjust management accordingly - Evaluate need for antihypertensive adjustments after orthostatic symptoms are controlled Assessment & Plan (05/08/2025 7:26 AM CAR SALESPERSON): - Hold home antihypertensive medications given orthostatic hypotension - Monitor BP trends closely and adjust management accordingly - Evaluate need for antihypertensive adjustments after orthostatic symptoms are controlled Assessment & Plan (05/07/2025 7:18 AM CAR SALESPERSON): - Hold home antihypertensive medications given orthostatic hypotension - Monitor BP trends closely and adjust management accordingly - Evaluate need for antihypertensive adjustments after orthostatic symptoms are controlled Assessment & Plan (05/06/2025 12:00 PM CAR SALESPERSON): - Hold home antihypertensive medications given orthostatic hypotension - Monitor BP trends closely and adjust management accordingly - Evaluate need for antihypertensive adjustments after orthostatic symptoms are controlled Assessment & Plan (05/05/2025 2:29 AM CAR SALESPERSON): - Hold home antihypertensive medications given orthostatic hypotension - Monitor BP trends closely and adjust management accordingly - Evaluate need for antihypertensive adjustments after orthostatic symptoms are controlled Assessment & Plan (05/07/2023 4:56 PM CAR SALESPERSON): BP 124/74(87) - Continue home med regiment- Norvasc 5mg, losartan 100mg, metoprolol 12.5 Snoring 10/27/2018 Sinus bradycardia 08/19/2018 Assessment & Plan (05/12/2025 7:30 AM CAR SALESPERSON): S/p pacemaker placement 2 weeks ago. No need for EP consult as it does not seem to be his pacemaker that is causing these orthostatic hypotension. Assessment & Plan (05/11/2025 2:58 PM CAR SALESPERSON): S/p pacemaker placement 2 weeks ago. No need for EP consult as it does not seem to be his pacemaker that is causing these orthostatic hypotension. Dizziness 07/24/2018 Assessment & Plan (07/24/2018 7:55 PM CAR SALESPERSON): Pt says c/w prior episodes of afib, resolved w/ afib meds at home -No LOC or head trauma -Management as per afib below -Cont tele overnight Coronary artery disease 07/24/2018 Assessment & Plan (05/12/2025 7:30 AM CAR SALESPERSON): - Continue home zetia and simvastatin Assessment & Plan (05/11/2025 12:08 PM CAR SALESPERSON): - Continue home zetia and simvastatin Assessment & Plan (05/10/2025 7:48 AM CAR SALESPERSON): - Continue home zetia and simvastatin Assessment & Plan (05/09/2025 4:59 PM CAR SALESPERSON): - Continue home zetia and simvastatin Assessment & Plan (05/08/2025 7:26 AM CAR SALESPERSON): - Continue home zetia and simvastatin Assessment & Plan (05/07/2025 7:18 AM CAR SALESPERSON): - Continue home zetia and simvastatin Assessment & Plan (05/06/2025 12:00 PM CAR SALESPERSON): - Continue home zetia and simvastatin Assessment & Plan (05/05/2025 2:29 AM CAR SALESPERSON): - Continue home zetia and simvastatin Assessment & Plan (05/07/2023 5:01 PM CAR SALESPERSON): CAD (Mild RCA, mild Left main, mild-mod (40%) LAD, mild LCx - per CTA heart 2019 BMS (LAD x2) in 1997 - Continue Norvasc, Ezetimibe, Losartan, Metoprolol, Simvastatin as above Assessment & Plan (07/24/2018 7:57 PM CAR SALESPERSON): S/p LAD stent placement x2 -Cont ASA, statin, and metoprolol 12.5mg daily Hypothyroidism 07/24/2018 Assessment & Plan (05/07/2023 4:57 PM CAR SALESPERSON): Last TSH 2.29 - Continue synthroid 125mcg Assessment & Plan (07/24/2018 7:59 PM CAR SALESPERSON): Cont synthroid 137mcg daily. F/u TSH Gout 07/24/2018 Assessment & Plan (05/12/2025 7:30 AM CAR SALESPERSON): - Continue home allopurinol Assessment & Plan (05/11/2025 12:08 PM CAR SALESPERSON): - Continue home allopurinol Assessment & Plan (05/10/2025 7:48 AM CAR SALESPERSON): - Continue home allopurinol Assessment & Plan (05/09/2025 4:59 PM CAR SALESPERSON): - Continue home allopurinol Assessment & Plan (05/08/2025 7:26 AM CAR SALESPERSON): - Continue home allopurinol Assessment & Plan (05/07/2025 7:18 AM CAR SALESPERSON): - Continue home allopurinol Assessment & Plan (05/06/2025 12:00 PM CAR SALESPERSON): - Continue home allopurinol Assessment & Plan (05/05/2025 2:29 AM CAR SALESPERSON): - Continue home allopurinol Assessment & Plan (05/07/2023 5:03 PM CAR SALESPERSON): No current flare. Reports well managed with Allopurinol 300mg and diet changed - Continue Allopurinol. Assessment & Plan (07/24/2018 7:58 PM CAR SALESPERSON): Cont febuxostat 40mg daily Atrial fibrillation (CMS/HCC) [I48.91] 8 Assessment & Plan (05/12/2025 7:30 AM CAR SALESPERSON): The patient has a history of atrial [...] night Assessment & Plan (05/11/2025 2:58 PM CAR SALESPERSON): The patient has a history of atrial [...] night Assessment & Plan (05/10/2025 7:48 AM CAR SALESPERSON): The patient has a history of atrial fibrillation status post-ablation and is currently on anticoagulation with Xarelto. No recent episodes of A-fib reported (palpitation). CHADSVASC 5. - Continue rivaroxaban 20 mg daily at night - D/c dofetilide. Patient reports not taking it for some time. No need for EP consult Assessment & Plan (05/09/2025 4:59 PM CAR SALESPERSON): The patient has a history of atrial fibrillation status post-ablation and is currently on anticoagulation with Xarelto. No recent episodes of A-fib reported (palpitation). CHADSVASC 5. - Continue rivaroxaban 20 mg daily at night - D/c dofetilide. Patient reports not taking it for some time. No need for EP consult Assessment & Plan (05/08/2025 7:26 AM CAR SALESPERSON): The patient has a history of atrial fibrillation status post-ablation and is currently on anticoagulation with Xarelto. No recent episodes of A-fib reported (palpitation). CHADSVASC 5. - Continue rivaroxaban 20 mg daily at night - D/c dofetilide. Patient reports not taking it for some time. No need for EP consult Assessment & Plan (05/07/2025 7:18 AM CAR SALESPERSON): The patient has a history of atrial fibrillation status post-ablation and is currently on anticoagulation with Xarelto. No recent episodes of A-fib reported (palpitation). CHADSVASC 5. - Continue rivaroxaban 20 mg daily at night - D/c dofetilide. Patient reports not taking it for some time. No need for EP consult Assessment & Plan (05/06/2025 12:00 PM CAR SALESPERSON): The patient has a history of atrial fibrillation status post-ablation and is currently on anticoagulation with Xarelto. No recent episodes of A-fib reported (palpitation). CHADSVASC 5. - Continue rivaroxaban 20 mg daily at night - D/c dofetilide. Patient reports not taking it for some time. No need for EP consult Assessment & Plan (05/05/2025 2:29 AM CAR SALESPERSON): The patient has a history of atrial fibrillation status post-ablation and is currently on anticoagulation with Xarelto. No recent episodes of A-fib reported (palpitation). CHADSVASC 5. - Continue rivaroxaban 20 mg daily at night - Will hold dofetilide, EP c/s in AM to discuss. Patient reports not taking it for some time. Assessment & Plan (07/25/2018 12:36 PM CAR SALESPERSON): Cont home meds dofetilide 500mcg BID and warfarin here -Cont tele -TTE 07/25 without abnormalities - Has follow up at discharge with Dr. Wells and Dr. Weber Encounters Date Type Department Care Team Description 05/14/2025 SHOP/CHAP Initial Outreach [facility] [address] [phone] [place] [phone] Tammie Su, RN 05/14/2025 SHOP/CHAP Initial Eligibility Review [facility] [address] [phone] [place] [phone] Tammie Su, RN 05/11/2025 [facility]ation [facility] [address] [place] [address] Carmen Jaramillo [facility] IP to OP 05/10/2025 Orders Only Neurology James Hanson MD 05/04/2025 8:37 PM CAR SALESPERSON - 05/12/2025 1:35 PM CAR SALESPERSON Hospital Encounter [facility] [address] [place] [address] Yudi Baltazar MD Raciel, MD Gael Marin Nathan R., MD Odom, Sidney Bansal MD Orthostatic hypotension (Primary Dx); Pacemaker; RBD (REM behavioral disorder); Chronic hyponatremia; Adrenal insufficiency Discharge Disposition: Discharge to home, home health skilled care 05/02/2025 Orders Only [facility] [address] [facility] 4th [address] [place] [phone] Nory Rodney MD Orthostatic hypotension (Primary Dx) 04/24/2025 Telephone [facility] Medicine Cardiology [address] [facility] 8th [place] [address] [place] [address] Vibha Knight 04/20/2025 Orders Only [facility] Medicine Cardiology [address] [facility] [address] [place] [address] Travis Augustine MD PhD Paroxysmal atrial fibrillation (HCC) (Primary Dx) 04/20/2025 Telephone [facility] Medicine Cardiology [address] [facility] 8th [place] [address] [place] [address] Travis Augustine MD PhD from Last 3 Months Immunizations Immunization Administration Dates Next Due Influenza, Unspecified 04/15/2023 Surgical History Surgery Date Site/Laterality Comments CORONARY ANGIOPLASTY WITH ST ENT PLACEMENT Cath Stent Placement - -heart (Added by Conv) 1997 COLONOSCOPY PROSTATECTOMY 2007 CATARACT EXTRACTION [...] history of heart failure - (Added by Conv) Hypertension Other 1 Hypertension - (Added by Conv) Heart disease Other 2 Heart Disease - (Added by Conv) Anesthesia problems Neg Hx Malig Hypertension [...] making you feel afraid or unsafe? Denies 05/04/2025 Sex and Gender Information Value Date Recorded Sex Assigned at Not on file Legal Sex Male 10:10 AM CAR SALESPERSON Gender Identity Not on file Sexual Orientation Not on file Last Filed Vital Signs Vital Sign Reading Time Taken Comments Blood Pressure 152/93 05/12/2025 12:20 PM CAR SALESPERSON Pulse 60 05/12/2025 12:20 PM CAR SALESPERSON Temperature 36.4 C (97.6 F) 05/12/2025 7:00 AM CAR SALESPERSON Respiratory Rate 14 05/12/2025 12:2 0 PM CAR SALESPERSON Oxygen Saturation 94% 05/12/2025 12: 20 PM CAR SALESPERSON Inhaled Oxygen Concentration - - Weight 93.8 kg (206 lb 12.8 oz) 05/12/2025 5:15 AM CAR SALESPERSON Height 180.3 cm (5' 11) 05/05/2025 12: 56 AM CAR SALESPERSON Body Mass Index 28.84 05/05/2025 12:56 AM CAR SALESPERSON Plan of Treatment Health Maintenance Due Date Last Done Comments Depression Screening 1945 DTaP/Tdap/Td Vaccine (1 - Tdap) 09/04/1955 Hepatitis B Screening 1962 Zoster Vaccine (1 of 2) 1994 Well Visit 65+ 2009 Covid-19 Vaccine (7 - 2024-2 6 season) 2025 04/16/2021, 04/12/2021, 11/14/2020, Additional history exists Influenza Vaccine (#1) 2025 , 04/15/2023, 04/09/2020, Additional history exists Fall Risk Assessment 05/12/2026 05/12/2025 Pneumococcal vaccine 65+ Completed 05/14/2017, 04/28 Goals Goal Patient Goal Type Associated Problems Recent Progress Patient-Stated? Author Patient will have kept initial appointment and will show signs of improvement to baseline Care Plan Initial Follow-Up Appointment Tammie Nugent, RN Note: Pt has appointment with PCP on 05/[address] to appointment. Patient will have access to medications needed for healthy outcomes Care Plan Barriers to Medication Adherence Tammie Nugent, RN Medical Devices Implanted Type Area Manager Managing Device Identifier Shelf Expiration Date Model / Serial / Lot Stent Stent N/A: Heart Cardiac Stents N/A: Heart Procedures Procedure Name Priority Date/Time Associated Diagnosis Comments POCT GLUCOSE DEVICE Routine 05/12/2025 8 :02 AM CAR SALESPERSON EGFR Routine 05/11/2025 9:21 PM CAR SALESPERSON DIFFERENTIAL AUTO Timed 05/11/2025 9:2 1 PM CAR SALESPERSON CBC WITH AUTO DIFFERENTIAL Timed 05/11/2025 9:21 PM CAR SALESPERSON PHOSPHORUS Routine 05/11/2025 9:21 PM CAR SALESPERSON MAGNESIUM Routine 05/11/2025 9:21 PM CAR SALESPERSON COMPREHENSIVE METABOLIC PANEL Routine 05/11/2025 9:21 PM CAR SALESPERSON POCT GLUCOSE DEVICE Routine 05/11/2025 6 :26 AM CAR SALESPERSON OSMOLALITY, URINE Timed 05/10/2025 9:5 3 PM CAR SALESPERSON EGFR Routine 05/10/2025 9:45 PM CAR SALESPERSON OSMOLALITY, BLOOD Timed 05/10/2025 9:4 5 PM CAR SALESPERSON PHOSPHORUS Routine 05/10/2025 9:45 PM CAR SALESPERSON MAGNESIUM Routine 05/10/2025 9:45 PM CAR SALESPERSON COMPREHENSIVE METABOLIC PANEL Routine 05/10/2025 9:45 PM CAR SALESPERSON CREATININE, URINE, RANDOM Routine 05/10/2025 5:13 PM CAR SALESPERSON UREA NITROGEN, URINE, RANDOM Routine 05/10/2025 5:13 PM CAR SALESPERSON SODIUM, URINE, RANDOM Routine 05/10/2025 5:13 PM CAR SALESPERSON POCT GLUCOSE DEVICE Routine 05/10/2025 6 :37 AM CAR SALESPERSON EGFR Routine 05/09/2025 9:31 PM CAR SALESPERSON PHOSPHORUS Routine 05/09/2025 9:31 PM CAR SALESPERSON MAGNESIUM Routine 05/09/2025 9:31 PM CAR SALESPERSON COMPREHENSIVE METABOLIC PANEL Routine 05/09/2025 9:31 PM CAR SALESPERSON POCT GLUCOSE DEVICE Routine 05/09/2025 8 :18 PM CAR SALESPERSON CORTISOL Routine 05/09/2025 5:34 AM CAR SALESPERSON EGFR Routine 05/08/2025 9:33 PM CAR SALESPERSON DIFFERENTIAL AUTO Routine 05/08/2025 9:3 3 PM CAR SALESPERSON PHOSPHORUS Routine 05/08/2025 9:33 PM CAR SALESPERSON MAGNESIUM Routine 05/08/2025 9:33 PM CAR SALESPERSON COMPREHENSIVE METABOLIC PANEL Routine 05/08/2025 9:33 PM CAR SALESPERSON CBC WITH AUTO DIFFERENTIAL Routine 05/08/2025 9:33 PM CAR SALESPERSON CORTISOL 60 MIN Timed 05/08/2025 9:50 AM CAR SALESPERSON COSYNTROPIN STIMULATION TEST Timed 05/08/2025 9:50 AM CAR SALESPERSON CORTISOL 30 MIN Timed 05/08/2025 9:15 AM CAR SALESPERSON CORTISOL BASELINE Timed 05/08/2025 8:4 2 AM CAR SALESPERSON EGFR Routine 05/07/2025 9:34 PM CAR SALESPERSON DIFFERENTIAL AUTO Routine 05/07/2025 9:3 4 PM CAR SALESPERSON PHOSPHORUS Routine 05/07/2025 9:34 PM CAR SALESPERSON MAGNESIUM Routine 05/07/2025 9:34 PM CAR SALESPERSON COMPREHENSIVE METABOLIC PANEL Routine 05/07/2025 9:34 PM CAR SALESPERSON CBC WITH AUTO DIFFERENTIAL Routine 05/07/2025 9:34 PM CAR SALESPERSON INFECTION PREVENTION REKHA AURIS PCR, SURVEILLANCE Routine 05/07/2025 10:58 AM CAR SALESPERSON EGFR Routine 05/06/2025 9:24 PM CAR SALESPERSON DIFFERENTIAL AUTO Routine 05/06/2025 9:2 4 PM CAR SALESPERSON PHOSPHORUS Routine 05/06/2025 9:24 PM CAR SALESPERSON MAGNESIUM Routine 05/06/2025 9:24 PM CAR SALESPERSON COMPREHENSIVE METABOLIC PANEL Routine 05/06/2025 9:24 PM CAR SALESPERSON CBC WITH AUTO DIFFERENTIAL Routine 05/06/2025 9:24 PM CAR SALESPERSON IRON PROFILE W/ IBC Routine 05/05/2025 1 0:51 PM CAR SALESPERSON VITAMIN B12 Routine 05/05/2025 10:51 PM CAR SALESPERSON FERRITIN Routine 05/05/2025 10:51 PM CAR SALESPERSON EGFR Routine 05/05/2025 10:51 PM CAR SALESPERSON DIFFERENTIAL AUTO Routine 05/05/2025 10: 51 PM CAR SALESPERSON PHOSPHORUS Routine 05/05/2025 10:51 PM CAR SALESPERSON MAGNESIUM Routine 05/05/2025 10:51 PM CAR SALESPERSON COMPREHENSIVE METABOLIC PANEL Routine 05/05/2025 10:51 PM CAR SALESPERSON CBC WITH AUTO DIFFERENTIAL Routine 05/05/2025 10:51 PM CAR SALESPERSON ECG 12-LEAD STAT 05/05/2025 3:00 PM CAR SALESPERSON Procedure Note - Willa Sandoval MD - 05/04/2025 3:01 PM CSTThis note is in progress. Procedure ECG 12 lead Date/Time: 05/04/2025 3:01 PM Performed by: Willa Sandoval MD Authorized by: Yudi Baltazar MD Rate: ECG rate: Rate 80, narrow complex, regular, sinus, no [email or web address] Willa Sandoval MD 05/04/25 1502 ECG 12-LEAD Routine 05/05/2025 1:34 AM CAR SALESPERSON EGFR Routine 05/05/2025 12:58 AM CAR SALESPERSON DIFFERENTIAL AUTO Routine 05/05/2025 12: 58 AM CAR SALESPERSON CBC WITH AUTO DIFFERENTIAL Routine 05/05/2025 12:58 AM CAR SALESPERSON PHOSPHORUS Routine 05/05/2025 12:58 AM CAR SALESPERSON MAGNESIUM Routine 05/05/2025 12:58 AM CAR SALESPERSON COMPREHENSIVE METABOLIC PANEL Routine 05/05/2025 12:58 AM CAR SALESPERSON TROPONIN I HIGH-SENSITIVITY 4-HOUR Timed 05/04/2025 10:46 PM CAR SALESPERSON MAGNESIUM STAT 05/04/2025 6:33 PM CAR SALESPERSON TSH STAT 05/04/2025 6:33 PM CAR SALESPERSON EGFR STAT 05/04/2025 6:33 PM CAR SALESPERSON DIFFERENTIAL AUTO STAT 05/04/2025 6:3 3 PM CAR SALESPERSON TROPONIN I HIGH-SENSITIVITY SERIES (BASELINE, 2HR, 4HR, 6HR) STAT 05/04/2025 6:33 PM CAR SALESPERSON COMPREHENSIVE METABOLIC PANEL STAT 05/04/2025 6:33 PM CAR SALESPERSON CBC WITH AUTO DIFFERENTIAL STAT 05/04/2025 6:33 PM CAR SALESPERSON from Last 3 Months Results * POCT glucose (05/12/2025 8:02 AM CAR SALESPERSON) Glucose, POC 78 70 - 199 mg/dL Blood 05/12/2025 8:02 AM CAR SALESPERSON 05/12/2025 8:02 AM CAR SALESPERSON us Sidney Clay MD LAB POCT ORDERABLES - DEVICE Final Result Performing Organization Address [facility] Co de Phone Number [facility] Department [place] [address] * eGFR (05/11/2025 9:21 PM CAR SALESPERSON) Pathologist [facility] eGFR 88 >=60 mL/min/1. 73 m2 Comment: Interpretive Data [...] interpretive data was last reviewed 2021. Blood 05/11/2025 9:21 PM CAR SALESPERSON 05/11/2025 9:34 PM CAR SALESPERSON us Manuel aMyo MD LAB BLOOD ORDERABLES Final R esult Performing Organization Address City/[facility] Co de Phone Number MARTH[facility] Department [place] [address] * (ABNORMAL) Differential, auto (05/11/2025 9:21 PM CAR SALESPERSON) Pathologist [facility] Neutrophil abs 5.94 1.50 - 6.50 K/cumm Imm gran abs 0.02 0.00 - 0.10 K/cumm [facility] Lymphocyte abs 0.62(L) 0.80 - 3.30 K/cumm [facility] Monocyte abs 0.60 0.20 - 0.80 K/cumm [facility] Eosinophil abs 0.13 0.00 - 0.50 K/cumm [facility] Basophil abs 0.02 0.00 - 0.10 K/cumm [facility] Neutrophil pct 80.9 % [facility] Comment: Interpretive Data Percent cell count reference ranges are not reported, since discordance with absolute values may lead to misinterpretation of CBC data. Current Interpretive Data was last revised on 2017. Imm gran pct 0.3 % [facility] Comment: Interpretive Data Percent cell count reference ranges are not reported, since discordance with absolute values may lead to misinterpretation of CBC data. Current Interpretive Data was last revised on 2017. Lymphocyte pct 8.5 % [facility] Comment: Interpretive Data Percent cell count reference ranges are not reported, since discordance with absolute values may lead to misinterpretation of CBC data. Current Interpretive Data was last revised on 2017. Monocyte pct 8.2 % [facility] Comment: Interpretive Data Percent cell count reference ranges are not reported, since discordance with absolute values may lead to misinterpretation of CBC data. Current Interpretive Data was last revised on 2017. Eosinophil pct 1.8 % [facility] Comment: Interpretive Data Percent cell count reference ranges are not reported, since discordance with absolute values may lead to misinterpretation of CBC data. Current Interpretive Data was last revised on 2017. Basophil pct 0.3 % [facility] Comment: Interpretive Data Percent cell count reference ranges are not reported, since discordance with absolute values may lead to misinterpretation of CBC data. Current Interpretive Data was last revised on 2017. Blood 05/11/2025 9:21 PM CAR SALESPERSON 05/11/2025 9:34 PM CAR SALESPERSON us Sidney Clay MD LAB BLOOD ORDERABLES F inal Result [facility] Department [place] [address] * (ABNORMAL) CBC with auto differential (05/11/2025 9:21 PM CAR SALESPERSON) WBC 7.33 3.80 - 9.90 K/cumm Hgb 13.0 13.0 - 17.5 g/dL [facility] Hct 34.8(L) 38.9 - 50.3 % [facility] Plt 215 150 - 400 K/cumm [facility] MPV 8.8(L) 9.1 - 12.3 fL [facility] RBC 3.79(L) 4.30 - 5.80 M/cumm [facility] MCV 91.8 81.3 - 96.4 fL [facility] MCH 34.3(H) 27.1 - 33.3 pg [facility] MCHC 37.4(H) 32.3 - 35.7 g/dL [facility] RDW CV 15.3(H) 11.1 - 14.9 % [facility] RDW SD 49.9(H) 35.7 - 48.1 fL [facility] NRBC abs 0.00 0.00 - 0.01 K/cumm [facility] Blood 05/11/2025 9:21 PM CAR SALESPERSON 05/11/2025 9:34 PM CAR SALESPERSON us Sidney Clay MD LAB BLOOD ORDERABLES F inal Result Performing Organization Address City/[facility]/ZIP Co de Phone Number [facility] Department [place] [address] * Phosphorus (05/11/2025 9:21 PM CAR SALESPERSON) [facility] Phosphorus, pl 3.0 2.3 - 4.5 mg/dL Blood 05/11/2025 9:21 PM CAR SALESPERSON 05/11/2025 9:34 PM CAR SALESPERSON us Manuel Mayo MD LAB BLOOD ORDERABLES Final R esult Performing Organization Address City/[facility]/ZIP Co de Phone Number [facility] [place] [address] * Magnesium (05/11/2025 9:21 PM CAR SALESPERSON) [facility] Magnesium 2.1 1.4 - 2.5 mg/dL Blood 05/11/2025 9:21 PM CAR SALESPERSON 05/11/2025 9:34 PM CAR SALESPERSON us Manuel Mayo MD LAB BLOOD ORDERABLES Final R esult [facility] Department [place] [address] * (ABNORMAL) Comprehensive metabolic panel (05/11/2025 9:21 PM CAR SALESPERSON) Pathologist [facility] Sodium 132(L) 135 - 145 mmol/L Potassium, pl 3.7 3.3 - 4.9 mmol/L [facility] Chloride 96(L) 97 - 110 mmol/L [facility] CO2 27 22 - 32 mmol/L [facility] Anion gap 9 2 - 15 mmol/L [facility] BUN 15 6 - 25 mg/dL [facility] Creatinine 0.86 0.80 - 1.30 mg/dL [facility] Glucose 107 70 - 199 mg/dL [facility] Comment: Interpretive Data Fasting glucose >/= 126 [...] interpretive data was last revised 2022. Calcium 8.9 8.5 - 10.3 mg/dL [facility] Bilirubin, total 0.7 0.1 - 1.2 mg/dL [facility] Protein, pl 6.6 6.5 - 8.5 g/dL [facility] Albumin 3.5 3.5 - 5.0 g/dL [facility] Alk phos 85 40 - 130 Units/L [facility] ALT 21 7 - 55 Units/L [facility] AST 27 10 - 50 Units/L [facility] Blood 05/11/2025 9:21 PM CAR SALESPERSON 05/11/2025 9:34 PM CAR SALESPERSON us Manuel Mayo MD LAB BLOOD ORDERABLES Final R esult Performing Organization Address [facility] de Phone Number [facility] Department [place] [address] * POCT glucose (05/11/2025 6:26 AM CAR SALESPERSON) [facility] Glucose, POC 83 70 - 199 mg/dL Blood 05/11/2025 6:26 AM CAR SALESPERSON 05/11/2025 6:26 AM CAR SALESPERSON us Sidney Clay MD LAB POCT ORDERABLES - DEVICE Final Result Performing Organization Address [facility] Phone Number [facility] Department [place] [address] * Osmolality, urine (05/10/2025 9:53 PM CAR SALESPERSON) [facility] Osmo, ur 272 mOsm/kg Urine 05/10/2025 9:53 PM CAR SALESPERSON 05/10/2025 10:19 PM CAR SALESPERSON us Sidney Clay MD LAB URINE ORDERABLES F inal Result Performing Organization Address [facility] de Phone Number [facility] [place] [address] * eGFR (05/10/2025 9:45 PM CAR SALESPERSON) [facility] eGFR 87 >=60 mL/min/1. 73 m2 Comment: Interpretive Data [...] interpretive data was last reviewed 2021. Blood 05/10/2025 9:45 PM CAR SALESPERSON 05/10/2025 10:19 PM CAR SALESPERSON us Manuel Mayo MD LAB BLOOD ORDERABLES Final R esult Performing Organization Address [facility] de Phone Number [facility] Department [place] [address] * Phosphorus (05/10/2025 9:45 PM CAR SALESPERSON) Phosphorus, pl 3.1 2.3 - 4.5 mg/dL Blood 05/10/2025 9:45 PM CAR SALESPERSON 05/10/2025 10:19 PM CAR SALESPERSON Manuel Mayo MD LAB BLOOD ORDERABLES Final R esult Performing Organization Address [facility] de Phone Number [facility] Department [place] [address] * Osmolality, blood (05/10/2025 9:45 PM CAR SALESPERSON) Osmo 279 275 - 300 mOsm/kg Blood 05/10/2025 9:45 PM CAR SALESPERSON 05/10/2025 10:19 PM CAR SALESPERSON Sidney Clay MD LAB BLOOD ORDERABLES F inal Result Performing Organization Address [facility] de Phone Number [facility] Department [place] [address] * Magnesium (05/10/2025 9:45 PM CAR SALESPERSON) [facility] Magnesium 2.1 1.4 - 2.5 mg/dL Blood 05/10/2025 9:45 PM CAR SALESPERSON 05/10/2025 10:19 PM CAR SALESPERSON us Manuel Mayo MD LAB BLOOD ORDERABLES Final R esult [facility] Department [place] [address] * Comprehensive metabolic panel (05/10/2025 9:45 PM CAR SALESPERSON) [facility] Sodium 135 135 - 145 mmol/L Potassium, pl 3.7 3.3 - 4.9 mmol/L [facility] Chloride 98 97 - 110 mmol/L [facility] CO2 25 22 - 32 mmol/L [facility] Anion gap 12 2 - 15 mmol/L [facility] BUN 20 6 - 25 mg/dL [facility] Creatinine 0.88 0.80 - 1.30 mg/dL [facility] Glucose 103 70 - 199 mg/dL [facility] Comment: Interpretive Data Fasting glucose >/= 126 [...] interpretive data was last revised 2022. Calcium 9.1 8.5 - 10.3 mg/dL [facility] Bilirubin, total 0.6 0.1 - 1.2 mg/dL [facility] Protein, pl 6.6 6.5 - 8.5 g/dL [facility] Albumin 3.5 3.5 - 5.0 g/dL [facility] Alk phos 84 40 - 130 Units/L [facility] ALT 24 7 - 55 Units/L [facility] [facility] AST 33 10 - 50 Units/L [facility] Blood 05/10/2025 9:45 PM CAR SALESPERSON 05/10/2025 10:19 PM CAR SALESPERSON us Manuel Mayo MD LAB BLOOD ORDERABLES Final R esult Performing Organization Address [facility] Co de Phone Number [facility] [place] [address] * Urea nitrogen, urine, random (05/10/2025 5:13 PM CAR SALESPERSON) Urea nitrogen, ur 398 mg/dL Comment: Interpretive Data No reference range established. Current interpretive data was last revised 2018. Urine 05/10/2025 5:13 PM CAR SALESPERSON 05/10/2025 5:27 PM CAR SALESPERSON us Sidney Clay MD LAB URINE ORDERABLES F inal Result Performing Organization Address [facility] de Phone Number [facility] [place] [address] * Sodium, urine, random (05/10/2025 5:13 PM CAR SALESPERSON) Sodium, ur <20 mmol/L Comment: Interpretive Data No reference range established. Current interpretive data was last revised 2018. Urine 05/10/2025 5:13 PM CAR SALESPERSON 05/10/2025 5:27 PM CAR SALESPERSON Sidney Clay MD LAB URINE ORDERABLES F inal Result Performing Organization Address [facility] Co de Phone Number [facility] [place] [address] * Creatinine, urine, random (05/10/2025 5:13 PM CAR SALESPERSON) Creatinine Ur 47.2 mg/dL Comment: Interpretive Data No reference range established. Current interpretive data was last revised 2018. Urine 05/10/2025 5:1 3 PM CAR SALESPERSON 05/10/2025 5:27 PM CAR SALESPERSON Sidney Clay MD LAB URINE ORDERABLES F inal Result Performing Organization Address City/[facility] Co de Phone Number [facility] Department [place] [address] * POCT glucose (05/10/2025 6:37 AM CAR SALESPERSON) Pathologist [facility] Glucose, POC 87 70 - 199 mg/dL Blood 05/10/2025 6:37 AM CAR SALESPERSON 05/10/2025 6:37 AM CAR SALESPERSON Sidney Clay MD LAB POCT ORDERABLES - DEVICE Final Result Performing Organization Address [facility] de Phone Number [facility] Department [place] [address] * eGFR (05/09/2025 9:31 PM CAR SALESPERSON) eGFR 81 >=60 mL/min/1. 73 m2 Comment: Interpretive Data [...] interpretive data was last reviewed 2021. Blood 05/09/2025 9:31 PM CAR SALESPERSON 05/09/2025 9:51 PM CAR SALESPERSON Manuel Mayo MD LAB BLOOD ORDERABLES Final R esult Performing Organization Address [facility] Co de Phone Number [facility] [place] [address] * Phosphorus (05/09/2025 9:31 PM CAR SALESPERSON) Pathologist [facility] Phosphorus, pl 3.0 2.3 - 4.5 mg/dL Blood 05/09/2025 9:31 PM CAR SALESPERSON 05/09/2025 9:51 PM CAR SALESPERSON Manuel Mayo MD LAB BLOOD ORDERABLES Final R esult Performing Organization Address [facility] de Phone Number [facility] [place] [address] * Magnesium (05/09/2025 9:31 PM CAR SALESPERSON) [facility] Magnesium 2.0 1.4 - 2.5 mg/dL Blood 05/09/2025 9:31 PM CAR SALESPERSON 05/09/2025 9:51 PM CAR SALESPERSON Manuel Mayo MD LAB BLOOD ORDERABLES Final R esult Performing Organization Address [facility] Co de Phone Number [facility] [place] [address] * (ABNORMAL) Comprehensive metabolic panel (05/09/2025 9:31 PM CAR SALESPERSON) Pathologist [facility] Sodium 130(L) 135 - 145 mmol/L Potassium, pl 3.7 3.3 - 4.9 mmol/L [facility] Comment:Hemolyzed; Potassium value may be falsely elevated by as much as 0.3-0.5 mmol/L. Suggest redraw and reanalysis. Chloride 96(L) 97 - 110 mmol/L [facility] CO2 24 22 - 32 mmol/L [facility] Anion gap 10 2 - 15 mmol/L [facility] BUN 19 6 - 25 mg/dL [facility] Creatinine 0.95 0.80 - 1.30 mg/dL [facility] Glucose 104 70 - 199 mg/dL [facility] Comment: Interpretive Data Fasting glucose >/= 126 [...] interpretive data was last revised 2022. Calcium 8.6 8.5 - 10.3 mg/dL [facility] Bilirubin, total 0.6 0.1 - 1.2 mg/dL [facility] Protein, pl 6.4(L) 6.5 - 8.5 g/dL [facility] Albumin 3.5 3.5 - 5.0 g/dL [facility] Alk phos 76 40 - 130 Units/L [facility] ALT 23 7 - 55 Units/L [facility] AST 40 10 - 50 Units/L [facility] Comment:Hemolyzed; result ma y be falsely elevated Blood 05/09/2025 9:31 PM CAR SALESPERSON 05/09/2025 9:51 PM CAR SALESPERSON us Manuel Mayo MD LAB BLOOD ORDERABLES Final R esult [facility] Department [place] [address] * POCT glucose (05/09/2025 8:18 PM CAR SALESPERSON) [facility] Glucose, POC 114 70 - 199 mg/dL Blood 05/09/2025 8:18 PM CAR SALESPERSON 05/09/2025 8:18 PM CAR SALESPERSON Sidney Clay MD LAB POCT ORDERABLES - DEVICE Final Result Performing Organization Address [facility] de Phone Number [facility] [place] [address] * Cortisol (05/09/2025 5:34 AM CAR SALESPERSON) Cortisol 7.8 4.8 - 19.5 mcg/dL Comment: Interpretive Data: Morning hours 6-10 a.m. 4.8 - 19.5 mcg/dL Afternoon hours 4-8 p.m. 2.5 - 11.9 mcg/dL This analyte undergoes marked diurnal variation. Current interpretive data was last revised 23. Blood 05/09/2025 5:34 AM CAR SALESPERSON 05/09/2025 5:48 AM CAR SALESPERSON Sidney Clay MD LAB BLOOD ORDERABLES F inal Result Performing Organization Address [facility] de Phone Number [facility] [place] [address] * eGFR (05/08/2025 9:33 PM CAR SALESPERSON) eGFR 87 >=60 mL/min/1. 73 m2 Comment: Interpretive Data [...] interpretive data was last reviewed 2021. Blood 05/08/2025 9:33 PM CAR SALESPERSON 05/08/2025 10:36 PM CAR SALESPERSON us Manuel Mayo MD LAB BLOOD ORDERABLES Final R esult [facility] Department [place] [address] * (ABNORMAL) Differential, auto (05/08/2025 9:33 PM CAR SALESPERSON) Neutrophil abs 4.75 1.50 - 6.50 K/cumm Imm gran abs 0.02 0.00 - 0.10 K/cumm [facility] Lymphocyte abs 0.61(L) 0.80 - 3.30 K/cumm [facility] Monocyte abs 0.47 0.20 - 0.80 K/cumm [facility] Eosinophil abs 0.07 0.00 - 0.50 K/cumm [facility] Basophil abs 0.02 0.00 - 0.10 K/cumm [facility] Neutrophil pct 80.0 % [facility] Comment: Interpretive Data Percent cell count reference ranges are not reported, since discordance with absolute values may lead to misinterpretation of CBC data. Current Interpretive Data was last revised on 2017. Imm gran pct 0.3 % [facility] Comment: Interpretive Data Percent cell count reference ranges are not reported, since discordance with absolute values may lead to misinterpretation of CBC data. Current Interpretive Data was last revised on 2017. Lymphocyte pct 10.3 % [facility] Comment: Interpretive Data Percent cell count reference ranges are not reported, since discordance with absolute values may lead to misinterpretation of CBC data. Current Interpretive Data was last revised on 2017. Monocyte pct 7.9 % [facility] Comment: Interpretive Data Percent cell count reference ranges are not reported, since discordance with absolute values may lead to misinterpretation of CBC data. Current Interpretive Data was last revised on 2017. Eosinophil pct 1.2 % [facility] Comment: Interpretive Data Percent cell count reference ranges are not reported, since discordance with absolute values may lead to misinterpretation of CBC data. Current Interpretive Data was last revised on 2017. Basophil pct 0.3 % [facility] Comment: Interpretive Data Percent cell count reference ranges are not reported, since discordance with absolute values may lead to misinterpretation of CBC data. Current Interpretive Data was last revised on 2017. Blood 05/08/2025 9:33 PM CAR SALESPERSON 05/08/2025 10:09 PM CAR SALESPERSON us Manuel Mayo MD LAB BLOOD ORDERABLES Final R esult [facility] Department [place] [address] * (ABNORMAL) CBC with auto differential (05/08/2025 9:33 PM CAR SALESPERSON) WBC 5.94 3.80 - 9.90 K/cumm Hgb 13.0 13.0 - 17.5 g/dL [facility] Hct 34.8(L) 38.9 - 50.3 % [facility] Plt 228 150 - 400 K/cumm [facility] MPV 9.0(L) 9.1 - 12.3 fL [facility] RBC 3.85(L) 4.30 - 5.80 M/cumm [facility] MCV 90.4 81.3 - 96.4 fL [facility] MCH 33.8(H) 27.1 - 33.3 pg [facility] MCHC 37.4(H) 32.3 - 35.7 g/dL [facility] RDW CV 14.7 11.1 - 14.9 % [facility] RDW SD 47.5 35.7 - 48.1 fL [facility] NRBC abs 0.00 0.00 - 0.01 K/cumm [facility] Blood 05/08/2025 9:33 PM CAR SALESPERSON 05/08/2025 10:09 PM CAR SALESPERSON us Manuel Mayo MD LAB BLOOD ORDERABLES Final R esult Performing Organization Address City/[facility] Co de Phone Number [facility] [place] [address] * Phosphorus (05/08/2025 9:33 PM CAR SALESPERSON) Pathologist [facility] Phosphorus, pl 3.0 2.3 - 4.5 mg/dL Blood 05/08/2025 9:33 PM CAR SALESPERSON 05/08/2025 10:36 PM CAR SALESPERSON us Manuel Mayo MD LAB BLOOD ORDERABLES Final R esult Performing Organization Address [facility] Co de Phone Number [facility] [place] [address] * Magnesium (05/08/2025 9:33 PM CAR SALESPERSON) [facility] Magnesium 2.1 1.4 - 2.5 mg/dL Blood 05/08/2025 9:33 PM CAR SALESPERSON 05/08/2025 10:36 PM CAR SALESPERSON Manuel Mayo MD LAB BLOOD ORDERABLES Final R esult Performing Organization Address [facility] de Phone Number [facility] [place] [address] * (ABNORMAL) Comprehensive metabolic panel (05/08/2025 9:33 PM CAR SALESPERSON) [facility] Sodium 133(L) 135 - 145 mmol/L Potassium, pl 3.7 3.3 - 4.9 mmol/L [facility] Comment:Hemolyzed; Potassium value may be falsely elevated by as much as 0.3-0.5 mmol/L. Suggest redraw and reanalysis. Chloride 100 97 - 110 mmol/L [facility] CO2 24 22 - 32 mmol/L [facility] Anion gap 9 2 - 15 mmol/L [facility] BUN 17 6 - 25 mg/dL [facility] Creatinine 0.87 0.80 - 1.30 mg/dL [facility] Glucose 110 70 - 199 mg/dL [facility] Comment: Interpretive Data Fasting glucose >/= 126 [...] interpretive data was last revised 2022. Calcium 9.0 8.5 - 10.3 mg/dL [facility] Bilirubin, total 0.7 0.1 - 1.2 mg/dL [facility] Protein, pl 6.5 6.5 - 8.5 g/dL [facility] Albumin 3.5 3.5 - 5.0 g/dL [facility] Alk phos 85 40 - 130 Units/L [facility] ALT 19 7 - 55 Units/L [facility] AST 33 10 - 50 Units/L [facility] Comment:Hemolyzed; result ma y be falsely elevated Blood 05/08/2025 9:33 PM CAR SALESPERSON 05/08/2025 10:36 PM CAR SALESPERSON us Manuel Mayo MD LAB BLOOD ORDERABLES Final R esult [facility] Department [place] [address] * Cortisol 60 min (05/08/2025 9:50 AM CAR SALESPERSON) Cortisol, 60 min 15.6 mcg/dL Comment: Interpretive Data Reference Values Cortisol cutoff of 14-15 ug/dL for cortrosyn stimulation testing. Lack of normal response can be seen in both primary and secondary adrenal failure. Some patients with secondary adrenal failure have normal response to cortrosyn. If pituitary disease is known or strongly suspected e.g. after pituitary surgery), the cortrosyn test alone should not be relied on to exclude adrenal failure. Literature References: 1. Umair Noriega Carroll TB, et al. New cutoffs for the biochemical diagnosis of adrenal insufficiency after ACTH stimulation using specific cortisol assays. J Endocr Soc. 2020;5(4):bbsw817. 2. Porter BROWN and Roberth YBARRA. New cutoffs for the biochemical diagnosis of Adrenal insufficiency after ACTH stimulation using specific cortisol assays. J. Endocrine Soc 2020;5:1-2. Current interpret data was last revised 24 Blood 05/08/2025 9:50 AM CAR SALESPERSON 05/08/2025 10:07 AM CAR SALESPERSON Narrative [facility] - 05/08/2025 10:46 AM CAR SALESPERSON First draw prior to administration of cosyntropin. Second draw 30 minutes after administration of drug. Third draw 60 minutes after administration of drug. Sidney Clay MD LAB BLOOD ORDERABLES F inal Result [facility] Department [place] [address] * Cortisol 30 min (05/08/2025 9:15 AM CAR SALESPERSON) [facility] Signature Cortisol, 30 min 15.1 mcg/dL Comment: Interpretive Data Reference Values Cortisol cutoff of 14-15 ug/dL for cortrosyn stimulation testing. Lack of normal response can be seen in both primary and secondary adrenal failure. Some patients with secondary adrenal failure have normal response to cortrosyn. If pituitary disease is known or strongly suspected e.g. after pituitary surgery), the cortrosyn test alone should not be relied on to exclude adrenal failure. Literature References: 1. Umair Noriega Carroll TB, et al. New cutoffs for the biochemical diagnosis of adrenal insufficiency after ACTH stimulation using specific cortisol assays. J Endocr Soc. 2020;5(4):sjnd291. 2. Porter BROWN and Roberth YBARRA. New cutoffs for the biochemical diagnosis of Adrenal insufficiency after ACTH stimulation using specific cortisol assays. J. Endocrine Soc 2020;5:1-2. Current interpret data was last revised 24 Blood 05/08/2025 9:15 AM CAR SALESPERSON 05/08/2025 9:27 AM CAR SALESPERSON Narrative [facility] - 05/08/2025 10:06 AM CAR SALESPERSON First draw prior to administration of cosyntropin. Second draw 30 minutes after administration of drug. Third draw 60 minutes after administration of drug. Sidney Clay MD LAB BLOOD ORDERABLES F inal Result Performing Organization Address [facility] Co de Phone Number [facility] [place] [address] * Cortisol baseline (05/08/2025 8:42 AM CAR SALESPERSON) Pathologist [facility] Cortisol, base 9.3 mcg/dL Blood 05/08/2025 8:42 AM CAR SALESPERSON 05/08/2025 9:00 AM CAR SALESPERSON Narrative [facility] - 05/08/2025 10:05 AM CAR SALESPERSON First draw prior to administration of cosyntropin. Second draw 30 minutes after administration of drug. Third draw 60 minutes after administration of drug. Sidney Clay MD LAB BLOOD ORDERABLES F inal Result Performing Organization Address City/[facility] Co de Phone Number [facility] Department [place] [address] * eGFR (05/07/2025 9:34 PM CAR SALESPERSON) eGFR 89 >=60 mL/min/1. 73 m2 Comment: Interpretive Data [...] interpretive data was last reviewed 2021. Blood 05/07/2025 9:34 PM CAR SALESPERSON 05/07/2025 10:54 PM CAR SALESPERSON us Manuel Mayo MD LAB BLOOD ORDERABLES Final R esult [facility] Department [place] [address] * Differential, auto (05/07/2025 9:34 PM CAR SALESPERSON) Neutrophil abs 4.45 1.50 - 6.50 K/cumm Imm gran abs 0.03 0.00 - 0.10 K/cumm [facility] Lymphocyte abs 0.85 0.80 - 3.30 K/cumm [facility] Monocyte abs 0.64 0.20 - 0.80 K/cumm [facility] Eosinophil abs 0.20 0.00 - 0.50 K/cumm [facility] Basophil abs 0.05 0.00 - 0.10 K/cumm [facility] Neutrophil pct 71.5 % [facility] Comment: Interpretive Data Percent cell count reference ranges are not reported, since discordance with absolute values may lead to misinterpretation of CBC data. Current Interpretive Data was last revised on 2017. Imm gran pct 0.5 % [facility] Comment: Interpretive Data Percent cell count reference ranges are not reported, since discordance with absolute values may lead to misinterpretation of CBC data. Current Interpretive Data was last revised on 2017. Lymphocyte pct 13.7 % [facility] Comment: Interpretive Data Percent cell count reference ranges are not reported, since discordance with absolute values may lead to misinterpretation of CBC data. Current Interpretive Data was last revised on 2017. Monocyte pct 10.3 % [facility] Comment: Interpretive Data Percent cell count reference ranges are not reported, since discordance with absolute values may lead to misinterpretation of CBC data. Current Interpretive Data was last revised on 2017. Eosinophil pct 3.2 % [facility] Comment: Interpretive Data Percent cell count reference ranges are not reported, since discordance with absolute values may lead to misinterpretation of CBC data. Current Interpretive Data was last revised on 2017. Basophil pct 0.8 % [facility] Comment: Interpretive Data Percent cell count reference ranges are not reported, since discordance with absolute values may lead to misinterpretation of CBC data. Current Interpretive Data was last revised on 2017. Blood 05/07/2025 9:34 PM CAR SALESPERSON 05/07/2025 10:55 PM CAR SALESPERSON us Manuel Mayo MD LAB BLOOD ORDERABLES Final R esult [facility] Department [place] [address] * (ABNORMAL) CBC with auto differential (05/07/2025 9:34 PM CAR SALESPERSON) WBC 6.22 3.80 - 9.90 K/cumm Hgb 12.7(L) 13.0 - 17.5 g/dL [facility] Hct 34.9(L) 38.9 - 50.3 % [facility] Plt 217 150 - 400 K/cumm [facility] MPV 9.2 9.1 - 12.3 fL [facility] RBC 3.81(L) 4.30 - 5.80 M/cumm [facility] MCV 91.6 81.3 - 96.4 fL [facility] MCH 33.3 27.1 - 33.3 pg [facility] MCHC 36.4(H) 32.3 - 35.7 g/dL [facility] RDW CV 14.5 11.1 - 14.9 % [facility] RDW SD 47.0 35.7 - 48.1 fL [facility] NRBC abs 0.00 0.00 - 0.01 K/cumm [facility] Blood 05/07/2025 9:34 PM CAR SALESPERSON 05/07/2025 10:55 PM CAR SALESPERSON Manuel Mayo MD LAB BLOOD ORDERABLES Final R esult Performing Organization Address City/[facility] Co de Phone Number [facility] [place] [address] * Phosphorus (05/07/2025 9:34 PM CAR SALESPERSON) [facility] Phosphorus, pl 3.5 2.3 - 4.5 mg/dL Blood 05/07/2025 9:34 PM CAR SALESPERSON 05/07/2025 10:54 PM CAR SALESPERSON Manuel Mayo MD LAB BLOOD ORDERABLES Final R esult Performing Organization Address [facility] de Phone Number [facility] [place] [address] * Magnesium (05/07/2025 9:34 PM CAR SALESPERSON) [facility] Magnesium 2.1 1.4 - 2.5 mg/dL Blood 05/07/2025 9:34 PM CAR SALESPERSON 05/07/2025 10:54 PM CAR SALESPERSON Manuel Mayo MD LAB BLOOD ORDERABLES Final R esult Performing Organization Address City/[facility] de Phone Number [facility] [place] [address] * (ABNORMAL) Comprehensive metabolic panel (05/07/2025 9:34 PM CAR SALESPERSON) [facility] Sodium 134(L) 135 - 145 mmol/L Potassium, pl 3.8 3.3 - 4.9 mmol/L [facility] Chloride 98 97 - 110 mmol/L [facility] CO2 27 22 - 32 mmol/L [facility] Anion gap 9 2 - 15 mmol/L [facility] BUN 18 6 - 25 mg/dL [facility] Creatinine 0.82 0.80 - 1.30 mg/dL [facility] Glucose 93 70 - 199 mg/dL [facility] Comment: Interpretive Data Fasting glucose >/= 126 [...] interpretive data was last revised 2022. Calcium 8.8 8.5 - 10.3 mg/dL [facility] Bilirubin, total 0.7 0.1 - 1.2 mg/dL [facility] Protein, pl 6.3(L) 6.5 - 8.5 g/dL [facility] Albumin 3.5 3.5 - 5.0 g/dL [facility] Alk phos 85 40 - 130 Units/L [facility] ALT 19 7 - 55 Units/L [facility] AST 28 10 - 50 Units/L [facility] Blood 05/07/2025 9:34 PM CAR SALESPERSON 05/07/2025 10:54 PM CAR SALESPERSON us Manuel Mayo MD LAB BLOOD ORDERABLES Final R esult [facility] Department [place] [address] * Infection Prevention Rekha auris PCR, surveillance Axilla/Groin (05/07/2025 10:58 AM CAR SALESPERSON) Rekha auris DNA Not Detected Not Detected [facility] Comment: Interpretive Data Testing performed by [facility] using the Gabriella luz [id number] Rekha auris assay. This assay detects DNA from Rekha auris using Real-Time PCR. This assay is laboratory developed and is not cleared by the [place] Food and Drug Administration. The performance characteristics have been verified by the [facility]. Axilla/Groin 05/07/2025 10:5 8 AM CAR SALESPERSON 05/07/2025 11:23 AM CAR SALESPERSON Cl Verma MD LAB MICROBIOLOGY - GENERAL ORDER JANELL Final Result Performing Organization Address City/[facility] Co de Phone Number [facility] [facility] Department [place] [address] [facility] * eGFR (05/06/2025 9:24 PM CAR SALESPERSON) eGFR 73 >=60 mL/min/1. 73 m2 Comment: Interpretive Data [...] interpretive data was last reviewed 2021. Blood 05/06/2025 9:24 PM CAR SALESPERSON 05/06/2025 9:34 PM CAR SALESPERSON us Manuel Mayo MD LAB BLOOD ORDERABLES Final R esult Performing Organization Address City/[facility]/ZIP Co de Phone Number [facility] Department [place] [address] * Differential, auto (05/06/2025 9:24 PM CAR SALESPERSON) Neutrophil abs 3.61 1.50 - 6.50 K/cumm Imm gran abs 0.02 0.00 - 0.10 K/cumm [facility] Lymphocyte abs 0.83 0.80 - 3.30 K/cumm [facility] Monocyte abs 0.54 0.20 - 0.80 K/cumm [facility] Eosinophil abs 0.18 0.00 - 0.50 K/cumm [facility] Basophil abs 0.03 0.00 - 0.10 K/cumm [facility] Neutrophil pct 69.2 % [facility] Comment: Interpretive Data Percent cell count reference ranges are not reported, since discordance with absolute values may lead to misinterpretation of CBC data. Current Interpretive Data was last revised on 2017. Imm gran pct 0.4 % [facility] Comment: Interpretive Data Percent cell count reference ranges are not reported, since discordance with absolute values may lead to misinterpretation of CBC data. Current Interpretive Data was last revised on 2017. Lymphocyte pct 15.9 % [facility] Comment: Interpretive Data Percent cell count reference ranges are not reported, since discordance with absolute values may lead to misinterpretation of CBC data. Current Interpretive Data was last revised on 2017. Monocyte pct 10.4 % [facility] Comment: Interpretive Data Percent cell count reference ranges are not reported, since discordance with absolute values may lead to misinterpretation of CBC data. Current Interpretive Data was last revised on 2017. Eosinophil pct 3.5 % [facility] Comment: Interpretive Data Percent cell count reference ranges are not reported, since discordance with absolute values may lead to misinterpretation of CBC data. Current Interpretive Data was last revised on 2017. Basophil pct 0.6 % [facility] Comment: Interpretive Data Percent cell count reference ranges are not reported, since discordance with absolute values may lead to misinterpretation of CBC data. Current Interpretive Data was last revised on 2017. Blood 05/06/2025 9:24 PM CAR SALESPERSON 05/06/2025 9:34 PM CAR SALESPERSON us Manuel Mayo MD LAB BLOOD ORDERABLES Final R esult [facility] [place] [address] * (ABNORMAL) CBC with auto differential (05/06/2025 9:24 PM CAR SALESPERSON) Pathologist [facility] WBC 5.21 3.80 - 9.90 K/cumm Hgb 12.6(L) 13.0 - 17.5 g/dL [facility] Hct 34.7(L) 38.9 - 50.3 % [facility] Plt 187 150 - 400 K/cumm [facility] MPV 8.7(L) 9.1 - 12.3 fL [facility] RBC 3.78(L) 4.30 - 5.80 M/cumm [facility] MCV 91.8 81.3 - 96.4 fL [facility] MCH 33.3 27.1 - 33.3 pg [facility] MCHC 36.3(H) 32.3 - 35.7 g/dL [facility] RDW CV 14.2 11.1 - 14.9 % [facility] RDW SD 46.5 35.7 - 48.1 fL [facility] NRBC abs 0.00 0.00 - 0.01 K/cumm [facility] Blood 05/06/2025 9:24 PM CAR SALESPERSON 05/06/2025 9:34 PM CAR SALESPERSON us Manuel Mayo MD LAB BLOOD ORDERABLES Final R esult [facility] Department [place] [address] * Phosphorus (05/06/2025 9:24 PM CAR SALESPERSON) Pathologist [facility] Phosphorus, pl 3.2 2.3 - 4.5 mg/dL Blood 05/06/2025 9:24 PM CAR SALESPERSON 05/06/2025 9:34 PM CAR SALESPERSON us Manuel Mayo MD LAB BLOOD ORDERABLES Final R esult [facility] Department [place] [address] * Magnesium (05/06/2025 9:24 PM CAR SALESPERSON) [facility] Magnesium 2.0 1.4 - 2.5 mg/dL Blood 05/06/2025 9:24 PM CAR SALESPERSON 05/06/2025 9:34 PM CAR SALESPERSON Manuel Mayo MD LAB BLOOD ORDERABLES Final R esult Performing Organization Address [facility] Co de Phone Number [facility] Department [place] [address] * (ABNORMAL) Comprehensive metabolic panel (05/06/2025 9:24 PM CAR SALESPERSON) [facility] Sodium 136 135 - 145 mmol/L Potassium, pl 3.6 3.3 - 4.9 mmol/L [facility] Chloride 100 97 - 110 mmol/L [facility] CO2 27 22 - 32 mmol/L [facility] Anion gap 9 2 - 15 mmol/L [facility] BUN 15 6 - 25 mg/dL [facility] Creatinine 1.03 0.80 - 1.30 mg/dL [facility] Glucose 115 70 - 199 mg/dL [facility] Comment: Interpretive Data Fasting glucose >/= 126 [...] interpretive data was last revised 2022. Calcium 8.7 8.5 - 10.3 mg/dL [facility] Bilirubin, total 0.7 0.1 - 1.2 mg/dL [facility] Protein, pl 6.3(L) 6.5 - 8.5 g/dL [facility] Albumin 3.5 3.5 - 5.0 g/dL [facility] Alk phos 89 40 - 130 Units/L [facility] ALT 19 7 - 55 Units/L [facility] AST 27 10 - 50 Units/L [facility] Blood 05/06/2025 9:24 PM CAR SALESPERSON 05/06/2025 9:34 PM CAR SALESPERSON us Manuel Mayo MD LAB BLOOD ORDERABLES Final R esult Performing Organization Address City/[facility]/ZIP Co de Phone Number [facility] Department [place] [address] * eGFR (05/05/2025 10:51 PM CAR SALESPERSON) eGFR 77 >=60 mL/min/1. 73 m2 Comment: Interpretive Data [...] interpretive data was last reviewed 2021. Blood 05/05/2025 10:5 1 PM CAR SALESPERSON 05/05/2025 11:06 PM CAR SALESPERSON us Manuel Mayo MD LAB BLOOD ORDERABLES Final R esult MARTHA TIERNEY [facility] Department [place] [address] * (ABNORMAL) Differential, auto (05/05/2025 10:51 PM CAR SALESPERSON) Neutrophil abs 3.65 1.50 - 6.50 K/cumm Imm gran abs 0.03 0.00 - 0.10 K/cumm [facility] Lymphocyte abs 0.71(L) 0.80 - 3.30 K/cumm [facility] Monocyte abs 0.58 0.20 - 0.80 K/cumm [facility] Eosinophil abs 0.17 0.00 - 0.50 K/cumm [facility] Basophil abs 0.03 0.00 - 0.10 K/cumm [facility] Neutrophil pct 70.6 % [facility] Comment: Interpretive Data Percent cell count reference ranges are not reported, since discordance with absolute values may lead to misinterpretation of CBC data. Current Interpretive Data was last revised on 2017. Imm gran pct 0.6 % [facility] Comment: Interpretive Data Percent cell count reference ranges are not reported, since discordance with absolute values may lead to misinterpretation of CBC data. Current Interpretive Data was last revised on 2017. Lymphocyte pct 13.7 % [facility] Comment: Interpretive Data Percent cell count reference ranges are not reported, since discordance with absolute values may lead to misinterpretation of CBC data. Current Interpretive Data was last revised on 2017. Monocyte pct 11.2 % [facility] Comment: Interpretive Data Percent cell count reference ranges are not reported, since discordance with absolute values may lead to misinterpretation of CBC data. Current Interpretive Data was last revised on 2017. Eosinophil pct 3.3 % [facility] Comment: Interpretive Data Percent cell count reference ranges are not reported, since discordance with absolute values may lead to misinterpretation of CBC data. Current Interpretive Data was last revised on 2017. Basophil pct 0.6 % [facility] Comment: Interpretive Data Percent cell count reference ranges are not reported, since discordance with absolute values may lead to misinterpretation of CBC data. Current Interpretive Data was last revised on 2017. Blood 05/05/2025 10:5 1 PM CAR SALESPERSON 05/05/2025 11:06 PM CAR SALESPERSON us Manuel Mayo MD LAB BLOOD ORDERABLES Final R esult Performing Organization Address City/[facility]/ZIP Co de Phone Number [facility] Department [place] [address] * (ABNORMAL) Iron profile w/ IBC (05/05/2025 10:51 PM CAR SALESPERSON) [facility] Iron 53 50 - 150 mcg/dL TIBC 204(L) 250 - 400 mcg/dL [facility] Transferrin saturation 26 20 - 50 % [facility] Blood 05/05/2025 10:5 1 PM CAR SALESPERSON 05/05/2025 11:06 PM CAR SALESPERSON us Manuel Mayo MD LAB BLOOD ORDERABLES Final R esult Performing Organization Address [facility] Co de Phone Number [facility] Department [place] [address] * (ABNORMAL) CBC with auto differential (05/05/2025 10:51 PM CAR SALESPERSON) [facility] WBC 5.17 3.80 - 9.90 K/cumm Hgb 11.7(L) 13.0 - 17.5 g/dL [facility] Hct 33.1(L) 38.9 - 50.3 % [facility] Plt 191 150 - 400 K/cumm [facility] MPV 9.4 9.1 - 12.3 fL [facility] RBC 3.53(L) 4.30 - 5.80 M/cumm [facility] MCV 93.8 81.3 - 96.4 fL [facility] MCH 33.1 27.1 - 33.3 pg [facility] MCHC 35.3 32.3 - 35.7 g/dL [facility] RDW CV 14.2 11.1 - 14.9 % [facility] RDW SD 46.8 35.7 - 48.1 fL [facility] NRBC abs 0.00 0.00 - 0.01 K/cumm [facility] Blood 05/05/2025 10:5 1 PM CAR SALESPERSON 05/05/2025 11:06 PM CAR SALESPERSON Manuel Mayo MD LAB BLOOD ORDERABLES Final R esult Performing Organization Address City/[facility] Co de Phone Number [facility] [place] [address] * Phosphorus (05/05/2025 10:51 PM CAR SALESPERSON) Phosphorus, pl 3.1 2.3 - 4.5 mg/dL Blood 05/05/2025 10:5 1 PM CAR SALESPERSON 05/05/2025 11:06 PM CAR SALESPERSON us Manuel Mayo MD LAB BLOOD ORDERABLES Final R esult Performing Organization Address City/[facility] Co de Phone Number [facility] [place] [address] * Magnesium (05/05/2025 10:51 PM CAR SALESPERSON) Magnesium 2.0 1.4 - 2.5 mg/dL Blood 05/05/2025 10:5 1 PM CAR SALESPERSON 05/05/2025 11:06 PM CAR SALESPERSON Manuel Mayo MD LAB BLOOD ORDERABLES Final R esult Performing Organization Address City/[facility] Co de Phone Number [facility] [place] [address] * Ferritin (05/05/2025 10:51 PM CAR SALESPERSON) Ferritin 253 30 - 400 ng/mL Blood 05/05/2025 10:5 1 PM CAR SALESPERSON 05/05/2025 11:06 PM CAR SALESPERSON us Manuel Mayo MD LAB BLOOD ORDERABLES Final R esult [facility] Department [place] [address] * (ABNORMAL) Vitamin B12 (05/05/2025 10:51 PM CAR SALESPERSON) Pathologist [facility] Vitamin B12 1,303(H) 230 - 1,250 pg/mL Blood 05/05/2025 10:5 1 PM CAR SALESPERSON 05/05/2025 11:06 PM CAR SALESPERSON Manuel Mayo MD LAB BLOOD ORDERABLES Final R esult Performing Organization Address [facility] Co de Phone Number [facility] Department [place] [address] * (ABNORMAL) Comprehensive metabolic panel (05/05/2025 10:51 PM CAR SALESPERSON) [facility] Sodium 133(L) 135 - 145 mmol/L Potassium, pl 3.6 3.3 - 4.9 mmol/L [facility] Chloride 98 97 - 110 mmol/L [facility] CO2 28 22 - 32 mmol/L [facility] Anion gap 7 2 - 15 mmol/L [facility] BUN 15 6 - 25 mg/dL [facility] Creatinine 0.99 0.80 - 1.30 mg/dL [facility] Glucose 111 70 - 199 mg/dL [facility] Comment: Interpretive Data Fasting glucose >/= 126 [...] interpretive data was last revised 2022. Calcium 8.7 8.5 - 10.3 mg/dL [facility] Bilirubin, total 0.7 0.1 - 1.2 mg/dL [facility] Protein, pl 6.2(L) 6.5 - 8.5 g/dL [facility] Albumin 3.4(L) 3.5 - 5.0 g/dL [facility] Alk phos 85 40 - 130 Units/L [facility] ALT 19 7 - 55 Units/L [facility] AST 29 10 - 50 Units/L [facility] Blood 05/05/2025 10:5 1 PM CAR SALESPERSON 05/05/2025 11:06 PM CAR SALESPERSON us Manuel Mayo MD LAB BLOOD ORDERABLES Final R esult [facility] Department [place] [address] * ECG 12 lead (05/05/2025 1:34 AM CAR SALESPERSON) Pathologist [facility] Ventricular Rate EKG/Min [address] [facility] Atrial Rate 65 BPM [facility] DE-Interval (MSEC) 230 ms [facility] QRS-Interval (MSEC) 86 ms [facility] QT-Interval (MSEC) 414 ms [facility] QTc 430 ms [facility] P Mcdermott 61 degrees [facility] R Mcdermott -32 degrees [facility] T Mcdermott 7 degrees [facility] Diagnosis Sinus rhythm with 1st degree A-V block Left axis deviation QS in V1 and V2, a nonspecific finding with multiple causes, including lead misplacement or septal infarction in 20% Inferior infarct (cited on or before 02-MAR-2023) Low Voltage QRS consider Obesity, Pulmonary disease pattern, Pericardial Effusion, or normal variant Abnormal ECG When compared with ECG of 02-MAR-2023 08:00, Questionable change in initial forces of Septal leads Confirmed by fellow Smita Berman ([id number]) on 05/07/2025 9:42:39 AM Confirmed by ZE CRUZ M.D ([id number]) on 05/07/2025 9:43:09 AM [facility] 05/05/2025 1:34 AM CAR SALESPERSON 05/07/2025 9:43 AM CAR SALESPERSON Tiffany Schrader MD ECG ORDERABLES Final Resul t [facility] * eGFR (05/05/2025 12:58 AM CAR SALESPERSON) eGFR 87 >=60 mL/min/1. 73 m2 Comment: Interpretive Data [...] interpretive data was last reviewed 2021. Blood 05/05/2025 12:5 8 AM CAR SALESPERSON 05/05/2025 1:28 AM CAR SALESPERSON Tiffany Schrader MD LAB BLOOD ORDERABLES Final Result Performing Organization Address City/[facility]/ZIP Co de Phone Number [facility] Department [place] [address] * (ABNORMAL) Differential, auto (05/05/2025 12:58 AM CAR SALESPERSON) Neutrophil abs 3.61 1.50 - 6.50 K/cumm Imm gran abs 0.02 0.00 - 0.10 K/cumm [facility] Lymphocyte abs 0.76(L) 0.80 - 3.30 K/cumm [facility] Monocyte abs 0.57 0.20 - 0.80 K/cumm [facility] Eosinophil abs 0.17 0.00 - 0.50 K/cumm [facility] Basophil abs 0.03 0.00 - 0.10 K/cumm [facility] Neutrophil pct 70.0 % [facility] Comment: Interpretive Data Percent cell count reference ranges are not reported, since discordance with absolute values may lead to misinterpretation of CBC data. Current Interpretive Data was last revised on 2017. Imm gran pct 0.4 % [facility] Comment: Interpretive Data Percent cell count reference ranges are not reported, since discordance with absolute values may lead to misinterpretation of CBC data. Current Interpretive Data was last revised on 2017. Lymphocyte pct 14.7 % [facility] Comment: Interpretive Data Percent cell count reference ranges are not reported, since discordance with absolute values may lead to misinterpretation of CBC data. Current Interpretive Data was last revised on 2017. Monocyte pct 11.0 % [facility] Comment: Interpretive Data Percent cell count reference ranges are not reported, since discordance with absolute values may lead to misinterpretation of CBC data. Current Interpretive Data was last revised on 2017. Eosinophil pct 3.3 % [facility] Comment: Interpretive Data Percent cell count reference ranges are not reported, since discordance with absolute values may lead to misinterpretation of CBC data. Current Interpretive Data was last revised on 2017. Basophil pct 0.6 % [facility] Comment: Interpretive Data Percent cell count reference ranges are not reported, since discordance with absolute values may lead to misinterpretation of CBC data. Current Interpretive Data was last revised on 2017. Blood 05/05/2025 12:5 8 AM CAR SALESPERSON 05/05/2025 1:28 AM CAR SALESPERSON us Tiffany Schrader MD LAB BLOOD ORDERABLES Final Result [facility] Department [place] [address] * (ABNORMAL) CBC with auto differential (05/05/2025 12:58 AM CAR SALESPERSON) WBC 5.16 3.80 - 9.90 K/cumm Hgb 12.3(L) 13.0 - 17.5 g/dL [facility] Hct 34.1(L) 38.9 - 50.3 % [facility] Plt 188 150 - 400 K/cumm [facility] MPV 9.4 9.1 - 12.3 fL [facility] RBC 3.69(L) 4.30 - 5.80 M/cumm [facility] MCV 92.4 81.3 - 96.4 fL [facility] MCH 33.3 27.1 - 33.3 pg [facility] MCHC 36.1(H) 32.3 - 35.7 g/dL [facility] RDW CV 14.3 11.1 - 14.9 % [facility] RDW SD 47.1 35.7 - 48.1 fL [facility] NRBC abs 0.00 0.00 - 0.01 K/cumm [facility] Blood 05/05/2025 12:5 8 AM CAR SALESPERSON 05/05/2025 1:28 AM CAR SALESPERSON Tiffany Schrader MD LAB BLOOD ORDERABLES Final Result Performing Organization Address City/[facility]/ZIP Co de Phone Number [facility] Department [place] [address] * Phosphorus (05/05/2025 12:58 AM CAR SALESPERSON) [facility] Phosphorus, pl 3.1 2.3 - 4.5 mg/dL Blood 05/05/2025 12:5 8 AM CAR SALESPERSON 05/05/2025 1:28 AM CAR SALESPERSON Tiffany Schrader MD LAB BLOOD ORDERABLES Final Result [facility] [place] [address] * Magnesium (05/05/2025 12:58 AM CAR SALESPERSON) [facility] Magnesium 2.2 1.4 - 2.5 mg/dL Blood 05/05/2025 12:5 8 AM CAR SALESPERSON 05/05/2025 1:28 AM CAR SALESPERSON Tiffany Schrader MD LAB BLOOD ORDERABLES Final Result [facility] Department [place] [address] * Comprehensive metabolic panel (05/05/2025 12:58 AM CAR SALESPERSON) Pathologist [facility] Sodium 135 135 - 145 mmol/L Potassium, pl 3.8 3.3 - 4.9 mmol/L [facility] Comment:Hemolyzed; Potassium value may be falsely elevated by as much as 0.3-0.5 mmol/L. Suggest redraw and reanalysis. Chloride 101 97 - 110 mmol/L [facility] CO2 25 22 - 32 mmol/L [facility] Anion gap 9 2 - 15 mmol/L [facility] BUN 16 6 - 25 mg/dL [facility] Creatinine 0.87 0.80 - 1.30 mg/dL [facility] Glucose 79 70 - 199 mg/dL [facility] Comment: Interpretive Data Fasting glucose >/= 126 [...] interpretive data was last revised 2022. Calcium 9.1 8.5 - 10.3 mg/dL [facility] Bilirubin, total 0.9 0.1 - 1.2 mg/dL [facility] Protein, pl 6.7 6.5 - 8.5 g/dL [facility] Albumin 3.5 3.5 - 5.0 g/dL [facility] Alk phos 90 40 - 130 Units/L [facility] ALT 17 7 - 55 Units/L [facility] AST 33 10 - 50 Units/L [facility] Comment:Hemolyzed; result ma y be falsely elevated Blood 05/05/2025 12:5 8 AM CAR SALESPERSON 05/05/2025 1:28 AM CAR SALESPERSON Tiffany Schrader MD LAB BLOOD ORDERABLES Final Result Performing Organization Address [facility] Co de Phone Number [facility] [place] [address] * Troponin I high-sensitivity 4-hour (05/04/2025 10:46 PM CAR SALESPERSON) Trop I hs 18 <=35 ng/L Comment: Interpretive Data For further hscTnI resources including the diagnostic algorithm and an aid in interpretation, copy and paste this link: [email or web address]/[email or web address] Current Interpretive Data last revised 2020. Trop I hs delta -1 ng/L [facility] Trop I hs interp Insignificant [facility] Blood 05/04/2025 10:4 6 PM CAR SALESPERSON 05/04/2025 10:56 PM CAR SALESPERSON Sandeep Timmons MD LAB BLOOD ORDERABLES Final Re sult Performing Organization Address [facility] Co de Phone Number [facility] [place] [address] * Troponin I high-sensitivity series (baseline, 2hr, 4hr, 6hr) (05/04/2025 6:33 PM CAR SALESPERSON) Trop I hs 19 <=35 ng/L Comment: Interpretive Data For further hscTnI resources including the diagnostic algorithm and an aid in interpretation, copy and paste this link: [email or web address] Current Interpretive Data last revised 2020. Blood 05/04/2025 6:33 PM CAR SALESPERSON 05/04/2025 6:46 PM CAR SALESPERSON Sandeep Timmons MD LAB BLOOD ORDERABLES Final Re sult Performing Organization Address [facility] Co de Phone Number [facility] Department [place] [address] * eGFR (05/04/2025 6:33 PM CAR SALESPERSON) eGFR 88 >=60 mL/min/1. 73 m2 Comment: Interpretive Data [...] interpretive data was last reviewed 2021. Blood 05/04/2025 6:33 PM CAR SALESPERSON 05/04/2025 6:46 PM CAR SALESPERSON Yudi Baltazar MD LAB BLOOD ORDERABLES Fi nal Result Performing Organization Address [facility]/ZIP Co de Phone Number [facility] Department [place] [address] * (ABNORMAL) Differential, auto (05/04/2025 6:33 PM CAR SALESPERSON) Pathologist [facility] Neutrophil abs 4.44 1.50 - 6.50 K/cumm Imm gran abs 0.02 0.00 - 0.10 K/cumm [facility] Lymphocyte abs 0.76(L) 0.80 - 3.30 K/cumm [facility] Monocyte abs 0.62 0.20 - 0.80 K/cumm [facility] Eosinophil abs 0.12 0.00 - 0.50 K/cumm [facility] Basophil abs 0.04 0.00 - 0.10 K/cumm [facility] Neutrophil pct 74.0 % [facility] Comment: Interpretive Data Percent cell count reference ranges are not reported, since discordance with absolute values may lead to misinterpretation of CBC data. Current Interpretive Data was last revised on 2017. Imm gran pct 0.3 % [facility] Comment: Interpretive Data Percent cell count reference ranges are not reported, since discordance with absolute values may lead to misinterpretation of CBC data. Current Interpretive Data was last revised on 2017. Lymphocyte pct 12.7 % [facility] Comment: Interpretive Data Percent cell count reference ranges are not reported, since discordance with absolute values may lead to misinterpretation of CBC data. Current Interpretive Data was last revised on 2017. Monocyte pct 10.3 % [facility] Comment: Interpretive Data Percent cell count reference ranges are not reported, since discordance with absolute values may lead to misinterpretation of CBC data. Current Interpretive Data was last revised on 2017. Eosinophil pct 2.0 % [facility] Comment: Interpretive Data Percent cell count reference ranges are not reported, since discordance with absolute values may lead to misinterpretation of CBC data. Current Interpretive Data was last revised on 2017. Basophil pct 0.7 % [facility] Comment: Interpretive Data Percent cell count reference ranges are not reported, since discordance with absolute values may lead to misinterpretation of CBC data. Current Interpretive Data was last revised on 2017. Blood 05/04/2025 6:33 PM CAR SALESPERSON 05/04/2025 6:47 PM CAR SALESPERSON us Yudi Baltazar MD LAB BLOOD ORDERABLES Fi nal Result [facility] Department [place] [address] * (ABNORMAL) CBC with auto differential (05/04/2025 6:33 PM CAR SALESPERSON) [facility] WBC 6.00 3.80 - 9.90 K/cumm Hgb 13.0 13.0 - 17.5 g/dL [facility] Hct 36.9(L) 38.9 - 50.3 % [facility] Plt 200 150 - 400 K/cumm [facility] MPV 9.0(L) 9.1 - 12.3 fL [facility] RBC 3.95(L) 4.30 - 5.80 M/cumm [facility] MCV 93.4 81.3 - 96.4 fL [facility] MCH 32.9 27.1 - 33.3 pg [facility] MCHC 35.2 32.3 - 35.7 g/dL [facility] RDW CV 14.2 11.1 - 14.9 % [facility] RDW SD 47.6 35.7 - 48.1 fL [facility] NRBC abs 0.00 0.00 - 0.01 K/cumm [facility] Blood 05/04/2025 6:33 PM CAR SALESPERSON 05/04/2025 6:47 PM CAR SALESPERSON us Yudi Baltazar MD LAB BLOOD ORDERABLES Fi nal Result [facility] [place] [address] * TSH (05/04/2025 6:33 PM CAR SALESPERSON) [facility] Thyroid Stimulating Hormone 2.86 0.30 - 4.20 mcIUnit/mL Blood 05/04/2025 6:33 PM CAR SALESPERSON 05/04/2025 6:46 PM CAR SALESPERSON Tiffany Schrader MD LAB BLOOD ORDERABLES Final Result [facility] [place] [address] * Magnesium (05/04/2025 6:33 PM CAR SALESPERSON) Magnesium 2.2 1.4 - 2.5 mg/dL Blood 05/04/2025 6:33 PM CAR SALESPERSON 05/04/2025 6:46 PM CAR SALESPERSON Tiffany Schrader MD LAB BLOOD ORDERABLES Final Result [facility] Department [place] [address] * Comprehensive metabolic panel (05/04/2025 6:33 PM CAR SALESPERSON) Pathologist [facility] Sodium 136 135 - 145 mmol/L Potassium, pl 3.8 3.3 - 4.9 mmol/L [facility] Chloride 98 97 - 110 mmol/L [facility] CO2 25 22 - 32 mmol/L [facility] Anion gap 13 2 - 15 mmol/L [facility] BUN 15 6 - 25 mg/dL [facility] Creatinine 0.86 0.80 - 1.30 mg/dL [facility] Glucose 98 70 - 199 mg/dL [facility] Comment: Interpretive Data Fasting glucose >/= 126 [...] interpretive data was last revised 2022. Calcium 9.2 8.5 - 10.3 mg/dL [facility] Bilirubin, total 0.9 0.1 - 1.2 mg/dL [facility] Protein, pl 6.9 6.5 - 8.5 g/dL [facility] Albumin 3.8 3.5 - 5.0 g/dL [facility] Alk phos 97 40 - 130 Units/L [facility] ALT 18 7 - 55 Units/L [facility] AST 27 10 - 50 Units/L [facility] Blood 05/04/2025 6:33 PM CAR SALESPERSON 05/04/2025 6:46 PM CAR SALESPERSON us Yudi Baltazar MD LAB BLOOD ORDERABLES Fi nal Result [facility] Department [place] [address] from Last 3 Months Additional Health Concerns Active Problems Noted Date Diagnosed Date Initial Follow-Up Appointment 05/14/2025 Note: Pt hospitalized for ortho hypotension. 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 Epic risk 15 Barriers to Medication Adherence 05/14/2025 Insurance MEDICARE [employer] [facility] MEDICARE [employer]ILRO[employer] [facility] MEDICARE MEDICARE [employer]ILRO[employer] [facility] MEDICARE RAILROAD [facility] Advance Directives For more information, please contact: [phone] * Full Code (Latest Code Status on File) Date Activated Date Inactivated Comments 05/04/2025 11:23 PM 05/12/2025 5:40 PM * Full Code Date Activated Date Inactivated Comments 07/24/2018 7:20 PM 07/25/2018 6:19 PM Care Teams Internet Consultant Relationship Specialty Start Date End Date Lenin Harden MD PCP - General Internal Medicine 08/28/22 Travis Augustine MD PhD Referring Physician Cardiology 11/23/18 Gene Child MD [facility], [address] [place] [address] Internal Medicine 05/04/25 Tammie Su, RN [id number] [address] [facility] [employer] [employer] 05/14/25
== END 2025-05-17 14:56 | disposition home or self-care (01) ==
LOC: ANHLAB 14:59
PROVIDERS: PCP Internal Medicine; Visit Provider Internal Medicine
DX: E03.9 Hypothyroidism, unspecified (principal); Z79.899 Other long term (current) drug therapy
CPT/HCPCS: 36415; 84439; 84443

== ENCOUNTER 2025-06-04 11:51 | Outpatient (CLI) | payer MEDICARE, SELFPAY ==
[2025-06-04 13:17] LABS: Add Urine Microscopic? YES; Appearance Urine Clear (Clear); Glucose Urine UA Negative (Negative); Leukocyte Esterase Ur 3+ LEU/UL (Negative); Nitrate Urine Negative (Negative); Non Pathogenic Casts 0-2; Specific Grav Ur 1.006 (1.001-1.035)
== END 2025-06-04 11:52 | disposition home or self-care (01) ==
PROVIDERS: PCP Internal Medicine; Visit Provider Internal Medicine
DX: R35.0 Frequency of micturition (principal)
CPT/HCPCS: 81001; 87086

== ENCOUNTER 2025-06-08 13:52 | Outpatient (CLI) | payer MEDICARE, SELFPAY | END 2025-06-08 13:53 | disposition home or self-care (01) | PROVIDERS: PCP Internal Medicine; Visit Provider Internal Medicine | DX: Z01.89 Encounter for other specified special examinations (principal) | CPT/HCPCS: 36415; 86900; 86901 ==